=== PATIENT | female | born 1970 | race Caucasian/White ===

== ENCOUNTER 2018-01-17 05:37 | Day surgery (SDC) | payer OTHER, SELFPAY ==
[2017-12-28 08:08] VITALS: BMI 25.9
[2018-01-12 18:00] LABS: Hematocrit 39.9 % (37-47); Hemoglobin 13.2 g/dl (12.0-15.0); Mean Corp Hgb Conc 33.1 g/gl (32-36); Mean Corpuscular Hgb 29.2 pg (27.0-32.0); Mean Corpuscular Volume 88.3 fL (81-99); Mean Platelet Vol. 9.5 fl (6.2-12.0); Platelet Count 260 K/mm3 (150-450); RBC Distribution Width CV 12.5 % (11.6-14.6); RBC Distribution Width SD 40.3 fl (35.1-43.9); Red Blood Count 4.52 M/mm3 (4.2-5.4); White Blood Count 6.3 K/mm3 (4.4-11.0)
[2018-01-12 18:01] LABS: Scan Indicated on CBC? Y/N NO
[2018-01-12 18:32] LABS: Creatinine, Serum 0.71 mg/dL (0.55-1.02); EST Glomerular Filtration Rate 93 mL/min (>60); Est Glom Filt Rate - Afr Amer 112 mL/min (>60); Thyroid Stim Hormone (TSH) 0.02 uIU/mL (0.358-3.74)
[2018-01-12 18:39] LABS: Partial Thromboplast Time 29.9 Seconds (24.1-36.2)
[2018-01-12 20:48] LABS: Prothrombin Time (Protime)PT. 12.8 SECONDS (11.7-14.9)
[2018-01-13 10:47] LABS: Free T3 3.7 pg/mL (2.18-3.98); T4 Free Direct 1.48 ng/dL (0.76-1.46)
--- NOTE | 2018-01-16 20:14 | HP.PCM_ITS ---
History and Physical Date of Admission: 01/17/18 Surgical History and Physical Jie Marques, a 47 year old female 0 0 0 0 0, presents for RAVH/BS on January 17, 2018 at 10:00. -- Uterine Fibroids -- Extremely heavy menses She has known fibroids. UTERUS: 11.2 x 10.4 x 8.6 cm and is completely filled with fibroids. UTERUS: 4.2 x 4.1 x 2.9 cm. There is a 9.3 x 7.3 x 11 cm pedunculated, fundal fibroid. There is a large amount of blood flow where the fibroid connects to the uterus. Pelvic pressure and fullness, heavy menses which began several years ago. It occurs all the time. It is located in the pelvic area. Severity is severe; It is aggravated by pressure and discomfort worse with menses that are heavy. Associated signs and symptoms are pain with IC. Additional comments are: pelvic u/s showed 14cm bulbus uterus with multiple uterine fibroids present; nulliparous. MEDICATIONS HISTORY: Current medications prescribed by our practice are: 1. Lupron Depot 3.75 mg intramuscular syringe kit, 1 injection q month Patient is also takin. levothyroxine 137 mcg tablet, daily 2. Multi For Her 18 mg iron-600 mcg capsule, daily 3. Os-Constantin 500 + D 500mg (1,250mg) -600 unit tablet, daily 4. vitamin E (dl, acetate) 200 unit capsule, daily ALLERGIES: Penicillin, Rash, Penicillins, Rash, Soap, Rash and itching Infections - Chicken pox and yeast inf Illnesses - hypothyroidism,Heart murmur Accidents - no injuries of consequence Hospitalizations - see surgery Review of Systems: GENERAL - Denies fever, or chills SKIN - Denies skin changes EYES - Denies visual changes EARS - Denies difficulty hearing NOSE - Denies nasal congestion or bleeding MOUTH - Denies sore throat or difficulty swallowing NECK - Denies pain or swelling RESPIRATORY - Denies shortness of breath or wheezing CARDIOVASCULAR - Denies palpitations or chest pain GASTROINTESTINAL - Denies nausea, vomiting, diarrhea, constipation GENITOURINARY - Denies dysuria, frequency of urination, incontinence of urine MUSCULOSKELETAL - Denies joint or muscle pain NEUROLOGICAL - Denies localized numbness or weakness PSYCHIATRIC - Denies depression or anxiety ENDOCRINE - Denies heat or cold intolerance, weight loss or gain HEMATO-IMMUNOLOGIC - Denies excesive bleeding with cuts SOCIAL HISTORY: Alcohol Use - RARELY Smoking - denies smoking Diet - balanced Diet Lifestyle - moderate stress lifestyle and Exercise - very active Seat Belt Use - always Employer - [employer] 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 Mother: liver disease. Paternal Grandfather: DM II. Maternal Aunt: DM II. MENSTRUAL HISTORY: LMP Known?- DefiniteAmount/Duration - 4 days, Regularity - Regular, Frequency - monthly days, LMP - 09/27/17, Age Onset Menarche - 12 PAST PREGNANCIES: Total Pregnancies - 0; Full Term Pregnancies - 0; Premature - 0; Abortions, Induced - 0; Abortions, Spontaneous - 0; Ectopics - 0; Multiple Births - 0; Living Children - 0 SURGICAL HISTORY: 1. 1994 left knee arthroscopy ; - 2. 1998 left knee ACL reconstruction ; - 3. 02/15/2004 Back surgery ; - L4,L5 and S1 4. 04/08/2004 Spinal fluid leak-repair from the first surgery ; - 5. 2007 Arthroscopic Left Knee, July ; Dr. Pillai - 6. -2007 Arthroscopic Rt. Knee ; Dr. Pillai - PHYSICAL EXAM BP- 156/70 Sitting, Right arm, regular cuff Weight- 172.00528 lbs Height- 68.75 inch BMI:25.64 CONSTITUTIONAL - NAD, well nourished, and well developed HEENT - normocephalic, atraumatic, sclerae anicteric NECK - no nuchal rigidity NEUROLOGICAL - Cranial nerves II-XII grossly intact PSYCHIATRIC - A and O to time, place, person, mood and affect PAP SMEAR - deferred External Genitial Vagina - non-tender without lesions Urethra/Urethral Meatus - non-tender Bladder - non-tender Vagina - no palpable lesions Cervix - without cervical motion tenderness and has normal size and features without evident lesions Uterus - R side no mass palpable. L side more fixed. 2-3 cm L lower uterine segment / cervical fibroid lateral to cervix. Uterus overall 10-11 cm. more mobile than prior exam. Adnexa - clear without massess or tenderness Rectal - deferred ASSESSMENT/PLAN: 1. Dyspareunia, Leiomyoma Of Uterus, Unspecified and Pelvic and perineal pain S/P 3 mo DepoLupron. Planning RAVH bilateral salpingectomy; Uterus small and multiple fibroids noted. Cervical and lower uterine segment fibroid approx 2-3 cm palpable at L side. R side mobile. Pedunculated fibroid at fundus 9 cm. Advised of anticipated preop, operative and postop recovery with activity restrictions. Aware of potential need for HERRERA, bilateral salpingectomy if unable to complete robotically.
[2018-01-17] VITALS (12 sets, daily range): BP systolic 84–120; BP diastolic 44–68; PULSE 46–99; RESP 14–16; TEMP 36.2–37.7; O2SAT 96–100; BMI 25.9
[2018-01-17 06:06] LABS: Internal QC Validated? YES +Cl - CLEAR BKGD; Pregnancy, Urine Negative Negative
--- NOTE | 2018-01-17 07:30 | HYST_PTH ---
PATIENT: CHAVEZ ADAMS LOC: [facility] [place] U#:[id number] AGE/SX: 47/F ROOM: RE01/17/[address]: Dr. Moi Fisher MD : [id number] BED: DIS: 01/18/2018 SPEC #: [id number] RECD: 01/17/18 11:43 STATUS: RAO FRANSISCA #: [id number] RICK: 01/17/18 07:[address]: Moi Fisher DEPT: SURGICAL PATHOLOGY RECD BY: Aba Hernandez ENTERED: 01/17/18 12:56 SP TYPE: HYSTERECT OTHR DR: Dr. Lala Johnson MD Tissues: Uterus, NOS Procedures: Surgery Specimen Level V HEADER OPERATION: ERAS-lap robotic hysterectomy, salpingectomy PRE-OP DIAGNOSIS: Uterine fibroids TISSUE SUBMITTED: Uterus, bilateral tubes and uterine fibroids MICROSCOPIC DIAGNOSIS Uterus, hysterectomy: Cervix - mild chronic inflammation. Endometrium - mildly disordered proliferative endometrium. Myometrium - leiomyomas. Right and left fallopian tubes - no pathologic change. AM:ralph 01/18/18 COMMENT The majority of the fragments of the leiomyomas are free in the specimen container. MICROSCOPIC DESCRIPTION Slides are reviewed. GROSS DESCRIPTION Received in fixative is one container labeled with the patient's name and designated uterus. The specimen consists of a uterus with attached cervix and right and left fallopian tubes. The uterus with cervix measures 7 x 4.5 x 3 cm and weighs 35 gm. The ectocervix is unremarkable. The cervical os is round in contour. The endocervical canal measures 2.5 cm in length and is grossly unremarkable. The triangular endometrial cavity measures 2 x 1.5 cm. The reddish-juarez, velvety, glistening endometrium measures up to 0.1 cm in thickness. The myometrium is 1 cm in average thickness and contains a smooth, glistening rubbery nodule measuring 1 cm in greatest dimension and consistent with leiomyoma. The right and left fallopian tubes are similar in appearance averaging 7 cm in length and 0.5 cm in average diameter. No adhesions are seen. Present free in the container are multiple irregular and rubbery fragments of morcellated nodules ranging in size from 0.5 cm to 9.5 cm and in aggregate measuring 15 x 14 x 5 cm. Serial sections of these rubbery fragments reveal juarez-white cut surfaces without areas of cyst formation or necrosis. Metal Mine Inspector sections are submitted in 12 cassettes as follows: 1 - anterior cervix, 2 - posterior cervix, 3 & 4 - anterior uterine wall, 5 & 6 - posterior uterine wall with intramyometrial nodule, 7 - right fallopian tube, 8 - left fallopian tube, 9-12 - claims representative sections of rubbery fragments free in container. / AM:ralph 01/17/18 TC:1 CPT: 01041
[2018-01-17] MEDS: Ropivacaine 0.5% 30 ML Vial (07:50)
--- NOTE | 2018-01-17 10:46 | OP.PCM_ITS ---
Report of Operation Date of Procedure: 01/17/18 Pre-Operative Diagnosis: Menorrhagia and Large Symptomatic Uterine Fibroids Post-Operative Diagnosis: Menorrhagia and Large Symptomatic Uterine Fibroids Surgery/Procedure Performed:: Robotic assisted vaginal hysterectomy and bilateral salpingectomy Description of Surgical Findings:: 6-7 cm size uterus with normal-appearing fallopian tubes and ovaries. Approximately a 10 cm multiloculated pedunculated fundal fibroid. Adhesions of fibroid to rectosigmoid and sidewalls. customer resource specialist: Emmanuel Davenport Type of Anesthesia:: General Anesthesiologist: Noni Christensen Specimen's removed: Bilateral fallopian tubes and uterus with large uterine fibroids. Drains: Leavitt to straight drain Estimated Blood Loss (mL): 200 cc Fluids Replaced: Crystalloid Description of Procedure: Surgeon: Moi Fisher MD, FACOG Indication: This is a 47 year old patient G0 who has been having problems with large symptomatic uterine fibroids and menorrhagia. Lupron was used to decrease the size of the fibroid. Conservative measures have otherwise not been helpful. The patient has been counseled regarding the risks, benefits and alternatives of this procedure including the possibility of bleeding, infection, and injury to surrounding structures such as bowel bladder and all questions were answered. She understands that if BSO is needed that she will need to be on HRT for an indefinite period of time. Procedure: Pt taken to the operating room where after induction of general anesthesia the patient was prepped and draped in the usual sterile fashion and placed on a non-slip Huggy-u-vac device. Trendendelenburg test was satisfactory. Bladder was drained of urine with a Leavitt catheter which was left in place. Anterior cervix grasped and cervix was dilated to about 3-4 mm. Uterus sounded to 6 cms. 0-Vicryl suture was placed at the 3:00 and 9:00 position of the cervix. A small V-care device was then placed in the uterus to allow uterine manipulation and attention was turned to the laparoscopic portion of the procedure. Ropivocaine 0.5% was injected approximately 2-3 cm superior to the umbilicus and an 8 mm robotic camera port was introduced directly with intraperitoneal placement confirmed with insufflation. A 5 mm blade less trocar was also introduced suprapubically under direct visualization. After manipulation of the uterus and fibroids it was decided to proceed with the robotic surgery. 8 mm robotic side ports were introduced under direct visualization approximately 11 cm lateral and 2 cm inferior to the umbilical port. A 5 mm left upper quadrant port was introduced and airseal insufflation with CO2 was started. The above findings were noted. Robot was docked without difficulty and attention turned to the robotic portion of the procedure. Approximately 20 cc of Ropivicaine was used. Filmy adhesions were cleared with bipolar cautery and monopolar scissors. The stalk connecting the uterus to the fibroid was divided with bipolar cautery and attention was turned toward the hysterectomy portion procedure. Bilateral mesosalpinx were ligated with 45 mcnally bipolar coagulation to the level of the round ligament. The posterior aspect of the cervix was identified and then opened for about 1 cm using 25 watt monopolar cautery identifying the V-care device which had been placed vaginally. Bladder flap was opened and divided to the level of the round ligaments using monopolar cautery. Progressive bites were then ligated on each side of the cervix with 35 mcnally bipolar cautery to the uterine arteries. The anterior vaginal mucosa was then entered and cervix circumscribed with monopolar cautery. Uterus and attached ovaries and tubes were then removed through the vagina. The remaining uterine fibroid was grasped with Lobo and standard tenaculums and brought to the vaginal opening. It was necessary to morcellate these multiple uterine fibroids to bring them through the vagina. The fibroids had been removed from the vagina, vaginal cuff was closed first with 0-Vicryl Shiva stitches placed at each angle followed by 3 [id number] sutures across the vaginal cuff using 0 Vicryl suture. 0 Vicryl suture was then used in running fashion to oversew the vaginal cuff. Pelvis was copiously irrigated with saline and the right and left ureters polk noted to peristalse. FloSeal was placed across some areas where adhesions had been attached and good hemostasis was noted. Robot was undocked and trocars were removed with as much gas as possible. Incisions were closed with 4-0 Monocryl subcuticular sutures and incisions covered with steri-strips and opsite dressing. The patient tolerated the procedure well and was taken to the recovery room in satisfactory condition. Sponge, instruments and needle counts were all correct. There were no apparent complications of the surgery. Cefotan 2 gms IV was given prior to the procedure. Specimen to pathology: Bilateral fallopian tubes and uterus along with large fibroid. Grafts/Implants Used: None - Complications None - Admit VTE Documentation VTE Present on Admission: Yes VTE Mechan Device Prophylaxis: SCD's VTE Pharm Prophylaxis ordered?: Yes
--- NOTE | 2018-01-17 10:50 | DCINST_ITS ---
Discharge Diet: No Restrictions Discharge Activity: Return to Normal Activity, May not drive while taking narcotic pain medications., May Shower May resume sexual activity in: 6-8 weeks Call your doctor if your incision/area has: Continuous Slow Oozing, Sudden Increased Bleeding, Increased Pain/ Swelling, Increased Redness, Foul Smelling Discharge Call your doctor if you observe: Fever of 101 or Higher, Inability to urinate, Inability to have a bowel movement, Using more than one pad per hour Allergies/Adverse Reactions: Allergies penicillin G Allergy (Severe, Verified 01/10/18 08:04) rash Medications to take at Discharge calcium carbonat and lactate 200 mg calcium-vitamin D3 250 unit tablet 2 tab PO QAM 09/07/17 levothyroxine 137 mcg tablet 137 mcg PO QDAY 09/07/17 multivitamin capsule 1 cap PO QAM 09/07/17 vitamin D 1.25mcg PO 09/07/17 vitamin E (dl, acetate) 200 unit capsule 200 unit PO QDAY 09/07/17 biotin 1 mg capsule 1 mg PO DAILY 12/28/17 leuprolide 3.75 mg intramuscular syringe kit 3.75 mg IM QMONTH 12/28/17 Docusate Sodium [Colace] 100 mg PO BID PRN PRN #60 cap 01/17/18 Oxycodone [Oxyir] 5 mg PO Q6H PRN PRN 7 Days #20 tab 01/17/18 The following prescriptions were given: Oxycodone [Oxyir] 5 mg PO Q6H PRN PRN 7 Days #20 tab PRN Reason: Severe Pain (-11/17) Docusate Sodium [Colace] 100 mg PO BID PRN PRN #60 cap PRN Reason: Constipation Primary Care Physician: Lala Johnson MD [Primary Care Provider] - Test Results: Test results from this visit will be discussed in further detail at your follow- up appointment, if applicable. Please Follow Up With: Moi Fisher MD When: 2-3 weeks
--- NOTE | 2018-01-17 11:56 | SUR.PHASEI ---
IN PACU: DR ROMMEL LEE NOTIFIED OF BRADYCARDIA IN 40-50'S WITH FREQUENT PAC, SOME PVC. ASYMPTOMATIC. SBP 80'S, WAS LOW 90'S IN O.R. INSTRUCTED TO CONTINUE TO MONITOR, CALL ANESTHESIA IF BP DROPS LOWER.
[2018-01-17] MEDS: Dextrose 5%-Lactated Ringers 1,000 ML 125 ML IV ×2 (12:03→19:36)
[2018-01-17] MEDS: Ketorolac 30 MG/ML Syringe IV ×2 (17:04→21:28)
[2018-01-17] MEDS: Enoxaparin 30 MG/0.3 ML Syringe SC (17:58)
[2018-01-18 02:48] VITALS: BP 96/55; PULSE 82; RESP 16; TEMP 37; O2SAT 100
[2018-01-18] MEDS: Ketorolac 30 MG/ML Syringe IV (05:16)
[2018-01-18] MEDS: Levothyroxine 137 MCG Tablet PO (05:33)
[2018-01-18 05:47] LABS: Hematocrit 34.9 % (37-47); Hemoglobin 11.5 g/dl (12.0-15.0); Mean Corpuscular Hgb 29.8 pg (27.0-32.0); Mean Corpuscular Volume 90.4 fL (81-99); Platelet Count 242 K/mm3 (150-450); RBC Distribution Width CV 12.4 % (11.6-14.6); RBC Distribution Width SD 40.4 fl (35.1-43.9); Red Blood Count 3.86 M/mm3 (4.2-5.4); White Blood Count 10.1 K/mm3 (4.4-11.0)
[2018-01-18 06:01] LABS: Scan Indicated on CBC? Y/N NO
[2018-01-18 06:08] LABS: Creatinine, Serum 0.76 mg/dL (0.55-1.02); EST Glomerular Filtration Rate 86 mL/min (>60); Est Glom Filt Rate - Afr Amer 104 mL/min (>60); Estimated Creatinine Clearance 91.32 ml/min
[2018-01-18 06:50] VITALS: O2SAT 99
[2018-01-18 08:15] VITALS: BP 115/63; PULSE 71; RESP 16; TEMP 36.9; O2SAT 99
--- NOTE | 2018-01-18 09:04 | PN.OBGYN_ITS ---
Subjective: Patient without complaints. Tolerating diet well. Positive flatus. Some vaginal bleeding yesterday but this has subsided markedly. Pain well con trolled. Ready to go home. - Physical Exam Vital Signs Temp Pulse Resp BP Pulse Ox 98.5 F 71 16 115/63 99 01/18/18 08:15 01/18/18 08:15 01/18/18 08:15 01/18/18 08:15 01/18/18 08:15 Oxygen Flow Rate (L/min) 1 Oxygen Delivery Method Room Air Weight: 170 lb 13.732 oz Body Mass Index (BMI) 25.9 Intake and Output for Last 24 Hours 01/16/18 01/17/18 01/18/18 23:59 23:59 23:59 Intake Total 5701 / 5701 825 / 825 Output Total 1625 / 1625 1000 / 1000 Balance 4076 / 4076 -175 / -175 Laboratory Tests Past 24 Hrs 01/18/18 01/18/18 05:35 05:35 WBC 10.1 RBC 3.86 L Hgb 11.5 L Hct 34.9 L MCV 90.4 MCH 29.8 MCHC 33.0 RDW 12.4 RDW Differential 40.4 Plt Count 242 MPV 10.0 Creatinine 0.76 Estim Creat Clear Calc 91.32 Est GFR (MDRD) Af Amer 104 Est GFR (MDRD) Non-Af 86 Wounds are clean, dry, intact. Good urine output. Hemoglobin and creatinine okay. Some bruising around airseal port but appears stable. Medical Necessity - Tobacco Use Smoking Status: Never smoker Assessment/Plan All Active Problems (Last Reviewed 09/10/17 @ 09:40 by Hailey Montoya) Joint pain (Acute) Doing well postoperative day #1 status post robotic assisted vaginal hysterectomy and bilateral salpingectomy. Will release to home with routine instructions. Vaginal pack out with minimal vaginal bleeding noted.
[2018-01-18] MEDS: Ketorolac 10 MG Tablet PO (10:33)
[2018-01-18 13:40] VITALS: BP 116/63; PULSE 81; RESP 16; TEMP 37.1; O2SAT 99
== END 2018-01-18 14:25 | disposition home or self-care (01) ==
LOC: SDC 05:38 → AC 05:38 → MS2 10:10
PROVIDERS: Anesthesiology; Family Provider Internal Medicine; PCP Internal Medicine; Referring Provider Obstetrics & Gynecology; Visit Provider Obstetrics & Gynecology
PROC: 0UT94ZZ Resection of Uterus, Percutaneous Endoscopic Approach (ICD-10-PCS; CPT 58552; principal; 2018-01-17 07:10)
DX: D25.9 Leiomyoma of uterus, unspecified (principal); N72 Inflammatory disease of cervix uteri; N92.0 Excessive and frequent menstruation with regular cycle; E03.9 Hypothyroidism, unspecified; Z79.899 Other long term (current) drug therapy; Z88.0 Allergy status to penicillin; Z87.442 Personal history of urinary calculi
CPT/HCPCS: 00840; 58552; S2900; 36415; 81025; 82565; 84439; 84443; 84481; 85027; 85610; 85730; 86850; 86900; 88307; 97802; J7120; J2405

== ENCOUNTER → 2018-03-14 07:45 | Outpatient (CLI) | payer OTHER, SELFPAY ==
[2018-01-24 09:49] VITALS: BMI 25.9
--- NOTE | 2018-03-14 07:49 | BI_ITS ---
MAMMOGRAPHY - BILATERAL SCREENING REASON FOR EXAM: Female, 47 years old. Routine annual screening examination. PERTINENT HISTORY: Aunt with breast cancer. TECHNIQUE: Digital bilateral breast delfino (3D mammographic acquisition) in the CC and MLO projections. 2-D mediolateral oblique (MLO) and craniocaudad (CC) views of both breasts were obtained. CAD: Full Field Digital Mammography with Computer Added Detection was performed. COMPARISON: Comparison is made with prior study dated October 13, 2016 and October 01, 2015. FINDINGS: Breast Composition: The breasts are heterogeneously dense, which may obscure small masses. There are no dominant masses or suspicious calcifications. No other significant abnormalities are identified. There has been no significant change since the prior study. BI/SCREENING MAMM (CAD), BILAT IMPRESSION: Stable bilateral screening mammogram. Yearly follow-up mammogram recommended. (A) ASSESSMENT CATEGORY: BIRADS Category 1: Negative. A letter regarding these results will be sent to the patient by the facility within 30 days. Approximately 10% of breast cancers are not detected by mammography. A normal mammogram should not delay biopsy of a clinically suspicious abnormality. [id number] Electronically Signed: Bertin Rai MD at 9:06 EST , Service support ,
== END ==
PROVIDERS: Family Provider Internal Medicine; PCP Internal Medicine; Referring Provider Obstetrics & Gynecology; Visit Provider Obstetrics & Gynecology
DX: Z12.31 Encounter for screening mammogram for malignant neoplasm of breast (principal)
CPT/HCPCS: 77063; 77067

== ENCOUNTER → 2018-11-09 08:00 | Outpatient (CLI) | payer OTHER, SELFPAY ==
[2018-10-24 08:13] VITALS: BMI 25.9
--- NOTE | 2018-11-09 08:02 | EKG12_ITS ---
Test Reason : FLUTTERING Blood Pressure : / mmHG Vent. Rate : 047 BPM Atrial Rate : 047 BPM P-R Int : 142 ms QRS Dur : 072 ms QT Int : 444 ms P-R-T Axes : 066 055 046 degrees QTc Int : 392 ms Marked sinus bradycardia Abnormal ECG Confirmed by RYDER MORRISON ([id number]), society editor SUSANNE RAM ([id number]) on 11/14/2018 12:10:42 PM Referred By: Lala Johnson Confirmed By:RYDER MORRISON
--- NOTE | 2018-11-09 08:02 | ECHOD_ITS ---
Reason For Study: Arrhythmia Procedure This was a 2D Doppler, Color Flow transthoracic echocardiogram. Contrast injection was performed. Exam performed in department. Left Ventricle Normal size and thickness. The estimated ejection fraction is 65 %. Normal diastology for age. No regional wall motion abnormalities noted. Right Ventricle Mildly dilated right ventricle. Normal systolic function. Atria Normal left atrium. Normal right atrium. Aneurysmal atrial septum. Bubble contrast study negative for right to left interatrial shunt. Mitral Valve The mitral valve is structurally normal. No prolapse or stenosis seen. Tricuspid Valve Normal tricuspid valve. Trivial tricuspid valve insufficiency. Right ventricular systolic pressure estimated to be 22 mmHg. Aortic Valve Normal aortic valve. Trisinus/trileaflet aortic valve. Pulmonic Valve Normal pulmonic valve. Trivial pulmonic valve insufficiency. Great Vessels Normal aortic root. Normal arch. Normal inferior vena cava. Inferior vena cava collapse with sniff. Pericardium/Pleural No pericardial effusion. Medication 22 gauge I.V. with prn adaptor inserted into right arm. Performed a rapid injection of agitated mix of 9 cc saline and 1cc air to assess for atrial septal defect. MMode/2D Measurements & Calculations LVIDd: 5.2 cm IVSd: 0.90 cm LA dimension: 3.7 cm LVIDs: 3.3 cm LVPWd: 1.0 cm RVDd: 3.6 cm FS: 36.1 % LAV(MOD-bp): 46.0 ml LA A4 area: 17.0 cm2 RA A4 area: 14.2 cm2 LAV(MOD-bp) Indexed: 23.8 ml/m2 LAV(MOD-sp2): 44.4 ml LAV(MOD-sp4): 41.0 ml Time Measurements MV dec time: 0.25 sec Doppler Measurements & Calculations MV E max armin: 70.3 cm/sec Lat Peak E' Armin: 8.3 cm/sec Med Peak E' Armin: 6.3 cm/sec MV A max armin: 62.6 cm/sec E/E' lat: 8.5 E/E' med: 11.1 MV E/A: 1.1 MV V2 max: 79.9 cm/sec MV P1/2t max armin: 79.9 cm/sec Ao V2 max: 104.9 cm/sec MV max P.6 mmHg MV P1/2t: 92.6 msec Ao max P.4 mmHg MV V2 mean: 49.7 cm/sec MV dec slope: 252.7 cm/sec2 Ao V2 mean: 70.1 cm/sec MV mean P.1 mmHg Ao mean P.2 mmHg MV V2 VTI: 25.7 cm MVA(P1/2t): 2.4 cm2 Ao V2 VTI: 23.4 cm LV V1 max: 82.0 cm/sec PA V2 max: 86.7 cm/sec TR max armin: 205.6 cm/sec LV V1 max P.7 mmHg TR max P.9 mmHg LV V1 mean P.4 mmHg LV V1 mean: 55.3 cm/sec LV V1 VTI: 19.2 cm Interpretation Summary The estimated ejection fraction is 65 %. Normal diastology for age. Mildly dilated right ventricle. Bubble contrast study negative for right to left interatrial shunt. Trivial tricuspid valve insufficiency. Right ventricular systolic pressure estimated to be 22 mmHg. There is no comparison study available. Ordering Physician: Lala Johnson Referring Physician: Lala Johnson Performed By: Luís Reddy RCS
== END ==
PROVIDERS: Family Provider Internal Medicine; PCP Internal Medicine; Referring Provider Internal Medicine; Visit Provider Internal Medicine
DX: I05.9 Rheumatic mitral valve disease, unspecified (principal); I49.9 Cardiac arrhythmia, unspecified
CPT/HCPCS: 93005; 93306; A4216

== ENCOUNTER 2018-11-21 20:39 | Emergency (ER) | payer OTHER, SELFPAY ==
[2018-10-24 08:13] VITALS: BMI 25.9
[2018-11-21 20:40] VITALS: BP 128/77; PULSE 68; RESP 16; TEMP 37; O2SAT 97; BMI 26.6
--- NOTE | 2018-11-21 21:54 | RAD_ITS ---
STUDY: X-RAY - NASAL BONES REASON FOR EXAM: Female, 48 years old. Tripped and hit door earlier. TECHNIQUE: 3 view(s) of the nasal bones. COMPARISON: None. FINDINGS: Normal nasal bones. Normal anterior nasal spine. There is no demonstrated soft tissue swelling. The remaining visualized osseous structures are normal. Normal visualized paranasal sinuses. RAD/Nasal Bones min 3 Views IMPRESSION: Normal x-ray examination of the nasal bones. Electronically Signed: Cassidy Meadows MD at 22:43 EDT Tel , Service support ,
--- NOTE | 2018-11-21 21:55 | ED.VIS.GEN ---
History of Present Illness Chief Complaint: Laceration Detail of Chief Complaint: Facial laceration Informant: Patient Onset: Today Current Severity: Mild Maximum Severity: Mild Narrative: Patient was walking at a local store trying to balance her bags and grab her keys. She lost her balance and fell forward into the door. She has a laceration just inferior to the right nares. It is not extend across the vermilion border. Teeth are stable. She did have a bloody nose at the time of the incident and she has early bruising noted over the nasal bridge. She has no vision change. Past Medical History - Allergies and Home Meds Allergies/Adverse Reactions: Allergies penicillin G Allergy (Severe, Verified 11/21/18 20:42) rash Penicillins Allergy (Unknown, Verified 11/21/18 20:42) rash Primary Care Physician: Lala Johnson MD [Primary Care Provider] - Prior records reviewed: Yes Past Medical History: - - Reviewed Lives: Spouse/ Significant Other Smoking Status: Never smoker Review of Systems General: Denies: Chills, Fever Eyes: Denies: Visual changes - bilaterally ENT: Reports: - - Nasal pain. Denies: Bilateral ear pain Cardiovascular: Denies: Chest pain Respiratory: Denies: Dyspnea, Cough Gastrointestinal: Denies: Abdominal pain, Nausea, Vomiting, Diarrhea Musculoskeletal: Denies: Extremity Pain Skin: Reports: Wounds Neurological: Reports: Headache Physical Exam Vital Signs/Narrative: Vital Signs Temp Pulse Resp BP Pulse Ox 11/21/18 20:40 98.6 F 68 16 128/77 H 97 Inital Vital Signs reviewed: Yes General: Well nourished, Well developed Head: Normocephalic ENT: Moist mucous membranes, - - Dried blood noted bilateral nares. No septal hematoma. 1 Center meter laceration extending vertically from the right nare. It does not extend across the vermilion border. Cardiovascular: Regular rate, Regular rhythm Respiratory: No distress, CTA bilaterally Abdomen: Soft, Nontender Back: Nontender Extremities: Nontender Skin: - - Laceration as above Neurological: Alert, Oriented x3 Psychological: Normal affect Diagnostic/Tx/Re-eval Impressions Nasal Bones X-Ray 11/21/18 21:54 IMPRESSION: Normal x-ray examination of the nasal bones. Electronically Signed: Cassidy Meadows MD at 22:43 EDT Tel , Service support , 11/21/18 21:54 Nasal Bones min 3 Views [RAD] Stat - Medical Decision Making Test results discussed with patient and sister at bedside. Initially plans to suture the laceration. They are very reluctant to have sutures as they want to minimize the scar as much as possible. They are interested in seeing either dermatology or plastic surgery tomorrow to have this repaired by them. I advised her that I can give her numbers but I could not guarantee that she would be seen. After discussing all of her options she chose to have the wound Dermabond repair at this time. Wound was cleansed. I held the laceration in place while nursing staff applied Dermabond across the wound. It was drying at this time. Patient was given wound care instructions. ED Disposition - Plan for ED Patient: Disposition: Home or Assisted Living Diagnosis: Facial laceration, Nasal contusion Instructions: LACERATION, Face (Skin Glue), Nasal Contusion Referrals: Lala Johnson MD [Primary Care Provider] - Kevan Elizondo MD [STAFF PHYSICIAN] - Talita Howard [NON-STAFF] - Rc Mclean MD [STAFF PHYSICIAN] -
[2018-11-21] MEDS: Diphth,Pertuss(Acell),Tet Vac 0.5 ML Vial IM (22:06)
[2018-11-21 23:31] VITALS: RESP 16
== END 2018-11-21 23:31 | disposition home or self-care (01) ==
PROVIDERS: Emergency Provider Emergency Medicine; Family Provider Internal Medicine; PCP Internal Medicine
DX: S01.81XA Laceration without foreign body of other part of head, initial encounter (principal); S00.33XA Contusion of nose, initial encounter; W01.10XA Fall on same level from slipping, tripping and stumbling with subsequent striking against unspecified object, initial encounter; Y93.01 Activity, walking, marching and hiking; Y92.512 Supermarket, store or market as the place of occurrence of the external cause; Y99.9 Unspecified external cause status; Z23 Encounter for immunization; Z79.899 Other long term (current) drug therapy; Z88.0 Allergy status to penicillin
CPT/HCPCS: 12011; 70160; 90471; 90715; 99282

== ENCOUNTER → 2019-04-07 06:59 | Outpatient (CLI) | payer OTHER, SELFPAY ==
[2018-12-13 14:35] VITALS: BMI 27.5
--- NOTE | 2019-04-07 07:02 | BI_ITS ---
MAMMOGRAPHY - BILATERAL SCREENING REASON FOR EXAM: Female, 48 years old. Routine annual screening examination. PERTINENT HISTORY: Paternal aunt had breast cancer TECHNIQUE: Digital bilateral breast jose (3D mammographic acquisition) in the CC and MLO projections. 2-D mediolateral oblique (MLO) and craniocaudad (CC) views of both breasts were obtained. CAD: Full Field Digital Mammography with Computer Added Detection was performed. COMPARISON: Previous mammogram obtained on 03/14/2018 FINDINGS: Breast Composition: Dense internal breast structure is seen There are no dominant masses or suspicious calcifications. No other significant abnormalities are identified. BI/SCREEN MAMM (CAD) W/JOSE BILAT IMPRESSION: Stable bilateral screening mammogram. Yearly follow-up mammogram recommended. (A) ASSESSMENT CATEGORY: BIRADS Category 1: Negative. A letter regarding these results will be sent to the patient by the facility within 30 days. Approximately 10% of breast cancers are not detected by mammography. A normal mammogram should not delay biopsy of a clinically suspicious abnormality. [id number] Electronically Signed: Moi María Elena, at 9:38 EST Tel , Service support ,
== END ==
PROVIDERS: PCP Internal Medicine; Referring Provider Obstetrics & Gynecology; Visit Provider Obstetrics & Gynecology
DX: Z12.31 Encounter for screening mammogram for malignant neoplasm of breast (principal)
CPT/HCPCS: 77063; 77067

== ENCOUNTER → 2020-01-03 | Outpatient (CLI) | payer OTHER, SELFPAY ==
[2019-12-22 08:12] VITALS: BMI 27.6
== END | disposition home or self-care (01) ==
LOC: LABSPEC 10:40
PROVIDERS: PCP Internal Medicine; Referring Provider Physician Assistant; Visit Provider Physician Assistant
DX: Z20.828 Contact with and (suspected) exposure to other viral communicable diseases (principal)
CPT/HCPCS: 87635; U0003

== ENCOUNTER 2020-01-29 08:08 | Day surgery (SDC) | payer OTHER, SELFPAY ==
[2019-12-22 08:12] VITALS: BMI 27.6
[2020-01-29 08:42] VITALS: BP 118/69; PULSE 65; RESP 14; TEMP 36.3; O2SAT 100; BMI 25.1
[2020-01-29] MEDS: Lactated Ringers 1,000 ML 100 ML IV (08:59)
--- NOTE | 2020-01-29 09:05 | HP.PCM_ITS ---
History of Present Illness Date of Admission: 01/29/20 The patient is a 49 year old F who presents for screening colonoscopy. Past Medical/Surgical History - Planned Operation Planned Operative Procedure/s: COLONOSCOPY Date of Operative Procedure: 01/29/20 Permit Signed: Yes S.O.S: No Is This Patient Having a Total Joint: No - Previous Hospitalizations/Surgeries HX Hospitalizations: No HX of Surgeries: 3 KNEE ON L. 1 KNEE ON R. 2 BACK SURGERIES. VAGINAL HYSTERECTOMY 2018 Any Problems With Anesthesia: No You/Your Family Experience Fever (Hyperthermia) With Anes: No Cholinesterase deficiency: No - Cardiovascular Hx Chest Pain within Last 2 months: No Hx of Irregular Heartbeat and/or Afib: No - PT OF DR. GRAZYNA CHAPA 12/13/2018 Hx Heart Attack: No Hx Congestive Heart Failure: No Hx Rheumatic Fever: No Hx Hypertension: No Hx Internal Defibrillator: No Hx Pacemaker: No Hx Cardiac Catheterization: No Hx Cardiac Surgery/Stents/Etc.: No Hx Stress Test: Yes - 2008 DOESN'T REMEBER WHERE, ECHO 11/09/2018 HX Edema: No Hx Pain in Legs when Walking/Leg Cramps: Yes - Respiratory Chronic Cough: No HX of Shortness of Breath: No Hoarseness: No Hx Chronic Obstructive Pulmonary Disease (COPD): No Hx Asthma: No Hx Emphysema: No Hx Sleep Apnea: No Hx Oxygen Use at Home: No Hx Respiratory Tract Infection/Cold (presently): No Do You Snore Loudly (louder than talking or can be heard): No Do You Often Feel Tired/ Fatigued/ Sleepy Dring Daytime?: No Has Anyone Observed You Stop Breathing During Sleep?: No Result (for STOP score): Negative Hx Smoking: No Smoking Status: Never smoker - Gastrointestinal Hx Gastroesophageal Reflux: No Hx Gastrointestinal Disorders: No Hx Gastrointestinal Bleed: No Hx Ulcer: No Hx Hiatal Hernia: No Difficulty Chewing/Swallowing: No Recent Onset of Swallowing Problems: No Special diet followed at home: No Hx Unplanned Weight Loss of 20#: No HX Unplanned Weight Gain of 20#: No - Neurological Hx Seizures: No HX Syncope/Blackout Spells/Unconsciousness: No Hx CVA/Stroke: No Hx Transient Ischemic Attacks (TIA): No Hx Multiple Sclerosis: No Hx Parkinson's Disease: No Hx Head/Neck Injury: No Hx Headaches: Yes - OCCAS MIGRAINES Hx Back Injury/Pain: Yes - 2 BACK SURGERIES Recent Onset of Speech Difficulty: No Restless Legs: No Does patient have nerve stimulator: No - Blood Disorder Hx Leukemia: No Bleeding Tendencies: No Hx Deep Vein Thrombosis: No Hx High Cholesterol: No Blood Transmitted Disease: No Hx Hepatitis: No Hx Cirrhosis: No Hx Anemia: No Hx Blood Disorders: No - Reproduction : No Is Patient Lactating: No Hx Hysterectomy: Yes Hx Tubal Ligation: No Are You Post Menopause: Yes - Genitourinary Hx Renal Disease: No - KIDNEY STONE Hx Dialysis: No - Musculoskeletal Hx Arthritis: Yes Hx Rheumatoid Arthritis: No Hx Gout: No Recent Onset of an Orthopedic Problem: No - Endocrine Hx Diabetes: No Thyroid Disease: Yes - HYPO Hx Steroid Therapy: No - Psycho/Social Hx Substance Use: No Hx Alcohol Use: No Hx Anxiety: No Hx Depression: No Mental Illness: No Hx Dementia: No - Miscellaneous Hx Cancer: No Recent Exposure to Contagious Disease: No Active MRSA: No Hx of C-Diff: No Any Loose Teeth: No Allergies penicillin G Allergy (Severe, Verified 01/29/20 08:41) rash Penicillins Allergy (Unknown, Verified 01/29/20 08:41) rash latex Adverse Reaction (Intermediate, Verified 01/29/20 08:41) Itching - Discharge Is Pt Admitted From a [facility], or a Nursing Home: No Who Could Help: After D/C, Where Do you Plan to Go: Return Home - Physical Exam Vitals/I&O's: Vital Signs Temp Pulse Resp BP Pulse Ox 97.3 F L 65 14 118/69 100 01/29/20 08:42 01/29/20 08:42 01/29/20 08:42 01/29/20 08:42 01/29/20 08:42 Oxygen Delivery Method Room Air Weight: 170 lb 6.677 oz Body Mass Index (BMI) 25.1 General: Alert, Oriented x3 Cardiovascular: Regular rate, Regular Rhythm, No murmurs Abdomen: Bowel Sounds Present, Soft, Non Tender, Non-Distended Microbiology Past 72 Hours 01/26/20 14:20 Interface Orders SARS-CoV-2 Antigen (Rapid) - Final Current Medications Lactated Ringer's () 1,000 mls @ 100 mls/hr IV .Q10H JESUS Last Admin: 01/29/20 08:59 Dose: 100 mls/hr Documented by: Assessment/Plan All Active Problems (Last Reviewed 01/03/20 @ 07:00 by Linda Barclay) Uterine leiomyoma (Resolved) Assessment: Screening colonoscopy Plan: Colonoscopy Surgery Risks - Colonoscopy Risks Include but are not Limited To: Risks include but are not limited to: Bleeding, perforation requiring further surgery, inability to complete colonoscopy requiring barium enema.
--- NOTE | 2020-01-29 09:34 | OP.CCLET_ITS ---
01/29/2020 Lala Johnson MD [address] [place] [address] [place] [address] Re : Colonoscopy procedure for Jie Marques Dear Dr. Johnson This procedure was performed on Wednesday, January 29, 2020. My impressions and recommendations are as follows: Impressions : - Non-bleeding internal hemorrhoids. - The examination was otherwise normal. - No specimens collected. Recommendations : - Discharge patient to home. - Resume previous diet. - Continue present medications. - Repeat colonoscopy in 10 years for screening purposes. - Return to primary care physician at appointment to be scheduled. My findings are described in the full procedure note, which is enclosed. If I can be of further assistance, please feel free to contact me at Doctor phone number(s): , Fax: [phone], Work: . Sincerely, MD Dada Dawson MD 01/29/2020 9:33:59 AM This report has been signed electronically.
--- NOTE | 2020-01-29 09:34 | OP.COLON_ITS ---
Patient Name: Jie Marques Procedure Date: 01/29/2020 9:10 AM Date of : 1970 Age: 49 Procedure: Colonoscopy Indications: Screening for colorectal malignant neoplasm Providers: Dada Benz MD Referring MD: Lala Johnson MD Medicines: See the Anesthesia note for documentation of the administered medications Patient Profile: This is a 49 year old female. Refer to note in patient chart for documentation of history and physical. Last Colonoscopy: none. The patient's first colonoscopy is today. Complications: No immediate complications. Procedure: Pre-Anesthesia Assessment: - Prior to the procedure, a History and Physical was performed, and patient medications and allergies were reviewed. The patient's tolerance of previous anesthesia was also reviewed. The risks and benefits of the procedure and the sedation options and risks were discussed with the patient. All questions were answered, and informed consent was obtained. Prior Anticoagulants: The patient has taken no previous anticoagulant or antiplatelet agents. ASA Grade Assessment: II - A patient with mild systemic disease. After reviewing the risks and benefits, the patient was deemed in satisfactory condition to undergo the procedure. After I obtained informed consent, the scope was passed under direct vision. Throughout the procedure, the patient's blood pressure, pulse, and oxygen saturations were monitored continuously. The colonoscope was introduced through the anus and advanced to the cecum, identified by appendiceal orifice and ileocecal valve. The colonoscopy was performed without difficulty. The patient tolerated the procedure well. The quality of the bowel preparation was good. Scope In: 9:19:24 AM Scope Withdrawal Time 0 hours 6 minutes 35 seconds Scope Out: 9:31:03 AM Total Procedure Duration Time 0 hours 11 minutes 39 seconds Findings: Non-bleeding internal hemorrhoids were found during retroflexion. The hemorrhoids were mild and small. The exam was otherwise without abnormality. Impression: - Non-bleeding internal hemorrhoids. - The examination was otherwise normal. - No specimens collected. Recommendation: - Discharge patient to home. - Resume previous diet. - Continue present medications. - Repeat colonoscopy in 10 years for screening purposes. - Return to primary care physician at appointment to be scheduled. Procedure Code(s): --- Professional --- 26400, Colonoscopy, flexible; diagnostic, including collection of specimen(s) by brushing or washing, when performed (separate procedure) Diagnosis Code(s): --- Professional --- Z12.11, Encounter for screening for malignant neoplasm of colon K64.8, Other hemorrhoids CPT copyright 2017 [employer] [place] [employer]. All rights reserved. The codes documented in this report are preliminary and upon coder operator review may be revised to meet current compliance requirements. MD Dada Dawson MD 01/29/2020 9:33:59 AM This report has been signed electronically. Number of Addenda: 0 Note Initiated On: 01/29/2020 9:10 AM
[2020-01-29 09:35] VITALS: BP 118/69; BP 91/58; PULSE 68; RESP 16; TEMP 36.3; O2SAT 100
[2020-01-29 09:40] VITALS: BP 101/60; BP 118/69; PULSE 63; RESP 16; O2SAT 100
[2020-01-29 09:45] VITALS: BP 118/69; BP 99/55; PULSE 53; RESP 18; O2SAT 100
[2020-01-29 09:54] VITALS: BP 106/62; BP 118/69; PULSE 58; RESP 16; TEMP 37.3; O2SAT 100
[2020-01-29 10:35] VITALS: BP 118/69
== END 2020-01-29 10:35 | disposition home or self-care (01) ==
LOC: EN 08:09 → AC 08:09
PROVIDERS: PCP Internal Medicine; Referring Provider Internal Medicine; Visit Provider Surgery
PROC: 0DJD8ZZ Inspection of Lower Intestinal Tract, Via Natural or Artificial Opening Endoscopic (ICD-10-PCS; CPT 45378; principal; 2020-01-29 09:10)
DX: Z12.11 Encounter for screening for malignant neoplasm of colon (principal); K64.8 Other hemorrhoids; Z20.828 Contact with and (suspected) exposure to other viral communicable diseases; E03.9 Hypothyroidism, unspecified; M19.90 Unspecified osteoarthritis, unspecified site; Z78.0 Asymptomatic menopausal state; Z79.82 Long term (current) use of aspirin; Z79.899 Other long term (current) drug therapy
CPT/HCPCS: 45378; 87426; C9803; J7120; J2405

== ENCOUNTER → 2020-04-16 07:23 | Outpatient (CLI) | payer OTHER, SELFPAY ==
--- NOTE | 2020-04-16 07:26 | BI_ITS ---
MAMMOGRAPHY - BILATERAL SCREENING REASON FOR EXAM: Female, 49 years old. Routine annual screening examination. PERTINENT HISTORY: Aunt with breast cancer. TECHNIQUE: Digital bilateral breast jose (3D mammographic acquisition) in the CC and MLO projections. 2-D mediolateral oblique (MLO) and craniocaudad (CC) views of both breasts were obtained. CAD: Full Field Digital Mammography with Computer Added Detection was performed. COMPARISON: Comparison is made with prior study dated 04/07/2019 and 03/14/2018. FINDINGS: Breast Composition: The breasts are heterogeneously dense, which may obscure small masses. There are no dominant masses or suspicious calcifications. No other significant abnormalities are identified. There has been no significant change since the prior study. BI/SCRN MAMM (CAD)W/JOSE BILAT IMPRESSION: Stable bilateral screening mammogram. Yearly follow-up mammogram recommended. (A) ASSESSMENT CATEGORY: BIRADS Category 1: Negative. A letter regarding these results will be sent to the patient by the facility within 30 days. Approximately 10% of breast cancers are not detected by mammography. A normal mammogram should not delay biopsy of a clinically suspicious abnormality. [id number] Electronically Signed: Bertin Rai MD at 8:57 EDT , Service support ,
== END ==
PROVIDERS: PCP Internal Medicine; Referring Provider Obstetrics & Gynecology; Visit Provider Obstetrics & Gynecology
DX: Z12.31 Encounter for screening mammogram for malignant neoplasm of breast (principal)
CPT/HCPCS: 77063; 77067

== ENCOUNTER → 2020-10-30 | Outpatient (CLI) | payer OTHER, SELFPAY ==
[2020-10-31 08:41] LABS: Bacteria 0 SEEN /hpf (None Seen); Mucous, Urine 0 SEEN /hpf (<or=2+); Red Blood Cells-Urine 0 SEEN /hpf (0-5); White Blood Cells 0 SEEN /hpf (0-5)
[2020-10-31 12:27] LABS: Color, Urine Yellow (Yellow); Glucose, Dipstick Normal (Normal); Ketone-Dipstick Negative (Negative); Leukocyte Esterase-Dipstick Negative /ul (Negative); Nitrite-Dipstick Negative (Negative); Occult Blood-Urine Negative /ul (Negative); Protein-Dipstick Negative (Negative); Urine Bilirubin Dipstick Negative (Negative); Urine Clarity Clear (Clear); Urine Urobilinogen Normal (Normal)
[2020-10-31 12:48] LABS: Squamous Epithelial Cells - UA 0-5 SEEN /hpf (5-10)
== END | disposition home or self-care (01) ==
LOC: LABSPEC 10:06
PROVIDERS: Nurse Practitioner Family; PCP Internal Medicine; Referring Provider Physician Assistant Surgical; Visit Provider Physician Assistant Surgical
DX: R10.9 Unspecified abdominal pain (principal); R23.2 Flushing
CPT/HCPCS: 81001; 87086; 87088; 87635; U0005; U0003

== ENCOUNTER → 2020-11-25 | Outpatient (CLI) | payer OTHER, SELFPAY | END | disposition home or self-care (01) | LOC: LABSPEC 14:27 | PROVIDERS: PCP Internal Medicine; Referring Provider Physician Assistant Surgical; Visit Provider Physician Assistant Surgical | DX: U07.1 COVID-19 (principal) | CPT/HCPCS: 87635; U0005; U0003 ==

== ENCOUNTER 2021-03-28 10:47 | Outpatient (CLI) | payer OTHER, SELFPAY ==
--- NOTE | 2021-03-28 10:48 | RAD_ITS ---
EXAM: XR CERVICAL SPINE, 4 OR 5 VIEWS CLINICAL INDICATION: neck pain TECHNIQUE: Frontal, lateral and oblique views of the cervical spine. This report was created using [employer] report generation technology. COMPARISON: None. FINDINGS: VERTEBRAE: C4-5 and C5-6: There is endplate spondylosis of the vertebral body. Loss of intervertebral disc height. Neural foraminal narrowing. Preservation of the normal cervical lordosis. No significant facet arthropathy. DISC SPACES: See above. SOFT TISSUES: Unremarkable. No prevertebral soft tissue widening. LUNG APICES: Clear. RAD/Cerv Spine 4 or 5 Views IMPRESSION: C4-5 and C5-6: There is endplate spondylosis of the vertebral body. Loss of intervertebral disc height. Neural foraminal narrowing. Electronically Signed: Black Garcias MD at 19:20 EST Reading Location ID and State: [facility] / [place] , Service support ,
--- NOTE | 2021-03-28 10:48 | RAD_ITS ---
STUDY: X-RAY - THORACIC SPINE REASON FOR EXAM: Female, 50 years old. Back pain TECHNIQUE: 4 view(s) of the thoracic spine were obtained. Only 2 views are available for review. COMPARISON: None. FINDINGS: Normal kyphosis of the thoracic spine. There is no substantial scoliosis. There is multilevel endplate spondylosis of the thoracic vertebrae. There is multilevel disc space narrowing of the thoracic spine. The soft tissue structures are unremarkable. RAD/Thoracic Spine Min 4 Views IMPRESSION: There are degenerative changes as noted above. Electronically Signed: Black Garcias MD at 17:25 EST ,
== END 2021-03-28 23:59 | disposition home or self-care (01) ==
LOC: MTRAD 10:48
PROVIDERS: PCP Internal Medicine; Visit Provider Nurse Practitioner Family
DX: M54.2 Cervicalgia (principal); M54.6 Pain in thoracic spine
CPT/HCPCS: 72050; 72074

== ENCOUNTER 2021-04-24 07:00 | Outpatient (CLI) | payer OTHER, SELFPAY ==
--- NOTE | 2021-04-24 07:02 | BI_ITS ---
MAMMOGRAPHY - BILATERAL SCREENING 3-D TOMOSYNTHESIS REASON FOR EXAM: Female, 50 years old. SCREENING PERTINENT HISTORY: No significant family history. TECHNIQUE: 2-D mammograms and 3-D Tomosynthesis of the breast (s) were performed. CAD was performed. COMPARISON: 04/16/2020 FINDINGS: The breast composition is heterogeneously dense that can obscure small breast masses. Scattered benign calcifications are seen. No dense spiculated masses or suspicious microcalcifications are identified. No architectural distortion is identified. There is no skin thickening or retraction. There has been no significant change since the prior study. BI/SCRN MAMM (CAD)W/JOSE BILAT IMPRESSION: No mammographic signs of malignancy. Routine yearly mammograms recommended. ASSESSMENT CATEGORY: BIRADS Category 1: Negative. A letter regarding these results will be sent to the patient by the facility within 30 days. FOLLOW UP RECOMMENDATION: Yearly follow up mammogram recommended. (A) Approximately 10% of breast cancers are not detected by mammography. A normal mammogram should not delay biopsy of a clinically suspicious abnormality. Electronically Signed: Aba Meehan MD at 8:52 EDT ,
== END 2021-04-24 23:59 | disposition home or self-care (01) ==
LOC: OPBI 07:00
PROVIDERS: PCP Internal Medicine; Visit Provider Obstetrics & Gynecology
DX: Z12.31 Encounter for screening mammogram for malignant neoplasm of breast (principal)
CPT/HCPCS: 77063; 77067

== ENCOUNTER 2021-04-25 07:00 | Outpatient (RCR) | payer OTHER, SELFPAY ==
--- NOTE | 2021-03-31 07:50 | HP.PTEVAL_ITS ---
Patient's Visit Information CHAVEZ ADAMS is a 50 year old F referred to Physical Therapy by ANA Jacobo with a diagnosis of cervicalgia. Date of Evaluation: 03/31/21 Physical Therapist: Chauncey Pritchard DPT, OCS, CSCS - Visit Plan Frequency: 2-3x /Week Duration: 2-4 Weeks Plan: 2-3x/week for 2-4 weeks for ... 1. yanelis ext bias ROM exercises and lower cervical mobs as needed. 2. STM to L UT, TENS with MH if needed for pain. 3. cervical and postural strength to HEP - Subjective 01/07 had dental work done and been sleeping with head propped since then and now has bulging disc in neck and muscle ache. Got muscle relaxer Wednesday which has helped a little bit. Pain is across L shoulder and down arm to finger tingling, that was a week ago. Grabbing things with L arm feels different and heavy. Most pain is scapular L and into shoulder. Worse riding in car. 2 weeks ago it was 9/10 and keeping her up. Now she can sleep but wakes up uncomfortable. Not allowed to lift due to implants right now. She is right handed. Can lift L arm but it hurts. Works sitting and standing at work but fidgets at work. 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 Not missing work. Activities are normal but cannot lift or bend over due to tooth. Never had neck pain prior. - Pain L shoulder pain Pain Intensity (Out of 10): 0 Pain Intensity Range: 1, 9 - Objective Walks and trasnfers normal and I. 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 tricep weak L 4- vs 4 others. No sensation deficits in UE. reflexes 2/3 bi and tri B. cervical aROM 70 ext and 75 B rotation and full flexion, all pinch L scapula. UE AROM WFL and without deficits. Tender L UT moderately compared to R. + c/s compression l rotation and ext. repeated motion: protrusion B during and NE after. repeated retraction W during , NE pain . repeated ext x 12 pinches during L scapula and increases ROM and L tricep strength. moves pinch centrally. - Balance/Special Test Scores Oswestry Neck Score: 19 - Goals Goal 1:: Full cervical AROM without pain Goal Time Frame: 2-4 Weeks Goal 2:: No tricep weakness or UE symptoms for one week. Goal Time Frame: 2-4 Weeks Goal 3:: Pt feel 90% back to normal with no more than 1/10 pain in scap Goal Time Frame: 2-4 Weeks Goal 4:: oswestry neck 5 or less. Goal Time Frame: 2-4 Weeks - Rehabilitation Potential Physical Therapy Diagnosis: neck pain with radicular arm symptoms effecting sleep and function Rehabilitation Potential: Fair - Anticipated Interventions Patient/Client Instruction: Educate patient on: Condition, Plan of Care For the Purpose of:: To decrease pain, To increase ROM, To increase oxygenation perfusion, To improve ability of physical actions for home/community/work/leisure Therapeutic Exercise to Include: Strength training, Postural training, Flexibilty training, Passive ROM, Active ROM, Yanelis Exercises For the Purpose of:: To decrease pain, To increase ROM, To improve muscle performance and motor function, To improve ability of physical actions for home/community/work/leisure Manual Therapy Techniques to Include: Mobilization, Soft tissue mobilization For the Purpose of:: To decrease pain, To increase ROM TENS: Yes Thermo therapy (hot pack): Yes For the Purpose of:: To decrease pain Thank you for the opportunity to evaluate your patient. For Medicare and Medicare HMO plans, please review the plan of care and approve it. It will need to be FAXED BACK to us at [phone] for Medicare purposes. For Medicare only, by signing this I certify the plan of care. Please let me know if there are questions or concerns regarding this plan of care. Physician Signature: Date:
--- NOTE | 2021-06-13 08:37 | HP.PT.NRP ---
CHAVEZ ADAMS was seen in my office for initial evaluation on 03/31/21. The following Plan of Care was established for this patient: Initial Frequency: 2-3x /Week Initial Duration: 2-4 Weeks Patient/Client Instruction: Educate patient on: Condition, Plan of Care For the Purpose of:: To decrease pain, To increase ROM, To increase oxygenation perfusion, To improve ability of physical actions for home/community/work/leisure Therapeutic Exercise to Include: Strength training, Postural training, Flexibilty training, Passive ROM, Active ROM, Demetri Exercises For the Purpose of:: To decrease pain, To increase ROM, To improve muscle performance and motor function, To improve ability of physical actions for home/community/work/leisure Manual Therapy Techniques to Include: Mobilization, Soft tissue mobilization For the Purpose of:: To decrease pain, To increase ROM TENS: Yes Thermo therapy (hot pack): Yes For the Purpose of:: To decrease pain This patient was last seen in our office 04/25/21. Pertinent comments regarding their Physical therapy will appear below: Pt seen for 8 visits of POC and was feeling so much better She cancelled her recheck stating she would reschedule but did not. I have seen her working out in the gym numerous times and she says she is doing well. I will discontinue at this time. At this point I will be discontinuing this patient from physical therapy. I would be happy to see this patient again in the future if found appropriate by the physician. Thank you! Chauncey Pritchard, DPT, OCS, CSCS Balance/Gait/Functional tests - Balance/Special Test Scores Oswestry Neck Score: 19
== END 2021-04-25 19:00 | disposition home or self-care (01) ==
LOC: PT 07:00
PROVIDERS: PCP Internal Medicine; Referring Provider Nurse Practitioner Family; Visit Provider Nurse Practitioner Family
DX: M54.2 Cervicalgia (principal)
CPT/HCPCS: 97110; 97140; 97161; 97530

== ENCOUNTER → 2021-08-29 | Outpatient (CLI) | payer OTHER, SELFPAY | END | disposition home or self-care (01) | LOC: LABSPEC 09:13 | PROVIDERS: PCP Internal Medicine; Referring Provider Physician Assistant; Visit Provider Physician Assistant | DX: R19.7 Diarrhea, unspecified (principal); Z20.822 Contact with and (suspected) exposure to COVID-19 | CPT/HCPCS: 87635; U0003; U0005 ==

== ENCOUNTER → 2021-09-03 | Outpatient (CLI) | payer OTHER, SELFPAY ==
[2021-09-05 10:27] LABS: H. PYLORI STOOL AG Negative (Negative)
== END | disposition home or self-care (01) ==
LOC: LABSPEC 08:14
PROVIDERS: PCP Internal Medicine; Referring Provider Physician Assistant; Visit Provider Physician Assistant
DX: R19.7 Diarrhea, unspecified (principal)
CPT/HCPCS: 82274; 83630; 87493; 87506

== ENCOUNTER → 2021-10-31 | Outpatient (CLI) | payer OTHER, SELFPAY ==
--- NOTE | 2021-10-31 16:33 | RAD_ITS ---
EXAM: XR <TEMPLATE> CLINICAL INDICATION: limb length difference lower extremity TECHNIQUE: X-ray bone length studies scanograms. This report was created using [employer] report generation technology. COMPARISON: None. FINDINGS: Length of the right lower extremity is 3.5 cm longer than the left lower extremity. Most of the limb length discrepancy related to narrowing of the left knee joint as well as slight decrease in the length of the left tibia. RAD/Bone Length IMPRESSION: As above. Electronically Signed: Bernardo Lopez MD at 10:00 EDT ,
== END | disposition home or self-care (01) ==
LOC: MTRAD 16:31
PROVIDERS: PCP Internal Medicine; Referring Provider Podiatrist; Visit Provider Podiatrist
DX: M21.762 Unequal limb length (acquired), left tibia (principal)
CPT/HCPCS: 77073

== ENCOUNTER → 2022-05-05 | Outpatient (CLI) | payer OTHER, SELFPAY ==
--- NOTE | 2022-05-05 07:04 | BI_ITS ---
MAMMOGRAPHY - BILATERAL SCREENING REASON FOR EXAM: Female, 51 years old. Routine annual screening examination. PERTINENT HISTORY: Aunt with breast cancer. TECHNIQUE: Digital bilateral breast jose (3D mammographic acquisition) in the CC and MLO projections. 2-D mediolateral oblique (MLO) and craniocaudad (CC) views of both breasts were obtained. CAD: Full Field Digital Mammography with Computer Added Detection was performed. COMPARISON: Comparison is made with prior study dated April 24, 2021 and April 16, 2020. FINDINGS: Breast Composition: The breasts are heterogeneously dense, which may obscure small masses. There are no dominant masses or suspicious calcifications. No other significant abnormalities are identified. There has been no significant change since the prior study. BI/SCRN MAMM (CAD)W/JOSE BILAT IMPRESSION: Stable bilateral screening mammogram. Yearly follow-up mammogram recommended. (A) ASSESSMENT CATEGORY: BIRADS Category 1: Negative. A letter regarding these results will be sent to the patient by the facility within 30 days. Approximately 10% of breast cancers are not detected by mammography. A normal mammogram should not delay biopsy of a clinically suspicious abnormality. [id number] Electronically Signed: Bertin Rai MD at 9:02 EDT ,
== END | disposition home or self-care (01) ==
LOC: OPBI 06:58
PROVIDERS: PCP Internal Medicine; Referring Provider Obstetrics & Gynecology; Visit Provider Obstetrics & Gynecology
DX: Z12.31 Encounter for screening mammogram for malignant neoplasm of breast (principal)
CPT/HCPCS: 77063; 77067

== ENCOUNTER → 2022-05-19 | Outpatient (CLI) | payer OTHER, SELFPAY | END | disposition home or self-care (01) | LOC: LAB 06:01 | PROVIDERS: PCP Internal Medicine | DX: M17.12 Unilateral primary osteoarthritis, left knee (principal); Z91.09 Other allergy status, other than to drugs and biological substances | CPT/HCPCS: 36415 ==

== ENCOUNTER → 2022-09-16 | Outpatient (CLI) | payer OTHER, SELFPAY ==
--- NOTE | 2022-09-16 16:40 | RAD_ITS ---
INDICATION: LIMB LENGTH STUDY EXAMINATION/TECHNIQUE: X-RAY - XR Bone Length Studies Scanograms 3 image AP lower leg composite image COMPARISON: None. FINDINGS: SOFT TISSUES:No focal soft tissue edema. No subcutaneous emphysema. Bilateral lower leg peripheral venous distention. No radiopaque foreign body. BONES/JOINTS: No acute fracture.. Normal osseous alignment. Prior left knee arthroplasty. Superior mid femoral head to tibial plafond measures 96.4 cm on the right and 96.3 cm on the left. Superior mid femoral to femoral trochlear notch measures 52.9 cm on the right and 53.1 cm on the left(to prosthesis) Right knee 5 degrees genu valgus. Left knee 3 degrees genu valgus. No measurable pelvic tilt. Normal femoral neck angulation. RAD/Bone Length IMPRESSION: Symmetric leg length as above. Prior left knee arthroplasty. Lower leg varicose veins Electronically Signed: John Madrigal MD at 1:42 EDT ,
== END | disposition home or self-care (01) ==
PROVIDERS: PCP Internal Medicine; Referring Provider Podiatrist; Visit Provider Podiatrist
DX: I83.90 Asymptomatic varicose veins of unspecified lower extremity (principal); Z96.652 Presence of left artificial knee joint
CPT/HCPCS: 77073

== ENCOUNTER → 2022-12-23 | Outpatient (CLI) | payer OTHER, SELFPAY ==
[2022-12-23 12:37] LABS: Absolute Lymphocyte Count 1.25 X10^3/uL (0.83-4.51); Basophil# 0.06 X10^3/uL; Eosinophil# 0.11 X10^3/uL; Eosinophils% 1.9 % (0-5); Hematocrit 40.3 % (37-47); Hemoglobin 12.7 g/dL (12.0-15.0); Lymphocyte # 1.25 X10^3/ul (0.83-4.51); Lymphocyte % 21.5 % (19-41); Mean Corp Hgb Conc 31.5 g/dL (32-36); Mean Corpuscular Hgb 28.9 pg (27.0-32.0); Mean Corpuscular Volume 91.8 fL (81-99); Mean Platelet Vol. 10.3 fl (6.2-12.0); Monocyte# 0.41 X10^3/uL; NRBC Flagged by Analyzer 0 % (0-5); Neutrophil # 3.97 X10^3/uL (2.7-7.7); Neutrophil % 68.3 % (47-70); Platelet Count 278 K/mm3 (150-450); RBC Distribution Width CV 13.5 % (11.6-14.6); RBC Distribution Width SD 45.9 fl (35.1-43.9); Red Blood Count 4.39 M/mm3 (4.2-5.4); White Blood Count 5.8 K/mm3 (4.4-11.0)
[2022-12-23 12:56] LABS: ALB/GLOB Ratio 1.3 RATIO (0.9-2.4); AST(SGOT) 23 U/L (15-37); Alanine Aminotransfer ALT/SGPT 35 U/L (13-56); Albumin, Serum 4.4 g/dL (3.2-5.0); Alkaline Phosphatase 70 U/L (45-117); Anion Gap 7 (5-15); BUN 14 mg/dL (7-18); BUN/Creat Ratio 16.9 RATIO (10-20); Calcium,Total 9.5 mg/dL (8.5-10.1); Chloride 104 mmol/L (98-107); Cholesterol 225 mg/dL (200); Creatinine, Serum 0.83 mg/dL (0.55-1.02); EST Glomerular Filtration Rate 77 mL/min (>60); Est Glom Filt Rate - Afr Amer 93 mL/min (>60); Globulin 3.3 g/dL (2.2-4.2); Glucose 80 mg/dL (74-106); High Density Lipoprotein 77 mg/dL; Potassium 4.2 mmol/L (3.5-5.1); Protein, Total 7.7 g/dL (6.4-8.2); Sodium Level 140 mmol/L (136-145); Triglycerides 74 mg/dL; Very Low Density Lipoprotein 15 mg/dL (5-40)
[2022-12-24 11:08] LABS: ANTINUCLEAR ANTIBODIES DIRECT Negative (Negative)
== END | disposition home or self-care (01) ==
LOC: BIMLAB 08:33
PROVIDERS: PCP Internal Medicine; Referring Provider Internal Medicine; Visit Provider Internal Medicine
DX: E03.9 Hypothyroidism, unspecified (principal); R68.2 Dry mouth, unspecified; F41.9 Anxiety disorder, unspecified; F32.A Depression, unspecified
CPT/HCPCS: 36415; 80053; 80061; 84443; 85025; 86038; 86225; 86235

== ENCOUNTER → 2023-01-13 | Outpatient (CLI) | payer OTHER, SELFPAY ==
[2023-01-13 13:10] LABS: ALB/GLOB Ratio 1.2 RATIO (0.9-2.4); AST(SGOT) 23 U/L (15-37); Alanine Aminotransfer ALT/SGPT 33 U/L (13-56); Albumin, Serum 4.2 g/dL (3.2-5.0); Alkaline Phosphatase 65 U/L (45-117); Anion Gap 6 (5-15); BUN 13 mg/dL (7-18); BUN/Creat Ratio 15.8 RATIO (10-20); Chloride 104 mmol/L (98-107); Cholesterol 194 mg/dL (200); Creatinine, Serum 0.82 mg/dL (0.55-1.02); EST Glomerular Filtration Rate 77 mL/min (>60); Est Glom Filt Rate - Afr Amer 94 mL/min (>60); Globulin 3.5 g/dL (2.2-4.2); Glucose 91 mg/dL (74-106); High Density Lipoprotein 67 mg/dL; Potassium 4.1 mmol/L (3.5-5.1); Protein, Total 7.7 g/dL (6.4-8.2); Sodium Level 138 mmol/L (136-145); Thyroid Stim Hormone (TSH) 6.48 uIU/mL (0.358-3.74); Triglycerides 60 mg/dL; Very Low Density Lipoprotein 12 mg/dL (5-40)
== END | disposition home or self-care (01) ==
LOC: BIMLAB 08:05
PROVIDERS: PCP Internal Medicine; Referring Provider Internal Medicine Endocrinology, Diabetes & Metabolism; Visit Provider Internal Medicine Endocrinology, Diabetes & Metabolism
DX: E03.8 Other specified hypothyroidism (principal); E78.00 Pure hypercholesterolemia, unspecified
CPT/HCPCS: 36415; 80053; 80061; 84443

== ENCOUNTER 2023-01-26 07:00 | Outpatient (RCR) | payer OTHER, SELFPAY ==
--- NOTE | 2022-08-14 08:42 | HP.PTEVAL ---
Patient's Visit Information Visit Information Visit Information: CHAVEZ ADAMS is a 51 year old F referred to Physical Therapy by Dr. Robb Burns MD with a diagnosis of S/P TOTAL KNEE ARTHROPLASTY ,LEFT. Date of Evaluation: 08/14/22 Physical Therapist: Rc Baeza PT, Cert MDT, OCS Visit Plan Frequency: 2x /Week Duration: 6 Weeks Plan: PT INTERVETIONS ROM/FLEXABLITY KNEE ,STRENGTHENING QUADS/HAMS/HIP ,GAIT TRAINING ,BIKE /NUSTEP FOR ROM AND FUNCTIONAL STRENGTHENING Subjective Subjective: This 51 y/o female presents to physical with left TKA on July 23 at [facility] by [place] . Patient was d/c July 24 with FWW. Then started [facility] PT ~ 2 //2 weeks . Patient has had knee pain many years and progressively DJD due to surgery ACL ,arthroscopy and feel off bike. 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 Patient is min . Oxycodone is as needed. Patient seen DR August 07 x-rays looked good. Patient progressed to cane. Patient sleeping well. Patient lives in 1 story home with 4steps and basement with handrails. Patient has tub/shower with set. Patient will start driving 4 weeks . Patient has [employer] car at home. Patient goals to return to work and walk normal. Patient condition affects QOL and function. SOCIAL: VOCATION: Mariela Pain Left Knee: Pain Intensity (Out of 10): 3 Pain Intensity Range: 10 Objective Objective: POSTURE: mild forward posture GAIT: reciprocal pattern 2 point gait with decrease swing heel strike toe off NEURO: c/o paresthesia/tingling lateral leg ,light touch INSCISON : well approximate scabby GIRTH PATELLA: 41.3 cm GIRTH 6 SUPRAPATELLAR: 49.cm AAROM: 0-100 degrees supine knee flexion MMT: ( peak force) quadriceps 21.1 , hamstrings 11.2 STAIRS: one step at time with rails Balance/Special Test Scores Lower Extremity Functional Score: 24 TUG Test Time Seconds: 17.3 WOMAC Total Score: 42 WOMAC Percentatge: 56.2500 Goals Goal 1:: Patient to be I with HEP for TKA Goal Time Frame: 4-6 Weeks Goal 2:: Patient to normalize gait pattern Goal Time Frame: 4-6 Weeks Goal 3:: Patient to increase peak force quads/hams by 10-15 # strength to improve function Goal 4:: Patient to increase AROM supine knee flexion 0-120 degrees to alternating with stairs Goal Time Frame: 4-6 Weeks Goal 5:: Patient to improve WOMAC by 10 point to improve QOL Goal Time Frame: 4-6 Weeks Goal 6:: Patient to improve LFES score by 10 points to improve and function Goal Time Frame: 4-6 Weeks Rehabilitation Potential Physical Therapy Diagnosis: This patient underwent s/p TKA with decrease ROM ,pain mild effusion ,decrease gait ,stairs thus benefit from skilled PT Rehabilitation Potential: Good Anticipated Interventions Patient/Client Instruction: Educate patient on: Condition and Plan of Care For the Purpose of:: To decrease pain, To increase ROM, To improve muscle performance and motor function, To increase tolerance to activity/condition/position, To improve ability of physical actions for home/community/work/leisure, To improve gait and locomotor functions, To increase flexibility/ROM, To improve endurance and To improve balance Therapeutic Exercise to Include: Strength training, Endurance training, Balance training, Flexibilty training, Gait and locomotor training, Passive ROM and Active ROM Comment: QUADS/HAMS /HIP For the Purpose of:: To decrease pain, To increase ROM, To improve muscle performance and motor function, To increase tolerance to activity/condition/position, To improve ability of physical actions for home/community/work/leisure, To improve gait and locomotor functions, To improve health of tissue, To decrease soft tissue restriction and To increase flexibility/ROM Text: Thank you for the opportunity to evaluate your patient. For Medicare and Medicare HMO plans, please review the plan of care and approve it. It will need to be FAXED BACK to us at [phone] for Medicare purposes. For Medicare only, by signing this I certify the plan of care. Please let me know if there are questions or concerns regarding this plan of care. Physician Signature: Date:
--- NOTE | 2023-01-26 07:44 | HP.PTEVAL ---
Patient's Visit Information Visit Information Visit Information: CHAVEZ ADAMS is a 52 year old F referred to Physical Therapy by Dr. Robb Burns MD with a diagnosis of S/P TOTAL KNEE ARTHROPLASTY, LEFT 07/23. Date of Evaluation: 08/14/22 Physical Therapist: Rc Baeza PT, Cert MDT, OCS Visit Plan Frequency: 2x /Week Duration: 6 Weeks Plan: d/c Subjective Subjective: This 51 y/o female presents to physical with left TKA on July 23 at [facility] by [place] . Patient was d/c July 24 with FWW. Then started [facility] PT ~ 2 //2 weeks . Patient has had knee pain many years and progressively DJD due to surgery ACL ,arthroscopy and feel off bike. 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 Patient is min . Oxycodone is as needed. Patient seen DR August 07 x-rays looked good. Patient progressed to cane. Patient sleeping well. Patient lives in 1 story home with 4steps and basement with handrails. Patient has tub/shower with set. Patient will start driving 4 weeks . Patient has [employer] car at home. Patient goals to return to work and walk normal. Patient condition affects QOL and function. SOCIAL: VOCATION: Mariela Pain Left Knee: Pain Intensity (Out of 10): 0 Pain Intensity Range: 10 Comment: stiff discomfort - proximal tibia Objective Objective: POSTURE: mild forward posture GAIT: reciprocal pattern 2 point gait with decrease swing heel strike toe off NEURO: c/o paresthesia/tingling lateral leg ,light touch INSCISON : well approximate scabby GIRTH PATELLA: 41.3 cm GIRTH 6 SUPRAPATELLAR: 49.cm AAROM: 0-100 degrees supine knee flexion MMT: ( peak force) quadriceps 21.1 , hamstrings 11.2 STAIRS: one step at time with rails Balance/Special Test Scores Lower Extremity Functional Score: 80 TUG Test Time Seconds: 17.3 WOMAC Total Score: 3 WOMAC Percentatge: 96.8800 Goals Goal 1:: Patient to be I with HEP for TKA Goal Time Frame: 4-6 Weeks Goal 2:: Patient to normalize gait pattern Goal Time Frame: 4-6 Weeks Goal 3:: Patient to increase peak force quads/hams by 10-15 # strength to improve function Goal 4:: Patient to increase AROM supine knee flexion 0-120 degrees to alternating with stairs Goal Time Frame: 4-6 Weeks Goal 5:: Patient to improve WOMAC by 10 point to improve QOL Goal Time Frame: 4-6 Weeks Goal 6:: Patient to improve LFES score by 10 points to improve and function Goal Time Frame: 4-6 Weeks Rehabilitation Potential Physical Therapy Diagnosis: This patient underwent s/p TKA with decrease ROM ,pain mild effusion ,decrease gait ,stairs thus benefit from skilled PT Rehabilitation Potential: Good Anticipated Interventions Patient/Client Instruction: Educate patient on: Condition and Plan of Care For the Purpose of:: To decrease pain, To increase ROM, To improve muscle performance and motor function, To increase tolerance to activity/condition/position, To improve ability of physical actions for home/community/work/leisure, To improve gait and locomotor functions, To increase flexibility/ROM, To improve endurance and To improve balance Therapeutic Exercise to Include: Strength training, Endurance training, Balance training, Flexibilty training, Gait and locomotor training, Passive ROM and Active ROM Comment: QUADS/HAMS /HIP For the Purpose of:: To decrease pain, To increase ROM, To improve muscle performance and motor function, To increase tolerance to activity/condition/position, To improve ability of physical actions for home/community/work/leisure, To improve gait and locomotor functions, To improve health of tissue, To decrease soft tissue restriction and To increase flexibility/ROM Text: Thank you for the opportunity to evaluate your patient. For Medicare and Medicare HMO plans, please review the plan of care and approve it. It will need to be FAXED BACK to us at [phone] for Medicare purposes. For Medicare only, by signing this I certify the plan of care. Please let me know if there are questions or concerns regarding this plan of care. Physician Signature: Date:
--- NOTE | 2023-02-04 12:22 | HP.PTDCSUM ---
Discharge Summary D/C summary: It has been my pleasure to treat CHAVEZ ADAMS referred by Dr. Robb Burns MD, with the diagnosis of S/P TOTAL KNEE ARTHROPLASTY, LEFT 07/23 for a total of 20 visit(s). Discharge Date: 01/26/23 Please see the following information for a summary of their discharge status. Subjective Subjective: Doing well Pain Left Knee: Pain Intensity (Out of 10): 0 Overall Improvement % Improvement: 95 Objective Objective/Function: POSTURE: WFL GAIT: reciprocal pattern NEURO: denies paresthesia/tingling GIRTH PATELLA: 40.1 cm GIRTH 6 SUPRAPATELLAR: 45.cm AAROM: 0-130 degrees supine knee flexion MMT: ( peak force) quadriceps 57.2 , hamstrings 47.6 STAIRS: alternating Goals Goal 1:: Patient to be I with HEP for TKA Goal Progress: Goal Met Goal 2:: Patient to normalize gait pattern Goal Progress: Goal Met Goal 3:: Patient to increase peak force quads/hams by 10-15 # strength to improve function Goal Progress: Goal Met Goal 4:: Patient to increase AROM supine knee flexion 0-120 degrees to alternating with stairs Goal 5:: Patient to improve WOMAC by 10 point to improve QOL Goal Progress: Goal Met Goal 6:: Patient to improve LFES score by 10 points to improve and function Goal Progress: Goal Met Plan Plan: d/c D/C Information Discharge Comments: HEP d/c sentence: If there are questions or concerns regarding this patient's physical therapy, please feel free to call me at [phone]. Thank you for the referral of this patient. Sincerely, Rc Baeza, PT, Cert MDT, OCS Balance/Gait/Functional tests Balance/Special Test Scores Lower Extremity Functional Score: 80 TUG Test Time Seconds: 17.3 Tug Test: <20 sec.=mostly independent WOMAC Total Score: 3 WOMAC Percentage: 96.8800 Improvement % Improvement: 95
== END 2023-01-26 19:00 | disposition home or self-care (01) ==
LOC: PT 07:00
PROVIDERS: PCP Internal Medicine; Referring Provider Orthopaedic Surgery; Visit Provider Orthopaedic Surgery
DX: Z96.652 Presence of left artificial knee joint (principal)
CPT/HCPCS: 97016; 97110; 97162; 97530

== ENCOUNTER → 2023-02-05 | Outpatient (CLI) | payer OTHER, SELFPAY ==
--- NOTE | 2023-02-05 08:14 | ECHOD_ITS ---
Reason For Study: [place] Procedure This was a 2D Doppler, Color Flow transthoracic echocardiogram. Exam performed in department. Left Ventricle Normal size and thickness. The left ventricular ejection fraction is 60 %. Normal diastology for age. Right Ventricle Normal right ventricle. Atria The left and right atria are normal. Aneurysmal atrial septum. Mitral Valve Trivial mitral valve insufficiency. Tricuspid Valve Trivial tricuspid valve insufficiency. Right ventricular systolic pressure estimated to be 40 mmHg. Aortic Valve Trisinus/trileaflet aortic valve. Pulmonic Valve The pulmonic valve is not well visualized. Great Vessels Normal sized aortic root. Pericardium/Pleural No pericardial effusion. MMode/2D Measurements & Calculations LVIDd: 5.5 cm IVSd: 0.97 cm Ao root diam: 3.0 cm LVIDs: 3.5 cm LVPWd: 0.97 cm RVDd: 2.9 cm FS: 36.4 % LAV(MOD-bp): 76.1 ml LVAd ap4: 34.5 cm2 LVAd ap2: 31.4 cm2 LAV(MOD-bp) Indexed: 41.4 ml/m2 LVLd ap4: 7.8 cm LVLd ap2: 8.0 cm LAV(MOD-sp2): 69.0 ml EDV(MOD-sp4): 125.5 ml EDV(MOD-sp2): 106.3 ml LAV(MOD-sp4): 69.0 ml EDV(sp4-el): 129.2 ml EDV(sp2-el): 105.4 ml LVAs ap4: 19.7 cm2 LVAs ap2: 18.0 cm2 LVLs ap4: 6.2 cm LVLs ap2: 6.5 cm ESV(MOD-sp4): 51.7 ml ESV(MOD-sp2): 43.8 ml ESV(sp4-el): 53.2 ml ESV(sp2-el): 42.6 ml EF(MOD-sp4): 58.8 % EF(MOD-sp2): 58.8 % EF(sp4-el): 58.8 % SV(MOD-sp4): 73.8 ml SV(MOD-sp2): 62.6 ml SV(sp4-el): 76.0 ml LA dimension(2D): 3.6 cm LA A4 area: 20.3 cm2 RA A4 area: 14.9 cm2 TAPSE: 2.0 cm Time Measurements MV dec time: 0.19 sec Doppler Measurements & Calculations MV E max armin: 66.1 cm/sec Lat Peak E' Armin: 10.1 cm/sec Med Peak E' Armin: 8.5 cm/sec MV A max armin: 59.0 cm/sec E/E' lat: 6.6 E/E' med: 7.7 MV E/A: 1.1 MV dec slope: 359.0 cm/sec2 Ao V2 max: 111.6 cm/sec LV V1 max: 75.7 cm/sec Ao max P.0 mmHg LV V1 max P.3 mmHg Ao V2 mean: 80.3 cm/sec LV V1 mean P.3 mmHg Ao mean P.9 mmHg LV V1 mean: 55.7 cm/sec Ao V2 VTI: 28.6 cm LV V1 VTI: 18.0 cm AV (velocity ratio): 0.63 PA V2 max: 63.3 cm/sec TR max armin: 272.6 cm/sec PA V2 mean: 45.1 cm/sec TR max P.7 mmHg ECHO/Echo Complete Interpretation Summary The left ventricular ejection fraction is 60 %. Aneurysmal atrial septum. Previous bubble contrast study negative for PFO/ASD Right ventricular systolic pressure estimated to be 40 mmHg. Ordering Physician: Raeann Silver Referring Physician: Lala Johnson Performed By: Qian Mullen, LAYTONCS, RVT
--- OUTSIDE RECORDS SUMMARY | 2023-02-05 08:51 | XMS RPT_ITS | CCD ---
Author Name Unknown Address [address] [place] [address] Organization [facility] Care Team Providers Care [facility] Facilities Manager Name Role Phone LALA JOHNSON MD Primary Care Physician [phone] Lala Johnson MD Primary Care Provider [phone] Stevenson Rivas Unavailable Unavailable HOLLY DORADO DO Attending Unavailable LALA JOHNSON MD Primary Care Unavailab HOLLY Rivero DO Attending Unavailable LALA JOHNSON MD Primary Care Unavailab DAVIDA Johnson Attending Unavailable LALA JOHNSON MD Primary Care Unavailab Robb Dick MD Unavailable [phone] Robb Burns MD Unavailable [phone] Tammy Humphrey PT Unavailable [phone] ROBB BURNS Referring Unavailable OLEGHE, EFEWONGBE B Primary Care Unavailable CROW PEREZ Referring Unavailable OLEGHE, EFEWONGBE B Primary Care Unavailable PROVIDER, UNKNOWN Referring Unavailable OLEGHE, EFEWONGBE B Primary Care Unavailable RBOB BURNS Attending Unavailable ROBB BURNS Admitting Unavailable OLEGHE, EFEWONGBE B Primary Care Unavailable Tammy Humphrey PT Unavailable [phone] JANICE MARKHAM Referring Unavailable OLEGHE, EFEWONGBE B Primary Care Unavailable ROBB BURNS Referring Unavailable OLEGHE, EFEWONGBE B Primary Care Unavailable ROBB BURNS Attending Unavailable OLEGHE, EFEWONGBE B Primary Care Unavailable ROBB BURNS Attending Unavailable LALA JOHNSON Primary Care Unavailable ROBB BURNS Attending Unavailable LALA JOHNSON Primary Care Unavailable DADA SOLIS Attending Unavailable LALA JOHNSON Primary Care Unavailable JANICE MARKHAM Referring Unavailable LALA JOHNSON Primary Care Unavailable Allergies Allergy Classification Reported Allergen(s) Allergy Type Date of Onset Reaction(s) Facility (20 sources) bismuth subsalicylate; Translations: [BISMUTH SUBSALICYLATE] Drug Allergy 2 Diarrhea [facility] (20 sources) Latex; Translations: [LATEX, NATURAL RUBBER] Drug Allergy 2 Itching [facility] (20 sources) nickel; Translations: [NICKEL] Drug Allergy 3 Other: See Comments [facility] (20 sources) Penicillins; Translations: [PENICILLINS] Propensity to adverse reactions 3 [facility] (6 sources) Adhesive agent; Translations: [ADHESIVE] Drug Intolerance 3 Rash [facility] Work Phone: Medications Current Medications Medication Drug Class(es) Dates Sig (Normalized) Sig (Original) docusate sodium 100 mg oral capsule (7 sources) Start: 07-24-2022 End: 08-26-2022 take 1 capsule by mouth every twelve hours as needed docusate sodium (COLACE) 100 mg capsule Take 1 capsule by mouth twice daily as needed for constipation. 60 capsule 0 07/24/2022 08/26/2022 Active Completed/Discontinued Medications Medication Drug Class(es) Dates Sig (Normalized) Sig (Original) acetaminophen 500 mg oral tablet (9 sources) Start: 08-12-2022 take 2 tablets by mouth every eight hours as needed acetaminophen (TYLENOL) 500 mg tablet Take 2 tablets by mouth every 8 hours as needed for pain. 90 tablet 0 08/12/2022 Active Problems Active Problems Problem Classification Problem Date Documented Date Episodic/Chronic Headache; including migraine (11 sources) Migraine; Translations: [Migraine, unspecified, not intractable, without status migrainosus] Onset: 07-16-2022 07-16-2022 Chronic Osteoarthritis (6 sources) Osteoarthritis of left knee joint; Translations: [Unilateral primary osteoarthritis, left knee] Onset: 06-20-2022 Chronic Other connective tissue disease (13 sources) History of total knee arthroplasty; Translations: [Presence of left artificial knee joint] Onset: 07-24-2022 07-24-2022 Chronic Other connective tissue disease (1 source) Presence of left artificial knee joint; Translations: [S/P total knee arthroplasty, left] Onset: 07-24-2022 Chronic Other non-traumatic joint disorders (1 source) Pain in left knee; Translations: [Left knee pain, unspecified chronicity] Onset: 08-07-2022 Episodic Thyroid disorders (11 sources) Hypothyroidism; Translations: [Hypothyroidism, unspecified] Onset: 07-16-2022 07-16-2022 Chronic Past or Other Problems Problem Classification Problem Date Documented Da te Episodic/Chronic Cardiac dysrhythmias (11 sources) Bradycardia; Translations: [Bradycardia, unspecified] Onset: 07-16-2022 07-16-2022 Episodic Residual codes; unclassified (1 source) Pain, unspecified; Translations: [Pain] Onset: 03-18-2022 Episodic Results Test Name Value Interpretation Reference Range Facil ity Vital Signs Date Time Vital Sign Value Performing Clinician Jessica caldwell 08-12-2022 11:00-0400 Body temperature 98.4 [degF] Tammy Humphrey PT Work Phone: [facility] 08-12-2022 11:00-0400 Diastolic blood pressure 64 mm[Hg] Tammy Humphrey PT Work Phone: [facility] 08-12-2022 11:00-0400 Heart rate 80 /min Tammy Humphrey PT Work Phone: [facility] 08-12-2022 11:00-0400 Respiratory rate 18 /min Tammy Humphrey PT Work Phone: [facility] 08-12-2022 11:00-0400 SaO2% (BldA) [Mass fraction] 99 % Tammy Humphrey PT Work Phone: [facility] 08-12-2022 11:00-0400 Systolic blood pressure 120 mm[Hg] Tammy Halderman-Huang PT Work Phone: [facility] 08-06-2022 09:49-0400 Body temperature 98.2 [degF] Tammy Halderman-Huang PT Work Phone: [facility] 08-06-2022 09:49-0400 Diastolic blood pressure 74 mm[Hg] Tammy Halderman-Huang PT Work Phone: [facility] 08-06-2022 09:49-0400 Heart rate 86 /min Tammy Halderman-Huang PT Work Phone: [facility] 08-06-2022 09:49-0400 Respiratory rate 18 /min Tammy Halderman-Huang PT Work Phone: [facility] 08-06-2022 09:49-0400 SaO2% (BldA) [Mass fraction] 97 % Tammy Halderman-Huang PT Work Phone: [facility] 08-06-2022 09:49-0400 Systolic blood pressure 118 mm[Hg] Tammy Halderman-Huang PT Work Phone: [facility] 07-31-2022 09:39-0400 Diastolic blood pressure 74 mm[Hg] Tammy Halderman-Huang PT Work Phone: [facility] 07-31-2022 09:39-0400 Respiratory rate 18 /min Tammy Halderman-Huang PT Work Phone: [facility] 07-31-2022 09:39-0400 SaO2% (BldA) [Mass fraction] 99 % Tammy Halderman-Huang PT Work Phone: [facility] 07-31-2022 09:39-0400 Systolic blood pressure 130 mm[Hg] Tammy Halderman-Huang PT Work Phone: [facility] 07-29-2022 09:43-0400 Body temperature 98.49 [degF] Tammy Halderman-Huang PT Work Phone: [facility] 07-29-2022 09:43-0400 Diastolic blood pressure 74 mm[Hg] Tammy Kam PT Work Phone: [facility] 07-29-2022 09:43-0400 Heart rate 85 /min Tammy DubosejesusgoirgioHuang PT Work Phone: [facility] 07-29-2022 09:43-0400 Respiratory rate 18 /min Tammy MaiabernardinoCandido PT Work Phone: [facility] 07-29-2022 09:43-0400 SaO2% (BldA) [Mass fraction] 96 % Tammy DuboseStephanie PT Work Phone: [facility] 07-29-2022 09:43-0400 Systolic blood pressure 132 mm[Hg] Tammy MaiabernardinoCandido PT Work Phone: [facility] 03-18-2022 08:16-0500 Body height 175.3 cm Robb Burns MD Work Phone: [facility] 03-18-2022 08:16-0500 Body weight 74.39 kg Robb Burns MD Work Phone: [facility] Encounters Encounter Date Encounter Type Care Provider Facility Start: 10-19-2022 End: 10-19-2022 ambulatory ROBB BURNS Facility:[facility] Start: 10-19-2022 End: 10-19-2022 Patient encounter procedure Robb Burns MD Work Phone: Orthopaedics Procedures Date Procedure Procedure Detail Performing Clinician Start: 07-10-2022 Antibody screen JANICE MARKHAM Plan of Treatment Date Care Activity Detail Author Start: 07-24-2025 DIABETES SCREEN DIABETES SCREEN [facility] Start: 07-24-2025 Diabetes Screening Diabetes Screening [facility] Start: 07-10-2025 DIABETES SCREEN DIABETES SCREEN [facility] Start: 10-09-2022 Influenza vaccination [facility] Start: 04-24-2022 Mammography [facility] Start: 02-08-2022 DEPRESSION ASSESSMENT DEPRESSION ASSESSMENT [facility] Start: 11-09-2019 SHINGRIX VACCINE (1 of 2) SHINGRIX VACCINE (1 of 2) [facility] Start: 11-22-2018 Urine microalbumin profile [facility] Start: 2014 COLOGUARD (FIT-DNA) COLOGUARD (FIT-DNA) [facility] Start: 2014 Colonoscopy COLONOSCOPY [facility] Start: 2014 COLORECTAL CANCER SCREENING COLORECTAL CANCER SCREENING [facility] Start: [address] COLONOGRAPHY [facility] Start: 2014 DIABETES SCREEN DIABETES SCREEN [facility] Start: 2014 FECAL OCCULT BLOOD FECAL OCCULT BLOOD [facility] Start: 2014 Lipid 1996 panel - Serum or Plasma Lipid Screening [facility] Start: 2014 LIPID SCREEN LIPID SCREEN [facility] Start: 2014 SIGMOIDOSCOPY SIGMOIDOSCOPY [facility] Start: 2009 Mammography MAMMOGRAM [facility] Start: 11-09-1999 HPV TESTING HPV TESTING [facility] Start: 1990 PAP TESTING PAP TESTING [facility] Start: 11-09-1987 ANNUAL PCP TEAM CHRONIC DISEASE VISIT ANNUAL PCP TEAM CHRONIC DISEASE VISIT [facility] Start: 11-09-1987 HEPATITIS C SCREENING HEPATITIS C SCREENING [facility] Start: 11-09-1987 HIV SCREENING HIV SCREENING [facility] Start: 1969 HEPATITIS B (1 of 3 - 3-dose series) HEPATITIS B (1 of 3 - 3-dose series) [facility] Start: 1969 Hepatitis B Vaccine (1 of 3 - 3-dose series) Hepatitis B Vaccine (1 of 3 - 3-dose series) [facility] End: 06-20-2022 CT KNEE WO IVCON LEFT [facility] Work Phone: Immunizations Immunization Date Immunization Notes Care Provider Fa sarahty 12-22-2021 influenza virus vacc ine, unspecified formulation Robb Burns MD Work Phone: [facility] 11-21-2018 tetanus and diphther ia toxoids, not adsorbed, for adult use Robb Burns MD Work Phone: [facility] Payers Date Payer Category Payer Self-pay 2019 Unknown [id number] 2018 Unknown [id number] 2018 Unknown [id number] 1970 Unknown [id number] Unknown [id number] Unknown [id number] Social History Date Type Detail Facility Tobacco smoking status [facility] Sex Assigned At Female [facility] Start: 09-16-2021 Tobacco smoking stat [facility] Never smoked tobacco [facility] Start: 09-16-2021 Tobacco use and exposure Smokeless tobacco non-user [facility] Start: 03-18-2022 End: 10-09-2022 Alcohol intake Current drinker of alcohol (finding) [facility] Start: 1970 Sex Assigned At Not on file [facility] Start: 07-10-2022 End: 10-09-2022 History of Social function [facility] Start: 07-10-2022 End: 10-09-2022 Tobacco use panel [facility] National Score (1-100), lower number is lower risk 58 [facility] Medical Equipment Procedure Code Equipment Code Equipment Origin al Text Equipment Identifier Dates Cement Simplex Gentamicin Bone High Viscosity 20ml Sterile 40gm - [id number] Start: 07-23-2022 Insert Triathlon 2 11mm Tibial Bearing Posterior Stabilize Sterile Knee [id number] Start: 07-23-2022 Stem Triathlon 1 2mm Cocr 50mm Femoral Cemented Total Stabilized Knee - [id number] Start: 07-23-2022 Component Triath libby 32mm 10mm Patellar Asymmetric Knee - [id number] Start: 07-23-2022 Component Triath libby 3 Femoral Cemented Posterior Stabilize Knee Left - [id number] Start: 07-23-2022 Goals Date Patient Goal Desired Activity /State Clinical Notes 03-18-2022 to 11-12-2022 Robb Burns MD - 11/12/2022 3:05 PM Betty Fabian RN - 10/09/2022 2:46 PM [facility] PT DISCHARGE - Tammy JimenesCandido, PT - 08/12/2022 10:16 AM EDT Note Date & Type Note Facility 11-12-2022 Note HNO ID: [id number] Author: Robb Burns MD Service: ? Author Type: Physician Type: Progress Notes Filed: 11/12/2022 3:09 PM Note Text: DR. BURNS- POST-OP KNEE Post-Op F/U Office Visit Jie Marques presents today for a routine 3rd post-op visit @ 12 weeks status post Left TKA. Post-operative recovery was uneventful. Patient's rating of condition: improving Comments: none Does the Pt. still experience pain? PAIN EVALUATION 10/18/2022 0804 Pain Level: 2 Pain Location: Knee-Left Description: Stiffness Frequency: Intermittent Intervention/Comfort measure: Cold Functional difficulties: Stair climbing Physical Therapy: Completed course of therapy Pain Medication: None Ambulating without assistance. Medications and Allergies reviewed and verified. EXAM: GEN: AANDO x3, NAD SKIN:Appropriate postop appearance Incision intact Incision well healed LeftKnee: ROM: Flexion/Extension:0 degrees to 105 degrees Pain with ROM:No Mal-alignment: No Effusion: None Tender to palpation of the medial joint line(s). Stability:Anterior/Posterior- Yes, stable and Varus/Valgus- Yes, stable Quad strength: normal HIP: range of motion no loss ROM NV: intact and Alison's negative IMAGING: Xrays: No x-rays today IMPRESSION/PLAN: 52 year old female s/p Left TKA At normal post-operative stage of recovery. Plan: 1. Continue independent range of motion/strengthening exercises 2. We discussed total knee precautions including antibiotic prophylactic protocols 3. Follow-up for repeat clinical evaluation Robb Burns MD [facility] 11-12-2022 History of Presen t illness Narrative Images from the original note were not included. DR. BURNS- POST-OP KNEE Post-Op F/U Office Visit Jie Marques presents today for a routine 3rd post-op visit @ 12 weeks status post Left TKA. Post-operative recovery was uneventful. Patient's rating of condition: improving Comments: none Does the Pt. still experience pain? PAIN EVALUATION 10/18/2022 0804 Pain Level: 2 Pain Location: Knee-Left Description: Stiffness Frequency: Intermittent Intervention/Comfort measure: Cold Functional difficulties: Stair climbing Physical Therapy: Completed course of therapy Pain Medication: None Ambulating without assistance. Medications and Allergies reviewed and verified. EXAM: GEN: A&O x3, NAD SKIN:Appropriate postop appearance Incision intact Incision well healed LeftKnee: ROM: Flexion/Extension:0 degrees to 105 degrees Pain with ROM:No Mal-alignment: No Effusion: None Tender to palpation of the medial joint line(s). Stability:Anterior/Posterior- Yes, stable and Varus/Valgus- Yes, stable Quad strength: normal HIP: range of motion no loss ROM NV: intact and Alison's negative IMAGING: Xrays: No x-rays today IMPRESSION/PLAN: 52 year old female s/p Left TKA At normal post-operative stage of recovery. Plan: 1. Continue independent range of motion/strengthening exercises 2. We discussed total knee precautions including antibiotic prophylactic protocols 3. Follow-up for repeat clinical evaluation Robb Burns MD [facility] documented in this encounter [facility] 10-09-2022 Note HNO ID: [id number] Author: Betty Mike RN Service: ? Author Type: ? Type: Progress Notes Filed: 10/09/2022 2:47 PM Note Text: Received outside medical records from [facility]. Sent for scanning. Betty Mike RN [facility] 10-09-2022 History of Presen t illness Narrative Received outside medical records from [facility]. Sent for scanning. Betty Mike RN documented in this encounter [facility] 10-03-2022 Note HNO ID: [id number] Author: Robb Burns MD Service: ? Author Type: Physician Type: Progress Notes Filed: 10/03/2022 3:01 PM Note Text: DR. BURNS- POST-OP KNEE Post-Op F/U Office Visit Jie Marques presents today for a 7 weeks status post Left TKA. Post-operative recovery was uneventful. Patient's rating of condition: improving Comments: None Does the Pt. still experience pain? PAIN EVALUATION 09/07/2022 0901 Pain Level: 3 Pain Location: Knee-Left Description: Stiffness Duration Amount of Time: 1 Duration Units: Hours Frequency: Intermittent Intervention/Comfort measure: Cold Comments: Mostly in outer side and below knee cap Functional difficulties: Stair climbing Physical Therapy: Yes Pain Medication: Non-narcotic Ambulating with assistance. Medications and Allergies reviewed and verified. EXAM: GEN: AANDO x3, NAD SKIN:Appropriate postop appearance Incision intact Incision well healed LeftKnee: ROM: Flexion/Extension:0 degrees to 100 degrees Pain with ROM:No Mal-alignment: No Effusion: None Tender to palpation of the medial joint line(s). Stability:Anterior/Posterior- Yes, stable and Varus/Valgus- Yes, stable Quad strength: normal HIP: range of motion no loss ROM NV: intact and Alison's negative IMAGING: Xrays: No x-rays today IMPRESSION/PLAN: 51 year old female s/p Left TKA At normal post-operative stage of recovery. Plan: Continue PT with emphasis on ROM Continue total knee precautions F/u for repeat clinical evaluation Robb Burns MD [facility] 08-12-2022 Miscellaneous Notes SITUATION: spouse present during today's visit. patient reports the following since the last homecare visit: medications/allergies--no changes, no fall. patient reports that she ihad a very good appt. at the ortho . She is to start OP PT 08/14. BACKGROUND: Diagnoses (reason for Home Care): from 07/23/22 to 07/24/2022 for Primary osteoarthritis left knee S/P ROBOTIC ASSISTED TOTAL KNEE ARTHROPLASTY (Left) 07/23/22 Past Medical History: Migraine Headache Hypothyroidism Bradycardia Weight Bearing or Surgical Precautions: L TKA, WBAT ASSESSMENT: Focus of visit review of HEP , gait, balance , ROM P- 100 . Edema is greatly decreased Plan of care, goals, and visit frequency reviewed and agreed upon with patient and/or caregiver. Current Discharge Plan: outpatient rehab Anticipate discharge by 08/15/22 RECOMMENDATION: d/c from home care See intervention summary for intervention/education details. documented in this encounter [facility] 08-07-2022 Note HNO ID: [id number] Author: Dada Solis PA-C Service: ? Author Type: Physician Resident Inspector Type: Progress Notes Filed: 08/07/2022 12:26 PM Note Text: Post-op Office Visit Jie Marques 51 year old August 07, 2022 11:12 AM Surgery Date: 07/23/2022 History: Jie Marques is now 2 weeks out from robotic assisted left TKA. Post-operative course has been without complication. No readmissions. Subjective: Patient reports 6/10 pain. Overall is doing well. Using walker ambulatory aid. Taking minimal opioid pain medication. Patients rates her condition as improving. Reports compliance with DVT ppx. Participating in home PT. She developed a pruritic rash from the silverlon dressing which is slowly improving. Objective: Left knee Ambulates with walker Incision well-approximated, no drainage, well-healing. Karen-incisional contact dermatitis without signs of infection. Suture tails trimmed today. Knee ROM 0 - 90 degrees Distally DP/PT palpable Distally SILT S/S/SP/DP/T intact at baseline Distally DF/EHL/PF motor intact at baseline Negative alison/calf tenderness Xrays: Well-positioned total knee replacement in appropriate alignment with no evidence of loosening Assessment and Plan: Jie Marques is here for a first post-op appointment status post robotic assisted left total knee arthroplasty, overall doing well - continue ice, rest, and use of non-narcotic analgesia as needed - reviewed antibiotic prophylactic protocols - discussed home exercises and therapy - continue ASA DVT prophylaxis for 4 weeks total - WBAT on operative extremity - discussed driving requirement: 4 weeks post-op, off narcotic pain medication, adequate brake time - follow up in 4 weeks for repeat clinical evaluation with Dr. Burns Normal post-operative course discussed with patient. Patient reassured and supported. All questions answered. Dada Solis PA-C [facility] 08-07-2022 Note HNO ID: [id number] Author: Aneudy Jorge Service: Radiology Author Type: World Designer Type: Progress Notes Filed: 08/07/2022 11:03 AM Note Text: Radiology Service Progress Note PATIENT NAME: Jie Marques DATE OF SERVICE: August 07, 2022 TIME: 11:02 AM PATIENT IDENTITY VERIFICATION COMPLETED USING TWO (2) IDENTIFIERS: Name and Date of confirmed by patient verbally. FALL SCREENING: Has the patient had 2 falls in the last year or 1 fall with injury or currently using an Ambulatory Assistive Device (Walker, Cane, Wheelchair, Crutches, etc.)? No PATIENT GENDER DATA: Female. status: : No status: NO. PATIENT RELEVANT IMPLANT DATA REVIEWED: Not Applicable RADIOLOGY DEPARTMENT: General X-ray: Exam(s) Completed: Lower Extremity X-Ray(s): Knee, AP / Lat / Merchant Left and Wt. Bearing PERIPHERAL IV DATA: Not applicable SIGNED BY: Aneudy Jorge August 07, 2022 11:02 AM [facility] 08-07-2022 History of Presen t illness Narrative Post-op Office Visit Jie Marques 51 year old August 07, 2022 11:12 AM Surgery Date: 07/23/2022 History: Jie Marques is now 2 weeks out from robotic assisted left TKA. Post-operative course has been without complication. No readmissions. Subjective: Patient reports 6/10 pain. Overall is doing well. Using walker ambulatory aid. Taking minimal opioid pain medication. Patients rates her condition as improving. Reports compliance with DVT ppx. Participating in home PT. She developed a pruritic rash from the silverlon dressing which is slowly improving. Objective: Left knee Ambulates with walker Incision well-approximated, no drainage, well-healing. Karen-incisional contact dermatitis without signs of infection. Suture tails trimmed today. Knee ROM 0 - 90 degrees Distally DP/PT palpable Distally SILT S/S/SP/DP/T intact at baseline Distally DF/EHL/PF motor intact at baseline Negative alison/calf tenderness Xrays: Well-positioned total knee replacement in appropriate alignment with no evidence of loosening Assessment and Plan: Jie Marques is here for a first post-op appointment status post robotic assisted left total knee arthroplasty, overall doing well - continue ice, rest, and use of non-narcotic analgesia as needed - reviewed antibiotic prophylactic protocols - discussed home exercises and therapy - continue ASA DVT prophylaxis for 4 weeks total - WBAT on operative extremity - discussed driving requirement: 4 weeks post-op, off narcotic pain medication, adequate brake time - follow up in 4 weeks for repeat clinical evaluation with Dr. Burns Normal post-operative course discussed with patient. Patient reassured and supported. All questions answered. Dada Solis PA-C documented in this encounter [facility] 08-06-2022 Miscellaneous Notes SITUATION: spouse present during today's visit. patient reports the following since the last homecare visit: medications/allergies--no changes, no fall. patient reports that she is eager to see the ortho tomorrow. She did get her OP PT scheduled for 08/14 BACKGROUND: Diagnoses (reason for Home Care): ADAM from 07/23/22 to 07/24/2022 for Primary osteoarthritis left knee S/P ROBOTIC ASSISTED TOTAL KNEE ARTHROPLASTY (Left) 07/23/22 Past Medical History: Migraine Headache Hypothyroidism Bradycardia Weight Bearing or Surgical Precautions: L TKA, WBAT ASSESSMENT: Focus of visit review of HEP , gait, balance , ROM A- 88 P -93 * Redness has almost completely subsided around the incision Plan of care, goals, and visit frequency reviewed and agreed upon with patient and/or caregiver. Current Discharge Plan: outpatient rehab Anticipate discharge by 08/15/22 RECOMMENDATION: d/c from home care See intervention summary for intervention/education details. documented in this encounter [facility] 08-03-2022 Miscellaneous Notes PDMP website reviewed and validated. Patient has been compliant and taking medication appropriately without evidence of suspicious activity. Will refill rx. Dada Solis PA-C August 03, 2022 12:36 PM Jie calling for refill of oxycodone. Will run out late today. Please call to [facility]. Thanks. documented in this encounter [facility] 07-31-2022 Miscellaneous Notes SITUATION: spouse present during today's visit. patient reports the following since the last homecare visit: medications/allergies--no changes, no fall. patient reports that she is gettign up a lot at night , either uncomfortable or having to go to the bathroom. She reports that she does not feel confident enough to try a shower yet BACKGROUND: Diagnoses (reason for Home Care): ADAM from 07/23/22 to 07/24/2022 for Primary osteoarthritis left knee S/P ROBOTIC ASSISTED TOTAL KNEE ARTHROPLASTY (Left) 07/23/22 Past Medical History: Migraine Headache Hypothyroidism Bradycardia Weight Bearing or Surgical Precautions: L TKA, WBAT ASSESSMENT: Focus of visit review of HEP , gait, balance , ROM ROM - 4- 85* Dressing removed . Incision healing well. With pts permission a photo was uploaded to [employer] for md to review . Unfortunately there was poor connectively and the photo would not upload to the chart Plan of care, goals, and visit frequency reviewed and agreed upon with patient and/or caregiver. Current Discharge Plan: outpatient rehab Anticipate discharge by 08/15/22 RECOMMENDATION: Next visit to focus on ther ex, gait, balance See intervention summary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 Alcohol use: Yes Comment: VERY RARELY Drug use: Never ALLERGIES: Latex, Natural Rubber; Nickel; Penicillins; and Pepto-Bismol [Bismuth Subsalicylate] MEDICATIONS: multivitamin with minerals (HAIR,SKIN AND NAILS ORAL) Take by mouth. ZINC ORAL Take by mouth once daily. ascorbic acid (VITAMIN C ORAL) Take by mouth once daily. levothyroxine (SYNTHROID) 112 mcg tablet once daily. multivitamin tablet Take 1 tablet by mouth once daily. Vitamin E, dl, acetate, (VITAMIN E) 200 unit capsule Take 200 Units by mouth once daily. calcium carbonate-vitamin D3 (OSCAL+D) 500 mg(1,250mg) -400 unit chewable tablet Take 1 tablet by mouth twice daily. cholecalciferol, vitamin D3, (VITAMIN D3 ORAL) Take by mouth. meloxicam (MOBIC) 7.5 mg tablet Take 1 tablet by mouth once daily. BIOTIN ORAL Take by mouth. COMPOUNDED PRESCRIPTION BCP daily (Patient not taking: Reported on 03/18/2022) LEVOXYL 150MCG TABLET Take one(1) tablet daily. PHYSICAL EXAM: Ht 175.3 cm (5' 9 ) Wt 74.4 kg (164 lb) BMI 24.22 kg/m All other systems deferred. GENERAL: Appears healthy, well-nourished, no deformities. HABITUS: Normal GAIT: Normal, the patient did not have trouble getting onto the exam table. KNEE EXAM: Left: Alignment: Valgus deformity, Correctable Range of motion is 0 degrees in extension and 120 degrees of flexion. Extension La degrees Pain with ROM: Yes Effusion: Slight Tender to the palpation of Medial femoral condyle and Lateral femoral condyle Pain with patellar compression: No Stability: Anterior/Posterior stable and Varus/Valgus stable Hip Exam: flexion to 100+ degrees, full extension, internal/external rotation adequate and no pain with log roll Neurovascular Status: Sensation Intact, Moves foot and ankle up & down and 2+ dorsalis pedis Focused examination of Left knee, patient has mild laxity and slight joint space opening MEDIAL with valgus stress. DATA: Diagnostic tests reviewed for today's visit: X-ray of the left knee today showed severe tricompartmental osteoarthritis where he is [id number] in both the medial and the lateral compartments. The tibia is subluxed laterally and anteriorly on the lateral view consistent with a global instability Robb Burns MD 03/18/2022 PATIENT NAME: Jie Marques documented in this encounter [facility] 03-23-2022 Miscellaneous Notes Questions were addressed in another my chart encounter. Crow Perez PA-C Patient will be having a lt tka danial. She is asking: How long will she be out of work? 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 How long will she need to stop driving? She prefers her answers by email. Mychart is acceptable also. Electronically signed by Sonia Carrizales [facility] at 03/23/2022 9:07 AM EST documented in this encounter [facility] 03-18-2022 Note HNO ID: [id number] Author: AMMON Bowen Service: Radiology Author Type: Technologist Type: Progress Notes Filed: 03/18/2022 8:05 AM Note Text: Radiology Service Progress Note PATIENT NAME: Jie Marques DATE OF SERVICE: March 18, 2022 TIME: 8:05 AM PATIENT IDENTITY VERIFICATION COMPLETED USING TWO (2) IDENTIFIERS: Name and Date of confirmed by patient verbally. FALL SCREENING: Has the patient had 2 falls in the last year or 1 fall with injury or currently using an Ambulatory Assistive Device (Walker, Cane, Wheelchair, Crutches, etc.)? No PATIENT GENDER DATA: Female. status: : No status: NO. PATIENT RELEVANT IMPLANT DATA REVIEWED: Not Applicable RADIOLOGY DEPARTMENT: General X-ray: Exam(s) Completed: Lower Extremity X-Ray(s): Knee, AP / Lat / Tunne / Merchant Bilateral and Wt. Bearing PERIPHERAL IV DATA: Not applicable SIGNED BY: AMMON Bowen March 18, 2022 8:05 AM [facility] Evaluation + Plan note No data available for this section [facility] Primary osteoarthritis of left knee- Primary Primary localized osteoarthrosis, lower leg [facility] Diagnosis Primary osteoarthritis of left knee- Primary Primary localized osteoarthrosis, lower leg Primary osteoarthritis of left knee Primary localized osteoarthrosis, lower leg [facility] Diagnosis Preoperative testing Preoperative examination, unspecified Primary osteoarthritis of left knee Primary localized osteoarthrosis, lower leg Primary osteoarthritis of left knee Primary localized osteoarthrosis, lower leg [facility] S/P total knee arthroplasty, left [facility] Diagnosis S/P total knee arthroplasty, left- Primary [facility] Diagnosis Preoperative testing- Primary Preoperative examination, unspecified Primary osteoarthritis of left knee Primary localized osteoarthrosis, lower leg [facility] Diagnosis S/P total knee arthroplasty, left- Primary documented in this encounter [facility] Discharge instructions No data available for this section [facility] Patient's home Plan of care note* Visit Details Visit Type -PT ROUTINE Discipline -Physical Therapy Problems Problem Description Start Date Status Goals Interve ntions Sepsis Disciplines: Skilled Services 07/25/2022 Active 1 goal linked to scheduled/document ed intervention 1 goal intervention scheduled/documen evgeny in this visit Physician Specific Parameters Disciplines: Skilled Services 07/25/2022 Active 1 goal linked to scheduled/document ed intervention 1 goal intervention scheduled/documen evgeny in this visit Risk for Falls Disciplines: Skilled Services 07/25/2022 Active 1 goal linked to scheduled/document ed intervention 1 goal intervention scheduled/documen evgeny in this visit Pain Disciplines: Skilled Services 07/25/2022 Active 1 goal linked to scheduled/document ed intervention 1 goal intervention scheduled/documen evgeny in this visit PT Impaired muscle performance and/or ROM Disciplines: PT 07/25/2022 Active 1 goal linked to scheduled/document ed intervention 1 goal intervention scheduled/documen evgeny in this visit PT Impaired mobility Disciplines: PT 07/25/2022 Active 2 goals linked to scheduled/document ed interventions 2 goal interventions scheduled/documen evgeny in this visit PT Orthopedic Condition Disciplines: PT 07/25/2022 Active 1 goal linked to scheduled/document ed intervention 3 goal interventions scheduled/documen evgeny in this visit PT Learning Assessment Disciplines: PT 07/25/2022 Active 1 goal linked to scheduled/document ed intervention 1 goal intervention scheduled/documen evgeny in this visit PT Cardiovascular Disease Disciplines: PT 07/25/2022 Active 1 goal linked to scheduled/document ed intervention 1 goal intervention scheduled/documen evgeny in this visit PT Impaired gait Disciplines: PT 07/25/2022 Active 1 goal linked to scheduled/document ed intervention 1 goal intervention scheduled/documen evgeny in this visit Goals Goal Associated Problem Outcome Goal Met? Visit Notes Patient/caregiver will be able to identify and report symptoms of sepsis Description: Patient/caregiver will be able to identify signs/symptoms of sepsis infection and will verbalize actions to take if suspected by 09/22/22. Sepsis No Patient to maintain parameters within physician-specified ranges throughout certification period Physician Specific Parameters No Manage Risk for falls Description: Patient/caregiver will verbalize knowledge of individualized fall prevention strategies by 09/22/22. Risk for Falls No Manage Pain Description: Patient/caregiver will verbalize knowledge and understanding of appropriate techniques to control pain, including pain management and non-pharmacological techniques. Patient will verbalize or demonstrate an acceptable level of pain as evidenced by a pain score of 2/10 or better with walking and improvement in ability to perform activities of daily living to be achieved by 09/22/22. Pain No Improved Muscle Performance and/or ROM Description: buttermaker continuous churn goal 1: Patient will demonstrate improved strength to meet functional goals as evidenced by improve standing tolerance to 8-10 min to improve ADL/IADL's, to be achieved by 08/15/22. buttermaker continuous churn goal 2: Patient will demonstrate improved surgical knee range of motion to meet functional goals as evidenced by 0-5-95* or better, to be achieved by 08/15/22. LTG 3: Patient and/or caregiver will verbalize/demonstrate independence with home exercise program, to improve functional mobility, to be achieved by 08/15/22. PT Impaired muscle performance and/or ROM No Improved Transfers Description: Transfer training and instruction to patient and/or caregiver on safe transfers to and from bed, chair, toilet, couch, shower/tub and car, including mod indep all modes by 08/15/22. PT Impaired mobility No Improved Bed Mobility Description: STG: Patient will demonstrate improved bed mobility, ability to position self and supine <> sit independently to be achieved by 08/01/22. PT Impaired mobility No Manage Orthopedic Condition Description: Improve patient and/or caregiver understanding of post surgical and/or non-surgical orthopedic intervention management as evidenced by patient and/or caregiver able to verbalize, demonstrate, and teach back instruction, to be achieved by 09/22/22. PT Orthopedic Condition No Demonstrate understanding of education Description: Patient and/or caregiver will understand educational instruction to be achieved by 09/22/22. PT Learning Assessment No Manage Secondary Cardiovascular disease Description: Improve patient and/or caregiver understanding of secondary cardiovascular disease management as evidenced by patient and/or caregiver able to verbalize, demonstrate, and teach back instruction, to be achieved by 09/22/22. PT Cardiovascular Disease No Improved Gait Description: STG: Patient will demonstrate improved gait ability as evidenced by ambulation 100 feet with front wheeled walker with supervision, in order to amb within home, to be achieved by 08/01/22. LTG: Patient will demonstrate improved gait ability as evidenced by ambulation 200+ feet with independently with least restrictive AD, to return to safe household and community ambulation, in order to improve function, to be achieved by 08/15/22. PT Impaired gait No Interventions Intervention Associated Problem/Goal Status Variance Visit Notes Risk of Sepsis Description: Patient is at risk for sepsis. Monitor closely for s/s of sepsis. Problem:Sepsis Goal:Patient/caregive r will be able to identify and report symptoms of sepsis Completed SPO2 Description: Notify Dr. Burns if pulse ox is <92% at rest. Problem:Physician Specific Parameters Goal:Patient to maintain parameters within physician-specified ranges throughout certification period Completed Instruct on individual fall risk factors and strategies to prevent falls and injuries caused by falls. Problem:Risk for Falls Goal:Manage Risk for falls Completed PT: Patient instructed on Eliminating Environmental Hazards: Keep pathways clear, Keep pets out of pathways, Remove unsafe rugs and Move furniture from pathways Managing Impaired Functional Mobility: Use assistive device(s): front wheeled walker Managing Pain Instruct on pain and instruct on strategies to control pain Problem:Pain Goal:Manage Pain Completed patient instructed on techniques to control pain including Pharmacological measures and Non-Pharmacological measures; rest, positioning/elevation and use of thermal modalities, apply ice to affected area . Physical Therapy Therapeutic Exercises Problem:PT Impaired muscle performance and/or ROM Goal:Improved Muscle Performance and/or ROM Completed patient instructed on strengthening and range of motion exercises including Supine : GS,QS,HS, HIPADD, HIP BD, HEEL SLIDES, SAQ, X 10 supine passive knee ext x 5 min seated knee flexion to 81* with verbal cues for technqieu . patient instructed to perform home exercise program twice a day which included hourly ambulation Physical Therapy Transfer Training Problem:PT Impaired mobility Goal:Improved Transfers Completed Transfer training and instruction to patient on safe transfers to and from bed and chair with supervision and verbal cues for using cane to lift the leg. Physical Therapy Bed Mobility Training Problem:PT Impaired mobility Goal:Improved Bed Mobility Completed Bed mobility training and instruction to patient, including repositioning self with stand by assist and verbal cues for using cane to lift leg . Instruct on orthopedic precautions and weight bearing restrictions Description: Orthopedic precautions including left total knee: no knee flexed over pillow at rest, no kneeling, no squatting and no twisting. Weight bearing restrictions include: WBAT of involved extremity. Problem:PT Orthopedic Condition Goal:Manage Orthopedic Condition Completed patient instructed on orthopedic precautions. Instruct on management of edema Problem:PT Orthopedic Condition Goal:Manage Orthopedic Condition Completed Instruct patient on management of edema including elevation of LLE above the level of the heart and ice. Instruct on self-management of post surgical and/or non-surgical orthopedic intervention Problem:PT Orthopedic Condition Goal:Manage Orthopedic Condition Completed patient instructed on managagement of orthopedic condition, eating foods with high protein, signs and symptoms of infection, signs and symptoms of DVT/PE, follow provider guidance for showering and instructed on when to call provider. Instruct and educate on knowledge deficits Problem:PT Learning Assessment Goal:Demonstrate understanding of education Completed patient verbalize and/or demonstrate understanding of physical therapy education including orthopedic condition management, surgical precautions, pain management, fall prevention strategies, home safety, functional activity and home exercise program. Education methods include: verbal cues. Further education required to improve knowledge and compliance with orthopedic condition management, surgical precautions, fall prevention strategies, home safety, functional activity and home exercise program. Instruct on signs, symptoms, and management of secondary cardiovascular disease Problem:PT Cardiovascular Disease Goal:Manage Secondary Cardiovascular disease Completed Instructed patient on instructed on when to call provider. Physical Therapy Gait Training Problem:PT Impaired gait Goal:Improved Gait Completed Gait training and instruction to patient on safe ambulation with front wheeled walker for 20' x 6 feet with stand by assist, with verbal and written cues for corrections of gait deviations including development of heel toe recip pattern [facility] Visit Details Visit Type -PT ROUTINE Discipline -Physical Therapy Problems Problem Description Start Date Status Goals Interve ntions Medication Education Disciplines: Skilled Services 07/25/2022 Active 1 goal linked to scheduled/document ed intervention 1 goal intervention scheduled/documen evgeny in this visit Sepsis Disciplines: Skilled Services 07/25/2022 Active 1 goal linked to scheduled/document ed intervention 1 goal intervention scheduled/documen evgeny in this visit Physician Specific Parameters Disciplines: Skilled Services 07/25/2022 Active 1 goal linked to scheduled/document ed intervention 1 goal intervention scheduled/documen evgeny in this visit Risk for Falls Disciplines: Skilled Services 07/25/2022 Active 1 goal linked to scheduled/document ed intervention 1 goal intervention scheduled/documen evgeny in this visit Pain Disciplines: Skilled Services 07/25/2022 Active 1 goal linked to scheduled/document ed intervention 1 goal intervention scheduled/documen evgeny in this visit Discharge Disciplines: Skilled Services 07/25/2022 Active 1 goal linked to scheduled/document ed intervention 1 goal intervention scheduled/documen evgeny in this visit PT Impaired muscle performance and/or ROM Disciplines: PT 07/25/2022 Active 1 goal linked to scheduled/document ed intervention 1 goal intervention scheduled/documen evgeny in this visit PT Impaired mobility Disciplines: PT 07/25/2022 Active 2 goals linked to scheduled/document ed interventions 2 goal interventions scheduled/documen evgeny in this visit PT Orthopedic Condition Disciplines: PT 07/25/2022 Active 1 goal linked to scheduled/document ed intervention 4 goal interventions scheduled/documen evgeny in this visit PT Learning Assessment Disciplines: PT 07/25/2022 Active 1 goal linked to scheduled/document ed intervention 1 goal intervention scheduled/documen evgeny in this visit PT Cardiovascular Disease Disciplines: PT 07/25/2022 Active 1 goal linked to scheduled/document ed intervention 1 goal intervention scheduled/documen evgeny in this visit PT Impaired gait Disciplines: PT 07/25/2022 Active 2 goals linked to scheduled/document ed interventions 2 goal interventions scheduled/documen evgeny in this visit Goals Goal Associated Problem Outcome Goal Met? Visit Notes Patient/caregiver will demonstrate ability to obtain, store, identify and administer ordered medications, keep accurate medication list in home, and adhere to medication schedule Description: Patient/caregiver will demonstrate ability to obtain, store, identify and administer ordered medications, keep accurate medication list in home, and adhere to medication schedule by 09/22/22. Medication Education No Patient/caregiver will be able to identify and report symptoms of sepsis Description: Patient/caregiver will be able to identify signs/symptoms of sepsis infection and will verbalize actions to take if suspected by 09/22/22. Sepsis No Patient to maintain parameters within physician-specified ranges throughout certification period Physician Specific Parameters No Manage Risk for falls Description: Patient/caregiver will verbalize knowledge of individualized fall prevention strategies by 09/22/22. Risk for Falls No Manage Pain Description: Patient/caregiver will verbalize knowledge and understanding of appropriate techniques to control pain, including pain management and non-pharmacological techniques. Patient will verbalize or demonstrate an acceptable level of pain as evidenced by a pain score of 2/10 or better with walking and improvement in ability to perform activities of daily living to be achieved by 09/22/22. Pain No Manage discharge planning Description: Patient/caregiver will verbalize understanding of ongoing discharge plan provided related to disease management, arrangements for outpatient and/or community services, obtaining medications, supplies, and DME, as needed throughout certification period. Discharge No Improved Muscle Performance and/or ROM Description: buttermaker continuous churn goal 1: Patient will demonstrate improved strength to meet functional goals as evidenced by improve standing tolerance to 8-10 min to improve ADL/IADL's, to be achieved by 08/15/22. buttermaker continuous churn goal 2: Patient will demonstrate improved surgical knee range of motion to meet functional goals as evidenced by 0-5-95* or better, to be achieved by 08/15/22. LTG 3: Patient and/or caregiver will verbalize/demonstrate independence with home exercise program, to improve functional mobility, to be achieved by 08/15/22. PT Impaired muscle performance and/or ROM No Improved Transfers Description: Transfer training and instruction to patient and/or caregiver on safe transfers to and from bed, chair, toilet, couch, shower/tub and car, including mod indep all modes by 08/15/22. PT Impaired mobility No Improved Bed Mobility Description: STG: Patient will demonstrate improved bed mobility, ability to position self and supine <> sit independently to be achieved by 08/01/22. PT Impaired mobility No Manage Orthopedic Condition Description: Improve patient and/or caregiver understanding of post surgical and/or non-surgical orthopedic intervention management as evidenced by patient and/or caregiver able to verbalize, demonstrate, and teach back instruction, to be achieved by 09/22/22. PT Orthopedic Condition No Demonstrate understanding of education Description: Patient and/or caregiver will understand educational instruction to be achieved by 09/22/22. PT Learning Assessment No Manage Secondary Cardiovascular disease Description: Improve patient and/or caregiver understanding of secondary cardiovascular disease management as evidenced by patient and/or caregiver able to verbalize, demonstrate, and teach back instruction, to be achieved by 09/22/22. PT Cardiovascular Disease No Improved Stair Climbing Description: STG:: Patient will demonstrate improved stair negotiation as evidenced by ascend/descend 4 staggered exit steps with railing and with least AD with supervision, to be achieved by 08/01/22. LTG: Patient will demonstrate improved stair negotiation as evidenced by ascend/descend 1 flight to basement and exit steps with railing and with least AD independently, to safely access all areas of the home and exit home, to be achieved by 08/15/22. PT Impaired gait No Improved Gait Description: STG: Patient will demonstrate improved gait ability as evidenced by ambulation 100 feet with front wheeled walker with supervision, in order to amb within home, to be achieved by 08/01/22. LTG: Patient will demonstrate improved gait ability as evidenced by ambulation 200+ feet with independently with least restrictive AD, to return to safe household and community ambulation, in order to improve function, to be achieved by 08/15/22. PT Impaired gait No Interventions Intervention Associated Problem/Goal Status Variance Visit Notes Medication Education Description: Evaluate/instruct patient/caregiver on obtaining, storing, identifying and administering ordered medications as well as keeping accurate medication list in the home and adhereing to medication schedule Problem:Medication Education Goal:Patient/caregive r will demonstrate ability to obtain, store, identify and administer ordered medications, keep accurate medication list in home, and adhere to medication schedule Completed Patient instructed on importance of keeping accurate medication list in home and adhering to medication schedule. Risk of Sepsis Description: Patient is at risk for sepsis. Monitor closely for s/s of sepsis. Problem:Sepsis Goal:Patient/caregive r will be able to identify and report symptoms of sepsis Completed SPO2 Description: Notify Dr. Burns if pulse ox is <92% at rest. Problem:Physician Specific Parameters Goal:Patient to maintain parameters within physician-specified ranges throughout certification period Completed Instruct on individual fall risk factors and strategies to prevent falls and injuries caused by falls. Problem:Risk for Falls Goal:Manage Risk for falls Completed PT: Patient instructed on Eliminating Environmental Hazards: Keep pathways clear, Keep pets out of pathways, Remove unsafe rugs and Move furniture from pathways Managing Impaired Functional Mobility: Use assistive device(s): front wheeled walker Managing Pain Instruct on pain and instruct on strategies to control pain Problem:Pain Goal:Manage Pain Completed patient instructed on techniques to control pain including Pharmacological measures and Non-Pharmacological measures; rest, positioning/elevation and use of thermal modalities, apply ice to affected . Instruct on ongoing discharge plan Problem:Discharge Goal:Manage discharge planning Completed Ongoing Discharge plan: Discharge plan discussed with patient including frequency and duration for home PT and plan for transition to: outpatient therapy. Physical Therapy Therapeutic Exercises Problem:PT Impaired muscle performance and/or ROM Goal:Improved Muscle Performance and/or ROM Completed patient instructed on strengthening and range of motion exercises including Supine : GS,QS,HS, HIPADD, HIP BD, HEEL SLIDES, SAQ, X 10 standing - heel raises, toe raises, knee flexion , marching LLE only x 10 supine passive knee ext x 5 min seated knee flexion to 85* with verbal cues for technqieu . patient instructed to perform home exercise program twice a day which included hourly ambulation Physical Therapy Transfer Training Problem:PT Impaired mobility Goal:Improved Transfers Completed Transfer training and instruction to patient on safe transfers to and from bed, chair and toilet with supervision and verbal cues for technique . Physical Therapy Bed Mobility Training Problem:PT Impaired mobility Goal:Improved Bed Mobility Completed BARBI - bed mobikity using cane to move LLE occasionally Instruct on orthopedic precautions and weight bearing restrictions Description: Orthopedic precautions including left total knee: no knee flexed over pillow at rest, no kneeling, no squatting and no twisting. Weight bearing restrictions include: WBAT of involved extremity. Problem:PT Orthopedic Condition Goal:Manage Orthopedic Condition Completed patient instructed on orthopedic precautions. Instruct on management of edema Problem:PT Orthopedic Condition Goal:Manage Orthopedic Condition Completed Instruct patient on management of edema including elevation of LLE above the level of the heart and ice. Physical therapy to perform surgical incision/wound management Description: Removal of post-op dressing on POD 7-10 (07/30-08/02/22). If no drainage is present, leave open to air; if drainage is present, cover with clean dressing and contact provider and PT case liner. Problem:PT Orthopedic Condition Goal:Manage Orthopedic Condition Completed Intervention completed this date. Instruct on self-management of post surgical and/or non-surgical orthopedic intervention Problem:PT Orthopedic Condition Goal:Manage Orthopedic Condition Completed patient instructed on managagement of orthopedic condition, eating foods with high protein, signs and symptoms of infection, signs and symptoms of DVT/PE and follow provider guidance for showering . Instruct and educate on knowledge deficits Problem:PT Learning Assessment Goal:Demonstrate understanding of education Completed patient verbalize and/or demonstrate understanding of physical therapy education including orthopedic condition management, surgical precautions and pain management. Education methods include: verbal cues. Further education required to improve knowledge and compliance with functional activity and home exercise program. Instruct on signs, symptoms, and management of secondary cardiovascular disease Problem:PT Cardiovascular Disease Goal:Manage Secondary Cardiovascular disease Completed Instructed patient on energy conservation and exercise and activity guidelines. Physical Therapy Stair Training Problem:PT Impaired gait Goal:Improved Stair Climbing Completed Stair training and instruction to patient on safe stair climbing, ascend/descend 12 steps, with railing and with cane with stand by assist and verbal and visual cues for technique / sequencing . Physical Therapy Gait Training Problem:PT Impaired gait Goal:Improved Gait Completed Gait training and instruction to patient on safe ambulation with front wheeled walker for 20' x 6 feet with stand by assist, with verbal and written cues for corrections of gait deviations including development of heel toe recip pattern [facility] Visit Details Visit Type -PT ROUTINE Discipline -Physical Therapy Problems Problem Description Start Date Status Goals Interve ntions Sepsis Disciplines: Skilled Services 07/25/2022 Active 1 goal linked to scheduled/document ed intervention 1 goal intervention scheduled/document ed in this visit Physician Specific Parameters Disciplines: Skilled Services 07/25/2022 Active 1 goal linked to scheduled/document ed intervention 1 goal intervention scheduled/document ed in this visit Risk for Falls Disciplines: Skilled Services 07/25/2022 Active 1 goal linked to scheduled/document ed intervention 1 goal intervention scheduled/document ed in this visit Pain Disciplines: Skilled Services 07/25/2022 Active 1 goal linked to scheduled/document ed intervention 1 goal intervention scheduled/document ed in this visit Discharge Disciplines: Skilled Services 07/25/2022 Active 1 goal linked to scheduled/document ed intervention 1 goal intervention scheduled/document ed in this visit PT Impaired muscle performance and/or ROM Disciplines: PT 07/25/2022 Active 1 goal linked to scheduled/document ed intervention 1 goal intervention scheduled/document ed in this visit PT Impaired mobility Disciplines: PT 07/25/2022 Active 1 goal linked to scheduled/document ed intervention 1 goal intervention scheduled/document ed in this visit PT Orthopedic Condition Disciplines: PT 07/25/2022 Active 1 goal linked to scheduled/document ed intervention 3 goal interventions scheduled/document ed in this visit PT Learning Assessment Disciplines: PT 07/25/2022 Active 1 goal linked to scheduled/document ed intervention 1 goal intervention scheduled/document ed in this visit PT Impaired gait Disciplines: PT 07/25/2022 Active 1 goal linked to scheduled/document ed intervention 1 goal intervention scheduled/document ed in this visit Goals Goal Associated Problem Outcome Goal Met? Visit Notes Patient/caregiver will be able to identify and report symptoms of sepsis Description: Patient/caregiver will be able to identify signs/symptoms of sepsis infection and will verbalize actions to take if suspected by 09/22/22. Sepsis No Patient to maintain parameters within physician-specified ranges throughout certification period Physician Specific Parameters No Manage Risk for falls Description: Patient/caregiver will verbalize knowledge of individualized fall prevention strategies by 09/22/22. Risk for Falls No Manage Pain Description: Patient/caregiver will verbalize knowledge and understanding of appropriate techniques to control pain, including pain management and non-pharmacological techniques. Patient will verbalize or demonstrate an acceptable level of pain as evidenced by a pain score of 2/10 or better with walking and improvement in ability to perform activities of daily living to be achieved by 09/22/22. Pain No Manage discharge planning Description: Patient/caregiver will verbalize understanding of ongoing discharge plan provided related to disease management, arrangements for outpatient and/or community services, obtaining medications, supplies, and DME, as needed throughout certification period. Discharge No Improved Muscle Performance and/or ROM Description: [facility]iary goal 1: Patient will demonstrate improved strength to meet functional goals as evidenced by improve standing tolerance to 8-10 min to improve ADL/IADL's, to be achieved by 08/15/22. buttermaker continuous churn goal 2: Patient will demonstrate improved surgical knee range of motion to meet functional goals as evidenced by 0-5-95* or better, to be achieved by 08/15/22. LTG 3: Patient and/or caregiver will verbalize/demonstrate independence with home exercise program, to improve functional mobility, to be achieved by 08/15/22. PT Impaired muscle performance and/or ROM No Improved Bed Mobility Description: STG: Patient will demonstrate improved bed mobility, ability to position self and supine <> sit independently to be achieved by 08/01/22. PT Impaired mobility No Manage Orthopedic Condition Description: Improve patient and/or caregiver understanding of post surgical and/or non-surgical orthopedic intervention management as evidenced by patient and/or caregiver able to verbalize, demonstrate, and teach back instruction, to be achieved by 09/22/22. PT Orthopedic Condition No Demonstrate understanding of education Description: Patient and/or caregiver will understand educational instruction to be achieved by 09/22/22. PT Learning Assessment No Improved Gait Description: STG: Patient will demonstrate improved gait ability as evidenced by ambulation 100 feet with front wheeled walker with supervision, in order to amb within home, to be achieved by 08/01/22. LTG: Patient will demonstrate improved gait ability as evidenced by ambulation 200+ feet with independently with least restrictive AD, to return to safe household and community ambulation, in order to improve function, to be achieved by 08/15/22. PT Impaired gait No Interventions Intervention Associated Problem/Goal Status Variance Visit Notes Risk of Sepsis Description: Patient is at risk for sepsis. Monitor closely for s/s of sepsis. Problem:Sepsis Goal:Patient/caregive r will be able to identify and report symptoms of sepsis Completed SPO2 Description: Notify Dr. Burns if pulse ox is <92% at rest. Problem:Physician Specific Parameters Goal:Patient to maintain parameters within physician-specified ranges throughout certification period Completed Instruct on individual fall risk factors and strategies to prevent falls and injuries caused by falls. Problem:Risk for Falls Goal:Manage Risk for falls Completed PT: Patient instructed on Eliminating Environmental Hazards: Keep pathways clear, Keep pets out of pathways, Remove unsafe rugs and Move furniture from pathways Managing Impaired Functional Mobility: Use assistive device(s): front wheeled walker Managing Pain Instruct on pain and instruct on strategies to control pain Problem:Pain Goal:Manage Pain Completed patient instructed on techniques to control pain including Pharmacological measures and Non-Pharmacological measures; rest, positioning/elevation and use of thermal modalities, apply ice to affected area . Instruct on ongoing discharge plan Problem:Discharge Goal:Manage discharge planning Completed Ongoing Discharge plan: Discharge plan discussed with patient including frequency and duration for home PT and plan for transition to: outpatient therapy. Physical Therapy Therapeutic Exercises Problem:PT Impaired muscle performance and/or ROM Goal:Improved Muscle Performance and/or ROM Completed patient instructed on strengthening and range of motion exercises including Supine : GS,QS,HS, HIPADD, HIP BD, HEEL SLIDES, SAQ, X 10 standing - heel raises, toe raises, knee flexion , marching, hip abd LLE only x 10 supine passive knee ext x 5 min seated knee flexion to A88 P93* with verbal cues for technqieu . patient instructed to perform home exercise program twice a day which included hourly ambulation Physical Therapy Bed Mobility Training Problem:PT Impaired mobility Goal:Improved Bed Mobility Completed Bed mobility training and instruction to patient, including supine<>sit and repositioning self with supervision and verbal cues for technique . Instruct on orthopedic precautions and weight bearing restrictions Description: Orthopedic precautions including left total knee: no knee flexed over pillow at rest, no kneeling, no squatting and no twisting. Weight bearing restrictions include: WBAT of involved extremity. Problem:PT Orthopedic Condition Goal:Manage Orthopedic Condition Completed patient instructed on orthopedic precautions. Instruct on management of edema Problem:PT Orthopedic Condition Goal:Manage Orthopedic Condition Completed Instruct patient on management of edema including elevation of LLE above the level of the heart and ice. Instruct on self-management of post surgical and/or non-surgical orthopedic intervention Problem:PT Orthopedic Condition Goal:Manage Orthopedic Condition Completed patient instructed on managagement of orthopedic condition, eating foods with high protein, signs and symptoms of infection, signs and symptoms of DVT/PE, follow provider guidance for showering and instructed on when to call provider. Instruct and educate on knowledge deficits Problem:PT Learning Assessment Goal:Demonstrate understanding of education Completed patient verbalize and/or demonstrate understanding of physical therapy education including orthopedic condition management, surgical precautions, fall prevention strategies, home safety, functional activity and home exercise program. Education methods include: verbal cues. Further education required to improve knowledge and compliance with fall prevention strategies, home safety, functional activity and home exercise program. Physical Therapy Gait Training Problem:PT Impaired gait Goal:Improved Gait Completed Gait training and instruction to patient on safe ambulation with single point cane for 40' x 4 feet with stand by assist, with verbal and visual cues for corrections of gait deviations including technique/sequencing / pacing/stride length . [facility] Visit Details Visit Type -PT AGENCY [facility] Discipline -Physical Therapy Problems Problem Description Start Date Status Goals Interve ntions Medication Education Disciplines: Skilled Services 07/25/2022 Resolved on 08/12/2022 1 goal linked to scheduled/documen evgeny intervention Sepsis Disciplines: Skilled Services 07/25/2022 Resolved on 08/12/2022 1 goal linked to scheduled/documen evgeny intervention 1 goal intervention scheduled/documen evgeny in this visit Risk for skin breakdown Disciplines: Skilled Services 07/25/2022 Resolved on 08/12/2022 1 goal linked to scheduled/documen evgeny intervention Physician Specific Parameters Disciplines: Skilled Services 07/25/2022 Resolved on 08/12/2022 1 goal linked to scheduled/documen evgeny intervention 1 goal intervention scheduled/documen evgeny in this visit Risk for Falls Disciplines: Skilled Services 07/25/2022 Resolved on 08/12/2022 1 goal linked to scheduled/documen evgeny intervention 1 goal intervention scheduled/documen evgeny in this visit Pain Disciplines: Skilled Services 07/25/2022 Resolved on 08/12/2022 1 goal linked to scheduled/documen evgeny intervention 1 goal intervention scheduled/documen evgeny in this visit High Risk Medications Disciplines: Skilled Services 07/25/2022 Resolved on 08/12/2022 1 goal linked to scheduled/documen evgeny intervention Discharge Disciplines: Skilled Services 07/25/2022 Resolved on 08/12/2022 1 goal linked to scheduled/documen evgeny intervention 1 goal intervention scheduled/documen evgeny in this visit PT Impaired muscle performance and/or ROM Disciplines: PT 07/25/2022 Resolved on 08/12/2022 1 goal linked to scheduled/documen evgeny intervention 1 goal intervention scheduled/documen evgeny in this visit PT Impaired mobility Disciplines: PT 07/25/2022 Resolved on 08/12/2022 2 goals linked to scheduled/documen evgeny interventions 2 goal interventions scheduled/documen evgeny in this visit PT Impaired balance Disciplines: PT 07/25/2022 Resolved on 08/12/2022 1 goal linked to scheduled/documen evgeny intervention 1 goal intervention scheduled/documen evgeny in this visit PT Orthopedic Condition Disciplines: PT 07/25/2022 Resolved on 08/12/2022 1 goal linked to scheduled/documen evgeny intervention 3 goal interventions scheduled/documen evgeny in this visit PT Learning Assessment Disciplines: PT 07/25/2022 Resolved on 08/12/2022 1 goal linked to scheduled/documen evgeny intervention 1 goal intervention scheduled/documen evgeny in this visit PT Cardiovascular Disease Disciplines: PT 07/25/2022 Resolved on 08/12/2022 1 goal linked to scheduled/documen evgeny intervention 1 goal intervention scheduled/documen evgeny in this visit PT Impaired gait Disciplines: PT 07/25/2022 Resolved on 08/12/2022 2 goals linked to scheduled/documen evgeny interventions 2 goal interventions scheduled/documen evgeny in this visit Goals Goal Associated Problem Outcome Goal Met? Visit Notes Patient/caregiver will demonstrate ability to obtain, store, identify and administer ordered medications, keep accurate medication list in home, and adhere to medication schedule Description: Patient/caregiver will demonstrate ability to obtain, store, identify and administer ordered medications, keep accurate medication list in home, and adhere to medication schedule by 09/22/22. Medication Education Completed Yes Patient/caregiver will be able to identify and report symptoms of sepsis Description: Patient/caregiver will be able to identify signs/symptoms of sepsis infection and will verbalize actions to take if suspected by 09/22/22. Sepsis Completed Yes Manage risk for skin breakdown Description: Patient/caregiver will verbalize and demonstrate understanding of the risks and measures to be taken to monitor and prevent skin breakdown by 09/22/22. Risk for skin breakdown Completed Yes Patient to maintain parameters within physician-specified ranges throughout certification period Physician Specific Parameters Completed Yes Manage Risk for falls Description: Patient/caregiver will verbalize knowledge of individualized fall prevention strategies by 09/22/22. Risk for Falls Completed Yes Manage Pain Description: Patient/caregiver will verbalize knowledge and understanding of appropriate techniques to control pain, including pain management and non-pharmacological techniques. Patient will verbalize or demonstrate an acceptable level of pain as evidenced by a pain score of 2/10 or better with walking and improvement in ability to perform activities of daily living to be achieved by 09/22/22. Pain Completed Yes Patient/caregiver will teach back high risk medication side effect and precaution education High Risk Medications Completed Yes Manage discharge planning Description: Patient/caregiver will verbalize understanding of ongoing discharge plan provided related to disease management, arrangements for outpatient and/or community services, obtaining medications, supplies, and DME, as needed throughout certification period. Discharge Completed Yes Improved Muscle Performance and/or ROM Description: penitentiary goal 1: Patient will demonstrate improved strength to meet functional goals as evidenced by improve standing tolerance to 8-10 min to improve ADL/IADL's, to be achieved by 08/15/22. penitentiary goal 2: Patient will demonstrate improved surgical knee range of motion to meet functional goals as evidenced by 0-5-95* or better, to be achieved by 08/15/22. LTG 3: Patient and/or caregiver will verbalize/demonstrate independence with home exercise program, to improve functional mobility, to be achieved by 08/15/22. PT Impaired muscle performance and/or ROM Completed Yes Improved Transfers Description: Transfer training and instruction to patient and/or caregiver on safe transfers to and from bed, chair, toilet, couch, shower/tub and car, including mod indep all modes by 08/15/22. PT Impaired mobility Completed Yes Improved Bed Mobility Description: STG: Patient will demonstrate improved bed mobility, ability to position self and supine <> sit independently to be achieved by 08/01/22. PT Impaired mobility Completed Yes Improved Balance Description: penitentiary goal: Patient will demonstrate improved functional ability as evidenced by a TUG score of </=45 sec with LRAD to demo decreased fall risk, to be achieved by 08/15/22. PT Impaired balance Completed Yes Manage Orthopedic Condition Description: Improve patient and/or caregiver understanding of post surgical and/or non-surgical orthopedic intervention management as evidenced by patient and/or caregiver able to verbalize, demonstrate, and teach back instruction, to be achieved by 09/22/22. PT Orthopedic Condition Completed Yes Demonstrate understanding of education Description: Patient and/or caregiver will understand educational instruction to be achieved by 09/22/22. PT Learning Assessment Completed Yes Manage Secondary Cardiovascular disease Description: Improve patient and/or caregiver understanding of secondary cardiovascular disease management as evidenced by patient and/or caregiver able to verbalize, demonstrate, and teach back instruction, to be achieved by 09/22/22. PT Cardiovascular Disease Completed Yes Improved Stair Climbing Description: STG:: Patient will demonstrate improved stair negotiation as evidenced by ascend/descend 4 staggered exit steps with railing and with least AD with supervision, to be achieved by 08/01/22. LTG: Patient will demonstrate improved stair negotiation as evidenced by ascend/descend 1 flight to basement and exit steps with railing and with least AD independently, to safely access all areas of the home and exit home, to be achieved by 08/15/22. PT Impaired gait Completed Yes Improved Gait Description: STG: Patient will demonstrate improved gait ability as evidenced by ambulation 100 feet with front wheeled walker with supervision, in order to amb within home, to be achieved by 08/01/22. LTG: Patient will demonstrate improved gait ability as evidenced by ambulation 200+ feet with independently with least restrictive AD, to return to safe household and community ambulation, in order to improve function, to be achieved by 08/15/22. PT Impaired gait Completed Yes Interventions Intervention Associated Problem/Goal Status Variance Visit Notes Risk of Sepsis Description: Patient is at risk for sepsis. Monitor closely for s/s of sepsis. Problem:Sepsis Goal:Patient/caregive r will be able to identify and report symptoms of sepsis Completed SPO2 Description: Notify Dr. Burns if pulse ox is <92% at rest. Problem:Physician Specific Parameters Goal:Patient to maintain parameters within physician-specified ranges throughout certification period Completed Instruct on individual fall risk factors and strategies to prevent falls and injuries caused by falls. Problem:Risk for Falls Goal:Manage Risk for falls Completed PT: Patient instructed on Eliminating Environmental Hazards: Keep pathways clear, Keep pets out of pathways, Remove unsafe rugs and Move furniture from pathways Managing Impaired Functional Mobility: Use assistive device(s): single point cane Managing Pain Instruct on pain and instruct on strategies to control pain Problem:Pain Goal:Manage Pain Completed patient instructed on techniques to control pain including Pharmacological measures and Non-Pharmacological measures; rest, positioning/elevation and use of thermal modalities, apply ice to affected area . Instruct on final discharge plan and deliver discharge instructions Problem:Discharge Goal:Manage discharge planning Completed Delivered Discharge plan: Discharge plan discussed with patient for plan for transition to: outpatient therapy Physical Therapy Therapeutic Exercises Problem:PT Impaired muscle performance and/or ROM Goal:Improved Muscle Performance and/or ROM Completed patient instructed on strengthening and range of motion exercises including Supine : GS,QS,HS, HIPADD, HIP BD, HEEL SLIDES, SAQ, X 10 standing - heel raises, toe raises, knee flexion , marching, hip abd LLE only x 10 supine passive knee ext x 5 min seated knee flexion to P100* with verbal cues for technqieu . patient instructed to perform home exercise program twice a day which included hourly ambulation Physical Therapy Transfer Training Problem:PT Impaired mobility Goal:Improved Transfers Completed BARBI transfers with safe /proper technique Physical Therapy Bed Mobility Training Problem:PT Impaired mobility Goal:Improved Bed Mobility Completed BARBI bed mobility Physical Therapy Balance Training Problem:PT Impaired balance Goal:Improved Balance Completed pt demonstrates improced dynamic stadning balacne as evidenced by a tug of 18 Instruct on orthopedic precautions and weight bearing restrictions Description: Orthopedic precautions including left total knee: no knee flexed over pillow at rest, no kneeling, no squatting and no twisting. Weight bearing restrictions include: WBAT of involved extremity. Problem:PT Orthopedic Condition Goal:Manage Orthopedic Condition Completed patient instructed on orthopedic precautions. Instruct on management of edema Problem:PT Orthopedic Condition Goal:Manage Orthopedic Condition Completed Instruct patient on management of edema including elevation of LLE above the level of the heart and ice. Instruct on self-management of post surgical and/or non-surgical orthopedic intervention Problem:PT Orthopedic Condition Goal:Manage Orthopedic Condition Completed patient instructed on managagement of orthopedic condition, eating foods with high protein, signs and symptoms of infection, signs and symptoms of DVT/PE, follow provider guidance for showering . Instruct and educate on knowledge deficits Problem:PT Learning Assessment Goal:Demonstrate understanding of education Completed patient verbalize and/or demonstrate understanding of physical therapy education including weight bearing precautions, surgical precautions, pain management, fall prevention strategies, home safety, functional activity and home exercise program. Education methods include: verbal cues. Further education required to improve knowledge and compliance with fall prevention strategies, home safety, functional activity and home exercise program. Instruct on signs, symptoms, and management of secondary cardiovascular disease Problem:PT Cardiovascular Disease Goal:Manage Secondary Cardiovascular disease Completed Instructed patient on use of zone sheet and use of RPE. Physical Therapy Stair Training Problem:PT Impaired gait Goal:Improved Stair Climbing Completed up and down 1 flight with rail + cane Physical Therapy Gait Training Problem:PT Impaired gait Goal:Improved Gait Completed Pt amb with WW or cane with steady recip pattern x 150 documented in this encounter [facility] No data available for this section [facility] Summary Purpose Family History No Family History Records FoundNo Family History Records FoundNo Family History Records Found Advance Directives No Advanced Directives Records FoundDocuments on File Type Date Recorded 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 Directive(s) 07/23/2022 10:19 AM Latest Code Status on File Code Status Date Activated Date Inactivated Comments Full Code 07/25/2022 6:13 PM Documents on File Type Date Recorded 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(s) 07/23/2022 10:19 AM Latest Code Status on File Code Status Date Activated Date Inactivated Comments Full Code 07/25/2022 6:13 PM Latest Code Status on File Code Status Date Activated Date Inactivated Comments Full Code 07/25/2022 6:13 PM Reason for Referral Specialty Diagnoses / Procedures Referred By Dave hinkle Referred To Contact Physical Therapy Diagnoses S/P total knee arthroplasty, left Procedures CONSULT TO PHYSICAL THERAPY Dada Solis PA-C [address] [place] [id number] Referral ID Status Reason Start Date Expiration Date Visits Requested Visits Authorized [id number] Ref Not Required PCP Requested Referral 08/07/2022 08/07/2023 1 1 Specialty Diagnoses / Procedures Referred By Dave hinkle Referred To Contact CT IMAGING Diagnoses Preoperative testing Primary osteoarthritis of left knee Procedures CT KNEE WO IVCON LEFT CT LOWER EXTREMITY W/O CONTRAST MATERIAL Crow Perez PA-C [address] [place] [address] Imaging Referral ID Status Reason Start Date Expiration Date V isits Requested Visits Authorized [id number] Closed Auto-Generate d Referral 06/09/2022 07/24/2022 1 1 Health Concerns Problem Noted Date Total Knee Replacement Director Of Critical Care Problem Noted Date Total Knee Replacement Director Of Critical Care Problem Noted Date Total Knee Replacement Director Of Critical Care Problem Noted Date Total Knee Replacement Director Of Critical Care Problem Noted Date Total Knee Replacement Director Of Critical Care Problem Noted Date Total Knee Replacement Director Of Critical Care Additional Source Comments Care Team (unrecognized sect ion and content) Care Team Personnel Name: LALA JOHNSON MD Member Role: Primary Care Physician Address: Address: [address] [place] [phone]- [place] Care Team Related Persons Name: REMI MARQUES Address: Home [address] [place] [id number] Source Comments (unrecognize d section and content) In the event this informatio n is protected by the Federal Confidentiality of Alcohol and Drug Abuse Patient Records regulations: The Federal rules restrict any use of the information to criminally investigate or prosecute any alcohol or drug abuse patient.[facility] the event this information is protected by the Federal Confidentiality of Alcohol and Drug Abuse Patient Records regulations: The Federal rules restrict any use of the information to criminally investigate or prosecute any alcohol or drug abuse patient.[facility] the event this information is protected by the Federal Confidentiality of Alcohol and Drug Abuse Patient Records regulations: The Federal rules restrict any use of the information to criminally investigate or prosecute any alcohol or drug abuse patient.[facility] the event this information is protected by the Federal Confidentiality of Alcohol and Drug Abuse Patient Records regulations: The Federal rules restrict any use of the information to criminally investigate or prosecute any alcohol or drug abuse patient.[facility] the event this information is protected by the Federal Confidentiality of Alcohol and Drug Abuse Patient Records regulations: The Federal rules restrict any use of the information to criminally investigate or prosecute any alcohol or drug abuse patient.[facility] the event this information is protected by the Federal Confidentiality of Alcohol and Drug Abuse Patient Records regulations: The Federal rules restrict any use of the information to criminally investigate or prosecute any alcohol or drug abuse patient.[facility] the event this information is protected by the Federal Confidentiality of Alcohol and Drug Abuse Patient Records regulations: The Federal rules restrict any use of the information to criminally investigate or prosecute any alcohol or drug abuse patient.[facility] the event this information is protected by the Federal Confidentiality of Alcohol and Drug Abuse Patient Records regulations: The Federal rules restrict any use of the information to criminally investigate or prosecute any alcohol or drug abuse patient.[facility] Center[facility] the event this information is protected by the Federal Confidentiality of Alcohol and Drug Abuse Patient Records regulations: The Federal rules restrict any use of the information to criminally investigate or prosecute any alcohol or drug abuse patient.[facility] Center[facility] the event this information is protected by the Federal Confidentiality of Alcohol and Drug Abuse Patient Records regulations: The Federal rules restrict any use of the information to criminally investigate or prosecute any alcohol or drug abuse patient.[facility] Center[facility] the event this information is protected by the Federal Confidentiality of Alcohol and Drug Abuse Patient Records regulations: The Federal rules restrict any use of the information to criminally investigate or prosecute any alcohol or drug abuse patient.[facility] Center[facility] the event this information is protected by the Federal Confidentiality of Alcohol and Drug Abuse Patient Records regulations: The Federal rules restrict any use of the information to criminally investigate or prosecute any alcohol or drug abuse patient.[facility] Center[facility] the event this information is protected by the Federal Confidentiality of Alcohol and Drug Abuse Patient Records regulations: The Federal rules restrict any use of the information to criminally investigate or prosecute any alcohol or drug abuse patient.[facility] Center[facility] the event this information is protected by the Federal Confidentiality of Alcohol and Drug Abuse Patient Records regulations: The Federal rules restrict any use of the information to criminally investigate or prosecute any alcohol or drug abuse patient.[facility] Center[facility] the event this information is protected by the Federal Confidentiality of Alcohol and Drug Abuse Patient Records regulations: The Federal rules restrict any use of the information to criminally investigate or prosecute any alcohol or drug abuse patient.[facility] Center[facility] the event this information is protected by the Federal Confidentiality of Alcohol and Drug Abuse Patient Records regulations: The Federal rules restrict any use of the information to criminally investigate or prosecute any alcohol or drug abuse patient.[facility] Center[facility] the event this information is protected by the Federal Confidentiality of Alcohol and Drug Abuse Patient Records regulations: The Federal rules restrict any use of the information to criminally investigate or prosecute any alcohol or drug abuse patient.[facility] Center[facility] the event this information is protected by the Federal Confidentiality of Alcohol and Drug Abuse Patient Records regulations: The Federal rules restrict any use of the information to criminally investigate or prosecute any alcohol or drug abuse patient.[facility] Reason for Visit (unrecogniz ed section and content) Reason Comments New Pain Reason Comments Pre-Op Teaching Reason Comments Orders Specialty Diagnoses / Procedures Referred By Contac t Referred To Contact CT IMAGING Diagnoses Preoperative testing Primary osteoarthritis of left knee Procedures CT KNEE WO IVCON LEFT CT LOWER EXTREMITY W/O CONTRAST MATERIAL Crow Perez PA-C [address] [place] [address] Ct Imaging Referral ID Status Reason Start Date Expiration Date V isits Requested Visits Authorized [id number] Closed Auto-Generate d Referral 06/09/2022 07/24/2022 1 1 Reason Comments Home Care Confirmation call Reason Onset Date Comments Refill Request 08/03/2022 Reason Comments Post Op Knee Pain Reason Comments Appointment Reason Comments Received Outside Medical Records Reason Comments Post Op Knee Replacement Care Teams (unrecognized sec tion and content) Regional Facilities Manager Relationship Specialty Start Date End Date Lala Johnson MD [address] [place] [address] PCP - General Internal Medicine 09/16/21 Regional Facilities Manager Relationship Specialty Start Date End Date Lala Johnson MD [address] [place] [address] PCP - General Internal Medicine 09/16/21 Stevenson [facility], [facility] [address] [place] [address] Specialty Senior Embedded Software Engineer Orthopedics 04/08/22 07/18/22 Regional Facilities Manager Relationship Specialty Start Date End Date Lala Johnson MD [address] [place] [address] PCP - General Internal Medicine 09/16/21 Stevenson [place], [facility] [address] [place] [address] Specialty Senior Embedded Software Engineer Orthopedics 04/08/22 07/18/22 Regional Facilities Manager Relationship Specialty Start Date End Date Lala Johnson MD [address] [place] [address] PCP - General Internal Medicine 09/16/21 SisStevenson gonzalez, [facility] [address] [place] [address] Specialty Senior Embedded Software Engineer Orthopedics 04/08/22 07/18/22 Regional Facilities Manager Relationship Specialty Start Date End Date Lala Johnson MD [address] [place] [address] PCP - General Internal Medicine 09/16/21 Stevenson [place], [facility] [address] [place] [address] Specialty Senior Embedded Software Engineer Orthopedics 04/08/22 07/18/22 Regional Facilities Manager Relationship Specialty Start Date End Date Lala Johnson MD [address] [place] [address] PCP - General Internal Medicine 09/16/21 Stevenson [place], [facility] [address] [place] [address] Specialty Senior Embedded Software Engineer Orthopedics 04/08/22 07/18/22 Regional Facilities Manager Relationship Specialty Start Date End Date Lala Johnson MD [address] [place] [address] PCP - General Internal Medicine 09/16/21 Regional Facilities Manager Relationship Specialty Start Date End Date Lala Johnson MD [address] [place] [address] PCP - General Internal Medicine 09/16/21 Robb Burns MD [address] [place] [address] Home Care Provider Orthopedics 07/24/22 Robb Burns MD [address] [place] [address] Referring Orthopedics 07/24/22 Tammy Humphrey, PT [address] [facility] [place] [address] Assembler Molded Frames Post Acute Care 07/24/22 Regional Facilities Manager Relationship Specialty Start Date End Date Lala Johnson MD [address] [place] [address] PCP - General Internal Medicine 09/16/21 Robb uBrns MD [address] [address] Home Care Provider Orthopedics 07/24/22 Robb Burns MD [address] [address] Referring Orthopedics 07/24/22 Tammy Humphrey, PT [address] [facility] [place] [address] Assembler Molded Frames Post Acute Care 07/24/22 Regional Facilities Manager Relationship Specialty Start Date End Date aLla Johnson MD [address] [address] PCP - General Internal Medicine 09/16/21 Robb Burns MD [address] [address] Home Care Provider Orthopedics 07/24/22 Robb Burns MD [address] [address] Referring Orthopedics 07/24/22 Tammy Humphrey, PT [address] [facility] [place] [address] Assembler Molded Frames Post Acute Care 07/24/22 Regional Facilities Manager Relationship Specialty Start Date End Date Lala Johnson MD [address] [place] [address] PCP - General Internal Medicine 09/16/21 Robb Burns MD [address] [address] Home Care Provider Orthopedics 07/24/22 Robb Burns MD [facility] [address] [address] Referring Orthopedics 07/24/22 Tammy Humphrey, PT [address] [place] [address] Assembler Molded Frames Post Acute Care 07/24/22 Regional Facilities Manager Relationship Specialty Start Date End Date Lala Johnson MD [address] [facility] [place] [address] PCP - General Internal Medicine 09/16/21 Robb Burns MD [facility] [address] [address] Home Care Provider Orthopedics 07/24/22 Robb Burns MD [facility] [address] [address] Referring Orthopedics 07/24/22 Tammy Humphrey, PT [address] [place] [address] Assembler Molded Frames Post Acute Care 07/24/22 Regional Facilities Manager Relationship Specialty Start Date End Date Lala Johnson MD [address] [place] [address] PCP - General Internal Medicine 09/16/21 Robb Burns MD [facility] [address] [address] Home Care Provider Orthopedics 07/24/22 Robb Burns MD [address] [address] Referring Orthopedics 07/24/22 Tammy Humphrey, PT [address] [place] [address] Assembler Molded Frames Post Acute Care 07/24/22 Regional Facilities Manager Relationship Specialty Start Date End Date Lala Johnson MD [address] [place] [address] PCP - General Internal Medicine 09/16/[address] [facility] [address] [place] [address] Specialty Senior Embedded Software Engineer Orthopedics 04/08/22 07/18/22 Robb Burns MD [address] [address] Home Care Provider Orthopedics 07/24/22 Robb Burns MD [address] [address] Referring Orthopedics 07/24/22 Tammy Humphrey, PT [address] [place] [address] Assembler Molded Frames Post Acute Care 07/24/22 Regional Facilities Manager Relationship Specialty Start Date End Date Lala Johnson MD [address] [place] [address] PCP - General Internal Medicine 09/16/21 Robb Burns MD [address] [place] [address] Home Care Provider Orthopedics 07/24/22 Robb Burns MD [address] [place] [id number] Referring Orthopedics 07/24/22 Tammy Humphrey, PT [address] [place] [address] Assembler Molded Frames Post Acute Care 07/24/22 Regional Facilities Manager Relationship Specialty Start Date End Date Lala Johnson MD [address] [place], [place] [address] PCP - General Internal Medicine 09/16/21 Robb Burns MD [address] [address] Home Care Provider Orthopedics 07/24/22 Robb Burns MD [address] [id number] Referring Orthopedics 07/24/22 Tammy Humphrey, PT [address] [place] [address] Assembler Molded Frames Post Acute Care 07/24/22 INFORMATION SOURCE (unrecogn ized section and content) DATE CREATED AUTHOR AUTHOR'S ORGANIZ ATION 09/07/2022 [facility] DATE CREATED AUTHOR AUTHOR'S ORGANIZ ATION 11/16/2022 [facility] FOR RECORDS PERTAINING TO PATIENTS WHO ARE OR HAVE BEEN ENROLLED IN A CHEMICAL DEPENDENCY/SUBSTANCEABUSE PROGRAM, SOME INFORMATION MAY BE OMITTED. This clinical summary was aggregated from multiple sources. Caution should be exercised in using it in the provision of clinical care. This summary normalizes information from multiple sources, and as a consequence, information in this document may materially change the coding, format and clinical context of patient data. In addition, data may be omitted in some cases. CLINICAL DECISIONS SHOULD BE BASED ON THE PRIMARY CLINICAL RECORDS. [employer] [facility]. provides no warranty or guarantee of the accuracy or completeness of information in this document.
== END | disposition home or self-care (01) ==
LOC: CVS 08:14
PROVIDERS: PCP Internal Medicine; Referring Provider Nurse Practitioner Gerontology; Visit Provider Nurse Practitioner Gerontology
DX: R01.1 Cardiac murmur, unspecified (principal)
CPT/HCPCS: 93306

== ENCOUNTER → 2023-03-19 | Outpatient (CLI) | payer OTHER, SELFPAY ==
--- OUTSIDE RECORDS SUMMARY | 2023-03-19 10:24 | XMS RPT_ITS | CCD ---
Author Name Unknown Address [address] [place] [address] Organization [facility] Care Team Providers Care [employer] Attendance Secretary Name Role Phone LALA JOHNSON MD Primary Care Physician [phone] Lala Johnson MD Primary Care Provider [phone] Stevenson Rivas Unavailable Unavailable HOLLY DORADO DO Attending Unavailable LALA JOHNSON MD Primary Care Unavailab HOLLY Rivero DO Attending Unavailable LALA JOHNSON MD Primary Care Unavailab DAVIDA Johnson Attending Unavailable LALA JOHNSON MD Primary Care Unavailab Robb Dick MD Unavailable [phone] Robb Burns MD Unavailable [phone] Tammy Humphrey PT Unavailable [phone] ROBB BURNS Referring Unavailable OLEGHE, EFEWONGBE B Primary Care Unavailable CROW PEREZ Referring Unavailable OLEGHE, EFEWONGBE B Primary Care Unavailable PROVIDER, UNKNOWN Referring Unavailable OLEGHE, EFEWONGBE B Primary Care Unavailable ROBB BURNS Attending Unavailable ROBB BURNS Admitting Unavailable OLEGHE, EFEWONGBE B Primary Care Unavailable Tammy Humphrey PT Unavailable [phone] OLEGHE, EFEWONGBE B Primary Care Unavailable JANICE MARKHAM Referring Unavailable OLEGHE, EFEWONGBE B Primary Care Unavailable JANICE MARKHAM Referring Unavailable OLEGHE, EFEWONGBE B Primary Care Unavailable ROBB BURNS Referring Unavailable OLEGHE, EFEWONGBE B Primary Care Unavailable ROBB BURNS Attending Unavailable LAZARO EFEWONGBE B Primary Care Unavailable ROBB BURNS Attending Unavailable LAZARO, EFEWONGBE B Primary Care Unavailable ROBB BURNS Attending Unavailable OLEJAMELRoberto, EFEWONGBE B Primary Care Unavailable ROBB BURNS Attending Unavailable LAZARO EFEWONGBE B Primary Care Unavailable DADA SOLIS Attending Unavailable Allergies Allergy Classification Reported Allergen(s) Allergy Type Date of Onset Reaction(s) Facility (20 sources) bismuth subsalicylate; Translations: [BISMUTH SUBSALICYLATE] Drug Allergy 2 Diarrhea [facility] (20 sources) Latex; Translations: [LATEX, NATURAL RUBBER] Drug Allergy 2 Itching [facility] (20 sources) nickel; Translations: [NICKEL] Drug Allergy 3 Other: See Comments [facility] (20 sources) Penicillins; Translations: [PENICILLINS] Propensity to adverse reactions 3 [facility] (6 sources) Adhesive agent; Translations: [ADHESIVE] Drug Intolerance 3 Rash [facility] Work Phone: Medications Current Medications Medication Drug [...] 98.4 [degF] Tammy Humphrey PT Work Phone: [facility] 08-12-2022 11:00-0400 Diastolic blood pressure 64 mm[Hg] Tammy Humphrey PT Work Phone: [facility] 08-12-2022 11:00-0400 Heart rate 80 /min Tammy Humphrey PT Work Phone: [facility] 08-12-2022 11:00-0400 Respiratory rate 18 /min Tammy Humphrey PT Work Phone: [facility] 08-12-2022 11:00-0400 SaO2% (BldA) [Mass fraction] 99 % Tammy Humphrey PT Work Phone: [facility] 08-12-2022 11:00-0400 Systolic blood pressure 120 mm[Hg] Tammy Halderman-Huang PT Work Phone: [facility] 08-06-2022 09:49-0400 Body temperature 98.2 [degF] Tammy Halderman-Huang PT Work Phone: [facility] 08-06-2022 09:49-0400 Diastolic blood pressure 74 mm[Hg] Tammy Halderman-Huang PT Work Phone: [facility] 08-06-2022 09:49-0400 Heart rate 86 /min Tammy Halderman-Huang PT Work Phone: [facility] 08-06-2022 09:49-0400 Respiratory rate 18 /min Tammy Halderman-Huang PT Work Phone: [facility] 08-06-2022 09:49-0400 SaO2% (BldA) [Mass fraction] 97 % Tammy Halderman-Huang PT Work Phone: [facility] 08-06-2022 09:49-0400 Systolic blood pressure 118 mm[Hg] Tammy Halderman-Huang PT Work Phone: [facility] 07-31-2022 09:39-0400 Diastolic blood pressure 74 mm[Hg] Tammy Halderman-Huang PT Work Phone: [facility] 07-31-2022 09:39-0400 Respiratory rate 18 /min Tammy Halderman-Huang PT Work Phone: [facility] 07-31-2022 09:39-0400 SaO2% (BldA) [Mass fraction] 99 % Tammy Halderman-Huang PT Work Phone: [facility] 07-31-2022 09:39-0400 Systolic blood pressure 130 mm[Hg] Tammy Halderman-Uhang PT Work Phone: [facility] 07-29-2022 09:43-0400 Body temperature 98.49 [degF] Tammy Halderman-Huang PT Work Phone: [facility] 07-29-2022 09:43-0400 Diastolic blood pressure 74 mm[Hg] Tammy DubosejesusbernardinoCandido PT Work Phone: [facility] 07-29-2022 09:43-0400 Heart rate 85 /min Tammy StevensHuang PT Work Phone: [facility] 07-29-2022 09:43-0400 Respiratory rate 18 /min Tammy Humphrey PT Work Phone: [facility] 07-29-2022 09:43-0400 SaO2% (BldA) [Mass fraction] 96 % Tammy DubosejesusbernardinoCandido PT Work Phone: [facility] 07-29-2022 09:43-0400 Systolic blood pressure 132 mm[Hg] Tammy DubosejesusbernardinoCandido PT Work Phone: [facility] 03-18-2022 08:16-0500 Body height 175.3 cm Robb Burns MD Work Phone: [facility] 03-18-2022 08:16-0500 Body weight 74.39 kg Robb Burns MD Work Phone: [facility] Encounters Encounter Date Encounter Type Care Provider Facility Start: 02-10-2023 End: 02-10-2023 ambulatory LALA B VANNESSAE Facility:[facility] Start: 10-19-2022 End: 10-19-2022 ambulatory EFEWONGBE B OLEGHE Facility:[facility] Start: 10-19-2022 End: 10-19-2022 Patient encounter procedure Robb Burns MD Work Phone: Orthopaedics Procedures Date Procedure Procedure Detail Performing Clinician Start: 07-10-2022 Antibody screen BETSYONG JOCELYN JOHNSON Plan of Treatment Date Care Activity Detail Author Start: 07-24-2025 DIABETES SCREEN DIABETES SCREEN [facility] Start: 07-24-2025 Diabetes Screening Diabetes Screening [facility] Start: 07-10-2025 DIABETES SCREEN DIABETES SCREEN [facility] Start: 10-09-2022 Influenza vaccination [facility] Start: 04-24-2022 Mammography [facility] Start: 02-08-2022 DEPRESSION ASSESSMENT DEPRESSION ASSESSMENT [facility] Start: 11-09-2019 SHINGRIX VACCINE (1 of 2) SHINGRIX VACCINE (1 of 2) [facility] Start: 11-22-2018 Urine microalbumin profile [facility] Start: 2014 COLOGUARD (FIT-DNA) COLOGUARD (FIT-DNA) [facility] Start: 2014 Colonoscopy COLONOSCOPY [facility] Start: 2014 COLORECTAL CANCER SCREENING COLORECTAL CANCER SCREENING [facility] Start: [address] COLONOGRAPHY [facility] Start: 2014 DIABETES SCREEN DIABETES SCREEN [facility] Start: 2014 FECAL OCCULT BLOOD FECAL OCCULT BLOOD [facility] Start: 2014 Lipid 1996 panel - Serum or Plasma Lipid Screening [facility] Start: 2014 LIPID SCREEN LIPID SCREEN [facility] Start: 2014 SIGMOIDOSCOPY SIGMOIDOSCOPY [facility] Start: 2009 Mammography MAMMOGRAM [facility] Start: 11-09-1999 HPV TESTING HPV TESTING [facility] Start: 1990 PAP TESTING PAP TESTING [facility] Start: 11-09-1987 ANNUAL PCP TEAM CHRONIC DISEASE VISIT ANNUAL PCP TEAM CHRONIC DISEASE VISIT [facility] Start: 11-09-1987 HEPATITIS C SCREENING HEPATITIS C SCREENING [facility] Start: 11-09-1987 HIV SCREENING HIV SCREENING [facility] Start: 1970 HEPATITIS B (1 of 3 - 3-dose series) HEPATITIS B (1 of 3 - 3-dose series) [facility] Start: 1970 Hepatitis B Vaccine (1 of 3 - 3-dose series) Hepatitis B Vaccine (1 of 3 - 3-dose series) [facility] End: 06-20-2022 CT KNEE WO IVCON LEFT [facility] Work Phone: Immunizations Immunization Date Immunization Notes Care Provider Mirna marquez 12-22-2021 influenza virus vacc ine, unspecified formulation Robb Burns MD Work Phone: [facility] 11-21-2018 tetanus and diphther ia toxoids, not adsorbed, for adult use Robb Burns MD Work Phone: [facility] Payers Date Payer Category Payer Self-pay 2019 Unknown [id number] 2018 Unknown [id number] 2018 Unknown [id number] 1970 Unknown [id number] Unknown [id number] Unknown [id number] Social History Date Type Detail Facility Tobacco smoking status [facility] Sex Assigned At Female [facility] Start: 09-16-2021 [facility] Start: 09-16-2021 Tobacco use and exposure Smokeless tobacco non-user [facility] Start: 03-18-2022 End: 10-09-2022 Alcohol intake Current drinker of alcohol (finding) [facility] Start: 1970 Sex Assigned At Not on file [facility] Start: 07-10-2022 End: 10-09-2022 History of Social function [facility] Start: 07-10-2022 End: 10-09-2022 Tobacco use panel [facility] National Score (1-100), lower number is lower risk 58 [facility] Medical Equipment Procedure Code Equipment Code Equipment Origin al Text Equipment Identifier Dates Cement Simplex Gentamicin Bone High Viscosity 20ml Sterile 40gm - [id number] Start: 07-23-2022 Insert Triathlon 2 11mm Tibial Bearing Posterior Stabilize Sterile Knee [id number] Start: 07-23-2022 Stem Triathlon 1 2mm Cocr 50mm Femoral Cemented Total Stabilized Knee - [id number] Start: 07-23-2022 Component Triath libby 32mm 10mm Patellar Asymmetric Knee - [id number] Start: 07-23-2022 Component Triath libby 3 Femoral Cemented Posterior Stabilize Knee Left - [id number] Start: 07-23-2022 Goals Date Patient Goal Desired Activity /State Clinical Notes 03-18-2022 to 03-08-2023 Robb Burns MD - 11/12/2022 3:05 PM Betty Fabian RN - 10/09/2022 2:46 PM EDTH PT DISCHARGE - Tammy Humphrey PT - 08/12/2022 10:16 AM EDT Note Date & Type Note Facility 03-08-2023 Note HNO ID: [id number] Author: ROBB BURNS MD Service: ? Author Type: Physician Type: Progress Notes Filed: 03/08/2023 09:45 Note Text: DR. BURNS- POST-OP KNEE Post-Op F/U Office Visit Jie aMrques presents today for a 6-month status post Left TKA. Post-operative recovery was uneventful. Patient's rating of condition: improving Comments: None Does the Pt. still experience pain? PAIN EVALUATION 02/10/2023 1603 Pain Level: 1 Pain Location: Knee-Right left knee-stiffness Description: Sore Duration Amount of Time: 2 Duration Units: Months Frequency: Intermittent Intervention/Comfort measure: Relaxation Functional difficulties: None Physical Therapy: Completed course of therapy Pain Medication: Non-narcotic Ambulating without assistance. Medications and Allergies reviewed and verified. EXAM: GEN: AANDO x3, NAD SKIN:Appropriate postop appearance No evidence of erythema, warmth, discharge or drainage Incision intact Incision well healed LeftKnee: ROM: Flexion/Extension:0 degrees to 115 degrees Pain with ROM:No Mal-alignment: No Effusion: None Non Tender to palpation of the medial , lateral , and patellofemoral joint line(s). Stability:Anterior/Posterior- Yes, stable and Varus/Valgus- Yes, stable Quad strength: normal HIP: range of motion no loss ROM NV: intact and Alison's negative IMAGING: Xrays: No x-rays today IMPRESSION/PLAN: 52 year old female s/p Left TKA No complaints or limitations. At normal post-operative stage of recovery. Plan: 1. Continue independent range of motion/strengthening exercises 2. Continue total knee precautions including antibiotic prophylactic protocols 3. Follow-up 6 months for repeat clinical/radiographic evaluation Robb Burns MD Electronic Signature [facility] 11-12-2022 Note HNO ID: [id number] Author: Robb Burns MD Service: ? Author [...] clinical evaluation Robb Burns MD Electronic Signature [facility] 11-12-2022 History of Presen t illness [...] MD Electronic Signature documented in this encounter [facility] 10-09-2022 Note HNO ID: [id number] Author: Betty Mike RN Service: ? Author Type: ? Type: Progress Notes Filed: 10/09/2022 2:47 PM Note Text: Received outside medical records from [employer]. Sent for scanning. Betty Mike RN [facility] 10-09-2022 History of Presen t illness Narrative Received outside medical records from [employer]. Sent for scanning. Betty Mike RN documented in this encounter [facility] 10-03-2022 Note HNO ID: [id number] Author: Robb Burns MD Service: ? Author [...] clinical evaluation Robb Burns MD Electronic Signature [facility] 08-12-2022 Miscellaneous Notes SITUATION: spouse present [...] for intervention/education details. documented in this encounter [facility] 08-07-2022 Note HNO ID: [id number] Author: Dada Solis PA-C Service: ? Author Type: Physician Medication Manager Type: Progress Notes Filed: 08/07/2022 12:26 PM [...] supported. All questions answered. Dada Solis PA-C [facility] 08-07-2022 Note HNO ID: [id number] Author: Aneudy Jorge Service: Radiology Author Type: Medical Assisting Instructor Type: Progress Notes Filed: 08/07/2022 11:03 AM [...] Aneudy Jorge August 07, 2022 11:02 AM [facility] 08-07-2022 History of Presen t illness [...] Dada Solis PA-C documented in this encounter [facility] 08-06-2022 Miscellaneous Notes SITUATION: spouse present during [...] for intervention/education details. documented in this encounter [facility] 08-03-2022 Miscellaneous Notes PDMP website reviewed and validated. Patient has been compliant and taking medication appropriately without evidence of suspicious activity. Will refill rx. Dada Solis PA-C August 03, 2022 12:36 PM Jie calling for refill of oxycodone. Will run out late today. Please call to [facility] [place] Ronald. Thanks. documented in this encounter [facility] 07-31-2022 Miscellaneous Notes SITUATION: spouse present during [...] pts permission a photo was uploaded to [employer] for md to review . Unfortunately there was poor connectively and the photo would not upload to the chart Plan of care, goals, and visit frequency reviewed and agreed upon with patient and/or caregiver. Current Discharge Plan: outpatient rehab Anticipate discharge by 08/15/22 RECOMMENDATION: Next visit to focus on ther ex, gait, balance See intervention summary for intervention/education details. documented in this encounter [facility] 07-29-2022 Miscellaneous Notes SITUATION: spouse present during [...] for intervention/education details. documented in this encounter [facility] 07-24-2022 Note HNO ID: [id number] Author: Stacia Busch ([employer] Service: Pharmacy Author Type: ? Type: Plan of Care Filed: 07/24/2022 4:11 PM Note Text: PHARMACY BEDSIDE DELIVERY SERVICE Patient Name: Jie Marques The marked outpatient medications were Filled at: [place] and delivered to the patient's bedside to [...] ointment Commonly known as: BACTROBAN Stacia Busch ([employer]) PAGER: [phone] July 24, 2022 4:10 PM [facility] 07-24-2022 Miscellaneous Notes Welcome Home Call: a. Date and Time: 12:52 PM 07/24/2022 b. Contact name/relationship: Patient, Jie trevizo. Have you been active with any Home Care company in the last 60 days(such as help with bathing, filling medications, checking your blood pressure) ? No. d. [facility] will be providing your care, [...] maintain a safe environment for our caregivers, [facility] requires any animals or weapons present in the home be located in a secured location. Our clinicians will call you the night before or the morning of the appointment. Their # may come up restricted but they'll leave a VM for you. In case you have any questions or concerns in the meantime, our # is [phone], option 5 Thank you for your time and have a great day. AMILCAR Wallace documented in this encounter [facility] 07-24-2022 Note HNO ID: [id number] Author: Dada Solis PA-C Service: Orthopaedic Surgery Author Type: Physician Medication Manager Type: Progress Notes Filed: 07/24/2022 8:45 AM [...] 1600 VTE RISK CATEGORY: SURGICAL HIGH RISK ([place]) Active VTE Medication Orders: Anticoagulant AND Antiplatelet Medications (From admission, onward) Start Dose Route Frequency Last Action Ordered Stop 07/24/22 0900 aspirin, enteric coated 81 mg tab(s) (Surgical Risk Categories) 81 mg ORAL 2 TIMES DAILY Given, 07/24 0813 07/23/22 1554 -- Active VTE Prophylaxis Orders: 07/23/22 1600 PNEUMATIC COMPRESSION STOCKINGS ([place]) PHYSICAL EXAMINATION: Left Lower Extremity: Dorsalis pedis [...] Patient demonstrated understanding of risks versus benefits. [facility] 07-23-2022 Note HNO ID: [id number] Author: ESSIE Gonzalez Service: Nursing Author Type: Student Type: Anesthesia Procedure Notes Filed: 07/23/2022 12:35 PM Note Text: ANESTHESIOLOGY PROCEDURE NOTE Airway General Information Procedure Start Time/Medication Administration: 07/23/2022 12:06 PM Patient location during procedure: OR Timeout Performed Pre-procedure: timeout performed Consent Obtained: Yes Patient identity confirmed: arm band, care steam room attendant and patient Staffing QUALITY ENGINEERING MANAGER: Yolanda Ro APRN.QUALITY ENGINEERING MANAGER Performed by: QUALITY ENGINEERING MANAGER Indications and Patient Condition Indications for airway [...] July 23, 2022 TIME: 12:21 PM CSN: [id number] [facility] 07-23-2022 Note HNO ID: [id number] Author: SESIE Gonzalez Service: Nursing Author Type: Student Type: Anesthesia Procedure Notes Filed: 07/23/2022 11:28 AM Note Text: ANESTHESIOLOGY PROCEDURE NOTE Peripheral Nerve Block General Information Procedure Start Time/Medication Administration: 07/23/2022 11:17 AM Procedure End time: 07/23/2022 11:23 AM Patient location during procedure: pre-op Timeout Performed Pre-procedure: timeout performed Consent Obtained: Yes Patient identity confirmed: arm band, care steam room attendant and patient Reason for block: post-op pain [...] July 23, 2022 TIME: 11:27 AM CSN: [id number] [facility] 07-22-2022 Miscellaneous Notes Faxed this date. Jethro is requesting her PAT and EKG to be faxed to her PCP Dr Johnson at [phone] documented in this encounter [facility] 07-13-2022 Miscellaneous Notes Walker Rx faxed to [facility] as requested. Parvez Solis PA-C Fax number is [phone] I called the number provided as requested but there was no answer. Her medical equipment orders were faxed to [facility]. I'm not sure why [facility] is calling but am happy to fax a script to them if they provide us with a fax number. Parvez Solis PA-C Joanne from [facility] calling., Parvez sent a prescription to [facility] for a wheeled walker. Script needs to be sent to the [facility] in [place] for insurance verification. Ph. [phone] extension 3 documented in this encounter [facility] 06-20-2022 Note HNO ID: [id number] Author: AMMON Worley Service: Radiology Author Type: Technologist Type: Progress [...] AMMON Worley June 20, 2022 8:47 AM [facility] 06-20-2022 History of Presen t illness [...] 2022 8:47 AM documented in this encounter [facility] 06-08-2022 Miscellaneous Notes Left VM and sent CT order is in epic. Crow Perez PA-C Please place order for CT scan 07/23/22 Lt tka danial. Please contact for scheduling. documented in this encounter [facility] 06-03-2022 Miscellaneous Notes Orders entered, signed, and faxed as requested. Parvez Solis PA-C Patient requesting scripts for: raised toilet seat with arms Walker with wheels Cane Shower chair Grab bars for shower. Would like faxed along with Demographics to [employer]. She also is having a tooth removed 06/12/22 and wanted us to be aware. Surgery scheduled 07/23/22. documented in this encounter [facility] 05-13-2022 Miscellaneous Notes TOTAL JOINT COMPLETE CARE PROGRAM PRE-OPERATIVE TEACHING Service Date: 05/13/2022 Service Time: 9:40 AM Date of : 1970 Gender: female Date of Surgery: July 23, 2022 Procedure: Left Total Knee Replacement Complete Care Program was discussed with the patient: Industrial Chemist Identification: Patient identified a daycare worker to help when discharged to home: for [...] Binder: Yes Patient plans discharge home with [facility]. SIGNATURE: AMILCAR Triana PATIENT NAME: Jie Marques DATE: May 13, 2022 TIME: 10:51 AM documented in this encounter [facility] 03-28-2022 Note HNO ID: [id number] Author: Robb Burns MD Service: ? Author Type: Physician Type: Progress Notes Filed: 03/28/2022 5:44 PM Note Text: braceCONSULT ORTHOPAEDIC: KNEE PRIMARY CARE PHYSICIAN: Lilly Pompa MD REFERRING PROVIDER: Lilly Pompa MD [id number] [address] ASSESSMENT AND PLAN Impression: Left Traumatic Arthritis [...] Appears healthy, well-nourished, (more content not included)... [facility] 03-28-2022 History of Presen t illness Narrative braceCONSULT ORTHOPAEDIC: KNEE PRIMARY CARE PHYSICIAN: Lilly Pompa MD REFERRING PROVIDER: Lilly Pompa MD [address] [place] [id number] ASSESSMENT & PLAN Impression: Left Traumatic Arthritis [...] showed severe tricompartmental osteoarthritis where he is [id number] in both the medial and the lateral compartments. The tibia is subluxed laterally and anteriorly on the lateral view consistent with a global instability Robb Burns MD 03/18/2022 PATIENT NAME: Jie Marques documented in this encounter [facility] 03-23-2022 Miscellaneous Notes Questions were addressed in another my chart encounter. Crow Perez PA-C Patient will be having a lt tka danial. She is asking: How long will she be out of work? 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 How long will she need to stop driving? She prefers her answers by email. [employer] is acceptable also. documented in this encounter [facility] 03-18-2022 Note HNO ID: [id number] Author: AMMON Bowen Service: Radiology Author Type: [...] AMMON Bowen March 18, 2022 8:05 AM [facility] Evaluation + Plan note No data available for this section [facility] this [facility] Diagnosis Primary osteoarthritis of left knee- Primary Primary localized osteoarthrosis, lower leg [facility] Diagnosis Primary osteoarthritis of left knee- Primary Primary localized osteoarthrosis, lower leg Primary osteoarthritis of left knee Primary localized osteoarthrosis, lower leg [facility] Diagnosis Preoperative testing Preoperative examination, unspecified Primary osteoarthritis of left knee Primary localized osteoarthrosis, lower leg Primary osteoarthritis of left knee Primary localized osteoarthrosis, lower leg documented in this [facility] Diagnosis S/P total knee arthroplasty, left [facility] S/P total knee arthroplasty, left- Primary documented in this [facility] Diagnosis Preoperative testing- Primary Preoperative examination, unspecified Primary osteoarthritis of left knee Primary localized osteoarthrosis, lower leg documented in this [facility] Diagnosis S/P total knee arthroplasty, left- Primary [facility] No data available for this section [facility] Patient's home Plan of care note* Visit [...] No Improved Muscle Performance and/or ROM Description: skilled nursing goal 1: Patient will demonstrate improved strength to meet functional goals as evidenced by improve standing tolerance to 8-10 min to improve ADL/IADL's, to be achieved by 08/15/22. skilled nursing goal 2: Patient will demonstrate improved surgical [...] toe recip pattern [facility] Visit Details [...] No Improved Muscle Performance and/or ROM Description: skilled nursing goal 1: Patient will demonstrate improved strength to meet functional goals as evidenced by improve standing tolerance to 8-10 min to improve ADL/IADL's, to be achieved by 08/15/22. skilled nursing goal 2: Patient will demonstrate improved surgical [...] clean dressing and contact provider and PT briefcase sewer. Problem:PT Orthopedic Condition Goal:Manage Orthopedic Condition Completed [...] toe recip pattern documented in this encounter [facility]'s home Plan of care note* Visit Details [...] No Improved Muscle Performance and/or ROM Description: long term acute care registered nurse goal 1: Patient will demonstrate improved strength to meet functional goals as evidenced by improve standing tolerance to 8-10 min to improve ADL/IADL's, to be achieved by 08/15/22. skilled nursing goal 2: Patient will demonstrate improved surgical [...] pacing/stride length . [facility] Visit Details Visit Type -PT AGENCY [facility] Discipline -Physical Therapy Problems [...] Yes Improved Muscle Performance and/or ROM Description: skilled nursing goal 1: Patient will demonstrate improved strength to meet functional goals as evidenced by improve standing tolerance to 8-10 min to improve ADL/IADL's, to be achieved by 08/15/22. skilled nursing goal 2: Patient will demonstrate improved surgical [...] Impaired mobility Completed Yes Improved Balance Description: long term acute care registered nurse goal: Patient will demonstrate improved functional ability [...] pattern x 150 documented [facility] this encounter [facility] No data available for this section [facility] Summary Purpose Family History No Family History Records FoundNo Family History Records FoundNo Family History Records Found Advance Directives No Advanced Directives Records FoundDocuments on File Type Date Recorded 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 Advance Directive(s) 07/23/2022 10:19 AM Latest Code Status on File Code Status Date Activated Date Inactivated Comments Full Code 07/25/2022 6:13 PM Documents on File Type Date Recorded 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 Advance Directive(s) 07/23/2022 10:19 AM Latest Code Status on File Code Status Date Activated Date Inactivated Comments Full Code 07/25/2022 6:13 PM Latest Code Status on File Code Status Date Activated Date Inactivated Comments Full Code 07/25/2022 6:13 PM Reason for Referral Specialty Diagnoses / Procedures Referred By Contac t Referred To Contact Physical Therapy Diagnoses S/P total knee arthroplasty, left Procedures CONSULT TO PHYSICAL THERAPY Dada Solis PA-C [address] [place] [address] Referral ID Status Reason Start Date Expiration Date Visits Requested Visits Authorized [id number] Ref Not Required PCP Requested Referral 08/07/2022 08/07/2023 1 1 Specialty Diagnoses / Procedures Referred By Contac t Referred To Contact CT IMAGING Diagnoses Preoperative testing Primary osteoarthritis of left knee Procedures CT KNEE WO IVCON LEFT CT LOWER EXTREMITY W/O CONTRAST MATERIAL Crow Perez PA-C [address] [place] [address] Ct Imaging Referral ID Status Reason Start Date Expiration Date V isits Requested Visits Authorized [id number] Closed Auto-Generate d Referral 06/09/2022 07/24/2022 1 1 Health Concerns Problem Noted Date 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 Problem Noted Date 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 Problem Noted Date 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 Problem Noted Date 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 Problem Noted Date 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 Problem Noted Date 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 Additional Source Comments Care Team (unrecognized sect ion and content) Care Team Personnel Name: LALA JOHNSON MD Member Role: Primary Care Physician Address: Address: [address] [place] [phone]- Care Team Related Persons Name: REMI MARQUES Address: Home [address] Source Comments (unrecognize d section and content) In the event this informatio n is protected by the Federal Confidentiality of Alcohol and Drug Abuse Patient Records regulations: The Federal rules restrict any use of the information to criminally investigate or prosecute any alcohol or drug abuse patient.[facility] the event this information is protected by the Federal Confidentiality of Alcohol and Drug Abuse Patient Records regulations: The Federal rules restrict any use of the information to criminally investigate or prosecute any alcohol or drug abuse patient.[facility] the event this information is protected by the Federal Confidentiality of Alcohol and Drug Abuse Patient Records regulations: The Federal rules restrict any use of the information to criminally investigate or prosecute any alcohol or drug abuse patient.[facility] the event this information is protected by the Federal Confidentiality of Alcohol and Drug Abuse Patient Records regulations: The Federal rules restrict any use of the information to criminally investigate or prosecute any alcohol or drug abuse patient.[facility] the event this information is protected by the Federal Confidentiality of Alcohol and Drug Abuse Patient Records regulations: The Federal rules restrict any use of the information to criminally investigate or prosecute any alcohol or drug abuse patient.[facility] the event this information is protected by the Federal Confidentiality of Alcohol and Drug Abuse Patient Records regulations: The Federal rules restrict any use of the information to criminally investigate or prosecute any alcohol or drug abuse patient.[facility] the event this information is protected by the Federal Confidentiality of Alcohol and Drug Abuse Patient Records regulations: The Federal rules restrict any use of the information to criminally investigate or prosecute any alcohol or drug abuse patient.[facility] the event this information is protected by the Federal Confidentiality of Alcohol and Drug Abuse Patient Records regulations: The Federal rules restrict any use of the information to criminally investigate or prosecute any alcohol or drug abuse patient.[facility] the event this information is protected by the Federal Confidentiality of Alcohol and Drug Abuse Patient Records regulations: The Federal rules restrict any use of the information to criminally investigate or prosecute any alcohol or drug abuse patient.[facility] the event this information is protected by the Federal Confidentiality of Alcohol and Drug Abuse Patient Records regulations: The Federal rules restrict any use of the information to criminally investigate or prosecute any alcohol or drug abuse patient.[facility] the event this information is protected by the Federal Confidentiality of Alcohol and Drug Abuse Patient Records regulations: The Federal rules restrict any use of the information to criminally investigate or prosecute any alcohol or drug abuse patient.[facility] the event this information is protected by the Federal Confidentiality of Alcohol and Drug Abuse Patient Records regulations: The Federal rules restrict any use of the information to criminally investigate or prosecute any alcohol or drug abuse patient.[facility] the event this information is protected by the Federal Confidentiality of Alcohol and Drug Abuse Patient Records regulations: The Federal rules restrict any use of the information to criminally investigate or prosecute any alcohol or drug abuse patient.[facility] the event this information is protected by the Federal Confidentiality of Alcohol and Drug Abuse Patient Records regulations: The Federal rules restrict any use of the information to criminally investigate or prosecute any alcohol or drug abuse patient.[facility] the event this information is protected by the Federal Confidentiality of Alcohol and Drug Abuse Patient Records regulations: The Federal rules restrict any use of the information to criminally investigate or prosecute any alcohol or drug abuse patient.[facility] the event this information is protected by the Federal Confidentiality of Alcohol and Drug Abuse Patient Records regulations: The Federal rules restrict any use of the information to criminally investigate or prosecute any alcohol or drug abuse patient.[facility] the event this information is protected by the Federal Confidentiality of Alcohol and Drug Abuse Patient Records regulations: The Federal rules restrict any use of the information to criminally investigate or prosecute any alcohol or drug abuse patient.[facility] the event this information is protected by the Federal Confidentiality of Alcohol and Drug Abuse Patient Records regulations: The Federal rules restrict any use of the information to criminally investigate or prosecute any alcohol or drug abuse patient.[facility] Reason for Visit (unrecogniz ed section and content) Reason Comments New Pain Reason Comments Pre-Op Teaching Reason Comments Orders Specialty Diagnoses / Procedures Referred By Dave hinkle Referred To Contact CT IMAGING Diagnoses Preoperative testing Primary osteoarthritis of left knee Procedures CT KNEE WO IVCON LEFT CT LOWER EXTREMITY W/O CONTRAST MATERIAL Crow Perez PA-C [address] [place] [address] Ct Imaging Referral ID Status Reason Start Date Expiration Date V isits Requested Visits Authorized [id number] Closed Auto-Generate d Referral 06/09/2022 07/24/2022 1 1 Reason Comments Home Care Confirmation call Reason Onset Date Comments Refill Request 08/03/2022 Reason Comments Post Op Knee Pain Reason Comments Appointment Reason Comments Received Outside Medical Records Reason Comments Post Op Knee Replacement Care Teams (unrecognized sec tion and content) School Attendance Secretary Relationship Specialty Start Date End Date Lala Johnson MD [address] [place], [place] [id number] PCP - General Internal Medicine 09/16/21 School Attendance Secretary Relationship Specialty Start Date End Date Lala Johnson MD [address] [place] [address] PCP - General Internal Medicine 09/16/21 SisIsrrael gonzalezin, [facility] [address] [place] [address] Specialty Steam Table Worker Orthopedics 04/08/22 07/18/22 School Attendance Secretary Relationship Specialty Start Date End Date Lala Johnson MD [address] [place] [address] PCP - General Internal Medicine 09/16/21 SisIsrrael gonzalezin, [facility] [address] [place] [address] Specialty Steam Table Worker Orthopedics 04/08/22 07/18/22 School Attendance Secretary Relationship Specialty Start Date End Date Lala Johnson MD [address] [place] [address] PCP - General Internal Medicine 09/16/21 SisIsrrael gonzalezin, [facility] [address] [place] [address] Specialty Steam Table Worker Orthopedics 04/08/22 07/18/22 School Attendance Secretary Relationship Specialty Start Date End Date Lala Johnson MD [address] [place] [address] PCP - General Internal Medicine 09/16/21 SisIsrrael gonzalezin, [facility] [address] [place] [address] Specialty Steam Table Worker Orthopedics 04/08/22 07/18/22 School Attendance Secretary Relationship Specialty Start Date End Date Lala Johnson MD [address] [place] [address] PCP - General Internal Medicine 09/16/21 SissenIsrraelin, [facility] [address] [place] [address] Specialty Steam Table Worker Orthopedics 04/08/22 07/18/22 School Attendance Secretary Relationship Specialty Start Date End Date Oleghe, Efewongbe B, MD [address] [place] [address] PCP - General Internal Medicine 09/16/21 School Attendance Secretary Relationship Specialty Start Date End Date Lala Johnson MD [address] [place] [address] PCP - General Internal Medicine 09/16/21 Robb Burns MD [address] [address] Home Care Provider Orthopedics 07/24/22 Robb Burns MD [address] [address] Referring Orthopedics 07/24/22 Tammy Humphrey, PT [address] [place] [address] Central Office Equipment Installer Post Acute Care 07/24/22 School Attendance Secretary Relationship Specialty Start Date End Date Lala Johnson MD [address] [place] [address] PCP - General Internal Medicine 09/16/21 Robb Burns MD [address] [address] Home Care Provider Orthopedics 07/24/22 Robb Burns MD [address] [place] [address] Referring Orthopedics 07/24/22 Tammy Humphrey, PT [address] [place] [address] Central Office Equipment Installer Post Acute Care 07/24/22 School Attendance Secretary Relationship Specialty Start Date End Date Lala Johnson MD [address] [place] [address] PCP - General Internal Medicine 09/16/21 Robb Burns MD [address] [address] Home Care Provider Orthopedics 07/24/22 Robb Burns MD [address] [address] Referring Orthopedics 07/24/22 Tammy Humphrey, PT [address] [place] [address] Central Office Equipment Installer Post Acute Care 07/24/22 School Attendance Secretary Relationship Specialty Start Date End Date Lala Johnson MD [address] [place] [address] PCP - General Internal Medicine 09/16/21 Robb Burns MD [address] [address] Home Care Provider Orthopedics 07/24/22 Robb Burns MD [address] [address] Referring Orthopedics 07/24/22 Tammy Humphrey, PT [address] [place] [address] Central Office Equipment Installer Post Acute Care 07/24/22 School Attendance Secretary Relationship Specialty Start Date End Date Lala Johnson MD [address] [place] [address] PCP - General Internal Medicine 09/16/21 Robb Burns MD [address] [address] Home Care Provider Orthopedics 07/24/22 Robb Burns MD [address] [address] Referring Orthopedics 07/24/22 Tammy Humphrey, PT [address] [place] [address] Central Office Equipment Installer Post Acute Care 07/24/22 School Attendance Secretary Relationship Specialty Start Date End Date Lala Johnson MD [address] [place] [address] PCP - General Internal Medicine 09/16/21 Robb Burns MD [address] [address] Home Care Provider Orthopedics 07/24/22 Robb Burns MD [address] [address] Referring Orthopedics 07/24/22 Tammy Humphrey, PT [address] [place] [address] Central Office Equipment Installer Post Acute Care 07/24/22 School Attendance Secretary Relationship Specialty Start Date End Date Lala Johnson MD [address] [place] [address] PCP - General Internal Medicine 09/16/21 [facility] [place] [address] [place] [address] Specialty Steam Table Worker Orthopedics 04/08/22 07/18/22 Robb Burns MD [address] [address] Home Care Provider Orthopedics 07/24/22 Robb Burns MD [address] [address] Referring Orthopedics 07/24/22 Tammy Humphrey, PT [address] [place] [address] Central Office Equipment Installer Post Acute Care 07/24/22 School Attendance Secretary Relationship Specialty Start Date End Date Lala Johnson MD [address] [facility] [place] [address] PCP - General Internal Medicine 09/16/21 Robb Burns MD [address] [address] Home Care Provider Orthopedics 07/24/22 Robb Burns MD [address] [address] Referring Orthopedics 07/24/22 Tammy Humphrey, PT [address] [place] [address] Central Office Equipment Installer Post Acute Care 07/24/22 School Attendance Secretary Relationship Specialty Start Date End Date Lala Johnson MD [address] [facility] [place] [address] PCP - General Internal Medicine 09/16/21 Robb Burns MD [address] [address] Home Care Provider Orthopedics 07/24/22 Robb Burns MD [address] [address] Referring Orthopedics 07/24/22 Tammy Humphrey, PT [address] [place] [address] Central Office Equipment Installer Post Acute Care 07/24/22 INFORMATION SOURCE (unrecogn ized section and content) DATE CREATED AUTHOR AUTHOR'S ORGANIZ ATION 09/07/2022 [facility] DATE CREATED AUTHOR AUTHOR'S ORGANIZ ATION 03/08/2023 [facility] FOR RECORDS PERTAINING TO PATIENTS WHO [...] BE BASED ON THE PRIMARY CLINICAL RECORDS. [facility] [employer] [facility]. provides no warranty or guarantee of the accuracy or completeness of information in this document.
[2023-03-19 12:45] LABS: Thyroid Stim Hormone (TSH) 2.55 uIU/mL (0.358-3.74)
== END | disposition home or self-care (01) ==
LOC: BIMLAB 09:34
PROVIDERS: PCP Internal Medicine; Referring Provider Internal Medicine Endocrinology, Diabetes & Metabolism; Visit Provider Internal Medicine Endocrinology, Diabetes & Metabolism
DX: E03.8 Other specified hypothyroidism (principal)
CPT/HCPCS: 36415; 84443

== ENCOUNTER → 2023-05-10 | Outpatient (CLI) | payer OTHER, SELFPAY ==
--- NOTE | 2023-05-10 07:12 | BI_ITS ---
MAMMOGRAPHY - BILATERAL SCREENING REASON FOR EXAM: Female, 52 years old. Routine annual screening examination. PERTINENT HISTORY: Aunts with breast cancer. TECHNIQUE: Digital bilateral breast jose (3D mammographic acquisition) in the CC and MLO projections. 2-D mediolateral oblique (MLO) and craniocaudad (CC) views of both breasts were obtained. CAD: Full Field Digital Mammography with Computer Added Detection was performed. COMPARISON: Comparison is made with prior study May 05, 2022 and April 24, 2021. FINDINGS: Breast Composition: The breasts are heterogeneously dense, which may obscure small masses. There are no dominant masses or suspicious calcifications. No other significant abnormalities are identified. There has been no significant change since the prior study. BI/SCRN MAMM (CAD)W/JOSE BILAT IMPRESSION: Stable bilateral screening mammogram. Yearly follow-up mammogram recommended. (A) ASSESSMENT CATEGORY: BIRADS Category 1: Negative. A letter regarding these results will be sent to the patient by the facility within 30 days. Approximately 10% of breast cancers are not detected by mammography. A normal mammogram should not delay biopsy of a clinically suspicious abnormality. [id number] Electronically Signed: Bertin Rai MD at 8:57 EDT ,
[2023-05-10 08:18] LABS: ALB/GLOB Ratio 1.5 RATIO (0.9-2.4); AST(SGOT) 30 U/L (15-37); Alanine Aminotransfer ALT/SGPT 50 U/L (13-56); Albumin, Serum 4.3 g/dL (3.2-5.0); Alkaline Phosphatase 65 U/L (45-117); Anion Gap 4 (5-15); BUN 21 mg/dL (7-18); BUN/Creat Ratio 23.3 RATIO (10-20); Calcium,Total 9.3 mg/dL (8.5-10.1); Chloride 109 mmol/L (98-107); EST Glomerular Filtration Rate 69 mL/min (>60); Est Glom Filt Rate - Afr Amer 84 mL/min (>60); Globulin 2.9 g/dL (2.2-4.2); Glucose 91 mg/dL (74-106); Potassium 4.3 mmol/L (3.5-5.1); Protein, Total 7.2 g/dL (6.4-8.2); Sodium Level 140 mmol/L (136-145); Thyroid Stim Hormone (TSH) 0.84 uIU/mL (0.358-3.74)
== END | disposition home or self-care (01) ==
PROVIDERS: PCP Internal Medicine; Referring Provider Obstetrics & Gynecology; Visit Provider Internal Medicine
DX: Z12.31 Encounter for screening mammogram for malignant neoplasm of breast (principal); E03.8 Other specified hypothyroidism
CPT/HCPCS: 36415; 77063; 77067; 80053; 84443

== ENCOUNTER → 2023-08-13 | Outpatient (CLI) | payer OTHER, SELFPAY ==
--- NOTE | 2023-08-13 07:55 | RAD_ITS ---
STUDY: X-RAY - LUMBAR SPINE REASON FOR EXAM: Female, 52 years old. Back Pain TECHNIQUE: 5 view(s) of the lumbar spine were obtained. COMPARISON: April 15, 2016 FINDINGS: Normal lumbar lordosis. There is no substantial scoliosis. There is a normal alignment of the vertebrae. Postop change status post left laminectomy at L4-5 and L5-S1 No acute fracture or subluxation. No lytic or sclerotic bony lesions.. Mild narrowing of L4-5 and L5-S1. There is apparent narrowing of the spinal canal at L4-5 and more severe at L5-S1 exaggerated by facet hypertrophy. The soft tissue structures are unremarkable. There is slightly increasing narrowing of the L4-5 disc space since prior exam. RAD/L/S Spine Min 4 Views IMPRESSION: Mild spondylosis and probable spinal stenosis L4-5 and L5-S1. MRI would be helpful for more definitive evaluation Electronically Signed: Manuel Mcnally MD at 16:39 EDT ,
== END | disposition home or self-care (01) ==
LOC: RAD 07:42
PROVIDERS: PCP Internal Medicine; Referring Provider Internal Medicine; Visit Provider Internal Medicine
DX: M54.9 Dorsalgia, unspecified (principal); G89.29 Other chronic pain
CPT/HCPCS: 72110

== ENCOUNTER → 2023-08-27 | Outpatient (CLI) | payer OTHER, SELFPAY ==
[2023-08-27 12:28] LABS: Vitamin D,25 Hydroxy 48.5 ng/mL
[2023-08-27 12:44] LABS: ALB/GLOB Ratio 1.2 RATIO (0.9-2.4); AST(SGOT) 22 U/L (15-37); Alanine Aminotransfer ALT/SGPT 36 U/L (13-56); Alkaline Phosphatase 69 U/L (45-117); Anion Gap 7 (5-15); BUN 20 mg/dL (7-18); BUN/Creat Ratio 24.8 RATIO (10-20); Calcium,Total 9.3 mg/dL (8.5-10.1); Chloride 105 mmol/L (98-107); Cholesterol 176 mg/dL (200); Creatinine, Serum 0.81 mg/dL (0.55-1.02); EST Glomerular Filtration Rate 79 mL/min (>60); Est Glom Filt Rate - Afr Amer 95 mL/min (>60); Globulin 3.3 g/dL (2.2-4.2); Glucose 95 mg/dL (74-106); High Density Lipoprotein 69 mg/dL; Potassium 4.1 mmol/L (3.5-5.1); Protein, Total 7.3 g/dL (6.4-8.2); Sodium Level 140 mmol/L (136-145); Thyroid Stim Hormone (TSH) 0.11 uIU/mL (0.358-3.74); Triglycerides 47 mg/dL; Very Low Density Lipoprotein 9 mg/dL (5-40)
== END | disposition home or self-care (01) ==
LOC: BIMLAB 08:03
PROVIDERS: PCP Internal Medicine; Referring Provider Internal Medicine Endocrinology, Diabetes & Metabolism; Visit Provider Internal Medicine Endocrinology, Diabetes & Metabolism
DX: E03.8 Other specified hypothyroidism (principal); E55.9 Vitamin D deficiency, unspecified; E78.00 Pure hypercholesterolemia, unspecified
CPT/HCPCS: 36415; 80053; 80061; 82306; 84443

== ENCOUNTER → 2023-12-03 | Outpatient (CLI) | payer OTHER, SELFPAY ==
--- OUTSIDE RECORDS SUMMARY | 2023-12-03 07:21 | XMS RPT_ITS | CCD ---
Author Organization [facility] Inform ion Partnership [facility] Care Team Providers Care Fisher Seal Name Role Phone ARELY JOHNSON MD Primary Care Physician [phone] Arely Johnson MD Primary Care Provider [phone] Stevenson Rivas Unavailable Unavailable HOLLY DORADO DO Attending Unavailable ARELY JOHNSON MD Primary Care UnavailHOLLY Sanchez DO Attending Unavailable ARELY JOHNSON MD Primary Care Unavailab DAVIDA Johnson Attending Unavailable ARELY JOHNSON MD Primary Care UnavailKristina Turner MD Unavailable [phone] Kristina Burns MD Unavailable [phone] Tammy Humphrey PT Unavailable [phone] Tammy Humphrey PT Unavailable [phone] Arely Johnson MD Primary Care Provider [phone] BETSY JOHNSONONGBE B Primary Care Unavailable DADA SOLIS Referring Unavailable ESTHERGHE, EFEWONGBE B Primary Care Unavailable Arely Johnson MD Primary Care Provider [phone] Tammy Humphrey PT Unavailable [phone] KRISTINA BURNS Attending Unavailable LAZARO, EFEWONGBE B Primary Care Unavailable KRISTINA BURNS Attending Unavailable LAZARO, EFEWONGBE B Primary Care Unavailable JAKE ARSHAD Attending Unavailable LAZARO, EFEWONGBE B Primary Care Unavailable KRISTINA BURNS Attending Unavailable ARELY JOHNSON Primary Care Unavailable KRISTINA BURNS Attending Unavailable ARELY JOHNSON Primary Care Unavailable Allergies Allergy Classification Reported Allergen(s) Allergy Type Date of Onset Reaction(s) Facility (20 sources) bismuth subsalicylate; Translations: [BISMUTH SUBSALICYLATE] Drug Allergy 2 Diarrhea [facility] (20 sources) Latex; Translations: [LATEX, NATURAL RUBBER] Drug Allergy 2 Itching [facility] (20 sources) nickel; Translations: [NICKEL] Drug Allergy 3 Other: See Comments [facility] (20 sources) Penicillins; Translations: [PENICILLINS] Propensity to adverse reactions 3 [facility] (12 sources) Adhesive agent; Translations: [ADHESIVE] Drug Intolerance 3 Rash [facility] Work Phone: Medications Current Medications Medication Drug Class(es) Dates Sig (Normalized) Sig (Original) acetaminophen 500 mg oral tablet (14 sources) Start: 07-24-2022 End: 08-12-2022 take 2 tablets by mouth every eight hours as needed acetaminophen (TYLENOL) 500 mg tablet Take 2 tablets by mouth every 8 hours as needed for pain. 90 tablet 08/12/2022 Active Comment on above: Take 2 tablets by mo [facility] every 8 hours as needed for pain. ascorbic acid 500 mg oral tablet (20 sources) Vitamin C Start: 07-24-2022 End: 08-10-2022 take 1 tablet by mouth twice daily at mealtime ascorbic acid, vitamin C, (VITAMIN C) 500 mg tablet Take 1 tablet by mouth twice daily with meals for 27 doses. 27 tablet 07/24/2022 Active End: 07-10-2022 ascorbic acid (VITAMIN C ORA L) Take by mouth once daily. 07/10/2022 Discontinued ascorbic acid (V ITAMIN C ORAL) Take by mouth once daily. 0 Active Comment on above: Take by mouth once d aily. Take 1 tablet by oli th twice daily with meals for 27 doses. aspirin 81 mg delayed release oral tablet (14 sources) Platelet Aggregation Inhibitor, Nonsteroidal Anti-inflammatory Drug Start: 3 End: 3 take 1 tablet by mouth twice daily aspirin, enteric coated (ASPIRIN, ENTERIC COATED) 81 mg EC tablet Take 1 tablet by mouth twice daily for 28 days. 56 tablet 07/24/2022 Active Comment on above: Take [address] [facility] twice daily for 28 days. calcium carbonate 1250 mg / cholecalciferol 0.01 mg chewable tablet (20 sources) Vitamin D take 1 tablet by mouth twice daily calcium carbonate-vitami n D3 (OSCAL+D) 500 mg(1,250mg) -400 unit chewable tablet Take 1 tablet by mouth twice daily. Active Comment on above: Take [address] [facility] twice daily. cholecalciferol, vitamin D3, (VITAMIN D3 ORAL) (20 sources) Start: take 5000 [IU] by mouth once daily cholecalciferol, vitamin D3, (VITAMIN D3 ORAL) Take 5,000 Units by mouth once daily. 07/25/2022 Active Start: 07-25-2022 take 5000 [IU] by mo [facility] once daily cholecalciferol, vitamin D3, (VITAMIN D3 ORAL) Take 5,000 Units by mouth once daily. 0 07/25/2022 Active Start: 07-25-2022 cholecalcifero l, vitamin D3, (VITAMIN D3 ORAL) [The details of the medication are not available because there are pending changes by a home health clinician.] 0 07/25/2022 Active cholecalciferol, vitamin D3, (VITAMIN D3 ORAL) Take by mouth. 0 Active Comment on above: Take by mouth. [The details of the medication are not available because there are pending changes by a home health clinician.] Take 5,000 Units by mouth once daily. clindamycin 300 mg oral capsule (4 sources) Lincosamide Antibacterial Start: 11-03-19 take 2 capsules by mouth every hour clindamycin (CLEOCIN) 300 mg capsule Take 2 capsules by mouth one hour prior to dental cleaning/procedure 2 capsule 3 11/02/2022 Active Comment on above: Take 2 capsules by m out one hour prior to dental cleaning/procedure FOLDING WALKER WITH 5 WHEELS (19 sources) Start: 06-04-19 FOLDING WALKER WITH 5 WHEELS Indications: Primary osteoarthritis of left knee One wheeled walker 1 Each 06/03/2022 Active Start: 06-03-2022 FOLDING WALKER WITH 5 WHEELS Indications: Primary osteoarthritis of left knee One wheeled walker 1 Each 0 06/03/2022 Active Comment on above: One wheeled walker levothyroxine sodium 0.125 mg oral tablet (20 sources) l-Thyroxine Start: 3 take 1 tablet by mouth once daily in the morning levothyroxine (SYNTHROID) 125 mcg tablet Take 125 mcg by mouth every morning. 01/18/2023 Active Start: 03-30-2019 take 1 tablet by oli th once daily levothyroxine (SYNTHROID) 112 mcg tablet Take 1 tablet by mouth once daily. 03/30/2019 Active Start: 07-21-2002 End: 07-10-2022 LEVOXYL 150MCG TABLET Take o ne(1) tablet daily. 0 07/21/2002 07/10/2022 Discontinued Comment on above: Take one(1) tablet d aily. once daily. [The details of the medication are not available because there are pending changes by a home health clinician.] Take 1 tablet by oli th once daily. Take 125 mcg by mout h every morning. multivitamin tablet (20 sources) take 1 tablet by mouth once daily multivitamin tablet Take 1 tablet by mouth once daily. Active take 1 tablet by mouth once earl y multivitamin tablet Take 1 tablet by mouth once daily. 0 Active Comment on above: Take 1 tablet by oli th once daily. multivitamin with minerals (HAIR,SKIN AND NAILS ORAL) (20 sources) Start: 07-25-2022 take 1 tablet by mouth once daily multivitamin with minerals (HAIR,SKIN AND NAILS ORAL) Take 1 tablet by mouth once daily. 07/25/2022 Active Start: 07-25-2022 take 1 tablet by oli th once daily multivitamin with minerals (HAIR,SKIN AND NAILS ORAL) Take 1 tablet by mouth once daily. 0 07/25/2022 Active Start: 07-25-2022 multivitamin w ith minerals (HAIR,SKIN AND NAILS ORAL) [The details of the medication are not available because there are pending changes by a home health clinician.] 0 07/25/2022 Active multivitamin wit h minerals (HAIR,SKIN AND NAILS ORAL) Take by mouth. 0 Active Comment on above: Take by mouth. [The details of the medication are not available because there are pending changes by a home health clinician.] [facility] mupirocin 0.02 mg/mg topical ointment (2 sources) RNA Synthetase Inhibitor Antibacterial Start: 07-11-19 End: 07-24-19 mupirocin (BACTROBAN) 2 % ointment Indications: Pre-operative examination Apply 0.5 inch with cotton swab (Q-tip) to each nostril in the morning and evening for 5 days prior to and including day of surgery. 22 g 0 07/10/2022 07/23/2022 Active Comment on above: Apply 0.5 inch with cotton swab (Q-tip) to each nostril in the morning and evening for 5 days prior to and including day of surgery. oxyCODONE hydrochloride 5 mg oral tablet (15 sources) Opioid Agonist Start: 07-25-19 End: 08-04-19 take 1 tablet by mouth every six hours as needed oxyCODONE IR (ROXICODONE) 5 mg immediate release tablet Indications: S/P total knee arthroplasty, left Take 1-2 tablets by mouth every 6 hours as needed for pain. 50 tablet 08/03/2022 Active Comment on above: Take 1-2 tablets by mouth every 6 hours as needed for pain. sertraline 50 mg oral tablet (6 sources) Serotonin Reuptake Inhibitor Start: 09-05-19 sertraline (ZOLOFT) 50 mg tablet START WITH 0.5 TABLET FOR 2 WEEKS THEN INCREASE TO TAKE 1 TABLET BY MOUTH EVERY DAY 09/04/2022 Active Comment on above: START WITH 0.5 TABLE T FOR 2 WEEKS THEN INCREASE TO TAKE 1 TABLET BY MOUTH EVERY DAY vitamin e 180 mg oral capsule (20 sources) Start: 07-26-19 take 1 capsule by mouth once daily vitamin E, dl,tocopheryl acet, (VITAMIN E, DL, ACETATE,) 180 mg (400 unit) capsule Take 180 mg by mouth once daily. 07/25/2022 Active take 1 capsule by mouth once jaycob ly Vitamin E, dl, acetate, (VITAMIN E) 200 unit capsule Take 200 Units by mouth once daily. Active Comment on above: Take 200 Units by mo [facility] once daily. Take 180 mg by mouth once daily. Zinc (20 sources) Start: 07-25-2022 take 50 mg by mouth once daily ZINC ORAL Take 50 mg by mouth once daily. 07/25/2022 Active Start: 07-25-2022 take 50 mg by mouth once daily ZINC ORAL Take 50 mg by mouth once daily. 0 07/25/2022 Active Start: 07-25-2022 ZINC ORAL [The details of the medication are not available because there are pending changes by a home health clinician.] 0 07/25/2022 Active ZINC ORAL Take b y mouth once daily. 0 Active Comment on above: Take by mouth once d aily. [The details of the medication are not available because there are pending changes by a home health clinician.] Take 50 mg by mouth once daily. Completed/Discontinued Medications Medication Drug Class(es) Dates Sig (Normalized) Sig (Original) Biotin (7 sources) End: 07-10-2022 BIOTIN ORAL Take by mouth. 07/10/2022 Discontinued BIOTIN ORAL Take by mouth. 0 Active Comment on above: Take by mouth. COMPOUNDED PRESCRIPTION (7 sources) Start: 07-21-2002 End: 07-10-2022 COMPOUNDED PRESCRIPTION BCP daily 0 07/21/2002 07/10/2022 Discontinued Start: 07-21-2002 COMPOUNDED PRE SCRIPTION BCP daily 0 07/21/2002 Active Comment on above: BCP daily docusate sodium 100 mg oral capsule (8 sources) Start: 07-25-19 End: 08-27-19 take 1 capsule by mouth every twelve hours as needed docusate sodium (COLACE) 100 mg capsule Take 1 capsule by mouth twice daily as needed for constipation. 60 capsule 07/24/2022 08/26/2022 Comment on above: Take 1 capsule by mo [facility] twice daily as needed for constipation. ibuprofen 200 mg oral tablet (2 sources) Nonsteroidal Anti-inflammatory Drug End: 03-18-19 take 4 tablets by mouth once daily at bedtime ibuprofen (MOTRIN) 200 mg tablet Take 800 mg by mouth daily at bedtime. 03/18/2022 Discontinued (Other) Comment on above: Take 800 mg by mouth daily at bedtime. meloxicam 7.5 mg oral tablet (6 sources) Nonsteroidal Anti-inflammatory Drug Start: 03-18-19 take 1 tablet by mouth once daily meloxicam (MOBIC) 7.5 mg tablet Take 1 tablet by mouth once daily. 30 tablet 2 03/18/2022 Active Comment on above: [facility]. polyethylene glycol 3350 43454 mg powder for oral solution (7 sources) Osmotic Laxative Start: 07-25-19 End: 08-11-19 polyethylene glycol 3350 (MIRALAX) 17 gram/dose powder Take 17 g by mouth once daily as needed for constipation for up to 10 days. Dissolve dose in 4 - 8 ounces of liquid and take as directed. 238 g 07/24/2022 08/10/2022 Comment on above: Take 17 g by mouth o nce daily as needed for constipation for up to 10 days. Dissolve dose in 4 - 8 ounces of liquid and take as directed. Problems Active Problems Problem Classification Problem Date Documented Date Episodic/Chronic Headache; including migraine (16 sources) Migraine; Translations: [Migraine, unspecified, not intractable, without status migrainosus] Onset: 07-16-2022 07-16-2022 Chronic Osteoarthritis (5 sources) Osteoarthritis of left knee joint; Translations: [Unilateral primary osteoarthritis, left knee] Chronic Other aftercare (1 source) Patient encounter status; Translations: [Aftercare following joint replacement surgery] 08-27-2023 Chronic Other connective tissue disease (18 sources) History of total knee arthroplasty; Translations: [Presence of left artificial knee joint] Onset: 07-24-2022 07-24-2022 Chronic Other non-traumatic joint disorders (3 sources) Pain in left knee; Translations: [Pain in joint, lower leg] Onset: 07-30-2023 07-30-2023 Episodic Residual codes; unclassified (1 source) Pain; Translations: [Pain, unspecified] 03-18-2022 Episodic Thyroid disorders (16 sources) Hypothyroidism; Translations: [Hypothyroidism, unspecified] Onset: 07-16-2022 07-16-2022 Chronic Past or Other Problems Problem Classification Problem Date Documented Da te Episodic/Chronic Cardiac dysrhythmias (16 sources) Bradycardia; Translations: [Bradycardia, unspecified] Onset: 07-16-2022 07-16-2022 Episodic Results Test Name Value Interpretation Reference Range Facility XR Knee AP and Lateral and M erchantson 07-31-2023 IMPRESSION: Stable TKA Grain Spouter: LUDIVINA Transcribe Date/Time: Jul 31 2023 8:05A Dictated by : DO DAVEY MD This examination was interpreted and the report reviewed and electronically signed by: DO DAVEY MD on Jul 31 2023 8:06AM EST [facility] * * *Final Report* * * DATE OF EXAM: Jul 30 2023 3:04PM MARIANO 5208 - XR KNEE 3V AP/LAT/MERCHANT LT / PROCEDURE REASON: M25.562-Left knee pain, unspecified chronicity * * * * Physician Interpretation * * * * PROCEDURE: Left knee INDICATION: Left knee pain, unspecified chronicity .1 year follow-up for left knee replacement TECHNIQUE: XR KNEE 3V AP/LAT/MERCHANT LT COMPARISON: 08/07/2022 FINDINGS: Stable total knee arthroplasty without evidence for loosening. No periprosthetic fracture. Small joint effusion. Mild right knee osteoarthrosis. [facility] Provider, [facility] [place] - 07/31/2023 * * *Final Report* * * DATE OF EXAM: Jul 30 2023 3:04PM MARIANO 5208 - XR KNEE 3V AP/LAT/MERCHANT LT / PROCEDURE REASON: M25.562-Left knee pain, unspecified chronicity * * * * Physician Interpretation * * * * PROCEDURE: Left knee INDICATION: Left knee pain, unspecified chronicity .1 year follow-up for left knee replacement TECHNIQUE: XR KNEE 3V AP/LAT/MERCHANT LT COMPARISON: 08/07/2022 FINDINGS: Stable total knee arthroplasty without evidence for loosening. No periprosthetic fracture. Small joint effusion. Mild right knee osteoarthrosis. IMPRESSION IMPRESSION: Stable TKA Grain Spouter: LUDIVINA Transcribe Date/Time: Jul 31 2023 8:05A Dictated by : DO DAVEY MD This examination was interpreted and the report reviewed and electronically signed by: DO DAVEY MD on Jul 31 2023 8:06AM EST [facility] XR Knee AP and Lateral and M erchantsOrdered By: [facility] Provider on 07-31-2023 [facility] CNOVon 07-30-2023 CNOV Office Visit (ORMDNA) ---- CHAVEZ MARQUES ([id number]) 1970 F Date Time Provider Department 07/30/23 3:30 PM KRISTINA BURNS During your visit today, we recorded the following information about you: Kristina Burns MD 08/27/2023 11:[address] BURNS- POST-OP KNEE Post-Op F/U Office Visit Chavez Marques presents today for a 1 year status post Left TKA. Post-operative recovery was uneventful. Patient's rating of condition: improving Comments: Patient reports that her preoperative pain has improved Does the Pt. still experience pain? PAIN EVALUATION 07/30/2023 1536 Pain Level: 0 Pain Location: Knee-Left Functional difficulties: None Physical Therapy: Completed course of therapy Pain Medication: None Ambulating without assistance. Medications and Allergies reviewed and verified. EXAM: GEN: AANDO x3, NAD SKIN:Appropriate postop appearance Incision clean/dry/intact Incision well healed LeftKnee: ROM: Flexion/Extension:0 degrees to 120 degrees Pain with ROM:No Mal-alignment: No Effusion: None Non Tender to palpation of the medial , lateral , and patellofemoral joint line(s). Stability:Anterior/ Posterior- Yes, stable and Varus/Valgus- Yes, stable Quad strength: normal HIP: range of motion no loss ROM NV: intact and Julissa's negative IMAGING: Xrays: Implants are well aligned. Implants are well fixed. There is no evidence of loosening. There is evidence of osteo-integration. There is no evidence of osteolysis. Patella is well positioned. ========= IMPRESSION/PLAN: ========= 52 year old female s/p Left TKA No complaints or limitations. At normal post-operative stage of recovery. Plan: 1. Continue independent range of motion/strengthenin g exercises 2. We reviewed total knee precautions including antibiotic prophylactic protocols for dental procedures 3. Follow-up 5 years for repeat clinical/radiograph ic evaluation or sooner should she develop any new orthopedic problems Kristina Burns MD Electronic Signature Referring Provider: SELF [200] Allergies As of Date: 07/30/2023 Noted Allergy Reaction ADHESIVE 08/07/2022 2 - Rash LATEX, NATURAL RUBBER 09/16/2021 9 - Itching NICKEL 03/18/2022 14 - Other: See Comments Comments: Tarnishes PENICILLINS 07/21/2002 PEPTO-BISMOL (BISMUTH SUBSALICYLA* 022 6 - Diarrhea Date Reviewed: 07/30/2023 Reviewed by: Claudette Loza OCCA - Fully Assessed Reason for Visit: Follow Up [171] Knee Replacement [363] Primary Visit Diagnosis:Aftercare following left knee joint replacement surgery [Z47.1, Z96.652] Prescriptions as of 08/27/2023 - levothyroxine (SYNTHROID) 125 mcg tablet Take 125 mcg by mouth every morning. - clindamycin (CLEOCIN) 300 mg capsule Take 2 capsules by mouth one hour prior to dental cleaning/procedure - sertraline (ZOLOFT) 50 mg tablet START WITH 0.5 TABLET FOR 2 WEEKS THEN INCREASE TO TAKE 1 TABLET BY MOUTH EVERY DAY - acetaminophen (TYLENOL) 500 mg tablet Take 2 tablets by mouth every 8 hours as needed for pain. - oxyCODONE IR (ROXICODONE) 5 mg immediate release tablet Take 1-2 tablets by mouth every 6 hours as needed for pain. - vitamin E, dl,tocopheryl acet, (VITAMIN E, DL, ACETATE,) 180 mg (400 unit) capsule Take 180 mg by mouth once daily. - aspirin, enteric coated (ASPIRIN, ENTERIC COATED) 81 mg EC tablet Take 1 tablet by mouth twice daily for 28 days. - ascorbic acid, vitamin C, (VITAMIN C) 500 mg tablet Take 1 tablet by mouth twice daily with meals for 27 doses. - FOLDING WALKER WITH 5 WHEELS One wheeled walker - multivitamin with minerals (HAIR,SKIN AND NAILS ORAL) Take 1 tablet by mouth once daily. - ZINC ORAL Take 50 mg by mouth once daily. - levothyroxine (SYNTHROID) 112 mcg tablet Take 1 tablet by mouth once daily. - multivitamin tablet Take 1 tablet by mouth once daily. - Vitamin E, dl, acetate, (VITAMIN E) 200 unit capsule Take 200 Units by mouth once daily. - calcium carbonate-vitamin D3 (OSCAL+D) 500 mg(1,250mg) -400 unit chewable tablet Take 1 tablet by mouth twice daily. - cholecalciferol, vitamin D3, (VITAMIN D3 ORAL) Take 5,000 Units by mouth once daily. Problem List As Of Date 07/30/2023 Noted Resolved Migraine headache [G43.909] 07/16/2022 Hypothyroidism [E03.9] 07/16/2022 Bradycardia [R00.1] 07/16/2022 S/P total knee arthroplasty, left [Z96.652] 07/24/2022 Disposition: Return in about 5 years (around 07/29/2028). Follow-up and Disposition History for Encounter Date Provider Department Center 07/30/2023 [id number] BURNS [facility] (more content not included)... Normal [facility] XR KNEE 3V AP/LAT/MERCHANT L Ton 07-30-2023 XR KNEE 3V AP/LAT/MERCHANT LT * * *Final Report* * * DATE OF EXAM: Jul 30 2023 3:04PM MARIANO 5208 - XR KNEE 3V AP/LAT/MERCHANT LT / PROCEDURE REASON: M25.562-Left knee pain, unspecified chronicity * * * * Physician Interpretation * * * * PROCEDURE: Left knee INDICATION: Left knee pain, unspecified chronicity .1 year follow-up for left knee replacement TECHNIQUE: XR KNEE 3V AP/LAT/MERCHANT LT COMPARISON: 08/07/2022 FINDINGS: Stable total knee arthroplasty without evidence for loosening. No periprosthetic fracture. Small joint effusion. Mild right knee osteoarthrosis. IMPRESSION: Stable TKA Grain Spouter: LUDIVINA Transcribe Date/Time: Jul 31 2023 8:05A Dictated by : DO DAVEY MD This examination was interpreted and the report reviewed and electronically signed by: DO DAVEY MD on Jul 31 2023 8:06AM EST [id number] [id number] [facility] XR Knee AP and Lateral and M latisha 07-30-2023 Radiology Study observation (narrative) [facility] CNOVon 05-12-2023 CNOV Office Visit (OBGYWM) ---- CHAVEZ ([id number]) 1970 F Date Time Provider Department 05/12/23 2:40 PM JAKE ARSHAD OBGYWM During your visit today, we recorded the following information about you: Blood pressure Weight Height 108/62 73.9 kg 1.753 m Jake Arshad MD 05/12/2023 3:21 PM Signed Chavez is a 52 year old who presents for an annual gynecologic exam without complaints. Postmenopausal: hysterectomy HRT use: No. Last Pap: normal HPV: negative History of abnormal pap: No Last mammogram: 2023 normal History of abnormal mammogram: No Sexually active: No OB History T0 L0 SAB0 IAB0 Ectopic0 Multiple0 Live Births0 Head Cook History LMP: Hysterectomy Age at Menarche: Age at First : Age at Menopause: Head Cook History Comments: Sexual Activity: Yes; Male; hysterectomy Contraception: Surgical PAST MEDICAL HISTORY Diagnosis Date Hypothyroidism Irregular [...] SURGICAL HISTORY OF 2005 lumbar laminectomy x2 TOTAL KNEE REPLACEMENT Left 07/23/2022 VAGINAL HYSTERECTOMY 2018 FAMILY HISTORY Problem Relation Age of Onset Colon Polyps Mother other (squamous cell) Mother Skin Cancer Mother Primary Biliary Cirrhosis Mother Auto-Immune Disorder Mother other (VARICES) Mother other (cardiac issues) Father other (trigeminal neuralgia) Father Prostate Cancer Father other (bladder cancer) Father other (bone cancer) Father other (congestive heart) Maternal Grandmother other (oral cancer) Maternal Aunt other (sinus cancer) Maternal Aunt Breast Cancer Paternal Aunt Breast Cancer Paternal Aunt SOCIAL HISTORY Social History Tobacco Use Smoking status: Never Smokeless tobacco: Never Vaping Use Vaping Use: Never used Substance Use Topics Alcohol use: Yes Comment: VERY RARELY Drug use: Never REVIEW OF SYSTEMS Abdomen: No abdominal pain, nausea, vomiting, diarrhea, or constipation. No bloating, early satiety, indigestion, or increased flatulence. Bladder: No dysuria, gross hematuria, urinary frequency, urinary urgency, or incontinence Breast: No breast lumps, nipple d/c, overlying skin changes, redness or skin retraction Allergies and current medication updated:Yes TEACHING PHYSICIAN NOTE OF PERSONAL INVOLVEMENT IN CARE: I have personally seen and examined the patient and performed the medical decision-making components. I have reviewed the medical student documentation and verified the findings in the note as written. Any additions or changes are noted in bold/italics. Signature: Jake Arshad Date: 05/12/2023 Time: 3:13 PM EXAM: BP 108/62 Ht 5' 9 (1.75m) Wt 163 lb (73.9kg) BMI 24.06 kg/(m2). GENERAL: pleasant, female in no apparent distress HEENT: Normocephalic, atraumatic, mucus membranes moist, and no lesions NECK: Supple, full range of motion, no adenopathy, and thyroid normal DERMATOLOGY: Normal, without lesions, non-icteric, and non-hirsute BREAST: soft, non-tender, symmetric, no dominant mass, normal nipple-areolar complex, no lymphadenopathy, and no nipple discharge CHEST: Normal inspiratory effort ABDOMEN: soft, non-tender, and no masses PELVIC: external genitalia normal, normal Bartholin's glands, urethra, [place]'s glands, no vulvar lesions, good vaginal support, physiologic discharge present, normal appearing perineal body and perianal region, cervix surgically absent BIMANUAL: no adnexal masses, non-tender, and uterus surgically absent RECTOVAGINAL: deferred. NEURO: alert and oriented x3,exam grossly non-focal EXTREMITIES: normal ASSESSMENT/PLAN: 1) Health maintenance: Pap/HPV screening no longer needed Mammogram ordered Colon cancer screening: up to date with screening 2) Follow up one year or sooner as needed Jake Arshad MD Allergies As of Date: 05/12/2023 Noted Allergy Reaction ADHESIVE 08/07/2022 2 - Rash LATEX, NATURAL RUBBER 09/16/2021 9 - Itching NICKEL 03/18/2022 14 - Other: See Comments Comments: Tarnishes PENICILLINS 07/21/2002 PEPTO-BISMOL (BISMUTH SUBSALICYLA* 022 6 - Diarrhea Date Reviewed: 05/12/2023 Reviewed by: Jake Arshad MD - Fully Assessed Reason for Visit: Yearly Exam [187] Primary Visit Diagnosis:Encounter for gynecological examination (general) (routine) without abnormal findings [Z01.419] P (more content not included)... Normal [facility] CNOVon 02-10-2023 CNOV Office Visit (ORMDNA) ---- CHAVEZ MARQUES ([id number]) 1970 F Date Time Provider Department 02/10/23 4:00 PM KRISTINA BURNS During your visit today, we recorded the following information about you: Kristina Burns MD 03/08/2023 9:[address] BURNS- POST-OP KNEE Post-Op F/U Office Visit Chavez Marques presents today for a 6-month status post Left TKA. Post-operative recovery was uneventful. Patient's rating of condition: improving Comments: None Does the Pt. still experience pain? PAIN EVALUATION 02/10/2023 1603 Pain Level: 1 Pain Location: Knee-Right left knee-stiffness Description: Sore Duration Amount of Time: 2 Duration Units: Months Frequency: Intermittent Intervention/Comfor t measure: Relaxation Functional difficulties: None Physical Therapy: [...] , lateral , and patellofemoral joint line(s). Stability:Anterior/ Posterior- Yes, stable and Varus/Valgus- Yes, stable Quad strength: normal HIP: range of motion no loss ROM NV: intact and Julissa's negative IMAGING: Xrays: No x-rays today ========= IMPRESSION/PLAN: ========= 52 year old female s/p Left TKA No complaints or limitations. At normal post-operative stage of recovery. Plan: 1. Continue independent range of motion/strengthenin g exercises 2. Continue total knee precautions including antibiotic prophylactic protocols 3. Follow-up 6 months for repeat clinical/radiograph ic evaluation Kristina Burns MD Electronic Signature Referring Provider: SELF [200] Allergies As of Date: 02/10/2023 Noted Allergy Reaction ADHESIVE 08/07/2022 2 - Rash LATEX, NATURAL RUBBER 09/16/2021 9 - Itching NICKEL 03/18/2022 14 - Other: See Comments Comments: Tarnishes PENICILLINS 07/21/2002 PEPTO-BISMOL (BISMUTH SUBSALICYLA* 022 6 - Diarrhea Date Reviewed: 02/10/2023 Reviewed by: Claudette Loza - Fully Assessed Reason for Visit: Follow Up [171] Knee Replacement [363] Pain [78] Primary Visit Diagnosis:S/P total knee arthroplasty, left [Z96.652] Prescriptions as of 03/08/2023 - levothyroxine (SYNTHROID) 125 mcg tablet Take 125 mcg by mouth every morning. - clindamycin (CLEOCIN) 300 mg capsule Take 2 capsules by mouth one hour prior to dental cleaning/procedure - sertraline (ZOLOFT) 50 mg tablet START WITH 0.5 TABLET FOR 2 WEEKS THEN INCREASE TO TAKE 1 TABLET BY MOUTH EVERY DAY - acetaminophen (TYLENOL) 500 mg tablet Take 2 tablets by mouth every 8 hours as needed for pain. - oxyCODONE IR (ROXICODONE) 5 mg immediate release tablet Take 1-2 tablets by mouth every 6 hours as needed for pain. - vitamin E, dl,tocopheryl acet, (VITAMIN E, DL, ACETATE,) 180 mg (400 unit) capsule Take 180 mg by mouth once daily. - aspirin, enteric coated (ASPIRIN, ENTERIC COATED) 81 mg EC tablet Take 1 tablet by mouth twice daily for 28 days. - ascorbic acid, vitamin C, (VITAMIN C) 500 mg tablet Take 1 tablet by mouth twice daily with meals for 27 doses. - FOLDING WALKER WITH 5 WHEELS One wheeled walker - multivitamin with minerals (HAIR,SKIN AND NAILS ORAL) Take 1 tablet by mouth once daily. - ZINC ORAL Take 50 mg by mouth once daily. - levothyroxine (SYNTHROID) 112 mcg tablet Take 1 tablet by mouth once daily. - multivitamin tablet Take 1 tablet by mouth once daily. - Vitamin E, dl, acetate, (VITAMIN E) 200 unit capsule Take 200 Units by mouth once daily. - calcium carbonate-vitamin D3 (OSCAL+D) 500 mg(1,250mg) -400 unit chewable tablet Take 1 tablet by mouth twice daily. - cholecalciferol, vitamin D3, (VITAMIN D3 ORAL) Take 5,000 Units by mouth once daily. Problem List As Of Date 02/10/2023 Noted Resolved Migraine headache [G43.909] 07/16/2022 Hypothyroidism [E03.9] 07/16/2022 Bradycardia [R00.1] 07/16/2022 S/P total knee arthroplasty, left [Z96.652] 07/24/2022 Disposition: Return in about 6 months (around 08/11/2023). Follow-up and Disposition History for Encounter Date Provider Department Center 02/10/2023 [id number] BURNS [facility] Encounter Status:Closed by KRISTINA BURNS on 03/08/23 [facility] CNOVon 10-19-2022 CNOV Office Visit (SUSHILA) ---- CHAVEZ MARQUES ([id number]) 1970 F Date Time Provider Department 10/19/22 4:00 PM KRISTINA BURNS During your visit today, we recorded the following information about you: Kristina Burns MD 11/12/2022 3:[address] BURNS- POST-OP KNEE Post-Op F/U Office Visit Chavez Marques presents today for a routine 3rd post-op visit @ 12 weeks status post Left TKA. Post-operative recovery was uneventful. Patient's rating of condition: improving Comments: none Does the Pt. still experience pain? PAIN EVALUATION 10/18/2022 0804 Pain Level: 2 Pain Location: Knee-Left Description: Stiffness Frequency: Intermittent Intervention/Comfor t measure: Cold Functional difficulties: Stair climbing Physical Therapy: Completed course of therapy Pain Medication: None Ambulating without assistance. Medications and Allergies reviewed and verified. EXAM: GEN: AANDO x3, NAD SKIN:Appropriate postop appearance Incision intact Incision well healed LeftKnee: ROM: Flexion/Extension:0 degrees to 105 degrees Pain with ROM:No Mal-alignment: No Effusion: None Tender to palpation of the medial joint line(s). Stability:Anterior/ Posterior- Yes, stable and Varus/Valgus- Yes, stable Quad strength: normal HIP: range of motion no loss ROM NV: intact and Julissa's negative IMAGING: Xrays: No x-rays today ========= IMPRESSION/PLAN: ========= 52 year old female s/p Left TKA At normal post-operative stage of recovery. Plan: 1. Continue independent range of motion/strengthenin g exercises 2. We discussed total knee precautions including antibiotic prophylactic protocols 3. Follow-up for repeat clinical evaluation Kristina Burns MD Electronic Signature Referring Provider: SELF [200] Allergies As of Date: 10/19/2022 Noted Allergy Reaction ADHESIVE 08/07/2022 2 - Rash LATEX, NATURAL RUBBER 09/16/2021 9 - Itching NICKEL 03/18/2022 14 - Other: See Comments Comments: Tarnishes PENICILLINS 07/21/2002 PEPTO-BISMOL (BISMUTH SUBSALICYLA* 022 6 - Diarrhea Date Reviewed: 10/19/2022 Reviewed by: Claudette Loza - Fully Assessed Reason for Visit: Post Op [174] Knee Replacement [363] Primary Visit Diagnosis:S/P total knee arthroplasty, left [Z96.652] Prescriptions as of 11/12/2022 - clindamycin (CLEOCIN) 300 mg capsule Take 2 capsules by mouth one hour prior to dental cleaning/procedure - sertraline (ZOLOFT) 50 mg tablet START WITH 0.5 TABLET FOR 2 WEEKS THEN INCREASE TO TAKE 1 TABLET BY MOUTH EVERY DAY - acetaminophen (TYLENOL) 500 mg tablet Take 2 tablets by mouth every 8 hours as needed for pain. - oxyCODONE IR (ROXICODONE) 5 mg immediate release tablet Take 1-2 tablets by mouth every 6 hours as needed for pain. - vitamin E, dl,tocopheryl acet, (VITAMIN E, DL, ACETATE,) 180 mg (400 unit) capsule Take 180 mg by mouth once daily. - aspirin, enteric coated (ASPIRIN, ENTERIC COATED) 81 mg EC tablet Take 1 tablet by mouth twice daily for 28 days. - ascorbic acid, vitamin C, (VITAMIN C) 500 mg tablet Take 1 tablet by mouth twice daily with meals for 27 doses. - FOLDING WALKER WITH 5 WHEELS One wheeled walker - multivitamin with minerals (HAIR,SKIN AND NAILS ORAL) Take 1 tablet by mouth once daily. - ZINC ORAL Take 50 mg by mouth once daily. - levothyroxine (SYNTHROID) 112 mcg tablet Take 1 tablet by mouth once daily. - multivitamin tablet Take 1 tablet by mouth once daily. - Vitamin E, dl, acetate, (VITAMIN E) 200 unit capsule Take 200 Units by mouth once daily. - calcium carbonate-vitamin D3 (OSCAL+D) 500 mg(1,250mg) -400 unit chewable tablet Take 1 tablet by mouth twice daily. - cholecalciferol, vitamin D3, (VITAMIN D3 ORAL) Take 5,000 Units by mouth once daily. Problem List As Of Date 10/19/2022 Noted Resolved Migraine headache [G43.909] 07/16/2022 Hypothyroidism [E03.9] 07/16/2022 Bradycardia [R00.1] 07/16/2022 S/P total knee arthroplasty, left [Z96.652] 07/24/2022 Encounter Status:Closed by KRISTINA BURNS on 11/12/22 [facility] CNOVon 09-09-2022 CNOV Office Visit (ORMDNA) ---- CHAVEZ MARQUES ([id number]) 1970 F Date Time Provider Department 09/09/22 1:30 PM KRISTINA BURNS ORKEL During your visit today, we recorded the following information about you: Kristina Burns MD 10/03/2022 3:[address] BURNS- POST-OP KNEE Post-Op F/U Office Visit Chavez Marques presents today for a 7 weeks status post Left TKA. Post-operative recovery was uneventful. Patient's rating of condition: improving Comments: None Does the Pt. still experience pain? PAIN EVALUATION 09/07/2022 0901 Pain Level: 3 Pain Location: Knee-Left Description: Stiffness Duration Amount of Time: 1 Duration Units: Hours Frequency: Intermittent Intervention/Comfor t measure: Cold Comments: Mostly in outer side [...] to palpation of the medial joint line(s). Stability:Anterior/ Posterior- Yes, stable and Varus/Valgus- Yes, stable Quad strength: normal HIP: range of motion no loss ROM NV: intact and Julissa's negative IMAGING: Xrays: No x-rays today ========= IMPRESSION/PLAN: ========= 51 year old female s/p Left TKA At normal post-operative stage of recovery. Plan: Continue PT with emphasis on ROM Continue total knee precautions F/u for repeat clinical evaluation Kristina Burns MD Electronic Signature Allergies As of Date: 09/09/2022 Noted Allergy Reaction ADHESIVE 08/07/2022 2 - Rash LATEX, NATURAL RUBBER 09/16/2021 9 - Itching NICKEL 03/18/2022 14 - Other: See Comments Comments: Tarnishes PENICILLINS 07/21/2002 PEPTO-BISMOL (BISMUTH SUBSALICYLA* 022 6 - Diarrhea Date Reviewed: 09/09/2022 Reviewed by: Claudette Loza - Fully Assessed Reason for Visit: Post Op [174] Knee Replacement [363] Primary Visit Diagnosis:S/P total knee arthroplasty, left [Z96.652] Prescriptions as of 10/03/2022 - sertraline (ZOLOFT) 50 mg tablet START WITH 0.5 TABLET FOR 2 WEEKS THEN INCREASE TO TAKE 1 TABLET BY MOUTH EVERY DAY - acetaminophen (TYLENOL) 500 mg tablet Take 2 tablets by mouth every 8 hours as needed for pain. - oxyCODONE IR (ROXICODONE) 5 mg immediate release tablet Take 1-2 tablets by mouth every 6 hours as needed for pain. - vitamin E, dl,tocopheryl acet, (VITAMIN E, DL, ACETATE,) 180 mg (400 unit) capsule Take 180 mg by mouth once daily. - aspirin, enteric coated (ASPIRIN, ENTERIC COATED) 81 mg EC tablet Take 1 tablet by mouth twice daily for 28 days. - ascorbic acid, vitamin C, (VITAMIN C) 500 mg tablet Take 1 tablet by mouth twice daily with meals for 27 doses. - FOLDING WALKER WITH 5 WHEELS One wheeled walker - multivitamin with minerals (HAIR,SKIN AND NAILS ORAL) Take 1 tablet by mouth once daily. - ZINC ORAL Take 50 mg by mouth once daily. - levothyroxine (SYNTHROID) 112 mcg tablet Take 1 tablet by mouth once daily. - multivitamin tablet Take 1 tablet by mouth once daily. - Vitamin E, dl, acetate, (VITAMIN E) 200 unit capsule Take 200 Units by mouth once daily. - calcium carbonate-vitamin D3 (OSCAL+D) 500 mg(1,250mg) -400 unit chewable tablet Take 1 tablet by mouth twice daily. - cholecalciferol, vitamin D3, (VITAMIN D3 ORAL) Take 5,000 Units by mouth once daily. Problem List As Of Date 09/09/2022 Noted Resolved Migraine headache [G43.909] 07/16/2022 Hypothyroidism [E03.9] 07/16/2022 Bradycardia [R00.1] 07/16/2022 S/P total knee arthroplasty, left [Z96.652] 07/24/2022 Disposition: Return in about 1 month (around 10/10/2022). Follow-up and Disposition History for Encounter Date Provider Department Center 09/09/2022 [id number] BURNS [facility] C Letter Text Encounter Status:Closed by KRISTINA BURNS on 10/03/[address] [facility] and Lateral and M latisha 08-08-2022 IMPRESSION: Intact left knee arthroplasty. Grain Spouter: LUDIVINA Transcribe Date/Time: Aug 08 2022 11:02A Dictated by : LORY MCNEIL MD This examination was interpreted and the report reviewed and electronically signed by: LORY MCNEIL MD on Aug 08 2022 11:02AM EST [facility] * * *Final Report* * * DATE OF EXAM: Aug 07 2022 10:52AM MDO 5208 - XR KNEE 3V AP/LAT/MERCHANT LT / PROCEDURE REASON: M25.562-Left knee pain, unspecified chronicity * * * * Physician Interpretation * * * * EXAMINATION: XR KNEE 3V AP/LAT/MERCHANT LT HISTORY: FOLLOW-UP FOR LEFT KNEE; SURGERY 6/ Left knee pain, unspecified chronicity . TECHNIQUE: XR KNEE 3V AP/LAT/MERCHANT LT Laterality: LEFT Number of different views (projections): 3 M: XB_1 COMPARISON: 07/23/2022 RESULT: Left total knee arthroplasty in place appears intact and without loosening. Mild right knee degenerative change. No acute fracture or dislocation. There are no bony erosions. [facility] Provider, [facility] [place] - 08/08/2022 * * *Final Report* * * DATE OF EXAM: Aug 07 2022 10:52AM MARIANO 5208 - XR KNEE 3V AP/LAT/MERCHANT LT / PROCEDURE REASON: M25.562-Left knee pain, unspecified chronicity * * * * Physician Interpretation * * * * EXAMINATION: XR KNEE 3V AP/LAT/MERCHANT LT HISTORY: FOLLOW-UP FOR LEFT KNEE; SURGERY 615 Left knee pain, unspecified chronicity . TECHNIQUE: XR KNEE 3V AP/LAT/MERCHANT LT Laterality: LEFT Number of different views (projections): 3 M: XB_1 COMPARISON: 07/23/2022 RESULT: Left total knee arthroplasty in place appears intact and without loosening. Mild right knee degenerative change. No acute fracture or dislocation. There are no bony erosions. IMPRESSION IMPRESSION: Intact left knee arthroplasty. Grain Spouter: LUDIVINA Transcribe Date/Time: Aug 08 2022 11:02A Dictated by : LORY MCNEIL MD This examination was interpreted and the report reviewed and electronically signed by: LORY MCNEIL MD on Aug 08 2022 11:02AM EST [facility] XR Knee AP and Lateral and M erchantsOrdered By: [facility] Provider on 08-08-2022 [facility] XR KNEE 3V AP/LAT/MERCHANT L Ton 08-07-2022 XR KNEE 3V AP/LAT/MERCHANT LT * * *Final Report* * * DATE OF EXAM: Aug 07 2022 10:52AM MARIANO 5208 - XR KNEE 3V AP/LAT/MERCHANT LT / PROCEDURE REASON: M25.562-Left knee pain, unspecified chronicity * * * * Physician Interpretation * * * * EXAMINATION: XR KNEE 3V AP/LAT/MERCHANT LT HISTORY: FOLLOW-UP FOR LEFT KNEE; SURGERY 07/23 Left knee pain, unspecified chronicity . TECHNIQUE: XR KNEE 3V AP/LAT/MERCHANT LT Laterality: LEFT Number of different views (projections): 3 M: XB_1 COMPARISON: 07/23/2022 RESULT: Left total knee arthroplasty in place appears intact and without loosening. Mild right knee degenerative change. No acute fracture or dislocation. There are no bony erosions. IMPRESSION: Intact left knee arthroplasty. Grain Spouter: LUDIVINA Transcribe Date/Time: Aug 08 2022 11:02A Dictated by : LORY MCNEIL MD This examination was interpreted and the report reviewed and electronically signed by: LORY MCNEIL MD on Aug 08 2022 11:02AM EST [id number] [id number] [facility] XR Knee AP and Lateral and M erchantson 08-07-2022 Radiology Study observation (narrative) [facility] CT KNEE WO IVCON LEFTon 05- [facility] XR Knee - bilateral 4 Viewso n 03-19-2022 IMPRESSION: Bilateral osteoarthrosis, left more advanced than right. Small right joint effusion Grain Spouter: LUDIVINA Transcribe Date/Time: Mar 19 2022 1:38P Dictated by : DO DAVEY MD This examination was interpreted and the report reviewed and electronically signed by: DO DAVEY MD on Mar 19 2022 1:40PM EST [facility] * * *Final Report* * * DATE OF EXAM: Mar 18 2022 8:04AM MDO 5618 - XR KNEE 4V AP/PA/LAT/MERCH ARMANDO / PROCEDURE REASON: [id number] * * * * Physician Interpretation * * * * PROCEDURE: Bilateral knees INDICATION: Pain .BILATERAL KNEE PAIN TECHNIQUE: XR KNEE 4V AP/PA/LAT/MERCH ARMANDO COMPARISON: None FINDINGS: Right knee: Moderate lateral patellofemoral and lateral joint compartment narrowing with minimal tricompartment spur formation. No fracture. Small joint effusion. Left knee: Advanced narrowing of the medial and lateral joint compartments with tricompartment spur formation. Lateral tibial translation. No acute fracture or joint effusion. Tibial tunnel is noted, likely due to prior ACL reconstruction. [facility] Provider, [facility] [place] - 03/19/2022 * * *Final Report* * * DATE OF EXAM: Mar 18 2022 8:04AM MDO 5618 - XR KNEE 4V AP/PA/LAT/MERCH ARMANDO / PROCEDURE REASON: [id number] * * * * Physician Interpretation * * * * PROCEDURE: Bilateral knees INDICATION: Pain .BILATERAL KNEE PAIN TECHNIQUE: XR KNEE 4V AP/PA/LAT/MERCH ARMANDO COMPARISON: None FINDINGS: Right knee: Moderate lateral patellofemoral and lateral joint compartment narrowing with minimal tricompartment spur formation. No fracture. Small joint effusion. Left knee: Advanced narrowing of the medial and lateral joint compartments with tricompartment spur formation. Lateral tibial translation. No acute fracture or joint effusion. Tibial tunnel is noted, likely due to prior ACL reconstruction. IMPRESSION IMPRESSION: Bilateral osteoarthrosis, left more advanced than right. Small right joint effusion [facility] Transcribe Date/Time: Mar 19 2022 1:38P Dictated by : DO DAVEY MD This examination was interpreted and the report reviewed and electronically signed by: DO DAVEY MD on Mar 19 2022 1:40PM EST [facility] XR Knee - bilateral 4 ViewsO rdered By: [facility] Provider on 03-19-2022 [facility] XR Knee - bilateral 4 Viewso n 03-18-2022 Radiology Study observation (narrative) [facility] FT4on 09-08-2021 Free T4 [Mass/Vol] 1.18 ng/dL Normal 0.76-1.46 [facility] ([place]) Comment on above: Performed By: #### F T4 #### [address] [address] .Auto Diffon 09-05-2021 Basophil, Absolute 0.0 10 3/mcL Normal 0.0-0.2 [facility] ([place]) Comment on above: Performed By: #### T SH, CMP, GFR #### [address] [address] #### T4 #### [address] [address] Basophils/100 WBC (Bld) 0.4 % Normal 0.0-2.5 [facility] ([place]) Comment on above: Performed By: #### T SH, CMP, GFR #### [place] [address] #### T4 #### [address] [address] Eosinophil, Absolute 0.1 10 3/mcL Normal 0.0-0.4 [facility] ([place]) Comment on above: Performed By: #### T SH, CMP, GFR #### [place] [id number] #### T4 #### [address] [address] Eosinophils/100 WBC (Bld) 1.7 % Normal 0.0-7.0 [facility] ([place]) Comment on above: Performed By: #### T SH, CMP, GFR #### [address] [address] #### T4 #### [address] [address] Lymphocyte, Absolute 0.9 10 3/mcL Normal 0.8-3.9 [facility] ([place]) Comment on above: Performed By: #### T SH, CMP, GFR #### [place] [address] #### T4 #### [address] [address] Lymphocytes/100 WBC (Bld) 12.9 % Normal 10.0-50.0 [facility] ([place]) Comment on above: Performed By: #### T SH, CMP, GFR #### [address] [address] #### T4 #### [address] [address] Monocyte, Absolute 0.6 10 3/mcL Normal 0.2-1.0 [facility] ([place]) Comment on above: Performed By: #### T SH, CMP, GFR #### [address] [address] #### T4 #### [address] [address] Monocytes/100 WBC (Bld) 8.3 % Normal 1.7-13.0 [facility] ([place]) Comment on above: Performed By: #### T SH, CMP, GFR #### [address] [address] #### T4 #### [address] [address] Neutrophils/100 WBC (Bld) 76.7 % Normal 37.0-80.0 [facility] ([place]) Comment on above: Performed By: #### T SH, CMP, GFR #### [address] [address] #### T4 #### [address] [address] .GFRon 09-05-2021 GFR 96 ml/min/1.73sqm Normal [facility] ([place]) Comment on above: Result Comment: GFR Population mean for , Non- Americans Ages 20-29 = 116 mL/min/1.73 sq.m. Ages 30-39 = 107 mL/min/1.73 sq.m. Ages 40-49 = 99 mL/min/1.73 sq.m. Ages 50-59 = 93 mL/min/1.73 sq.m. Ages 60-69 = 85 mL/min/1.73 sq.m. Ages 70+ = 75 mL/min/1.73 sq.m. Chronic Kidney Disease: Less than 60 mL/min/1.73 square meters End Stage Renal Disease: Less than 15 mL/min/1.73 square meters Performed By: #### T SH, CMP, GFR #### [address] [address] #### T4 #### [address] [address] GFR Non- 79 ml/min/1.73sqm Normal [facility] ([place]) Comment on above: Result Comment: GFR Population mean for , Non- Americans Ages 20-29 = 116 mL/min/1.73 sq.m. Ages 30-39 = 107 mL/min/1.73 sq.m. Ages 40-49 = 99 mL/min/1.73 sq.m. Ages 50-59 = 93 mL/min/1.73 sq.m. Ages 60-69 = 85 mL/min/1.73 sq.m. Ages 70+ = 75 mL/min/1.73 sq.m. Chronic Kidney Disease: Less than 60 mL/min/1.73 square meters End Stage Renal Disease: Less than 15 mL/min/1.73 square meters Performed By: #### T SH, CMP, GFR #### [address] [address] #### T4 #### [address] [address] .MDWon 09-05-2021 Monocyte Distribution Width Not performed Normal 0.00-20.00 [facility] ([place]) Comment on above: Result Comment: MDW testing performed only on adult ER patients between the ages of 18-89 years. Performed By: #### T SH, CMP, GFR #### [address] [address] #### T4 #### [address] [address] .NEUABSon 09-05-2021 Neutrophil, Absolute 5.2 10 3/mcL Normal 2.9-6.2 [facility] ([place]) Comment on above: Performed By: #### T SH, CMP, GFR #### [place] [address] #### T4 #### [place] [address] CBCon 09-05-2021 Erythrocyte distribution width (RBC) [Ratio] 12.9 % Normal 11.5-14.5 [facility] ([place]) Comment on above: Performed By: #### T SH, CMP, GFR #### [place] [address] #### T4 #### [place] [address] Hematocrit (Bld) [Volume fraction] 42.2 % Normal 37.0-47.0 [facility] ([place]) Comment on above: Performed By: #### T SH, CMP, GFR #### [place] [address] #### T4 #### [place] [address] Hgb 14.5 G/dL Normal 12.0-16.0 [facility] ([place]) Comment on above: Performed By: #### T SH, CMP, GFR #### [place] [address] #### T4 #### [place] [address] MCH (RBC) [Entitic mass] 30.1 pg Normal 27.0-31.2 [facility] ([place]) Comment on above: Performed By: #### T SH, CMP, GFR #### [place] [address] #### T4 #### [place] [address] MCHC 34.5 G/dL Normal 33.0-37.0 [facility] ([place]) Comment on above: Performed By: #### T SH, CMP, GFR #### [place] [address] #### T4 #### [address] [address] MCV (RBC) [Entitic vol] 87.5 fL Normal 80.0-94.0 [facility] ([place]) Comment on above: Performed By: #### T SH, CMP, GFR #### [address] [address] #### T4 #### [address] [address] Platelet 266 10 3/mcL Normal 130-400 [facility] ([place]) Comment on above: Performed By: #### T SH, CMP, GFR #### [place] [address] #### T4 #### [address] [address] Platelet mean volume (Bld) [Entitic vol] 8.2 fL Normal 7.4-10.4 [facility] ([place]) Comment on above: Performed By: #### T SH, CMP, GFR #### [place] [address] #### T4 #### [place] [address] RBC 4.83 10 6/mcL Normal 4.20-5.40 [facility] ([place]) Comment on above: Performed By: #### T SH, CMP, GFR #### [place] [address] #### T4 #### [place] [address] WBC 6.8 10 3/mcL Normal 4.6-10.8 [facility] ([place]) Comment on above: Performed By: #### T SH, CMP, GFR #### [place] [address] #### T4 #### [address] [address] CMPon 09-05-2021 Albumin Level 4.8 G/dL Normal 3.5-5.0 [facility] ([place]) Comment on above: Performed By: #### T SH, CMP, GFR #### [address] [address] #### T4 #### [address] [address] Albumin/Globulin [Mass ratio] 1.5 {ratio} Normal 1.1-2.5 [facility] ([place]) Comment on above: Performed By: #### T SH, CMP, GFR #### [place] [address] #### T4 #### [address] [address] ALP [Catalytic activity/Vol] 66 U/L Normal 40-135 [facility] ([place]) Comment on above: Performed By: #### T SH, CMP, GFR #### [place] [address] #### T4 #### [address] [address] ALT [Catalytic activity/Vol] 19 U/L Normal 14-59 [facility] ([place]) Comment on above: Performed By: #### T SH, CMP, GFR #### [place] [address] #### T4 #### [address] [address] AST [Catalytic activity/Vol] 12 U/L Normal 10-40 [facility] ([place] Comment on above: Performed By: #### T SH, CMP, GFR #### [address] [address] #### T4 #### [address] [address] Bili Total 0.5 mg/dL Normal 0.2-1.0 [facility] ([place]) Comment on above: Result Comment: Use of this assay is not recommended for patients undergoing treatment with eltrombopag due to the potential for falsely elevated results. Performed By: #### T SH, CMP, GFR #### [place] [id number] #### T4 #### [address] [address] BUN/Creatinine Ratio 17 ratio Normal 7-27 [facility] ([place]) Comment on above: Performed By: #### T SH, CMP, GFR #### [address] [address] #### T4 #### [address] [address] Calcium [Mass/Vol] 9.8 mg/dL Normal 8.4-10.2 [facility] ([place]) Comment on above: Performed By: #### T SH, CMP, GFR #### [place] [address] #### T4 #### [address] [address] Chloride [Moles/Vol] 102 mmol/L Normal 98-107 [facility] ([place]) Comment on above: Performed By: #### T SH, CMP, GFR #### [place] [address] #### T4 #### [address] [address] CO2 [Moles/Vol] 26 mmol/L Normal 22-29 [facility] ([place]) Comment on above: Performed By: #### T SH, CMP, GFR #### [place] [address] #### T4 #### [address] [address] Creatinine [Mass/Vol] 0.77 mg/dL Normal 0.55-1.02 [facility] ([place]) Comment on above: Performed By: #### T SH, CMP, GFR #### [place] [address] #### T4 #### [address] [address] Electrolyte Balance 11.0 mEq/L Normal 4.0-15.0 [facility] ([place]) Comment on above: Performed By: #### T SH, CMP, GFR #### [address] [address] #### T4 #### [address] [address] Globulin 3.2 G/dL Normal [facility] ([place]) Comment on above: Performed By: #### T SH, CMP, GFR #### [place] [id number] #### T4 #### [address] [address] Glucose [Mass/Vol] 102 mg/dL Normal 70-105 [facility] ([place] Comment on above: Performed By: #### T SH, CMP, GFR #### [address] [address] #### T4 #### [address] [address] Potassium [Moles/Vol] 4.4 mmol/L Normal 3.5-5.1 [facility] ([place]) Comment on above: Performed By: #### T SH, CMP, GFR #### [address] [address] #### T4 #### [address] [address] Sodium [Moles/Vol] 139 mmol/L Normal 136-145 [facility] ([place] Comment on above: Performed By: #### T SH, CMP, GFR #### [place] [id number] #### T4 #### [address] [address] Total Protein 8.0 G/dL Normal 6.4-8.2 [facility] ([place]) Comment on above: Performed By: #### T SH, CMP, GFR #### [address] [address] #### T4 #### [address] [address] Urea nitrogen [Mass/Vol] 13 mg/dL Normal 7-18 [facility] ([place]) Comment on above: Performed By: #### T SH, CMP, GFR #### [address] [address] #### T4 #### [address] [address] T4on 09-05-2021 T4 [Mass/Vol] 9.2 ug/dL Normal 4.5-10.9 [facility] ([place] Comment on above: Result Comment: No te - New Reference Range in effect 19 Performed By: #### T SH, CMP, GFR #### [address] [address] #### T4 #### [address] [address] TSHon 09-05-2021 TSH Qn 0.42 m[IU]/L Normal 0.36-3.74 [facility] ([place]) Comment on above: Performed By: #### T SH, CMP, GFR #### [address] [address] #### T4 #### [address] [address] Vital Signs Date Time Vital Sign Value Performing Clinician Jessica caldwell 05-12-2023 14:48-0400 Body height 175.3 cm Jake Arshad MD Work Phone: [facility] 05-12-2023 14:48-0400 Body weight 73.94 kg Jake Arshad MD Work Phone: [facility] 05-12-2023 14:48-0400 Diastolic blood pressure 62 mm[Hg] Jake Arshad MD Work Phone: [facility] 05-12-2023 14:48-0400 Systolic blood pressure 108 mm[Hg] Jake Arshad MD Work Phone: [facility] 08-12-2022 11:00-0400 Body temperature 98.4 [degF] Tammy Humphrey PT Work Phone: [facility] 08-12-2022 11:00-0400 Diastolic blood pressure 64 mm[Hg] Tammy Halderman-Huang PT Work Phone: [facility] 08-12-2022 11:00-0400 Heart rate 80 /min Tammy Halderman-Huang PT Work Phone: [facility] 08-12-2022 11:00-0400 Respiratory rate 18 /min Tammy Halderman-Huang PT Work Phone: [facility] 08-12-2022 11:00-0400 SaO2% (BldA) [Mass fraction] 99 % Tammy Halderman-Huang PT Work Phone: [facility] 08-12-2022 11:00-0400 Systolic blood pressure 120 mm[Hg] Tammy Halderman-Huang PT Work Phone: [facility] 08-06-2022 09:49-0400 Body temperature 98.2 [degF] Tammy Halderman-Huang PT Work Phone: [facility] 08-06-2022 09:49-0400 Diastolic blood pressure 74 mm[Hg] Tammy Halderman-Huang PT Work Phone: [facility] 08-06-2022 09:49-0400 Heart rate 86 /min Tammy Halderman-Huang PT Work Phone: [facility] 08-06-2022 09:49-0400 Respiratory rate 18 /min Tammy Halderman-Huang PT Work Phone: [facility] 08-06-2022 09:49-0400 SaO2% (BldA) [Mass fraction] 97 % Tammy Halderman-Huang PT Work Phone: [facility] 08-06-2022 09:49-0400 Systolic blood pressure 118 mm[Hg] Tammy Halderman-Huang PT Work Phone: [facility] 07-31-2022 09:39-0400 Diastolic blood pressure 74 mm[Hg] Tammy Halderman-Huang PT Work Phone: [facility] 07-31-2022 09:39-0400 Respiratory rate 18 /min Tammy HaljesusbernardinoCandido PT Work Phone: [facility] 07-31-2022 09:39-0400 SaO2% (BldA) [Mass fraction] 99 % Tammy HaljesusbernardinoCandido PT Work Phone: [facility] 07-31-2022 09:39-0400 Systolic blood pressure 130 mm[Hg] Tammy Jimenes-Huang PT Work Phone: [facility] 07-29-2022 09:43-0400 Body temperature 98.49 [degF] Tammy Humphrey PT Work Phone: [facility] 07-29-2022 09:43-0400 Diastolic blood pressure 74 mm[Hg] Tammy Jimenes-Reina PT Work Phone: [facility] 07-29-2022 09:43-0400 Heart rate 85 /min Tammy SedrickStephanie PT Work Phone: [facility] 07-29-2022 09:43-0400 Respiratory rate 18 /min Tammy HaljesusbernardinoCandido PT Work Phone: [facility] 07-29-2022 09:43-0400 SaO2% (BldA) [Mass fraction] 96 % Tammy SedrickStephanie PT Work Phone: [facility] 07-29-2022 09:43-0400 Systolic blood pressure 132 mm[Hg] Tammy Jimenes-Huang PT Work Phone: [facility] 03-18-2022 08:16-0500 Body height 175.3 cm Kristina Burns MD Work Phone: [facility] 03-18-2022 08:16-0500 Body weight 74.39 kg Kristina Burns MD Work Phone: [facility] Encounters Encounter Date Encounter Type Care Provider Facility Start: 07-30-2023 End: 07-30-2023 Patient encounter procedure Kristina Burns MD Work Phone: Orthopaedics Comment on above: Aftercare following left knee joint replacement surgery (Primary Dx) Start: 07-30-2023 End: 07-30-2023 ambulatory BETSYCLOVER JOHNSON Facility:[facility] Start: 07-30-2023 End: 07-30-2023 Subsequent hospital visit by physician Radio [facility] Work Phone: Radiology Comment on above: Left knee pain, unsp ecified chronicity [M25.562] Start: 07-02-2023 ambulatory Kristina bone MD Work Phone: Orthopaedics Comment on above: Left surgical knee r eplacement Start: 05-12-2023 End: 05-12-2023 ambulatory JAKE ARSHAD Facility:[facility] Start: 05-12-2023 End: 05-12-2023 Patient encounter procedure Jake Arshad MD Work Phone: OB/Gynecology Comment on above: Encounter for gyneco logical examination (general) (routine) without abnormal findings (Primary Dx) Start: 05-12-2023 End: 05-12-2023 Patient encounter status Jake Arshad MD Work Phone: [facility] Start: 02-10-2023 End: 02-10-2023 ambulatory KRISTINA BURNS Facility:[facility] Start: 10-19-2022 End: 10-19-2022 ambulatory KRISTINA BURNS Facility:[facility] Start: 10-19-2022 End: 10-19-2022 Patient encounter procedure Kristina Burns MD Work Phone: Orthopaedics Comment on above: S/P total knee arthr oplasty, left (Primary Dx) Start: 10-09-2022 ambulatory Jake joshi MD Work Phone: OB/Gynecology Comment on above: Received Outside Med [facility] Records Start: 09-09-2022 End: 09-09-2022 ambulatory KRISTINA BURNS Facility:[facility] Start: 08-12-2022 End: 08-12-2022 Home visit Tammy Humphrey PT Work Phone: [facility] Comment on above: PT AGENCY DC W VISIT Start: 08-07-2022 End: 08-07-2022 Patient encounter procedure Dada Solis PA-C Work Phone: Orthopaedics Comment on above: S/P total knee arthr oplasty, left (Primary Dx) Start: 08-07-2022 ambulatory DADA IRMA Facility:[facility] Start: 08-07-2022 End: 08-07-2022 Subsequent hospital visit by physician [facility] Work Phone: Radiology Comment on above: Left knee pain, unsp ecified chronicity [M25.562] Start: 08-06-2022 End: 08-06-2022 Home visit Tammy Humphrey PT Work Phone: [facility] Comment on above: PT ROUTINE Start: 08-03-2022 Refill Kristina bone MD Work Phone: [address] Comment on above: Refill Request Start: 07-31-2022 End: 07-31-2022 Home visit Tammy Humphrey PT Work Phone: [facility] Comment on above: PT ROUTINE Start: 07-29-2022 End: 07-29-2022 Home visit Tammy Humphrey PT Work Phone: [facility] Comment on above: PT ROUTINE Start: 07-24-2022 Telephone encounter Soo WRIGHT S [facility] Comment on above: Home Care (Confirmat ion call) Start: 07-20-2022 Telephone encounter Kristina Burns MD Work Phone: [address] Comment on above: Patient Question Start: 07-13-2022 Telephone encounter Kristina Burns MD Work Phone: Orthopaedics Comment on above: Orders Start: 06-20-2022 End: 06-20-[address] [facility] Start: 06-20-2022 End: 06-20-2022 Subsequent hospital visit by physician [facility] Comment on above: Preoperative testing [Z01.818] Start: 06-08-2022 Patient encounter status Pari Burns MD Work Phone: Orthopaedics Start: 06-08-2022 Telephone encounter Kristina Burns MD Work Phone: Orthopaedics Comment on above: Appointment Start: 06-03-2022 Telephone encounter Kristina Burns MD Work Phone: [address] Comment on above: Orders Start: 05-26-2022 End: 05-27-2022 ambulatory HOLLY DORADO DO Facility:B Start: 05-26-2022 End: 05-26-2022 Patient encounter procedure HOLLY DORADO DO [facility] Start: 05-13-2022 Telephone encounter Kristina Burns MD Work Phone: [address] Comment on above: Pre-Op Teaching Start: 04-18-2022 ambulatory Kristina bone MD Work Phone: Orthopaedics Comment on above: Allergy Testing Start: 03-23-2022 Telephone encounter Kristina Burns MD Work Phone: Orthopaedics Comment on above: Patient Question Start: 03-18-2022 End: 03-18-2022 Patient encounter procedure Kristina Burns MD Work Phone: Orthopaedics Comment on above: Primary osteoarthrit is of left knee (Primary Dx) Start: 03-18-2022 End: 03-18-2022 Subsequent hospital visit by physician [facility] Work Phone: Radiology Comment on above: Pain [R52] Start: 11-13-2021 End: 11-14-2021 ambulatory HOLLY DORADO DO Facility:B Start: 11-13-2021 End: 11-13-2021 Patient encounter procedure HOLLY DORADO DO [facility] Start: 09-05-2021 End: 09-06-2021 ambulatory DAVIDA SEO Facility:[facility] Procedures Date Procedure Procedure Detail Performing Clinician Start: 07-30-2023 Radiologic examinati on knee 3 views Kristian Burns MD Work Phone: Start: 08-07-2022 Radiologic examinati on knee 3 views Dada Solis PA-C Work Phone: Start: 03-18-2022 Radiologic exam knee complete 4/more views Dada Solis PA-C Work Phone: Start: 04-24-2021 Mammography Jake johnson MD Work Phone: Plan of Treatment Date Care Activity Detail Author Start: 07-24-2025 DIABETES SCREEN DIABETES SCREEN [facility] Start: 07-24-2025 Diabetes Screening Diabetes Screenin g [facility] Start: 07-10-2025 DIABETES SCREEN DIABETES SCREEN [facility] Start: 05-16-2024 End: 05-16-2024 Patient encounter procedure 05/16/2024 4:00 PM EDT Office Visit OB/Gynecology [address] [place] [address] Jake Arshad MD [address] [place], [place] [id number] annual exam OB/Gynecology Comment on above: annual exam Start: 10-10-2023 Covid-19 Vaccine ( season) Covid-19 Vaccine ( season) [facility] Start: 10-10-2023 Covid-19 Vaccine ( season) Covid-19 Vaccine ( season) [facility] Start: 10-10-2023 Influenza vaccination [facility] Start: 07-30-2023 End: 07-30-2023 Patient encounter procedure 07/30/2023 3:30 PM EDT Office Visit Orthopaedics [address] [phone] Kristina Burns MD [address] [address] 6 month follow up Orthopaedics Comment on above: 6 month follow up Start: 02-08-2023 Behavioral Health Screening Behavioral Health Screening [facility] Start: 10-09-2022 Covid-19 Vaccine ( season) Covid-19 Vaccine () [facility] Start: 10-09-2022 Influenza vaccination [facility] Start: 04-24-2022 Mammography [facility] Start: 04-24-2022 Screening for malign ant neoplasm of breast Mammogram Screening [facility] Start: 02-08-2022 DEPRESSION ASSESSMENT DEPRESSION ASS ESSMENT [facility] Start: 11-09-2019 SHINGRIX VACCINE (1 of 2) SHINGRIX VACCINE (1 of 2) [facility] Start: 11-22-2018 Urine microalbumin profile [facility] Start: 2014 COLOGUARD (FIT-DNA) COLOGUARD (FIT-D NA) [facility] Start: 2014 Colonoscopy COLONOSCOPY [facility] Start: 2014 COLORECTAL CANCER SCREENING COLORECTAL CANCER SCREENING [facility] Start: [address]HY [facility] Start: 2014 DIABETES SCREEN DIABETES SCREEN [facility] Start: 2014 FECAL OCCULT BLOOD FECAL OCCULT BLOO D [facility] Start: 2014 Lipid 1996 panel - Serum or Plasma Lipid Screening [facility] Start: 2014 Lipid panel Lipid Screening [facility] Start: 2014 LIPID SCREEN LIPID SCREEN [facility] Start: 2014 Screening for malign ant neoplasm of colon [facility] Start: 2014 SIGMOIDOSCOPY SIGMOIDOSCOPY [facility] Start: 2009 Mammography MAMMOGRAM [facility] Start: 11-09-1999 HPV TESTING HPV TESTING [facility] Start: 1990 PAP TESTING PAP TESTING [facility] Start: 1988 Hepatitis B Vaccine (1 of 3 - 19+ 3-dose series) Hepatitis B Vaccine (1 of 3 - 19+ 3-dose series) [facility] Start: 11-09-1987 ANNUAL PCP TEAM OTTER [employer]WL[employer] [place]Y DISEASE VISIT ANNUAL PCP TEAM CHRONIC DISEASE VISIT [facility] Start: 11-09-1987 Anxiety Screening Anxiety Screening [facility] Start: 11-09-1987 Depression Screening Depression Scre ening [facility] Start: 11-09-1987 HEPATITIS C SCREENING HEPATITIS C [facility] Start: 11-09-1987 Hepatitis C screening Hepatitis C [facility] Start: 11-09-1987 HIV SCREENING HIV SCREENING [facility] Start: 11-09-1987 HIV screening HIV Screening [facility] Start: 1969 HEPATITIS B (1 of 3 - 3-dose series) HEPATITIS B (1 of 3 - 3-dose series) [facility] Start: 1969 Hepatitis B Vaccine (1 of 3 - 3-dose series) Hepatitis B Vaccine (1 of 3 - 3-dose series) [facility] End: 06-20-2022 CT KNEE WO IVCON LEFT [facility] Work Phone: Comment on above: 1 Occurrences starti ng 06/20/2022 until 06/20/2022 [facility] Immunizations Immunization Date Immunization Notes Care Provider Mirna marquez 12-22-2021 influenza virus vacc ine, unspecified formulation Kristina Burns MD Work Phone: [facility] 11-21-2018 tetanus and diphther ia toxoids, not adsorbed, for adult use Kristina Burns MD Work Phone: [facility] Payers Date Payer Category Payer Self-pay 2019 Unknown [id number] 2018 Unknown [id number] 2018 Unknown [id number] 1969 Unknown [id number] Unknown [id number] Unknown [id number] Social History Date Type Detail Facility Tobacco smoking status [facility] Sex Assigned At Female [facility] Start: 09-16-2021 Tobacco smoking stat us [facility] Never smoked tobacco [facility] Start: 09-16-2021 Tobacco use and exposure Smokeless tobacco non-user [facility] Start: 03-18-2022 End: 08-07-2022 Alcohol intake Current drinker of alcohol (finding) [facility] Start: 1970 Sex Assigned At Not on file [facility] Start: 02-27-2022 End: 10-09-2022 History of Social function [facility] Start: 02-27-2022 End: 10-09-2022 Tobacco use panel [facility] National Score (1-100), lower number is lower risk 58 [facility] Medical Equipment Procedure Code Equipment Code Equipment Origin al Text Equipment Identifier Dates Cement Simplex Gentamicin Bone High Viscosity 20ml Sterile 40gm - [id number] Start: 07-23-2022 Insert Triathlon 2 11mm Tibial Bearing Posterior Stabilize Sterile Knee [id number] Start: 07-23-2022 Stem Triathlon 1 2mm Cocr 50mm Femoral Cemented Total Stabilized Knee - [id number] Start: 07-23-2022 Component Triath libby 32mm 10mm Patellar Asymmetric Knee - [id number] Start: 07-23-2022 Component Triath libby 3 Femoral Cemented Posterior Stabilize Knee Left - [id number] Start: 07-23-2022 Baseplate Triath libby 2 [place] Cocr Tibial Total Stabilize Cemented Knee - [id number] Start: 07-23-2022 Goals Date Patient Goal Desired Activity /State Clinical Notes 03-18-2022 to 08-27-2023 Kristina Burns MD - 08/27/2023 11:24 PM EDTKnightSallyAneudy - 07/30/2023 3:00 PM Jake Cheney MD - 05/12/2023 2:45 PM Kristina Butcher MD - 11/12/2022 3:05 PM EDT Note Date & Type Note Facility 08-27-2023 Note HNO ID: [id number] Author: KRISTINA BURNS MD Service: ? Author Type: Physician Type: Progress Notes Filed: 08/27/2023 23:28 Note Text: DR. BURNS- POST-OP KNEE Post-Op F/U Office Visit Chavez Marques presents today for a 1 year status post Left TKA. Post-operative recovery was uneventful. Patient's rating of condition: improving Comments: Patient reports that her preoperative pain has improved Does the Pt. still experience pain? PAIN EVALUATION 07/30/2023 1536 Pain Level: 0 Pain Location: Knee-Left Functional difficulties: None Physical Therapy: Completed course of therapy Pain Medication: None Ambulating without assistance. Medications and Allergies reviewed and verified. EXAM: GEN: AANDO x3, NAD SKIN:Appropriate postop appearance Incision clean/dry/intact Incision well healed LeftKnee: ROM: Flexion/Extension:0 degrees to 120 degrees Pain with ROM:No Mal-alignment: No Effusion: None Non Tender to palpation of the medial , lateral , and patellofemoral joint line(s). Stability:Anterior/Posterior- Yes, stable and Varus/Valgus- Yes, stable Quad strength: normal HIP: range of motion no loss ROM NV: intact and Julissa's negative IMAGING: Xrays: Implants are well aligned. Implants are well fixed. There is no evidence of loosening. There is evidence of osteo-integration. There is no evidence of osteolysis. Patella is well positioned. IMPRESSION/PLAN: 52 year old female s/p Left TKA No complaints or limitations. At normal post-operative stage of recovery. Plan: 1. Continue independent range of motion/strengthening exercises 2. We reviewed total knee precautions including antibiotic prophylactic protocols for dental procedures 3. Follow-up 5 years for repeat clinical/radiographic evaluation or sooner should she develop any new orthopedic problems Kristina Burns MD Electronic Signature [facility] 08-27-2023 History of Presen t illness Narrative DR. BURNS- POST-OP KNEE Post-Op F/U Office Visit Chavez Marques presents today for a 1 year status post Left TKA. Post-operative recovery was uneventful. Patient's rating of condition: improving Comments: Patient reports that her preoperative pain has improved Does the Pt. still experience pain? PAIN EVALUATION 07/30/2023 6136 Pain Level: 0 Pain Location: Knee-Left Functional difficulties: None Physical Therapy: Completed course of therapy Pain Medication: None Ambulating without assistance. Medications and Allergies reviewed and verified. EXAM: GEN: A&O x3, NAD SKIN:Appropriate postop appearance Incision clean/dry/intact Incision well healed LeftKnee: ROM: Flexion/Extension:0 degrees to 120 degrees Pain with ROM:No Mal-alignment: No Effusion: None Non Tender to palpation of the medial , lateral , and patellofemoral joint line(s). Stability:Anterior/Posterior- Yes, stable and Varus/Valgus- Yes, stable Quad strength: normal HIP: range of motion no loss ROM NV: intact and Julissa's negative IMAGING: Xrays: Implants are well aligned. Implants are well fixed. There is no evidence of loosening. There is evidence of osteo-integration. There is no evidence of osteolysis. Patella is well positioned. IMPRESSION/PLAN: 52 year old female s/p Left TKA No complaints or limitations. At normal post-operative stage of recovery. Plan: 1. Continue independent range of motion/strengthening exercises 2. We reviewed total knee precautions including antibiotic prophylactic protocols for dental procedures 3. Follow-up 5 years for repeat clinical/radiographic evaluation or sooner should she develop any new orthopedic problems Kristina Burns MD Electronic Signature documented in this encounter [facility] 07-30-2023 History of Presen t illness Narrative Radiology Service Progress Note PATIENT NAME: Chavez Marques DATE OF SERVICE: July 30, 2023 TIME: 3:04 PM PATIENT IDENTITY VERIFICATION COMPLETED USING TWO (2) IDENTIFIERS: Name and Date of confirmed by patient verbally. FALL SCREENING: Has the patient had 2 falls in the last year or 1 fall with injury or currently using an Ambulatory Assistive Device (Walker, Cane, Wheelchair, Crutches, etc.)? No PATIENT GENDER DATA: Female. status: : No status: NO. PATIENT RELEVANT IMPLANT DATA REVIEWED: Not Applicable PATIENT PRESENTS WITH AN IMPLANTABLE OR ATTACHED SOCIAL WORK CASE MANAGER: No RADIOLOGY DEPARTMENT: General X-ray: Exam(s) Completed: Lower Extremity X-Ray(s): Knee, AP / Lat / Merchant Left and Wt. Bearing PERIPHERAL IV DATA: Not applicable SIGNED BY: Aneudy Jorge July 30, 2023 3:04 PM documented in this encounter [facility] 07-30-2023 Note HNO ID: [id number] Author: SALLY DELATORRE Tech Service: Radiology Author Type: Sign Language Instructor Type: Progress Notes Filed: 07/30/2023 15:05 Note Text: Radiology Service Progress Note PATIENT NAME: Chavez Marques DATE OF SERVICE: July 30, 2023 TIME: 3:04 PM PATIENT IDENTITY VERIFICATION COMPLETED USING TWO (2) IDENTIFIERS: Name and Date of confirmed by patient verbally. FALL SCREENING: Has the patient had 2 falls in the last year or 1 fall with injury or currently using an Ambulatory Assistive Device (Walker, Cane, Wheelchair, Crutches, etc.)? No PATIENT GENDER DATA: Female. status: : No status: NO. PATIENT RELEVANT IMPLANT DATA REVIEWED: Not Applicable PATIENT PRESENTS WITH AN IMPLANTABLE OR ATTACHED SOCIAL WORK CASE MANAGER: No RADIOLOGY DEPARTMENT: General X-ray: Exam(s) Completed: Lower Extremity X-Ray(s): Knee, AP / Lat / Merchant Left and Wt. Bearing PERIPHERAL IV DATA: Not applicable SIGNED BY: Aneudy Jorge July 30, 2023 3:04 PM [facility] 05-12-2023 Note HNO ID: [id number] Author: JAKE ARSHAD MD Service: ? Author Type: Physician Type: Progress Notes Filed: 05/12/2023 15:21 Note Text: Chavez is a 52 year old who presents for an annual gynecologic exam without complaints. Postmenopausal: hysterectomy HRT use: No. Last Pap: normal HPV: negative History of abnormal pap: No Last mammogram: 2023 normal History of abnormal mammogram: No Sexually active: No OB History T0 L0 SAB0 IAB0 Ectopic0 Multiple0 Live Births0 Head Cook History LMP: Hysterectomy Age at Menarche: Age at First : Age at Menopause: Head Cook History Comments: Sexual Activity: Yes; Male; hysterectomy Contraception: Surgical PAST MEDICAL HISTORY Diagnosis Date Hypothyroidism Irregular [...] SURGICAL HISTORY OF 2005 lumbar laminectomy x2 TOTAL KNEE REPLACEMENT Left 07/23/2022 VAGINAL HYSTERECTOMY 2017 FAMILY HISTORY Problem Relation Age of Onset Colon Polyps Mother other (squamous cell) Mother Skin Cancer Mother Primary Biliary Cirrhosis Mother Auto-Immune Disorder Mother other (VARICES) Mother other (cardiac issues) Father other (trigeminal neuralgia) Father Prostate Cancer Father other (bladder cancer) Father other (bone cancer) Father other (congestive heart) Maternal Grandmother other (oral cancer) Maternal Aunt other (sinus cancer) Maternal Aunt Breast Cancer Paternal Aunt Breast Cancer Paternal Aunt SOCIAL HISTORY Social History Tobacco Use Smoking status: Never Smokeless tobacco: Never Vaping Use Vaping Use: Never used Substance Use Topics Alcohol use: Yes Comment: VERY RARELY Drug use: Never REVIEW OF SYSTEMS Abdomen: No abdominal pain, nausea, vomiting, diarrhea, or constipation. No bloating, early satiety, indigestion, or increased flatulence. Bladder: No dysuria, gross hematuria, urinary frequency, urinary urgency, or incontinence Breast: No breast lumps, nipple d/c, overlying skin changes, redness or skin retraction Allergies and current medication updated:Yes TEACHING PHYSICIAN NOTE OF PERSONAL INVOLVEMENT IN CARE: I have personally seen and examined the patient and performed the medical decision-making components. I have reviewed the medical student documentation and verified the findings in the note as written. Any additions or changes are noted in bold/italics. Signature: Jake Arshad Date: 05/12/2023 Time: 3:13 PM EXAM: BP 108/62 Ht 5' 9 (1.75m) Wt 163 lb (73.9kg) BMI 24.06 kg/(m2). GENERAL: pleasant, female in no apparent distress HEENT: Normocephalic, atraumatic, mucus membranes moist, and no lesions NECK: Supple, full range of motion, no adenopathy, and thyroid normal DERMATOLOGY: Normal, without lesions, non-icteric, and non-hirsute BREAST: soft, non-tender, symmetric, no dominant mass, normal nipple-areolar complex, no lymphadenopathy, and no nipple discharge CHEST: Normal inspiratory effort ABDOMEN: soft, non-tender, and no masses PELVIC: external genitalia normal, normal Bartholin's glands, urethra, [place]'s glands, no vulvar lesions, good vaginal support, physiologic discharge present, normal appearing perineal body and perianal region, cervix surgically absent BIMANUAL: no adnexal masses, non-tender, and uterus surgically absent RECTOVAGINAL: deferred. NEURO: alert and oriented x3,exam grossly non-focal EXTREMITIES: normal ASSESSMENT/PLAN: 1) Health maintenance: Pap/HPV screening no longer needed Mammogram ordered Colon cancer screening: up to date with screening 2) Follow up one year or sooner as needed Jake Arshad MD [facility] 05-12-2023 History of Presen t illness Narrative Chavez is a 52 year old who presents for an annual gynecologic exam without complaints. Postmenopausal: hysterectomy HRT use: No. Last Pap: normal HPV: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 [address] [place] [phone]- Care Team Related Persons Name: REMI MARQUES Address: [address] [place] [address] [place] Source Comments (unrecognize d section and content) In the event this informatio n is protected by the Federal Confidentiality of Alcohol and Drug Abuse Patient Records regulations: The Federal rules restrict any use of the information to criminally investigate or prosecute any alcohol or drug abuse patient.[facility] the event this information is protected by the Federal Confidentiality of Alcohol and Drug Abuse Patient Records regulations: The Federal rules restrict any use of the information to criminally investigate or prosecute any alcohol or drug abuse patient.[facility] Hospital[facility] the event this information is protected by the Federal Confidentiality of Alcohol and Drug Abuse Patient Records regulations: The Federal rules restrict any use of the information to criminally investigate or prosecute any alcohol or drug abuse patient.[facility] Hospital[facility] the event this information is protected by the Federal Confidentiality of Alcohol and Drug Abuse Patient Records regulations: The Federal rules restrict any use of the information to criminally investigate or prosecute any alcohol or drug abuse patient.[facility] HospitalIn the event this information is protected by the Federal Confidentiality of Alcohol and Drug Abuse Patient Records regulations: The Federal rules restrict any use of the information to criminally investigate or prosecute any alcohol or drug abuse patient.[facility] Hospital[facility] the event this information is protected by the Federal Confidentiality of Alcohol and Drug Abuse Patient Records regulations: The Federal rules restrict any use of the information to criminally investigate or prosecute any alcohol or drug abuse patient.[facility] Hospital[facility] the event this information is protected by the Federal Confidentiality of Alcohol and Drug Abuse Patient Records regulations: The Federal rules restrict any use of the information to criminally investigate or prosecute any alcohol or drug abuse patient.[facility] Hospital[facility] the event this information is protected by the Federal Confidentiality of Alcohol and Drug Abuse Patient Records regulations: The Federal rules restrict any use of the information to criminally investigate or prosecute any alcohol or drug abuse patient.[facility] HospitalIn the event this information is protected by the Federal Confidentiality of Alcohol and Drug Abuse Patient Records regulations: The Federal rules restrict any use of the information to criminally investigate or prosecute any alcohol or drug abuse patient.[facility] Hospital[facility] the event this information is protected by the Federal Confidentiality of Alcohol and Drug Abuse Patient Records regulations: The Federal rules restrict any use of the information to criminally investigate or prosecute any alcohol or drug abuse patient.[facility] Hospital[facility] the event this information is protected by the Federal Confidentiality of Alcohol and Drug Abuse Patient Records regulations: The Federal rules restrict any use of the information to criminally investigate or prosecute any alcohol or drug abuse patient.[facility] Hospital[facility] the event this information is protected by the Federal Confidentiality of Alcohol and Drug Abuse Patient Records regulations: The Federal rules restrict any use of the information to criminally investigate or prosecute any alcohol or drug abuse patient.[facility] HospitalIn the event this information is protected by the Federal Confidentiality of Alcohol and Drug Abuse Patient Records regulations: The Federal rules restrict any use of the information to criminally investigate or prosecute any alcohol or drug abuse patient.[facility] HospitalIn the event this information is protected by the Federal Confidentiality of Alcohol and Drug Abuse Patient Records regulations: The Federal rules restrict any use of the information to criminally investigate or prosecute any alcohol or drug abuse patient.[facility] HospitalIn the event this information is protected by the Federal Confidentiality of Alcohol and Drug Abuse Patient Records regulations: The Federal rules restrict any use of the information to criminally investigate or prosecute any alcohol or drug abuse patient.[facility] HospitalIn the event this information is protected by the Federal Confidentiality of Alcohol and Drug Abuse Patient Records regulations: The Federal rules restrict any use of the information to criminally investigate or prosecute any alcohol or drug abuse patient.[facility] HospitalIn the event this information is protected by the Federal Confidentiality of Alcohol and Drug Abuse Patient Records regulations: The Federal rules restrict any use of the information to criminally investigate or prosecute any alcohol or drug abuse patient.[facility] HospitalIn the event this information is protected by the Federal Confidentiality of Alcohol and Drug Abuse Patient Records regulations: The Federal rules restrict any use of the information to criminally investigate or prosecute any alcohol or drug abuse patient.[facility] HospitalIn the event this information is protected by the Federal Confidentiality of Alcohol and Drug Abuse Patient Records regulations: The Federal rules restrict any use of the information to criminally investigate or prosecute any alcohol or drug abuse patient.[facility] HospitalIn the event this information is protected by the Federal Confidentiality of Alcohol and Drug Abuse Patient Records regulations: The Federal rules restrict any use of the information to criminally investigate or prosecute any alcohol or drug abuse patient.[facility] HospitalIn the event this information is protected by the Federal Confidentiality of Alcohol and Drug Abuse Patient Records regulations: The Federal rules restrict any use of the information to criminally investigate or prosecute any alcohol or drug abuse patient.[facility] HospitalIn the event this information is protected by the Federal Confidentiality of Alcohol and Drug Abuse Patient Records regulations: The Federal rules restrict any use of the information to criminally investigate or prosecute any alcohol or drug abuse patient.[facility] HospitalIn the event this information is protected by the Federal Confidentiality of Alcohol and Drug Abuse Patient Records regulations: The Federal rules restrict any use of the information to criminally investigate or prosecute any alcohol or drug abuse patient.[facility] HospitalIn the event this information is protected by the Federal Confidentiality of Alcohol and Drug Abuse Patient Records regulations: The Federal rules restrict any use of the information to criminally investigate or prosecute any alcohol or drug abuse patient.[facility] Reason for Visit (unrecogniz ed section and content) Reason Comments Patient Question Reason Comments New Pain Reason Comments Pre-Op Teaching Reason Comments Orders Specialty Diagnoses / Procedures Referred By Contac t Referred To Contact CT IMAGING Diagnoses Preoperative testing Primary osteoarthritis of left knee Procedures CT KNEE WO IVCON LEFT CT LOWER EXTREMITY W/O CONTRAST MATERIAL Nick Perez PA-C [address] [place] [address] Ct Imaging Referral ID Status Reason Start Date Expiration Date V isits Requested Visits Authorized [id number] Closed Auto-Generate d Referral 06/09/2022 07/24/2022 1 1 Reason Comments Home Care Confirmation call Reason Onset Date Comments Refill Request 08/03/2022 Reason Comments Post Op Knee Pain Reason Comments Appointment Reason Comments Received Outside Medical Records Reason Comments Post Op Knee Replacement Reason Comments Yearly Exam Reason Comments Follow Up Knee Replacement Care Teams (unrecognized sec tion and content) Fisher Seal Relationship Specialty Start Date End Date Arely Johnson MD [address] [place] [address] PCP - General Internal Medicine 09/16/21 Fisher Seal Relationship Specialty Start Date End Date Arely Johnson MD [address] [place] [address] PCP - General Internal Medicine 09/16/21 Fisher Seal Relationship Specialty Start Date End Date Arely Johnson MD [address] [place] [place] [address] PCP - General Internal Medicine 09/16/21 [facility] [address] [place] [address] Specialty Hospice Manager Orthopedics 04/08/22 07/18/22 Fisher Seal Relationship Specialty Start Date End Date Arely Johnson MD [address] [place] [place] [address] PCP - General Internal Medicine 09/16/21 [facility] [address] [place] [address] Specialty Hospice Manager Orthopedics 04/08/22 07/18/22 Fisher Seal Relationship Specialty Start Date End Date Arely Johnson MD [address] [place] [place] [address] PCP - General Internal Medicine 09/16/21 Sissen, Stevenson[facility] [address] [place] [address] Specialty Hospice Manager Orthopedics 04/08/22 07/18/22 Fisher Seal Relationship Specialty Start Date End Date Arely Johnson MD [address] [place] [place] [address] PCP - General Internal Medicine 09/16/21 [facility] [address] [place] [address] Specialty Hospice Manager Orthopedics 04/08/22 07/18/22 Fisher Seal Relationship Specialty Start Date End Date Arely Johnson MD [address] [place] [address] PCP - General Internal Medicine 09/16/21 [facility] [address] [place] [address] Specialty Hospice Manager Orthopedics 04/08/22 07/18/22 Fisher Seal Relationship Specialty Start Date End Date Arely Johnson MD [address] [place] [address] PCP - General Internal Medicine 09/16/21 Fisher Seal Relationship Specialty Start Date End Date Arely Johnson MD [address] [place] [place] [address] PCP - General Internal Medicine 09/16/21 Kristina Burns MD [address] [address] Home Care Provider Orthopedics 07/24/22 Kristina Burns MD [address] [address] Referring Orthopedics 07/24/22 Tammy Humphrey, PT [address] [place] [address] Elastic Yarn Twister Post Acute Care 07/24/22 Fisher Seal Relationship Specialty Start Date End Date Arely Johnson MD [address] [place] [address] PCP - General Internal Medicine 09/16/21 Kristina Burns MD [address] [address] Home Care Provider Orthopedics 07/24/22 Kristina Burns MD [address] [address] Referring Orthopedics 07/24/22 Tammy Humphrey, PT [address] [place] [address] Elastic Yarn Twister Post Acute Care 07/24/22 Fisher Seal Relationship Specialty Start Date End Date Arely Johnson MD [address] [place] [address] PCP - General Internal Medicine 09/16/21 Kristina Burns MD [address] [address] Home Care Provider Orthopedics 07/24/22 Kristina Burns MD [address] [address] Referring Orthopedics 07/24/22 Tammy Humphrey, PT [address] [place] [address] Elastic Yarn Twister Post Acute Care 07/24/22 Fisher Seal Relationship Specialty Start Date End Date Arely Johnson MD [address] [place] [address] PCP - General Internal Medicine 09/16/21 Kristina Burns MD [address] [address] Home Care Provider Orthopedics 07/24/22 Kristina Burns MD [facility] [address] [address] Referring Orthopedics 07/24/22 Tammy Humphrey, PT [address] [place] [address] Elastic Yarn Twister Post Acute Care 07/24/22 Fisher Seal Relationship Specialty Start Date End Date Arely Johnson MD [address] [place] [address] PCP - General Internal Medicine 09/16/21 Kristina Burns MD [facility] [address] [address] Home Care Provider Orthopedics 07/24/22 Kristina Burns MD [facility] [address] [address] Referring Orthopedics 07/24/22 Tammy Humphrey, PT [address] [place] [address] Elastic Yarn Twister Post Acute Care 07/24/22 Fisher Seal Relationship Specialty Start Date End Date Arely Johnson MD [address] [place] [address] PCP - General Internal Medicine 09/16/21 Kristina Burns MD [address] [address] Home Care Provider Orthopedics 07/24/22 Kristina Burns MD [address] [address] Referring Orthopedics 07/24/22 Tammy Humphrey, PT [address] [place] [address] Elastic Yarn Twister Post Acute Care 07/24/22 Fisher Seal Relationship Specialty Start Date End Date Arely Johnson MD [address] [place] [place], [place] [address] PCP - General Internal Medicine 09/16/21 [place] [facility] [address] [place] [address] Specialty Hospice Manager Orthopedics 04/08/22 07/18/22 Kristina Burns MD [address] [address] Home Care Provider Orthopedics 07/24/22 Kristina Burns MD [address] [place] [address] Referring Orthopedics 07/24/22 Tammy Humphrey, PT [address] [place] [address] Elastic Yarn Twister Post Acute Care 07/24/22 Fisher Seal Relationship Specialty Start Date End Date Arely Johnson MD [address] [place] [address] PCP - General Internal Medicine 09/16/21 Kristina Burns MD [address] [address] Home Care Provider Orthopedics 07/24/22 Kristina Burns MD [address] [address] Referring Orthopedics 07/24/22 Tammy Humphrey, PT [address] [place] [address] Elastic Yarn Twister Post Acute Care 07/24/22 Fisher Seal Relationship Specialty Start Date End Date Arely Johnson MD [address] [place] [address] PCP - General Internal Medicine 09/16/21 Kristina Burns MD [address] [address] Home Care Provider Orthopedics 07/24/22 Kristina Burns MD [address] [address] Referring Orthopedics 07/24/22 Tammy Humphrey, PT [address] [place] [address] Elastic Yarn Twister Post Acute Care 07/24/22 Fisher Seal Relationship Specialty Start Date End Date Arely Johnson MD [address] [place] [address] PCP - General Internal Medicine 09/16/21 Kristina Burns MD [address] [address] Home Care Provider Orthopedics 07/24/22 Kristina Burns MD [address] [address] Referring Orthopedics 07/24/22 Tammy Humphrey, PT [address] [place] [address] Elastic Yarn Twister Post Acute Care 07/24/22 Fisher Seal Relationship Specialty Start Date End Date Arely Johnson MD [address] [facility] [place] [address] PCP - General Internal Medicine 09/16/21 Kristina Bruns MD [address] [address] Home Care Provider Orthopedics 07/24/22 Kristina Burns MD [address] [address] Referring Orthopedics 07/24/22 Tammy Humphrey, PT [address] [place] [address] Elastic Yarn Twister Post Acute Care 07/24/22 Fisher Seal Relationship Specialty Start Date End Date Arely Johnson MD [address] [facility] [place] [address] PCP - General Internal Medicine 09/16/21 Kristina Burns MD [address] [address] Home Care Provider Orthopedics 07/24/22 Kristina Burns MD [address] [address] Referring Orthopedics 07/24/22 Tammy Humphrey, PT [address] [place] [address] Elastic Yarn Twister Post Acute Care 07/24/22 07/30/23 Fisher Seal Relationship Specialty Start Date End Date Arely Johnson MD [address] [facility] [place] [address] PCP - General Internal Medicine 09/16/21 Kristina Burns MD [address] [address] Home Care Provider Orthopedics 07/24/22 Kristina Burns MD [address] [address] Referring Orthopedics 07/24/22 Tammy Humphrey, PT [address] [place] [address] Elastic Yarn Twister Post Acute Care 07/24/22 07/30/23 Fisher Seal Relationship Specialty Start Date End Date Arely Johnson MD [address] [place] [address] PCP - General Internal Medicine 09/16/21 Kristina Burns MD [address] [address] Home Care Provider Orthopedics 07/24/22 Kristina Burns MD [address] [address] Referring Orthopedics 07/24/22 Tammy Humphrey, PT [address] [place] [address] Elastic Yarn Twister Post Acute Care 07/24/22 07/30/23 Fisher Seal Relationship Specialty Start Date End Date Arely Johnson MD [address] [place] [address] PCP - General Internal Medicine 09/16/21 INFORMATION SOURCE (unrecogn ized section and content) DATE CREATED AUTHOR 05/27/2022 [facility] ([facility]) DATE CREATED AUTHOR AUTHOR'S ORGANIZ ATION 08/01/2023 [facility] DATE CREATED AUTHOR AUTHOR'S ORGANIZ ATION 08/31/2023 [facility] FOR RECORDS PERTAINING TO PATIENTS WHO ARE [...] BE BASED ON THE PRIMARY CLINICAL RECORDS. MD-IT [facility]. provides no warranty or guarantee of the accuracy or completeness of information in this document.
[2023-12-03 11:07] LABS: ALB/GLOB Ratio 1.3 RATIO (0.9-2.4); AST(SGOT) 20 U/L (15-37); Alanine Aminotransfer ALT/SGPT 28 U/L (13-56); Albumin, Serum 3.9 g/dL (3.2-5.0); Alkaline Phosphatase 76 U/L (45-117); Anion Gap 6 (5-15); BUN 20 mg/dL (7-18); BUN/Creat Ratio 25.2 RATIO (10-20); Calcium,Total 9.8 mg/dL (8.5-10.1); Chloride 106 mmol/L (98-107); Creatinine, Serum 0.79 mg/dL (0.55-1.02); EST Glomerular Filtration Rate 80 mL/min (>60); Est Glom Filt Rate - Afr Amer 97 mL/min (>60); Globulin 3.1 g/dL (2.2-4.2); Glucose 99 mg/dL (74-106); Potassium 4.2 mmol/L (3.5-5.1); Sodium Level 140 mmol/L (136-145); Thyroid Stim Hormone (TSH) 0.308 uIU/mL (0.358-3.740)
== END | disposition home or self-care (01) ==
LOC: MTLAB 07:19
PROVIDERS: PCP Internal Medicine; Referring Provider Internal Medicine Endocrinology, Diabetes & Metabolism; Visit Provider Internal Medicine Endocrinology, Diabetes & Metabolism
DX: E03.8 Other specified hypothyroidism (principal)
CPT/HCPCS: 36415; 80053; 84443

== ENCOUNTER 2023-12-27 07:00 | Outpatient (RCR) | payer OTHER, SELFPAY ==
--- NOTE | 2023-08-19 07:45 | HP.PTEVAL_ITS ---
Patient's Visit Information Visit Information Visit Information: CHAVEZ ADMAS is a 52 year old F referred to Physical Therapy by Dr. Lala Johnson MD with a diagnosis of Chronic Back Pain. Date of Evaluation: 08/19/23 Physical Therapist: Thu Sabillon DPT Visit Plan Frequency: 2x /Week Duration: 4 Weeks Plan: Pt to bring her current gym program and reviewing to make sure mechanics are correct and adding appropriate core exercises. Subjective Subjective: Patient reports that she cleared out her parents home and when she was doing that she pulled her back and was able to do her self help and it settled out and then 3 weeks ago she was cleaning out the cat box and it seized up- she then helped her . She did the normal Advil- she could do her normal routine but going to bed was the worst. She has L4-5-S1 ruptured discs and had a laminectomy in 2004 and she had x-rays in 2016 and one again on Wednesday. In 2004 it was left sided hip pain- this time it was right sided pain. She was having a hard time rolling over in bed- she was having issues in the mornings. MD gave her a steroid dose pack and a muscle relaxer and she still felt like she woke up broken and she has now been off a week and she now feels back to normal. She had a knee replacement and has been working on her knee and thinks maybe she is doing some exercises wrong. Exercises she is currently doing: Work: sitting, standing- bending/lifting floor samples up to #10 PMHx/Meds: see list in chart Objective Objective: Posture: fair throughout Gait: no deviation noted HR/TR: able without UE A SLS: 5 sec then LOB- moderately unstable ROM: WNL in all planes of the lumbar spine and LE Strength: Core: fair minus, Hip: Flexion: 4/5, Abd: 4+/5, Add: 4/5, IR/ER: 4/5, Extn: 4+/5, Knee: 4+/5, Ankle: 5/5 Flex: HS: moderate, Gastroc: moderate Palpation: not tender Balance/Special Test Scores Oswestry Low Back Score: 3 Goals Goal 1:: Patient will be I with HEP and progression Goal Time Frame: 6-8 Weeks Goal 2:: Patient will report no pain for 1 week Goal Time Frame: 6-8 Weeks Goal 3:: Patient will report 100% improvement Goal Time Frame: 6-8 Weeks Rehabilitation Potential Physical Therapy Diagnosis: Patient presents with hypomobility- she has decreased LE and core strength/stabilization, flex and muscular endurance leading to decreased ability to perform ADL's. Anticipated Interventions Patient/Client Instruction: Educate patient on: Benefits of Fitness Program For the Purpose of:: To improve muscle performance and motor function Therapeutic Exercise to Include: Strength training, Endurance training, Balance training, Agility training, Body mechanics, Postural training, Flexibilty training, Gait and locomotor training, Neuromotor development, Dynamic Lumbar Stabilization and Scapular Strength/Stabilization Text: Thank you for the opportunity to evaluate your patient. For Medicare and Medicare HMO plans, please review the plan of care and approve it. It will need to be FAXED BACK to us at [phone] for Medicare purposes. For Medicare only, by signing this I certify the plan of care. Please let me know if there are questions or concerns regarding this plan of care. Physician Signature: Date:___
--- NOTE | 2023-11-08 07:36 | HP.PTREVAL ---
Re-Evaluation Intro: Dr. Lala Johnson MD, It has been my pleasure to treat CHAVEZ ADAMS over the last 9 visits for Chronic Back Pain. Please see the progress note below for an update on the physical therapy plan of care! Subjective Subjective: Has a little in LB but just have to realize my back is quirky. [place] [employer] gardening on . Paid for it with / on wednesday. Sleeping OK. Just noticeable today. No f/u with [facility]. Advil 2x/week at [facility]. Will keep up with water ex 2-3x/week and fill in with knee stuff in gym. Not seen back ortho. Objective Objective/Function: Good LB AROM without pain today. Walking normally, bending without difficulty. Plan Plan Plan: Pt to do 3x/week pool and 3x/week stretching and activitiy modification with aggravating activities and f/u in 4 weeks for instruc tin mat based core exercises. Balance/Gait/Functional tests Balance/Special Test Scores Oswestry Low Back Score: 7 Goals Goals Goal 1:: Patient will be I with HEP and progression Goal Time Frame: 6-8 Weeks Goal Progress: Progressing Goal 2:: Patient will report no pain for 1 week Goal Time Frame: 6-8 Weeks Goal Progress: Progressing Goal 3:: Patient will report 100% improvement Goal Time Frame: 6-8 Weeks Goal Progress: Progressing Goal 4:: learn mat exercises to manage LB ex. Goal Time Frame: 2-4 Weeks Goal Progress: NEW goal Anticipated Interventions Anticipated Interventions Patient/Client Instruction: Educate patient on: Benefits of Fitness Program For the Purpose of:: To improve muscle performance and motor function Therapeutic Exercise to Include: Strength training, Endurance training, Balance training, Agility training, Body mechanics, Postural training, Flexibilty training, Gait and locomotor training, Neuromotor development, Dynamic Lumbar Stabilization and Scapular Strength/Stabilization Re-Evaluation Ending Re-evaluation ending: Please do not hesitate to contact me at [phone] by phone or if you have questions or concerns regarding this new plan of care! Sincerely, Chauncey Pritchard, DPT, OCS, CSCS
--- NOTE | 2023-12-27 07:25 | HP.PTDCSUM ---
Discharge Summary D/C summary: It has been my pleasure to treat CHAVEZ ADAMS referred by Dr. Lala Johnson MD, with the diagnosis of Chronic Back Pain for a total of 10 visit(s). Discharge Date: 12/27/23 Please see the following information for a summary of their discharge status. Subjective Subjective: I feel like I am doing pretty good. Water e3x really helps. Did some online exercises for hips and it is really helping. Has helped ankle pain and back pain. Not a whole lot of pain lately. Did a lot of leaves yesterday and 4 hours and no real pain. Activities at home are normal. Still careful with lifting heavy items from [id number]. Steps really going better. Is on week 5 of program Pain Back: Pain Intensity (Out of 10): 2 Left LE N/T: Pain Intensity (Out of 10): 3 Overall Improvement % Improvement: 85 Objective Objective/Function: ROM lumbar is full and painfree today. Walking symmetrically. Still weak and unstable on lunges but no pain . Pt is in a good place, happy and will continue exercises and online program. Goals Goal 1:: Patient will be I with HEP and progression Goal Progress: Goal Met Goal 2:: Patient will report no pain for 1 week Goal Progress: Progressing Goal 3:: Patient will report 100% improvement Goal Progress: 85% Goal 4:: learn mat exercises to manage LB ex. Goal Progress: Goal Met Plan Plan: d/c D/C Information d/c sentence: If there are questions or concerns regarding this patient's physical therapy, please feel free to call me at [phone]. Thank you for the referral of this patient. Sincerely, Chauncey Pritchard, DPT, OCS, CSCS Balance/Gait/Functional tests Balance/Special Test Scores Oswestry Low Back Score: 3 Improvement % Improvement: 85
== END 2023-12-27 19:00 | disposition home or self-care (01) ==
LOC: PT 07:00
PROVIDERS: PCP Internal Medicine; Referring Provider Internal Medicine; Visit Provider Internal Medicine
DX: M54.9 Dorsalgia, unspecified (principal); G89.29 Other chronic pain
CPT/HCPCS: 97110; 97113; 97162; 97530

== ENCOUNTER → 2024-02-08 | Outpatient (CLI) | payer OTHER, SELFPAY | END | disposition home or self-care (01) | LOC: MTLAB 07:24 | PROVIDERS: PCP Internal Medicine; Referring Provider Internal Medicine Endocrinology, Diabetes & Metabolism; Visit Provider Internal Medicine Endocrinology, Diabetes & Metabolism | DX: E03.8 Other specified hypothyroidism (principal) | CPT/HCPCS: 36415; 84443 ==

== ENCOUNTER → 2024-03-03 | Outpatient (CLI) | payer OTHER, SELFPAY | END | disposition home or self-care (01) | LOC: LABSPEC 10:20 | PROVIDERS: PCP Internal Medicine; Referring Provider Physician Assistant Surgical; Visit Provider Physician Assistant Surgical | DX: R30.0 Dysuria (principal) | CPT/HCPCS: 87086 ==

== ENCOUNTER → 2024-05-03 | Outpatient (CLI) | payer OTHER, SELFPAY ==
[2024-05-03 18:14] LABS: ALB/GLOB Ratio 1.6 RATIO (0.9-2.4); AST(SGOT) 21 U/L (<=31); Alanine Aminotransfer ALT/SGPT 19 U/L (<=34); Albumin, Serum 4.4 g/dL (3.5-5.0); Alkaline Phosphatase 67 U/L (35-104); Anion Gap 8 (5-15); BUN 22 mg/dL (4-19); BUN/Creat Ratio 34.9 RATIO (10-20); Calcium,Total 9.3 mg/dL (7.6-11.0); Carbon Dioxide 27.1 mmol/L (21.0-32.0); Chloride 106 mmol/L (98-108); Creatinine, Serum 0.62 mg/dL (0.70-1.20); EST Glomerular Filtration Rate 106 (>60); Globulin 2.7 g/dL (2.2-4.2); Glucose 81 mg/dL (70-99); Potassium 4.4 mmol/L (3.3-5.1); Protein, Total 7.1 g/dL (5.9-8.4); Sodium Level 141 mmol/L (133-145); Total Bilirubin 0.29 mg/dL (0.00-1.30); Vitamin D,25 Hydroxy 62.8 ng/mL (30-100)
== END | disposition home or self-care (01) ==
LOC: LAB 15:58
PROVIDERS: PCP Internal Medicine; Referring Provider Nurse Practitioner Adult Health; Visit Provider Nurse Practitioner Adult Health
DX: E03.8 Other specified hypothyroidism (principal); E55.9 Vitamin D deficiency, unspecified
CPT/HCPCS: 36415; 80053; 82306; 84443

== ENCOUNTER → 2024-05-11 | Outpatient (CLI) | payer OTHER, SELFPAY ==
--- NOTE | 2024-05-11 07:08 | BI_ITS ---
EXAM: SCRN MAMM (CAD)W/JOSE BILAT DATE: 05/11/2024 CLINICAL HISTORY: F, Age 53 y/o , SCREENING Aunt with breast cancer. BREAST CANCER RISK ASSESSMENT: Not assessed. TECHNIQUE: Bilateral screening digital breast tomosynthesis with 2D and 3D images. Computer aided detection. COMPARISON: Prior exam(s) dated May 10, 2023.. FINDINGS: TISSUE DENSITY: The breast tissue is heterogenously dense, which may obscure small masses. Bilateral Breast Mammographic Findings: No significant masses, calcifications or other abnormalities are identified. No suspicious masses, areas of developing architectural distortion, or suspicious calcifications. There has been no significant interval change. BI/SCRN MAMM (CAD)W/JOSE BILAT IMPRESSION: Right Breast: BIRADS 1 NEGATIVE. Left Breast: BIRADS 1 NEGATIVE. OVERALL FINAL ASSESSMENT: BIRADS 1 NEGATIVE RECOMMENDATION: Routine annual follow-up in 1 Year A letter with findings and recommendations will be mailed to the patient. Reading Location: [place] [id number]
== END | disposition home or self-care (01) ==
LOC: OPBI 07:06
PROVIDERS: PCP Internal Medicine; Referring Provider Nurse Practitioner Women's Health; Visit Provider Nurse Practitioner Women's Health
DX: Z12.31 Encounter for screening mammogram for malignant neoplasm of breast (principal); Z80.3 Family history of malignant neoplasm of breast
CPT/HCPCS: 77063; 77067

== ENCOUNTER → 2024-07-12 | Outpatient (CLI) | payer OTHER, SELFPAY ==
--- OUTSIDE RECORDS SUMMARY | 2024-07-12 07:21 | XMS RPT_ITS | CCD ---
Author Organization [facility] Care Team Providers Care Metal Extrusion Supervisor Name Role Phone Dr. Arely Johnson Primary Care Provider [phone] Dr. Arely Johnson Referring Provider [phone] GABBI Madera Attending Provider Jes SHOTWELD OPERATOR, SHOTWELD OPERATOR-C Joshua Attending Provider [phone] Dr. Arely Johnson Primary Care Provider [phone] Dr. Arely Johnson Referring Provider [phone] Dr. Arely Johnson Primary Care Provider [phone] Dr. Arely Johnson Referring Provider [phone] Dr. Paul Mcfarlane Attending Provider [phone] GABBI Fang Attending Provider UnavailANA Grubbs Attending Provider Unavail ARELY Mark MD Primary Care Physician ([phone]) Arely Johnson MD Primary Care Provider [phone] Stevenson Rivas Unavailable Unavailable Dr. Arely Johnson Primary Care Provider [phone] Dr. Arely Johnson Attending Provider [phone] Dr. Arely Johnson Referring Provider [phone] RANDALL DORADO DO Attending ARELY Vallejo MD Primary Care UnavailRANDALL Sanchez DO Attending ARELY Vallejo MD Primary Care Unavailab le MCGORON PA, DAVIDA Attending Unavailable ARELY JOHNSON MD Primary Care Unavailab yanet Burns MD, Kristina Mejia Unavailable Katy SALGADO, Kristina Mejia Unavailable Kam PT, Tammy Unavailable Elizabeth, Dr. Reeves Primary Care Provider [phone] Elizabeth, Dr. Reeves Attending Provider [phone] Olestephanie, Dr. Reeves Referring Provider [phone] Kam PT, Tammy Unavailable Elizabeth, Dr. Reeves Primary Care Provider [phone] Elizabeth, Dr. Reeves Attending Provider [phone] Elizabeth, Dr. Reeves Referring Provider [phone] Elizabeth, Dr. Reeves Primary Care Provider [phone] Elizabeth, Dr. Reeves Attending Provider [phone] Elizabeth, Dr. Reeves Referring Provider [phone] Nadeem SALTER, ANA Cary Attending Provider Dr. Donald Cast Attending Provider [phone] Dr. Arely Johnson Primary Care Provider [phone] Elizabeth, Dr. Reeves Attending Provider [phone] Elizabeth, Dr. Reeves Referring Provider [phone] Elizabeth, Dr. Reeves Primary Care Provider [phone] Dr. Donald Cast Attending Provider Nadeem SHOTWELD OPERATOR, ANA Cary Attending Provider Elizabeth, Dr. Reeves Attending Provider [phone] Elizabeth, Dr. Reeves Referring Provider [phone] Arely Johnson MD Primary Care Provider [phone] OLEGHE, EFEWONGBE B Primary Care Unavailable DADA SOLIS Referring Unavailable OLEGHE, EFEWONGBE B Primary Care Unavailable Arely Johnson MD Primary Care Provider [phone] Kam PT, Tammy Unavailable Elizabeth SALGADO, Dr. Reeves Primary Care Provider Dr. Randall Dorado DO Attending Provider Dr. Randall Dorado DO Referring Provider Elizabeth SALGADO, Dr. Reeves Referring Provider [phone] Victoriano Madera Attending Provider Victoriano Madera Referring Provider Elizabeth SALGADO, Dr. Reeves Attending Provider [phone] MARYLU SHOTWELD OPERATOR-C, CHARLIE Attending Provider MARYLU SHOTWELD OPERATOR-C, CHARLIE Referring Provider Satya SHOTWELD OPERATOR-CBuddy Attending Provider Satya SHOTWELD OPERATOR-C, Buddy Referring Provider Oleghe, Efewongbe Primary Care Unavailable Buddy Hernadez Referring Unavailable Buddy Hernadez Attending Unavailable Oleghe, Efewongbe Primary Care Unavailable Oleghe, Efewongbe Referring Unavailable Oleghe, Efewongbe Attending Unavailable Oleghe, Efewongbe Primary Care Unavailable Oleghe, Efewongbe Referring Unavailable Oleghe, Efewongbe Attending Unavailable Oleghe, Efewongbe Primary Care Unavailable Randall Dorado Attending Unavailable Randall Dorado Referring Unavailable Oleghe, Efewongbe Primary Care Unavailable Oleghe, Efewongbe Referring Unavailable Oleghe, Efewongbe Attending Unavailable Oleghe, Efewongbe Primary Care Unavailable Oleghe, Efewongbe Referring Unavailable Donald Cast Attending Unavailable Oleghe, Efewongbe Primary Care Unavailable Oleghe, Efewongbe Referring Unavailable Victoriano Deras Attending Unavailable Oleghe, Efewongbe Primary Care Unavailable Oleghe, Efewongbe Referring Unavailable Oleghe, Efewongbe Attending Unavailable Oleghe, Efewongbe Primary Care Unavailable Oleghe, Efewongbe Referring Unavailable Oleghe, Efewongbe Attending Unavailable Oleghe, Efewongbe Referring Unavailable Oleghe, Efewongbe Attending Unavailable Oleghe, Efewongbe Primary Care Unavailable Oleghe, Efewongbe Primary Care Unavailable Wietecha, Randall Referring Unavailable Wietecha, Randall Attending Unavailable Oleghe, Efewongbe Primary Care Unavailable Wietecha, Randall Referring Unavailable Wietecha, Randall Attending Unavailable Oleghe, Efewongbe Primary Care Unavailable Victoriano Deras Referring Unavailable Victoriano Deras Attending Unavailable Oleghe, Efewongbe Primary Care Unavailable CHARLIE VALERO Referring Unavailable CHARLIE VALERO Attending Unavailable BUDDY HERNADEZ Attending Unavailable OLEGHE, EFEWONGBE B Primary Care Unavailable KRISTINA BURNS Attending Unavailable OLEGHE, EFEWONGBE B Primary Care Unavailable Allergies Allergy Classification Reported Allergen(s) Allergy Type Date of Onset Reaction(s) Facility (14 sources) Latex Propensity to adverse reactions 03-28-19 Itching [facility] (14 sources) Penicillin G Drug Allergy 03-28-19 rash [facility] (20 sources) Penicillins; Translations: [PENICILLINS] Allergy to substance 07-22-19 03 rash [facility] (20 sources) bismuth subsalicylate; Translations: [BISMUTH SUBSALICYLATE] Drug Allergy 09-17-19 Diarrhea [facility] (20 sources) Latex; Translations: [LATEX, NATURAL RUBBER] Drug Allergy 09-17-19 Itching [facility] (20 sources) nickel; Translations: [NICKEL] Drug Allergy 03-18-19 23 Other: See Comments [facility] (20 sources) Adhesive agent; Translations: [ADHESIVE] Drug Intolerance 08-08-19 23 Rash [facility] Work Phone: (9 sources) Adhesive Tape; Translations: [adhesive tape] Allergy to substance 09-05-19 Rash, itching [facility] (1 source) Adhesive agent Drug allergy (disorder) 05-18-19 [facility] Repository (1 source) bismuth subsalicylate Drug Allergy 05-18-19 [facility] Repository (1 source) Latex Drug allergy (disorder) 05-18-19 [facility] Repository (1 source) Penicillin Drug Allergy 05-18-19 [facility] Repository Medications Current Medications Medication Drug Class(es) Dates Sig (Normalized) Sig (Original) acetaminophen 500 mg oral tablet (18 sources) Start: 07-24-2022 End: 08-12-2022 take 2 tablets by mouth every eight hours as needed acetaminophen (TYLENOL) 500 mg tablet Take 2 tablets by mouth every 8 hours as needed for pain. 90 tablet 08/12/2022 Active Comment on above: Take 2 tablets by mo [facility] every 8 hours as needed for pain. ascorbic acid 500 mg oral tablet (20 sources) Vitamin C Start: 07-24-2022 End: 05-24-2024 take 1 tablet by mouth twice daily at mealtime ascorbic acid, vitamin C, (VITAMIN C) 500 mg tablet Take 1 tablet by mouth twice daily with meals for 27 doses. 27 tablet 07/27/2022 12:56 PM EDT 07/24/2022 05/24/2024 Discontinued (Other) End: 07-10-2022 ascorbic acid (VITAMIN C ORA L) Take by mouth once daily. 07/10/2022 Discontinued ascorbic acid (V ITAMIN C ORAL) Take by mouth once daily. 0 Active Comment on above: Take by mouth once d aily. Take 1 tablet by oli twice daily with meals for 27 doses. aspirin 81 mg delayed release oral tablet (20 sources) Platelet Aggregation Inhibitor, Nonsteroidal Anti-inflammatory Drug Start: 07-24-2022 End: 05-24-2024 take 1 tablet by mouth twice daily aspirin, enteric coated (ASPIRIN, ENTERIC COATED) 81 mg EC tablet Take 1 tablet by mouth twice daily for 28 days. 56 tablet 07/27/2022 12:56 PM EDT 07/24/2022 05/24/2024 Discontinued (Other) Start: 01-25-2020 End: 08-28-2020 take 1 tablet by mouth once daily Aspirin 81 MG tablet Discontinued 81 mg PO DAILY@0800 January 25, 2020 1:00am August 28, 2020 2:59pm Comment on above: Take 1 tablet by oli th twice daily for 28 days. baclofen 10 mg oral tablet (4 sources) gamma-Aminobutyric Acid-ergic Agonist Start: 07-30-2023 baclofen 10 mg tablet 10 mg. 07/30/2023 Active 24 hr buPROPion hydrochloride 150 mg extended release oral tablet (2 sources) Aminoketone Start: 05-17-2024 buPROPion XL (WELLBUTRIN XL) 150 mg 24 hr tablet 05/17/2024 Active calcium carbonate 1250 mg / cholecalciferol 200 unt oral tablet (20 sources) Vitamin D Start: 12-13-2018 Calcium Carbonate-Vitamin D3 (Os-Constantin 500 + D3) 500 mg(1,250mg) -200 unit tablet Active 1 {tbl} PO DAILY December 13, 2018 1:00am take 1 tablet by mouth twice jaycob ly calcium carbonate-vitamin D3 (OSCAL+D) 500 mg(1,250mg) -400 unit chewable tablet Take 1 tablet by mouth twice daily. Active Comment on above: Take 1 tablet by oli twice daily. cholecalciferol 0.125 mg oral tablet (14 sources) Vitamin D Start: 03-28-19 take 1 tablet by mouth once daily Cholecalciferol (Vitamin D3) 125 mcg (5,000 unit) tablet Active 5000 U PO DAILY March 28, 2021 1:00am cholecalciferol, vitamin D3, (VITAMIN D3 ORAL) (20 sources) Start: 07-26-19 take 5000 [IU] by mouth once daily cholecalciferol, vitamin D3, (VITAMIN D3 ORAL) Take 5,000 Units by mouth once daily. 07/25/2022 Active Start: 07-25-2022 take 5000 [IU] by mo [facility] once daily cholecalciferol, vitamin D3, (VITAMIN D3 [...] once daily. clindamycin 300 mg oral capsule (8 sources) Lincosamide Antibacterial Start: 11-03-19 take 2 capsules by mouth every hour clindamycin (CLEOCIN) 300 mg capsule Take 2 capsules by mouth one hour prior to dental cleaning/procedure 2 capsule 3 11/02/2022 Active Comment on above: Take 2 capsules by m out one hour prior to dental cleaning/procedure Compress.Irwin Breaux nee,Reg,Lrg misc (2 sources) Start: 07-30-19 Compress.Marita Breaux e,Reg,Lrg misc Active 0 .MEDSUPPLY 2 July 30, 2023 12:00am wear daily for venous insufficiency 20-30 mmHg FOLDING WALKER WITH 5 WHEELS (20 sources) Start: 06-04-19 End: 05-25-19 FOLDING WALKER WITH 5 WHEELS Indications: Primary osteoarthritis of left knee One wheeled walker 1 Each 06/03/2022 05/24/2024 Discontinued (Other) Start: 06-03-2022 FOLDING WALKER WITH 5 WHEELS Indications: Primary osteoarthritis of left knee One wheeled walker 1 Each 06/03/2022 Active Start: 06-03-2022 FOLDING WALKER WITH 5 WHEELS Indications: Primary osteoarthritis of left knee One wheeled walker 1 Each 0 06/03/2022 Active Comment on above: One wheeled walker hydrocortisone 25 mg/ml topical cream (2 sources) Corticosteroid Start: 05-19-19 hydrocortisone 2.5 % cream 05/18/2024 Active levothyroxine sodium 0.112 mg oral tablet (20 sources) l-Thyroxine Start: 03-25-19 take 1.5 tablets by mouth once daily Levothyroxine Active 125 MCG PO DAILY March 25, 2023 7:15pm 1.5 tabs on sundays Start: 01-18-2023 take 1 tablet by oli th once daily in the morning levothyroxine (SYNTHROID) 125 mcg tablet Take 125 mcg by mouth every morning. 01/18/2023 Active Start: 12-22-2019 End: 12-23-2023 take 1.5 tablets by mouth once daily Levothyroxine 112 mcg tablet Discontinued 125 ug PO DAILY March 25, 2023 7:15pm December 23, 2023 3:56pm 1.5 tabs on sundays Start: 10-24-2018 End: 05-24-2024 take 1 tablet by mouth once daily Levothyroxine 112 mcg tablet Active 112 ug PO DAILY December 23, 2023 3:55pm Start: 09-07-2017 End: 10-24-2018 take 1 tablet by mouth once daily Levothyroxine 137 mcg tablet Discontinued 137 ug PO daily September 07, 2017 12:00am October 24, 2018 8:11am Start: 07-21-2002 End: 07-10-2022 LEVOXYL 150MCG TABLET Take o ne(1) tablet daily. 0 07/21/2002 07/10/2022 Discontinued Comment on above: Take one(1) tablet d aily. once daily. [The details of the medication are not available because there are pending changes by a home health clinician.] Take 1 tablet by oli th once daily. Take 125 mcg by mout h every morning. multivitamin capsule (12 sources) Start: 8 take 1 capsule by mouth once daily in the morning multivitamin capsule Active 1 CAP PO EVERY MORNING September 07, 2017 8:14am Start: 09-07-2017 take 1 capsule by mo uth once daily in the morning multivitamin capsule Active 1 CAP PO EVERY MORNING September 06, 2017 11:00pm Start: 09-07-2017 take 1 capsule by mo uth once daily in the morning multivitamin capsule Active 1 CAP PO EVERY MORNING September 07, 2017 12:00am Multivitamin capsule (2 sources) Start: 09-07-2017 Multivitamin c apsule Active 1 NMA PO EVERY MORNING September 07, 2017 12:00am multivitamin tablet (20 sources) take 1 tablet [...] health clinician.] Take 1 tablet by oli once daily. Multivitamin With Minerals (Hair,Skin And Nails) tablet (12 sources) Start: 08-20-2021 Multivitamin With Minerals (Hair,Skin And Nails) tablet Active 1 {tbl} PO DAILY August 20, 2021 12:00am Start: 08-20-2021 take 1 tablet by oli th once daily Multivitamin With Minerals (Hair,Skin And Nails) tablet Active 1 TABLET PO DAILY August 19, 2021 11:00pm Start: 08-20-2021 take 1 tablet by oli once daily Multivitamin With Minerals (Hair,Skin And Nails) tablet Active 1 TABLET PO DAILY August 20, 2021 12:00am mupirocin 0.02 mg/mg topical ointment (2 sources) RNA Synthetase Inhibitor Antibacterial Start: 07-10-2022 End: 07-23-2022 mupirocin (BACTROBAN) 2 % ointment Indications: Pre-operative [...] surgery. oxyCODONE hydrochloride 5 mg oral tablet (20 sources) Opioid Agonist Start: 07-24-2022 End: 05-24-2024 take 1 tablet by mouth every six hours as needed oxyCODONE IR (ROXICODONE) 5 mg immediate release tablet Indications: S/P total knee arthroplasty, left Take 1-2 tablets by mouth every 6 hours as needed for pain. 50 tablet 08/03/2022 05/24/2024 Discontinued (Other) Start: 01-17-2018 End: 01-24-2018 take 1 tablet by mouth every six hours as needed for pain Oxycodone 5 MG tablet Discontinued 5 mg PO EVERY 6 HOURS NEEDED as needed for Severe Pain () 20 January 17, 2018 1:00am January 23, 2018 1:00am January 24, 2018 1:10am Comment on above: Take 1-2 tablets by mouth every 6 hours as needed for pain. vitamin e 180 mg oral capsule (20 sources) Start: 07-25-2022 take 1 capsule by mouth once daily vitamin E, dl,tocopheryl acet, (VITAMIN E, DL, ACETATE,) 180 mg (400 unit) capsule Take 180 mg by mouth once daily. 07/25/2022 Active Start: 08-28-2020 Vitamin E (Dl, Acetate) 400 unit capsule Active 400 U PO DAILY August 28, 2020 12:00am Start: 08-28-2020 take 400 [IU] by oli once daily Vitamin E (Dl, Acetate) Active 400 UNIT PO DAILY August 28, 2020 12:00am Start: 09-07-2017 End: 08-25-2019 Vitamin E (Dl, Acetate) 200 unit capsule Discontinued 200 U PO daily September 07, 2017 12:00am August 25, 2019 1:17pm Start: 09-07-2017 End: 08-25-2019 take 200 [IU] by mouth once daily Vitamin E (Dl, Acetate) Discontinued 200 UNIT PO daily September 07, 2017 12:00am August 25, 2019 1:17pm Comment on above: Take 200 Units by mo [facility] once daily. Take 180 mg by mouth [...] a home health clinician.] 0 07/25/2022 Active Start: 12-20-2020 take 50 mg by mouth once daily Zinc Active 50 MG PO DAILY December 20, 2020 9:14am Start: 12-20-2020 take 1 tablet by oli th once daily Zinc 50 mg tablet Active 50 mg PO DAILY December 20, 2020 1:00am Start: 12-20-2020 take 50 mg by mouth once daily Zinc Active 50 MG PO DAILY December 20, 2020 12:00am Start: 12-20-2020 take 50 mg by mouth once daily Zinc Active 50 MG PO DAILY December 20, 2020 1:00am ZINC ORAL Take b y mouth once daily. 0 Active Comment on above: Take by mouth once d aily. [The details of the medication are not available because there are pending changes by a home health clinician.] Take 50 mg by mouth once daily. Completed/Discontinued Medications Medication Drug Class(es) Dates Sig (Normalized) Sig (Original) azithromycin 500 mg oral tablet (20 sources) Macrolide Antimicrobial Start: 09-05-2021 End: 09-08-2021 take 1 tablet by mouth once daily Azithromycin 500 mg tablet Discontinued 500 mg PO DAILY 3 3 September 05, 2021 12:00am September 07, 2021 12:00am September 08, 2021 12:03am Start: 11-23-2018 End: 12-01-2018 Azithromycin 250 mg tablet D iscontinued 250 mg PO daily November 23, 2018 12:00am December 01, 2018 4:17pm 2 tablets today, then 1 tablet daily on days 2 through 5 biotin 1 mg oral capsule (20 sources) Start: 12-28-2017 End: 08-20-2021 take 1 capsule by mouth once daily Biotin 1 mg capsule Discontinued 1 mg PO DAILY December 28, 2017 1:00am August 20, 2021 3:33pm End: 07-10-2022 BIOTIN ORAL Take by mouth. 0 07/10/2022 Discontinued BIOTIN ORAL Take by mouth. 0 Active Comment on above: Take by mouth. control pills (14 sources) Start: 09-07-2017 End: 12-28-2017 control pills Discontinued PO September 07, 2017 8:11am December 28, 2017 9:15am Start: 09-07-2017 End: 12-28-2017 control pills Disconti nued PO September 06, 2017 11:00pm December 28, 2017 8:15am Start: 09-07-2017 End: 12-28-2017 control pills Disconti nued PO September 07, 2017 12:00am December 28, 2017 9:15am calcium ascorbate 500 mg oral tablet (14 sources) Start: 12-20-2020 End: 03-25-2023 take 1 tablet by mouth once daily Ascorbate Calcium (Vitamin C) 500 mg tablet Discontinued 500 mg PO DAILY December 20, 2020 1:00am March 25, 2023 7:14pm Calcium Carb,Lactat-Vitamin D3 200 mg calcium -250 unit tablet (2 sources) Start: 09-07-2017 End: 12-13-2018 Calcium Carb,Lactat-Vitamin D3 200 mg calcium -250 unit tablet Discontinued 2 {tbl} PO EVERY MORNING September 07, 2017 12:00am December 13, 2018 3:41pm calcium carbonat and lactate 200 mg calcium-vitamin D3 250 unit tablet (12 sources) Start: 09-07-2017 End: 12-13-2018 take 2 tablets by mouth once daily in the morning calcium carbonat and lactate 200 mg calcium-vitamin D3 250 unit tablet Discontinued 2 TABLET PO EVERY MORNING September 07, 2017 8:13am December 13, 2018 3:41pm Start: 09-07-2017 End: 12-13-2018 take 2 tablets by mouth once daily in the morning calcium carbonat and lactate 200 mg calcium-vitamin D3 250 unit tablet Discontinued 2 TABLET PO EVERY MORNING September 06, 2017 11:00pm December 13, 2018 2:41pm Start: 09-07-2017 End: 12-13-2018 take 2 tablets by mouth once daily in the morning calcium carbonat and lactate 200 mg calcium-vitamin D3 250 unit tablet Discontinued 2 TABLET PO EVERY MORNING September 07, 2017 12:00am December 13, 2018 3:41pm COMPOUNDED PRESCRIPTION (7 sources) Start: 07-21-2002 End: 07-10-2022 COMPOUNDED PRESCRIPTION BCP daily 0 07/21/2002 07/10/2022 Discontinued Start: 07-21-2002 COMPOUNDED PRE SCRIPTION BCP daily 0 07/21/2002 Active Comment on above: BCP daily cyclobenzaprine hydrochloride 10 mg oral tablet (14 sources) Muscle Relaxant Start: 03-28-19 End: 08-21-19 take 5-10 mg by mouth three times daily as needed for muscle spasms Cyclobenzaprine 10 mg tablet Discontinued 5 - 10 mg PO THREE TIMES A DAY as needed for muscle spasm March 28, 2021 1:00am August 20, 2021 3:35pm docusate sodium 100 mg oral capsule (20 sources) Start: 07-25-19 End: 08-27-19 take 1 capsule by mouth every twelve hours as needed docusate sodium (COLACE) 100 mg capsule Take 1 capsule by mouth twice daily as needed for constipation. 60 capsule 07/24/2022 08/26/2022 Start: 01-17-2018 End: 10-24-2018 take 1 capsule by mouth twice daily as needed for constipation Docusate Sodium 100 MG capsule Discontinued 100 mg PO TWICE DAILY NEEDED as needed for Constipation 60 January 17, 2018 1:00am October 24, 2018 8:10am Comment on above: Take 1 capsule by [facility] twice daily as needed for constipation. Flucelvax Quad [id number] (flu vac qs (6 ms up) CD) 60 mcg (15 mcg x (2 sources) Star t: 12-09 End: 12-09 inject 15 ug by intramuscular injection once Flucelvax Quad (flu vac qs (6 ms up) CD) 60 mcg (15 mcg x Discontinued 60 MCG IM ONCE 0.5 December 20, 2020 9:06am December 20, 2020 9:45am ibuprofen 200 mg oral tablet (2 sources) Nonsteroidal Anti-inflammatory Drug End: 09-27 take 4 tablets by mouth once daily at bedtime ibuprofen (MOTRIN) 200 mg tablet Take 800 mg by mouth daily at bedtime. 03/18/2022 Discontinued (Other) Comment on above: Take 800 mg by mouth daily at bedtime. 1 ml leuprolide acetate 3.75 mg/ml prefilled syringe (14 sources) Gonadotropin Releasing Hormone Receptor Agonist Star t: 12-10 End: 10-09 inject 3.75 mg by intramuscular injection every month Leuprolide (Lupron Depot) 3.75 mg syringe kit Discontinued 3.75 mg IM EVERY MONTH December 28, 2017 1:00am October 24, 2018 8:11am meloxicam 7.5 mg oral tablet (6 sources) Nonsteroidal Anti-inflammatory Drug Star t: 09-27 take 1 tablet by mouth once daily meloxicam (MOBIC) 7.5 mg tablet Take 1 tablet by mouth once daily. 30 tablet 2 03/18/2022 Active Comment on above: Take 1 tablet by oli th once daily. methylPREDNISolone 4 mg oral tablet (2 sources) Corticosteroid Star t: 07-10 End: 09-09 take 1 tablet by mouth once Methylprednisolone (Medrol (Tam)) 4 mg tablets,dose pack Discontinued 0 PO per package directions July 30, 2023 12:00am October 06, 2023 6:02pm PO PER PKG DIR for 6 days nitrofurantoin, macrocrystals 25 mg / nitrofurantoin, monohydrate 75 mg oral capsule (4 sources) Nitrofuran Antibacterial Star t: 02-09 End: 02-10 take 1 capsule by mouth every twelve hours at mealtime Nitrofurantoin Monohyd/M-Cryst 100 mg capsule Discontinued 1 NMA PO Q12H 14 7 March 03, 2024 8:41am March 09, 2024 1:00am March 10, 2024 1:19am administer with a meal/food; swallow whole; do not open, crush, dissolve , or chew polyethylene glycol 3350 36024 mg powder for oral solution (7 sources) Osmotic Laxative Star t: 07-09 End: 04-27 polyethylene glycol 3350 (MIRALAX) 17 gram/dose powder [...] ounces of liquid and take as directed. sertraline 50 mg oral tablet (20 sources) Serotonin Reuptake Inhibitor Star t: 09-09 End: 08-27 take 1 tablet by mouth once daily Sertraline 50 mg tablet Discontinued 0 .ROUTE .COMPLEX 90 March 08, 2023 6:49pm November 15, 2023 1:01pm TAKE 1 TABLET BY MOUTH EVERY DAY Start: 09-04-2022 End: 09-28-2022 sertraline (ZOLOFT) 50 mg ta blet START WITH 0.5 TABLET FOR 2 WEEKS THEN INCREASE TO TAKE 1 TABLET BY MOUTH EVERY DAY 09/04/2022 Active Comment on above: START WITH 0.5 TABLE T FOR 2 WEEKS THEN INCREASE TO TAKE 1 TABLET BY MOUTH EVERY DAY vitamin D 1.25mcg (14 sources) Start: 09-07-2017 End: 08-25-2019 take 1.25 ug by mouth once vitamin D 1.25mcg Discontinued PO September 07, 2017 8:14am August 25, 2019 1:17pm Start: 09-07-2017 End: 08-25-2019 take 1.25 ug by mouth once vitamin D 1.25mcg Discontin ued PO September 06, 2017 11:00pm August 25, 2019 12:17pm Start: 09-07-2017 End: 08-25-2019 take 1.25 ug by mouth once vitamin D 1.25mcg Discontin ued PO September 07, 2017 12:00am August 25, 2019 1:17pm Problems Active Problems Problem Classification Problem Date Documented Da te Episodic/Chronic Abdominal pain (14 sources) Left flank pain; Translations: [Unspecified abdominal pain] 10-30-2020 Episodic Administrative/social admission (12 sources) Finding related to care and support circumstances and networks; Translations: [Dependent relative needing care at home] 05-21-2022 Episodic Anxiety disorders (20 sources) Mixed anxiety and depressive disorder; Translations: [Anxiety disorder, unspecified] 09-04-2022 Chronic Benign neoplasm of uterus (14 sources) Uterine leiomyoma; Translations: [Leiomyoma of uterus, unspecified] 12-01-2018 Episodic Cardiac and circulatory congenital anomalies (2 sources) Patent foramen ovale; Translations: [Patent foramen ovale with atrial septal aneurysm] 12-23-2023 Chronic Diseases of mouth; excluding dental (12 sources) Xerostomia; Translations: [Dry mouth, unspecified] 12-23-2022 Episodic Genitourinary symptoms and ill-defined conditions (16 sources) Dysuria; Translations: [Dysuria] Onset: 03-03-2024 10-30-2020 Episodic Headache; including migraine (20 sources) Migraine; Translations: [Migraine, unspecified, not intractable, without status migrainosus] Onset: 07-16-2022 01-17-2018 Chronic Heart valve disorders (17 sources) Heart murmur; Translations: [Cardiac murmur, unspecified] 01-17-2018 Episodic Immunizations and screening for infectious disease (14 sources) Contact with and (suspected) exposure to other viral communicable diseases; Translations: [Contact with or suspected exposure to other viral communicable disease] 10-29-2020 Episodic Nonmalignant breast conditions (3 sources) Breast finding ; Translations: [Dense breasts] Onset: 05-24-2024 05-24-2024 Episodic Nutritional deficiencies (14 sources) Vitamin D deficiency; Translations: [Vitamin D deficiency, unspecified] 12-20-2020 Chronic Open wounds of head; neck; and trunk (14 sources) Facial laceration ; Translations: [Laceration without foreign body of other part of head, initial encounter] 11-22-2018 Episodic Osteoarthritis (20 sources) Osteoarthritis of left knee joint; Translations: [Unilateral primary osteoarthritis, left knee] Chronic Other aftercare (1 source) Patient encounter status; Translations: [Aftercare following joint replacement surgery] 08-27-2023 Chronic Other connective tissue disease (20 sources) History of total knee arthroplasty; Translations: [Presence of left artificial knee joint] Onset: 07-24-2022 07-24-2022 Chronic Other diseases of bladder and urethra (1 source) Other specified disorders of bladder; Translations: [Other specified disorders of bladder] Onset: 03-03-2024 Chronic Other female genital disorders (3 sources) Vaginal dryness; Translations: [Other specified noninflammatory disorders of vagina] Onset: 05-24-2024 05-24-2024 Episodic Other female genital disorders (1 source) Vaginal odor; Translations: [Other specified noninflammatory disorders of vagina] 05-24-2024 Episodic Other female genital disorders (2 sources) Other specified noninflammatory disorders of vagina; Translations: [Vaginal dryness] Onset: 05-24-2024 Episodic Other gastrointestinal disorders (2 sources) Diarrhea, unspecified; Translations: [Diarrhea] Episodic Other nervous system disorders (4 sources) Chronic pain; Translations: [Other chronic pain] 04-05-2024 Chronic Other nervous system disorders (1 source) Other chronic pain; Translations: [Other chronic pain] Onset: 12-28-2023 Chronic Other non-traumatic joint disorders (3 sources) Pain in left knee; Translations: [Pain in joint, lower leg] Onset: 07-30-2023 07-30-2023 Episodic Other non-traumatic joint disorders (2 sources) Hip pain; Translations: [Pain in right hip] 07-30-2023 Episodic Other nutritional; endocrine; and metabolic disorders (4 sources) Body mass index 25-29 - overweight; Translations: [Overweight] 04-05-2024 Episodic Other screening for suspected conditions (not mental disorders or infectious disease) (3 sources) Echocardiogram abnormal; Translations: [Abnormal findings on diagnostic imaging of heart and coronary circulation] Onset: 05-17-2024 12-23-2023 Episodic Comment on above: Interatrial septal a neurysm noted without PFO Other upper respiratory infections (20 sources) Acute upper respiratory infection; Translations: [Acute upper respiratory infection, unspecified] Episodic Residual codes; unclassified (14 sources) Chill; Translations: [Chills (without fever)] 11-25-2020 Episodic Residual codes; unclassified (14 sources) Flushing; Translations: [Flushing] 10-29-2020 Episodic Residual codes; unclassified (14 sources) History of palpitations; Translations: [Personal history of other specified conditions] 08-25-2019 Episodic Residual codes; unclassified (5 sources) Personal history of other specified conditions; Translations: [Personal history of other diseases of circulatory system] Episodic Residual codes; unclassified (1 source) Pain; Translations: [Pain, unspecified] 03-18-2022 Episodic Residual codes; unclassified (3 sources) Reduced libido; Translations: [Decreased libido] Onset: 05-24-2024 05-24-2024 Episodic Residual codes; unclassified (1 source) Decreased libido; Translations: [Low libido] Onset: 05-24-2024 Episodic Superficial injury; contusion (14 sources) Contusion of nose; Translations: [Contusion of nose, initial encounter] 11-22-2018 Episodic Thyroid disorders (20 sources) Hypothyroidism; Translations: [Hypothyroidism, unspecified] Onset: 07-16-2022 08-25-2019 Chronic Unclassified (1 source) Breast finding 05-24-2024 Unclassified (1 source) Dense breasts; Translations: [Dense breasts] Onset: 05-24-2024 Urinary tract infections (4 sources) Cystitis; Translations: [Cystitis, unspecified without hematuria] 03-03-2024 Episodic Viral infection (14 sources) Disease caused by 2019-nCoV; Translations: [COVID-19] 12-20-2020 Episodic Past or Other Problems Problem Classification Problem Date Documented Date Episodic/Chronic Cardiac dysrhythmias (20 sources) Bradycardia; Translations: [Bradycardia, unspecified] Onset: 07-16-2022 Episodic Other diseases of veins and lymphatics (1 source) Venous insufficiency (chronic) (peripheral); Translations: [Venous insufficiency (chronic) (peripheral)] Onset: 07-30-2023 Episodic Spondylosis; intervertebral disc disorders; other back problems (20 sources) Neck pain; Translations: [Cervicalgia] Onset: 12-28-2023 Episodic Results Test Name Value Interpretation Reference Range Facility BACTERIAL VAGINOSIS NAATon 0 05-24-2024 Lactobacillus crispatus+gasseri+jense saba + Gardnerella vaginalis + Atopobium vaginae rRNA SARAI+probe Ql (Vag fld) Not detected Normal Not detected [facility] Comment on above: Order Comment: Speci men Type: SWAB Ordering Facility: [facility] Address: [address] [place] [address] Performed By: #### C VTV, BVAMP #### [facility] CLIA [id number] [address] [place] [address] [place] ILEANA/TRICHOMONAS NAATon 0 05-24-2024 C. glabrata RNA SARAI+probe Ql (Vag fld) Not detected Normal Not detected [facility] Comment on above: Order Comment: Speci men Type: SWAB Ordering Facility: [facility] Address: [address] [place] [address] Performed By: #### C VTV, BVAMP #### [facility] CLIA [id number] [address] [place] [address] STATES [place] Ileana sp DNA SARAI+probe Ql (Vag fld) Not detected Normal Not detected [facility] Comment on above: Order Comment: Speci men Type: SWAB Ordering Facility: [facility] Address: [address] [place] [address] Result Comment: The Ileana species group target includes C. albicans, C. tropicalis, C. parapsilosis, and C. dubliniensis. Performed By: #### C VTV, BVAMP #### [facility] CLIA [id number] [address] [place] [address] [place] T. vaginalis DNA SARAI+probe Ql (Unsp spec) Not detected Normal Not detected [facility] Comment on above: Order Comment: Speci men Type: SWAB Ordering Facility: [facility] Address: [address] [place] [address] Performed By: #### C VTV, BVAMP #### [facility] CLIA [id number] [address] [place] [address] OF PARUL CNOVon 05-24-2024 CNOV Office Visit (OBGYWM) SHERIFFCHAVEZ R ([id number]) 1970 F Date Time Provider Department 05/24/24 7:15 AM BUDDY HERNADEZ During your visit today, we recorded the following information about you: Blood pressure Weight Height 114/76 80.3 kg 1.727 m Buddy Hernadez APRN.DIRECTOR CHILD ABUSE THERAPY 05/24/2024 11:03 AM Addendum Chavez is a 53 year old who presents for an annual gynecologic exam with complaints: vaginal odor, hip pain, decreased libido, and vaginal dryness. Postmenopausal: Yes HRT use: No. Menses: hysterectomy Sexually active: No Contraception: hysterectomy History of abnormal pap: No Colposcopy: No. Leep: No. Cone biopsy: No. Bothersome pelvic pain: No Last mammogram: 2024 normal [facility] History of abnormal mammogram: No OB History Gravida0 Para0 Term0 Preterm0 AB0 Living0 SAB0 IAB0 Ectopic0 Multiple0 Live Births0 FAMILY HISTORY Problem Relation Age of Onset [...] Never Smokeless tobacco: Never Vaping Use Vaping status: Never Used Substance Use Topics Alcohol use: Yes Comment: VERY RARELY Drug use: Never REVIEW OF SYSTEMS Abdomen: No abdominal pain, nausea, vomiting, diarrhea, or constipation. No bloating, early satiety, indigestion, or increased flatulence. Bladder: No dysuria, gross hematuria, urinary frequency, urinary urgency, or incontinence Breast: No breast lumps, nipple d/c, overlying skin changes, redness or skin retraction Allergies and current medication updated:Yes SENSITIVE EXAM: The sensitive examination was discussed with the Patient or Patient's Authorized Urologic Nurse. As applicable, any other physician, advance practice provider, medical student, or other health professional student that will be observing or involved in the sensitive examination for educational or training purposes was discussed with the Patient or Authorized Urologic Nurse. The Patient or Authorized Urologic Nurse has agreed to proceed with the sensitive examination. (Sensitive examination includes inspection and/or palpation of the breasts, pelvis, prostate and anorectal regions). EXAM: BP 114/76 Ht 5' 8 (1.73m) Wt 177 lb (80.3kg) BMI 26.92 kg/(m2). GENERAL: pleasant, female in no apparent [...] non-tender, and no masses PELVIC: external genitalia atrophic, normal Bartholin's glands, urethra, [place]'s glands, + <0.5 cm inclusion cyst noted to inferior left labia majora, cervix surgically absent, vaginal cuff atrophic, good vaginal support, + thin yellow discharge, normal appearing perineal body and perianal region BIMANUAL: no adnexal masses, non-tender, and uterus surgically absent RECTOVAGINAL: deferred. NEURO: alert and oriented x3,exam grossly non-focal EXTREMITIES: normal ASSESSMENT/PLAN: 1) Health maintenance: Pap/HPV screening no longer needed Mammogram up to date Nutrition, exercise and routine health maintenance exams reviewed. Calcium/Vitamin D supplementation information provided. Colon cancer screening: UTD at age 50 TSH/lipids/glucose: followed by PCP 2) Follow up one year or sooner as needed Dense breasts - ICD9: 793.82, ICD10: R92.30 - Opts for supplemental screening - US BREAST COMPLETE BILATERAL Vaginal dryness - ICD9: 625.8, ICD10: N89.8 - Lubricant and moisturizer list provided - Atrophy noted - Briefly discussed vaginal estrogen cream Low libido - ICD9: 799.81, ICD10: R68.82 - Currently taking antidepressants - reviewed possible side effects - Reviewed sex therapy option virtually Vaginal odor - ICD9: 625.8, ICD10: N89.8 - ILEANA/TRICHOMONAS NAAT - BACTERIAL VAGINOSIS NAAT Buddy Hernadez APRN.Buddy Walsh APRN.CNP 05/24/2024 7:52 AM Addendum Lubricants and moisturizers list The eixc-heb-turodrd vaginal moisturizer and lubricant products can be confusing to sort through, especially since there are no FDA requirements for how they can be marketed or labeled. In general there are 3 (more content not included)... Normal [facility] Internal Medicine Office Vis iton 05-17-2024 Internal Medicine Office Visit [facility] [address] [place], [place] [address] OFFICE VISIT Date of Service: 05/17/24 MR#: [id number] Acct: [id number] Name: CHAVEZ MARQUES Rep #: [id number] : 1970 Provider: Dr. Arely jeffries MD Age/Sex: 53/F Location: [facility] Status: Signed Intake Vital Signs 04/05/24 17:33 05/17/24 15:55 Height 5 ft 8 in 5 ft 8 in Weight: 180 lb BMI 27.3 BP 114/60 Blood Pressure Location Lt brachial Position Sitting Respiration 18 Pulse 51 L Pulse Source Monitor Temp 97.3 F L Temp Source Temporal Pulse Oximetry (%) 99 Oxygen Delivery Method room air Intake Visit Reasons: 6 wk FU Chief Complaint: 6 wk FU Is patient in pain?: No Allergies penicillin G Allergy (Severe, Verified 05/17/24 15:54) rash adhesive tape Allergy (Intermediate, Verified 05/17/24 15:54) Rash, itching Penicillins Allergy (Unknown, Verified 05/17/24 15:54) rash adhesive Allergy (Verified 05/17/24 15:54) Hives latex Adverse Reaction (Intermediate, Verified 05/17/24 15:54) Itching bismuth subsalicylate (From Pepto-Bismol) Adverse Reaction (Verified 05/17/24 15:54) Diarrhea Medications ???Medication ???Instructions ???Recorded ???Confirmed ???Type multivitamin 1 cap PO QAM 09/07/17 05/17/24 His tory calcium 500 mg (as 1 tab PO DAILY 12/13/18 05/17/24 H istory carbonate)-vitamin D3 5 mcg (200 unit) tablet (Os-Constantin 500 + D3) vitamin E (dl, acetate) 180 mg 400 unit PO DAILY 08/28/20 5 History (400 unit) capsule zinc 50 mg tablet 50 mg PO DAILY 12/20/20 05/17/24 H istory cholecalciferol (vitamin D3) 125 5,000 unit PO DAILY 03/28/2105/17 History mcg (5,000 unit) tablet multivitamin with minerals 1 tab PO DAILY 08/20/21 05/17/24 H istory (Hair,Skin and Nails tablet) baclofen 10 mg tablet 10 mg PO BID PRN muscle spasm #30 07/30/23 05/17/24 Rx tabs compress.stocking,kn ee,reg,lrg #2 ea 07/30/23 05/17/24 Rx sertraline 50 mg tablet See Rx Instructions .Route 4 05/17/24 Rx .COMPLEX #90 tabs levothyroxine 112 mcg tablet 112 mcg PO DAILY 12/23/23 05/17/24 History bupropion HCl 150 mg 24 hr tablet, 150 mg PO QAM #30 tabs 05/17/24 05/17/24 Rx extended release PFSH Medical History Overweight (BMI 25.0-29.9) Chronic pain Spinal stenosis Right hip pain Chronic back pain Dry mouth Anxiety and depression Caregiver burden Osteoarthritis Thoracic back pain Acute neck pain Health care maintenance Vitamin D deficiency COVID-19 Left flank pain Dysuria History of palpitations Bradycardia Allergic sinusitis Allergic rhinitis Joint pain Migraines Hypothyroidism Heart murmur Vitamin D deficiency Surgical History History of left knee replacement History of hysterectomy History of back surgery ( 2004) H/O reconstruction of anterior cruciate ligament tear History of arthroscopy of knee Family History Mother Liver disease due to auto immune disorder Cancer Brother Thyroid disorder Aunt Breast cancer Cancer mouth Brother Fibromyalgia Sister Fibromyalgia Brother , Age 3 days Congenital heart defect poor connective tissue Grandmother Heart disease CHF Father Cancer prostate, bladder, bone Social History Smoking Status: Never smoker alcohol intake: current alcohol intake frequency: holidays/special occasions only substance use type: does not use caffeine: No what type of physical activity do you participate in: bicycling and weight training frequency: 5-6 times per week HPI HPI Chief Complaint: 6 wk FU Details: CHAVEZ MARQUES, is a 53 F who presents to the office today for follow-up of her chronic conditions. Also has some concerns. History of anxiety and depression currently on Zoloft. At her last visit, had reported worsening symptoms/grief reaction. She had started a program and so recommendation was to continue mindfulness/therapy sessions and see if symptoms persist or resolve. She states that she has continued her program which she continues to find helpful however she still feels flat. Also concerned about weight gain. Has not been on Wellbutrin in the past. Other chronic medical conditions are largely stable. ROS Const Constitutional: No body ache, chills, excessive sweating, fatigue, fever(s), frequent falls, headache(s), snoring, weight change, sleep problems, abnormal sleep pattern or change in appetite Eyes Eyes: No blurry vision, change in vision, bulging eyes, floaters, visual disturbances, eye pain or Light sensitivity ENT ENT: No abnormal hearin (more content not included)... Normal [facility] Breast imaging reportOrdered By: Bertin Rai on 05-11-2024 Study report [facility] Imaging Services [address] [place] [address] SCRN MAMM (CAD)W/JOSE BILAT MR#: [id number] Acct: [id number] Name: CHAVEZ MARQUES Rep #: [id number] : 1970 F 53 From: Alejandro Rai MD PCP: Dr. Arely Johnson MD Status: R EG CLI Study:SCRN MAMM (CAD)W/JOSE BILAT Date of Exa m: 05/11/24 Exam# [id number] Ordering Dr: Myranda Hernadez SHOTWELD OPERATOR-C EXAM: SCRN MAMM (CAD)W/JOSE BILAT DATE: 05/11/2024 CLINICAL HISTORY: F, Age 53 y/o , SCREENING Aunt with breast cancer. BREAST CANCER RISK ASSESSMENT: Not assessed. TECHNIQUE: Bilateral screening digital breast tomosynthesis with 2D and 3D images. Computeraided detection. COMPARISON: Prior exam(s) dated May 10, 2023.. FINDINGS: TISSUE DENSITY: The breast tissue is heterogenously dense, which may obscure small masses. Bilateral Breast Mammographic Findings: No significant masses, calcifications or other abnormalities are identified. No suspicious masses, areas of developing architectural distortion, or suspicious calcifications. There has been no significant interval change. BI/SCRN MAMM (CAD)W/JOSE BILAT IMPRESSION: Right Breast: BIRADS 1 NEGATIVE. Left Breast: BIRADS 1 NEGATIVE. OVERALL FINAL ASSESSMENT: BIRADS 1 NEGATIVE RECOMMENDATION: Routine annual follow-up in 1 Year A letter with findings and recommendations will be mailed to the patient. Reading Location: [facility] CC: ANA Hernadez; Dr. Arely Johnson MD ~ Sack Repairer: Signed [facility] SCRN MAMM (CAD)W/JOSE BILATo n 05-11-2024 SCRN MAMM (CAD)W/JOSE BILAT [facility] Imaging Services [address] [place] [address] SCRN MAMM (CAD)W/JOSE BILAT MR#: [id number] Acct: [id number] Name: CHAVEZ MARQUES Rep #: [id number] : 1970 F 53 From: Bertin villaseñor MD PCP: Dr. Arely Johnson MD Status: [facility] Study: SCRN MAMM (CAD)W/JOSE BILAT Date of Exam: 05/02 Exam# [id number] Ordering Dr: Buddy Hernadez EXAM: SCRN MAMM (CAD)W/JOSE BILAT DATE: 05/11/2024 CLINICAL HISTORY: F, Age 53 y/o , SCREENING Aunt with breast cancer. BREAST CANCER RISK ASSESSMENT: Not assessed. TECHNIQUE: Bilateral screening digital breast tomosynthesis with 2D and 3D images. Computer aided detection. COMPARISON: Prior exam(s) dated May 10, 2023.. FINDINGS: TISSUE DENSITY: The breast tissue is heterogenously dense, which may obscure small masses. Bilateral Breast Mammographic Findings: No significant masses, calcifications or other abnormalities are identified. No suspicious masses, areas of developing architectural distortion, or suspicious calcifications. There has been no significant interval change. BI/SCRN MAMM (CAD)W/JOSE BILAT IMPRESSION: Right Breast: BIRADS 1 NEGATIVE. Left Breast: BIRADS 1 NEGATIVE. OVERALL FINAL ASSESSMENT: BIRADS 1 NEGATIVE RECOMMENDATION: Routine annual follow-up in 1 Year A letter with findings and recommendations will be mailed to the patient. Reading Location: [facility] CC: ANA Hernadez; Dr. Arely Johnson MD Sack Repairer: Signed Normal [facility] Telephone (OBGYWM) CHAVEZ MARQUES ([id number]) 1970 F Date Time Provider Department 05/04/24 BUDDY HERNADEZ During your visit today, we recorded the following information about you: Emi Melgar LPN 05/04/2024 11:55 AM Signed Patient has yearly exam scheduled 05/24/2024. Called requesting order for mammogram that is scheduled at [facility] . Emi Melgar LPN 05/04/2024 4:41 PM Signed Order faxed Allergies As of Date: 05/04/2024 Noted Allergy Reaction ADHESIVE 08/07/2022 2 - Rash LATEX, NATURAL RUBBER 09/16/2021 9 - Itching NICKEL 03/18/2022 14 - Other: See Comments Comments: Tarnishes PENICILLINS 07/21/2002 PEPTO-BISMOL (BISMUTH SUBSALICYLA*09/17/19 22 6 - Diarrhea Date Reviewed: 07/30/2023 Reviewed by: Claudette Loza OCCA - Fully Assessed Prescriptions as of 05/04/2024 - levothyroxine (SYNTHROID) 125 mcg tablet Take [...] once daily. Problem List As Of Date 05/04/2024 Noted Resolved Migraine headache [G43.909] 07/16/2022 Hypothyroidism [E03.9] 07/16/2022 Bradycardia [R00.1] 07/16/2022 S/P total knee arthroplasty, left [Z96.652] 07/24/2022 Encounter Status:Closed by EMI MELGAR on 05/04/[address] [facility] Anion gap in Serum or Plasma Ordered By: CHARLIE VALERO on 05-03-2024 Anion gap [Moles/Vol] 8 mmol/L 5-15 [facility] BUN/creatinine ratioOrdered By: CHARLIE VALERO on 05-03-2024 Urea nitrogen/Creatinine [Mass ratio] 34.9 mg/mg High 10-20 [facility] Bilirubin, totalOrdered By: CHARLIE VALERO on 05-03-2024 Bilirubin [Mass/Vol] 0.29 mg/dL 0.00-1.30 [facility] Carbon dioxide, total [Moles /volume] in Central venous bloodOrdered By: CHARLIE VALERO on 05-03-2024 CO2 [Moles/Vol] 27.1 mmol/L 21.0-32.0 [facility] Chloride assayOrdered By: ME KELSEY VALERO on 05-03-2024 Chloride [Moles/Vol] 106 mmol/L 98-108 [facility] Comprehensive Metabolic Prof ilon 05-03-2024 Albumin [Mass/Vol] 4.4 g/dL Normal 3.5-5.0 [facility] Comment on above: Performed By: #### L 506.1001, L500.4050, L501.9520 #### [facility] [address] [place], [address] Albumin/Globulin [Mass ratio] 1.6 {ratio} Normal 0.9-2.4 [facility] Comment on above: Performed By: #### L 506.1001, L500.4050, L501.9520 #### [facility] [address] [place], [address] ALK PHOS 67 U/L Normal 35-104 [facility] Comment on above: Performed By: #### L 506.1001, L500.4050, L501.9520 #### [facility] [address] [place], [address] ALT [Catalytic activity/Vol] 19 U/L Normal <=34 [facility] Comment on above: Performed By: #### L 506.1001, L500.4050, L501.9520 #### [facility] [address] [place], [address] AST [Catalytic activity/Vol] 21 U/L Normal <=31 [facility] Comment on above: Performed By: #### L 506.1001, L500.4050, L501.9520 #### [facility] [address] [place], [address] Bilirubin [Mass/Vol] 0.29 mg/dL Normal 0.00-1.30 [facility] Comment on above: Performed By: #### L 506.1001, L500.4050, L501.9520 #### [facility] [address] [place], [address] BUN/CRE 34.9 RATIO High 10-20 [facility] Comment on above: Performed By: #### L 506.1001, L500.4050, L501.9520 #### [facility] [address] [place], [address] Calcium [Mass/Vol] 9.3 mg/dL Normal 7.6-11.0 [facility] Comment on above: Performed By: #### L 506.1001, L500.4050, L501.9520 #### [facility] [address] [place], [address] Chloride [Moles/Vol] 106 mmol/L Normal 98-108 [facility] Comment on above: Performed By: #### L 506.1001, L500.4050, L501.9520 #### [facility] [address] [place], [address] CO2 [Moles/Vol] 27.1 mmol/L Normal 21.0-32.0 [facility] Comment on above: Performed By: #### L 506.1001, L500.4050, L501.9520 #### [facility] [address] [place], [address] Creatinine [Mass/Vol] 0.62 mg/dL Low 0.70-1.20 [facility] Comment on above: Performed By: #### L 506.1001, L500.4050, L501.9520 #### [facility] [address] [place], [address] GAP 8 Normal 5-15 [facility] Comment on above: Performed By: #### L 506.1001, L500.4050, L501.9520 #### [facility] [address] [place], [address] GFR/1.73 sq M.predicted among non-blacks MDRD (S/P/Bld) [Vol rate/Area] 106 mL/min/{1.73_m2} Normal >60 [facility] Comment on above: Result Comment: mL/m in/1.73m2 CKD-EPI Creatinine Equation (2020) Performed By: #### L 506.1001, L500.4050, L501.9520 #### [facility] [address] [place], [address] Globulin (S) [Mass/Vol] 2.7 g/dL Normal 2.2-4.2 [facility] Comment on above: Performed By: #### L 506.1001, L500.4050, L501.9520 #### [facility] [address] [place], [address] Glucose [Mass/Vol] 81 mg/dL Normal 70-99 [facility] Comment on above: Performed By: #### L 506.1001, L500.4050, L501.9520 #### [facility] [facility] [address] [place], [address] Potassium [Moles/Vol] 4.4 mmol/L Normal 3.3-5.1 [facility] Comment on above: Performed By: #### L 506.1001, L500.4050, L501.9520 #### [facility] [address] [place], [address] Sodium [Moles/Vol] 141 mmol/L Normal 133-145 [facility] Comment on above: Performed By: #### L 506.1001, L500.4050, L501.9520 #### [facility] [address] [place], [address] T PROT 7.1 g/dL Normal 5.9-8.4 [facility] Comment on above: Performed By: #### L 506.1001, L500.4050, L501.9520 #### [facility] [address] [place], [address] Urea nitrogen [Mass/Vol] 22 mg/dL High 4-19 [facility] Comment on above: Performed By: #### L 506.1001, L500.4050, L501.9520 #### [facility] [address] [place], [address] GFR/1.73 sq M.predicted edin g non-blacks MDRD (S/P/Bld) [Vol rate/Area]Ordered By: CHARLIE VALERO on 05-03-2024 Estimated GFR (MDRD) Non-Af Amer 106 >60 [facility] Comment on above: mL/min/1.73m2 CKD-EP I Creatinine Equation (2020) L506.1001on 05-03-2024 Vitamin D 25-OH 62.8 ng/mL Normal 30-100 [facility] Comment on above: Result Comment: Kinsey min D Status Deficiency: <20 ng/mL (50nmol/L) Insufficiency: 20-30 ng/mL (50-75 nmol/L) Sufficiency: 30-100 ng/mL (75-250 nmol/L) Toxicity: >100 ng/mL (>250 nmol/L) Performed By: #### L 506.1001, L500.4050, L501.9520 #### [facility] [address] [place], [place], [address] Laboratory - Chemistry and C hemistry - challengeOrdered By: CHARLIE VALERO on 05-03-2024 AST [Catalytic activity/Vol] 21 U/L <32 [facility] Potassium (Unsp spec) [Mass/ Vol]Ordered By: CHARLIE VALERO on 05-03-2024 Potassium [Moles/Vol] 4.4 mmol/L 3.3-5.1 [facility] Serum creatinine measurement (mass/volume)Ordered By: CHARLIE VALERO on 05-03-2024 Creatinine [Mass/Vol] 0.62 mg/dL Low 0.70-1.20 [facility] Serum globulin measurementOr dered By: CHARLIE VALERO on 05-03-2024 Globulin (S) [Mass/Vol] 2.7 g/dL 2.2-4.2 [facility] Serum glucose measurement (m ass/volume)Ordered By: CHARLIE VALERO on 05-03-2024 Glucose [Mass/Vol] 81 mg/dL 70-99 [facility] Serum or plasma alanine quinones otransferase (ALT) measurementOrdered By: CHARLIE VALERO on 05-03-2024 ALT [Catalytic activity/Vol] 19 U/L <35 [facility] Serum or plasma albumin benedict urement (mass/volume)Ordered By: CHARLIE VALERO on 05-03-2024 Albumin [Mass/Vol] 4.4 g/dL 3.5-5.0 [facility] Serum or plasma albumin/glob ulin mass ratioOrdered By: CHARLIE VALERO on 05-03-2024 Albumin/Globulin [Mass ratio] 1.6 {ratio} 0.9-2.4 [facility] Serum or plasma alkaline mary jane sphatase measurementOrdered By: CHARLIE VALERO on 05-03-2024 ALP [Catalytic activity/Vol] 67 U/L 35-104 [facility] Serum or plasma calcium benedict urement (mass/volume)Ordered By: CHARLIE VALERO on 05-03-2024 Calcium [Mass/Vol] 9.3 mg/dL 7.6-11.0 [facility] Serum or plasma urea nitroge n measurement (mass/volume)Ordered By: CHARLIE VALERO on 05-03-2024 Urea nitrogen [Mass/Vol] 22 mg/dL High 4-19 [facility] Sodium levelOrdered By: ALEK VALERO on 05-03-2024 Sodium [Moles/Vol] 141 mmol/L 133-145 [facility] TSH DL <= 0.005 mIU/L QnOrde red By: CHARLIE VALERO on 05-03-2024 Thyroid Stimulating Hormone (TSH) 0.120 uIU/mL Low 0.300-4.200 [facility] Thyroid Stim Hormone (TSH)on 05-03-2024 TSH 0.120 uIU/mL Low 0.300-4.200 [facility] Comment on above: Performed By: #### L 506.1001, L500.4050, L501.9520 #### [facility] [address] [place], [address] Total proteinOrdered By: WILLI VALERO on 05-03-2024 Protein [Mass/Vol] 7.1 g/dL 5.9-8.4 [facility] Vitamin D, 25-hydroxyOrdered By: CHARLIE VALERO on 05-03-2024 Vitamin D 25-Hydroxy 62.8 ng/mL 30-100 [facility] Comment on above: Vitamin D StatusDefi ciency: <20 ng/mL (50nmol/L)Insufficiency: 20-30 ng/mL (50-75 nmol/L)Sufficiency: 30-100 ng/mL (75-250 nmol/L)Toxicity: >100 ng/mL (>250 nmol/L) Internal Medicine Office Vis iton 04-05-2024 Internal Medicine Office Visit [facility] [address] [place] [address] OFFICE VISIT Date of Service: 04/05/24 MR#: [id number] Acct: [id number] Name: CHAVEZ MARQUES Rep #: [id number] : 1970 Provider: Dr. Arely jeffries MD Age/Sex: 53/F Location: [facility] Status: Signed Intake Vital Signs 10/06/23 18:03 03/03/24 06:01 04/05/24 17:33 Height 5 ft 8 in 5 ft 8 in 5 ft 8 in Weight: 178 lb 2 oz BMI 27.1 BP 110/72 Blood Pressure Location Lt brachial Position Sitting Respiration 12 Pulse 66 Pulse Source Monitor Temp 96.2 F L Temp Source Temporal Pulse Oximetry (%) 98 Oxygen Delivery Method room air Intake Visit Reasons: 6 M FU Chief Complaint: Follow-up chronic conditions. Urologic Nurse Required: No Accompanied by: Self Is patient in pain?: No Allergies penicillin G Allergy (Severe, Verified 04/05/24 17:34) rash adhesive tape Allergy (Intermediate, Verified 04/05/24 17:34) Rash, itching Penicillins Allergy (Unknown, Verified 04/05/24 17:34) rash adhesive Allergy (Verified 04/05/24 17:34) Hives latex Adverse Reaction (Intermediate, Verified 04/05/24 17:34) Itching bismuth subsalicylate (From Pepto-Bismol) Adverse Reaction (Verified 04/05/24 17:34) Diarrhea Medications ???Medication ???Instructions ???Recorded ???Confirmed ???Type multivitamin 1 cap PO QAM 09/07/17 04/05/24 His tory calcium 500 mg (as 1 tab PO DAILY 12/13/18 04/05/24 H istory carbonate)-vitamin D3 5 mcg (200 unit) tablet (Os-Constantin 500 + D3) vitamin E (dl, acetate) 180 mg 400 unit PO DAILY 08/28/20 5 History (400 unit) capsule zinc 50 mg tablet 50 mg PO DAILY 12/20/20 04/05/24 H istory cholecalciferol (vitamin D3) 125 5,000 unit PO DAILY 03/28/2104/05 History mcg (5,000 unit) tablet multivitamin with minerals 1 tab PO DAILY 08/20/21 04/05/24 H istory (Hair,Skin and Nails tablet) baclofen 10 mg tablet 10 mg PO BID PRN muscle spasm #30 07/30/23 04/05/24 Rx tabs compress.stocking,kn ee,reg,lrg #2 ea 07/30/23 04/05/24 Rx sertraline 50 mg tablet See Rx Instructions .Route 4 04/05/24 Rx .COMPLEX #90 tabs levothyroxine 112 mcg tablet 112 mcg PO DAILY 12/23/23 04/05/24 History Have you fallen in the past year?: No PFSH Medical History (Updated 04/05/24 @ 18:[address] Arely Johnson MD) Overweight (BMI 25.0-29.9) Chronic pain Spinal stenosis Right hip pain Chronic back pain Dry mouth Anxiety and depression Caregiver burden Osteoarthritis Thoracic back pain Acute neck pain Health care maintenance Vitamin D deficiency COVID-19 Left flank pain Dysuria History of palpitations Bradycardia Allergic sinusitis Allergic rhinitis Joint pain Migraines Hypothyroidism Heart murmur Vitamin D deficiency Surgical History History of left knee replacement History of hysterectomy History of back surgery ( 2004) H/O reconstruction of anterior cruciate ligament tear History of arthroscopy of knee Family History Mother Liver disease due to auto immune disorder Cancer Brother Thyroid disorder Aunt Breast cancer Cancer mouth Brother Fibromyalgia Sister Fibromyalgia Brother , Age 3 days Congenital heart defect poor connective tissue Grandmother Heart disease CHF Father Cancer prostate, bladder, bone Social History Smoking Status: Never smoker alcohol intake: current alcohol intake frequency: holidays/special occasions only substance use type: does not use caffeine: No what type of physical activity do you participate in: bicycling and weight training frequency: 5-6 times per week HPI HPI Chief Complaint: Follow-up chronic conditions. Details: CHAVEZ MARQUES, is a 53 F who presents to the office today for follow-up of her chronic conditions. Also has some concerns. Chronic history of anxiety and depression. Lost her parents just over a year ago and about the 1 year anniversary( In November ), she realized that she had not really taken time to grieve/process properly. Since then, has had increased crying episodes and loss of interest in things generally. She is also concerned about a low sex drive. She has been participating in a program online for chronic pain which has also helped mindfulness and she believes that this has helped to some degree. Currently at a BMI of 27.1, gained 10 pounds since her last visit. She states that she has been eating more since November but she is motivated to make changes. Other chronic medical conditions are largely stable. ROS Const Constitutional: No body ache, excessive sweating, fatigue, fever(s), frequent falls, he (more content not included)... Normal [facility] Urine Cultureon 03-04-2024 URC Culture exhibits no growth. Normal [facility] Comment on above: Performed By: #### L 506.1001, L500.4050, L501.9520 #### [facility] [address], [address] Laboratory - Chemistry and C hemistry - challengeon 03-03-2024 Bilirubin Ql (U) Negative [facility] Glucose Ql (U) Negative [facility] Ketones Ql (U) Negative [facility] pH (U) 6.0 [pH] [facility] Specific gravity (U) [Rel density] 1.020 [facility] Urobilinogen (U) [Mass/Vol] Negative [facility] - Hematology and Cell countson 03-03-2024 Hemoglobin Ql (U) Negative [facility] - Specimen inform ationon 03-03-2024 Clarity (U) Clear [facility] Color (U) Dk Yellow [facility] - Urinalysison Nitrite Ql (U) Negative [facility] Protein Ql (U) Trace [facility] No Panel Informationon 03-03 Urine Leukocytes Positive [facility] Urine Non-Hemolyzed Blood Negative [facility] Urgent Care Visit Reporton 0 03-03-2024 Urgent Care Visit Report [facility] [address] [place] [address] OFFICE VISIT Date of Service: 03/03/24 MR#: [id number] Acct: [id number] Name: CHAVEZ MARQUES Rep #: [id number] : 1970 Provider: GABBI Valdovinos Age/Sex: 53/F Location: [facility] Status: Signed Intake Vital Signs 12/23/23 08:22 03/03/24 06:01 Height 5 ft 8 in 5 ft 8 in Weight: 172 lb BMI 26.1 BP 120/78 122/66 H Blood Pressure Location Rt brachial Lt brachial Position Sitting Sitting Respiration 18 15 Pulse 59 L 66 Pulse Source NIBP NIBP Temp 98.1 F Temp Source Oral Pulse Oximetry (%) 100 Oxygen Delivery Method room air Intake Visit Reasons: uti Chief Complaint: left flank pain, bladder spasms Urologic Nurse Required: No Is patient in pain?: No Allergies penicillin G Allergy (Severe, Verified 03/03/24 06:16) rash adhesive tape Allergy (Intermediate, Verified 03/03/24 06:16) Rash, itching Penicillins Allergy (Unknown, Verified 03/03/24 06:16) rash adhesive Allergy (Verified 03/03/24 06:16) Hives latex Adverse Reaction (Intermediate, Verified 03/03/24 06:16) Itching bismuth subsalicylate (From Pepto-Bismol) Adverse Reaction (Verified 03/03/24 06:16) Diarrhea Is last menstrual period known: No Post menopausal: Yes Patient : No Have you fallen in the past year?: No Nurse's Note: left flank pain last noc, bladder spasms since last noc. denies dysuria, fever, abd pain. concern for uti PFSH Medical History Acute neck pain Allergic rhinitis Allergic sinusitis Anxiety and depression Bradycardia Caregiver burden Chronic back pain COVID-19 Dry mouth Dysuria Health care maintenance Heart murmur History of palpitations Hypothyroidism Joint pain Left flank pain Migraines Osteoarthritis Right hip pain Spinal stenosis Thoracic back pain Vitamin D deficiency Vitamin D deficiency Surgical History H/O reconstruction of anterior cruciate ligament tear History of arthroscopy of knee History of back surgery ( 2004) History of hysterectomy History of left knee replacement Family History Mother Liver disease due to auto immune disorder Cancer Brother Thyroid disorder Aunt Breast cancer Cancer mouth Brother Fibromyalgia Sister Fibromyalgia Brother , Age 3 days Congenital heart defect poor connective tissue Grandmother Heart disease CHF Father Cancer prostate, bladder, bone Social History Smoking Status: Never smoker alcohol intake: current alcohol intake frequency: holidays/special occasions only substance use type: does not use caffeine: No what type of physical activity do you participate in: bicycling and weight training frequency: 5-6 times per week HPI HPI Chief Complaint: left flank pain, bladder spasms Details: CHAVEZ MARQUES, is a 53 F who presents to the office today for complaint of left flank pain and bladder spasms/twinging. Patient states that she has had UTIs and kidney stones with similar symptoms. She denies fever, chills, sweats. No nausea, vomiting or diarrhea. No pelvic or abdominal pain. No other associated symptoms or alleviating/aggravat ing factors. ROS Const Constitutional: Positive for other (6 system ROS completed with pertinent findings in the HPI otherwise normal.) Exam Const General: cooperative and healthy appearing Resp Effort Inspection: normal respiratory effort Auscultation: Bilateral: Clear to Auscultation Cardio Rate: regular rate Rhythm: regular rhythm GI Auscultation: normal bowel sounds General: No CVA tenderness Psych Appearance: grossly normal Mental Status: mental status grossly normal Results POC Urinalysis Dip (Clinic) Office Urine Color Dk Yellow Last Edit by Katherin Tatum on 03/03/24 06:27 Office Urine Clarity Clear Last Edit by Katherin Tatum on 03/03/24 06:27 Office Urine Glucose Negative Last Edit by Katherin Tatum on 03/03/24 06:27 Office Urine Ketones Negative Last Edit by Katherin Tatum on 03/03/24 06:27 Off Ur Spec [place] 1.020 Last Edit by Katherin Tatum on 03/03/24 06:27 Office Urine pH 6.0 Last Edit by Katherin Tatum on 03/03/24 06:27 Office Urine Bilirubin Negative Last Edit by Katherin Tatum on 03/03/24 06:27 Office Urine Urobilinogen Negative Last Edit by Katherin Tatum on 03/03/24 06:27 Office Urine Blood Negative Last Edit by Katherin Tatum on 03/03/24 06:27 Office Urine Blood Hemolyzed Negative Last Edit by Katherin Tatum on 03/03/24 06:27 Office Urine Protein Trace Last Edit by Katherin Tatum on 03/03/24 06:27 Office Urin (more content not included)... Normal [facility] Urine cultureOrdered By: Neel Deras on 03-03-2024 Bacteria identified Cx Nom (U) Culture exhibits no growth. [facility] TSH QnOrdered By: Randall pham on 02-08-2024 Thyroid Stimulating Hormone (TSH) 1.450 uIU/mL 0.358-3.740 [facility] Thyroid Stim Hormone (TSH)on 02-08-2024 TSH 1.450 uIU/mL Normal 0.358-3.740 [facility] Comment on above: Performed By: #### L 506.1001, L500.4050, L501.9520 #### [facility] [address] [place], [address] CNCOon 01-13-[address] [facility] Susan 01-13-2024 CNPN Telephone (ORMDNA) CHAVEZ MARQUES ([id number]) 1970 F Date Time Provider Department 01/13/24 KRISTINA BURNS ORKEL During your visit today, we recorded the following information about you: Ewelina Jacobs RN 01/13/2024 9:10 AM Signed Patient calling She is asking for a letter to show TSA about her knee replacement as she has a few trips and a cruise coming [place] [facility] [place] 01/13/2024 2:37 PM Signed I spoke to the patient. She would like a card mailed to her and a letter to [employer] as a back up. Will order card and send letter to [employer]. Allergies As of Date: 01/13/2024 Noted Allergy Reaction ADHESIVE 08/07/2022 2 - Rash LATEX, NATURAL RUBBER 09/16/2021 9 - Itching NICKEL 03/18/2022 14 - Other: See Comments Comments: Tarnishes PENICILLINS 07/21/2002 PEPTO-BISMOL (BISMUTH SUBSALICYLA*09/17/19 22 6 - Diarrhea Date Reviewed: 07/30/2023 Reviewed by: Claudette Loza OCCA - Fully Assessed Reason for Visit: Letter [264] Prescriptions as of 01/13/2024 - levothyroxine (SYNTHROID) 125 mcg tablet Take [...] once daily. Problem List As Of Date 01/13/2024 Noted Resolved Migraine headache [G43.909] 07/16/2022 Hypothyroidism [E03.9] 07/16/2022 Bradycardia [R00.1] 07/16/2022 S/P total knee arthroplasty, left [Z96.652] 07/24/2022 Encounter Status:Closed by LASHAE MESSER on 01/13/[address] [facility] PT D/C Summary (1)on 024 PT D/C Summary (1) [facility] Physical Therapy [facility] [address] [place] [address] [address] [place] [address] / REHABILITATION SERVICES DISCHARGE SUMMARY MR#: [id number] Acct: [id number] Name: CHAVEZ MARQUES Rep #: [id number] : 1970 53 From: Chauncey Pritchard DPT, OCS, CSCS Referring Dr.: Dr. Arely Johnson MD Status: REG RCR Insurance: [facility] Discharge Summary D/C summary: It has been my pleasure to treat CHAVEZ MARQUES referred by Dr. Arely Johnson MD, with the diagnosis of Chronic Back Pain for a total of 10 visit(s). Discharge Date: 12/27/23 Please see the following information for a summary of their discharge status. Subjective Subjective: I feel like I am doing pretty good. Water e3x really helps. Did some online exercises for hips and it is really helping. Has helped ankle pain and back pain. Not a whole lot of pain lately. Did a lot of leaves yesterday and 4 hours and no real pain. Activities at home are normal. Still careful with lifting heavy items from [employer]. Steps really going better. Is on week 5 of program Pain Back: Pain Intensity (Out of 10): 2 Left LE N/T: Pain Intensity (Out of 10): 3 Overall Improvement % Improvement: 85 Objective Objective/Function: ROM lumbar is full and painfree today. Walking symmetrically. Still weak and unstable on lunges but no pain . Pt is in a good place, happy and will continue exercises and online program. Goals Goal 1:: Patient will be I with HEP and progression Goal Progress: Goal Met Goal 2:: Patient will report no pain for 1 week Goal Progress: Progressing Goal 3:: Patient will report 100% improvement Goal Progress: 85% Goal 4:: learn mat exercises to manage LB ex. Goal Progress: Goal Met Plan Plan: d/c D/C Information d/c sentence: If there are questions or concerns regarding this patient's physical therapy, please feel free to call me at [phone]. Thank you for the referral of this patient. Sincerely, Chauncey Pritchard, DPT, OCS, CSCS Balance/Gait/Functio nal tests Balance/Special Test Scores Oswestry Low Back Score: 3 Improvement % Improvement: 85 12/27/23 0725 CC: Dr. Arely Johnson MD EBG Signed Normal [facility] Cardiology Visit Reporton Cardiology Visit Report [facility] [address] [place] [address] OFFICE VISIT Date of Service: 12/23/23 MR#: [id number] Acct: [id number] Name: CHAVEZ MARQUES Rep #: [id number] : 1970 Provider: Dr. Donald Cast MD Age/Sex: 53/F Location: [facility] Status: Signed HPI HPI History of Present Illness Details: This lady is being followed at our office for her complaints of palpitations in the past. According to her, she rarely feels a flutter in her chest lasting a few seconds only. Per her, it occurs very infrequently maybe once or twice a year only. No lightheadedness or dizziness. No syncope or presyncope. On her last echocardiogram, she was noted to have an aneurysmal interatrial septum. Bubble study was negative for PFO. Intake Vital Signs 10/06/23 18:03 12/23/23 08:22 Height 5 ft 8 in 5 ft 8 in Weight: 168 lb 172 lb BMI 25.5 26.1 BP 126/78 H 120/78 Blood Pressure Location Lt brachial Rt brachial Position Sitting Sitting Respiration 14 18 Pulse 64 59 L Pulse Source Monitor NIBP Temp 97.8 F Pulse Oximetry (%) 98 Oxygen Delivery Method room air Intake Visit Reasons: 1 Y FU Urologic Nurse Required: No Accompanied by: Self Is patient in pain?: No Allergies penicillin G Allergy (Severe, Verified 12/23/23 14:54) rash adhesive tape Allergy (Intermediate, Verified 12/23/23 14:54) Rash, itching Penicillins Allergy (Unknown, Verified 12/23/23 14:54) rash adhesive Allergy (Verified 12/23/23 14:54) Hives latex Adverse Reaction (Intermediate, Verified 12/23/23 14:54) Itching bismuth subsalicylate (From Pepto-Bismol) Adverse Reaction (Verified 12/23/23 14:54) Diarrhea Medications ???Medication ???Instructions ???Recorded ???Confirmed ???Type multivitamin 1 cap PO QAM 09/07/17 12/23/23 History calcium 500 mg (as 1 tab PO DAILY 12/13/18 12/23/23 History carbonate)-vitamin D3 5 mcg (200 unit) tablet (Os-Constantin 500 + D3) vitamin E (dl, acetate) 180 mg 400 unit PO DAILY 08/28/20 12/23/23 History (400 unit) capsule zinc 50 mg tablet 50 mg PO DAILY 12/20/20 12/23/23 History cholecalciferol (vitamin D3) 125 5,000 unit PO DAILY 03/28/21 12/23/23 History mcg (5,000 unit) tablet multivitamin with minerals 1 tab PO DAILY 08/20/21 12/23/23 History (Hair,Skin and Nails tablet) baclofen 10 mg tablet 10 mg PO BID PRN muscle spasm #30 07/30/23 12/23/23 Rx tabs compress.stocking,kn ee,reg,lrg #2 ea 07/30/23 12/23/23 Rx sertraline 50 mg tablet See Rx Instructions .Route 11/15/23 12/23/23 Rx .COMPLEX #90 tabs levothyroxine 112 mcg tablet 112 mcg PO DAILY 12/23/23 12/23/23 History Ejection fraction %: 60 Have you fallen in the past year?: No PFSH Medical History Acute neck pain Allergic rhinitis Allergic sinusitis Anxiety and depression Bradycardia Caregiver burden Chronic back pain COVID-19 Dry mouth Dysuria Health care maintenance Heart murmur History of palpitations Hypothyroidism Joint pain Left flank pain Migraines Osteoarthritis Right hip pain Spinal stenosis Thoracic back pain Vitamin D deficiency Vitamin D deficiency Surgical History H/O reconstruction of anterior cruciate ligament tear History of arthroscopy of knee History of back surgery ( 2004) History of hysterectomy History of left knee replacement Family History Mother Liver disease due to auto immune disorder Cancer Brother Thyroid disorder Aunt Breast cancer Cancer mouth Brother Fibromyalgia Sister Fibromyalgia Brother , Age 3 days Congenital heart defect poor connective tissue Grandmother Heart disease CHF Father Cancer prostate, bladder, bone Social History Smoking Status: Never smoker alcohol intake: current alcohol intake frequency: holidays/special occasions only substance use type: does not use caffeine: No what type of physical activity do you participate in: bicycling and weight training frequency: 5-6 times per week ROS Const Const: Negative for fatigue, weakness, headache(s) or weight gain ENT ENT: Negative for headache(s), dizziness, Nosebleed/epistaxis or balance problems Cardio Chest Pain: Yes (very seldom, sporadic, short in duration, doesn't typically notice any) Palpitations: No Edema: Left (r/t knee replacement) Muscle aches with walking: None Resp Respiratory: Negative for SOB with activity, SOB at rest or SOB orthopnea SOB lying down GI GI: Negative nausea, vomiting or heartburn Musc Musc: Negative for muscle aches/ myalgia, muscle weakness, joint pain or balance problems (more content not included)... Normal [facility] Comprehensive Metabolic Prof clyde 12-03-2023 Albumin [Mass/Vol] 3.9 g/dL Normal 3.2-5.0 [facility] Comment on above: Performed By: #### L 500.4050, L501.9520 #### [facility] [address] [place], [address] Albumin/Globulin [Mass ratio] 1.3 {ratio} Normal 0.9-2.4 [facility] Comment on above: Performed By: #### L 500.4050, L501.9520 #### [facility] [address] [facility] [place], [address] ALK P 76 U/L Normal 45-117 [facility] Comment on above: Performed By: #### L 500.4050, L501.9520 #### [facility] [address] [place], [address] ALT [Catalytic activity/Vol] 28 U/L Normal 13-56 [facility] Comment on above: Performed By: #### L 500.4050, L501.9520 #### [facility] [address] [place], [address] AST [Catalytic activity/Vol] 20 U/L Normal 15-37 [facility] Comment on above: Performed By: #### L 500.4050, L501.9520 #### [facility] [address] [place], [address] Bilirubin [Mass/Vol] 0.50 mg/dL Normal 0.20-1.00 [facility] Comment on above: Result Comment: For patients on eltrombopag therapy, use of Dimension [place] TBIL is not recommended. Performed By: #### L 500.4050, L501.9520 #### [facility] [address] [place], [address] BUN/CRE 25.2 RATIO High 10-20 [facility] Comment on above: Performed By: #### L 500.4050, L501.9520 #### [facility] [address] [place], [address] CA,Total 9.8 mg/dL Normal 8.5-10.1 [facility] Comment on above: Performed By: #### L 500.4050, L501.9520 #### [facility] [address] [place], [address] Chloride [Moles/Vol] 106 mmol/L Normal 98-107 [facility] Comment on above: Performed By: #### L 500.4050, L501.9520 #### [facility] [address] [place], [address] CO2 [Moles/Vol] 28.0 mmol/L Normal 21.0-32.0 [facility] Comment on above: Performed By: #### L 500.4050, L501.9520 #### [facility] [address] [place], [address] Creatinine [Mass/Vol] 0.79 mg/dL Normal 0.55-1.02 [facility] Comment on above: Result Comment: The validity of the calculated GFR GFRAA in patients over 70 years has not been determined. Clinical correlation is essential. Performed By: #### L 500.4050, L501.9520 #### [facility] [address] [place], [address] EST GFR - AA 97 mL/min Normal >60 [facility] Comment on above: Result Comment: Afri can [place] GFR Calc Performed By: #### L 500.4050, L501.9520 #### [facility] [address] [place], [address] GAP 6 Normal 5-15 [facility] Comment on above: Performed By: #### L 500.4050, L501.9520 #### [facility] [address] [place], [address] GFR/1.73 sq M.predicted among non-blacks MDRD (S/P/Bld) [Vol rate/Area] 80 mL/min/{1.73_m2} Normal >60 [facility] Comment on above: Result Comment: Non- GFR Calc Performed By: #### L 500.4050, L501.9520 #### [facility] [address] [place], [address] Globulin (S) [Mass/Vol] 3.1 g/dL Normal 2.2-4.2 [facility] Comment on above: Performed By: #### L 500.4050, L501.9520 #### [facility] [address] [place], [address] Glucose [Mass/Vol] 99 mg/dL Normal 74-106 [facility] Comment on above: Performed By: #### L 500.4050, L501.9520 #### [facility] [address] [place], [address] Potassium [Moles/Vol] 4.2 mmol/L Normal 3.5-5.1 [facility] Comment on above: Performed By: #### L 500.4050, L501.9520 #### [facility] [address] [place], [address] Sodium [Moles/Vol] 140 mmol/L Normal 136-145 [facility] Comment on above: Performed By: #### L 500.4050, L501.9520 #### [facility] [address] [place], [address] T PROT 7.0 g/dL Normal 6.4-8.2 [facility] Comment on above: Performed By: #### L 500.4050, L501.9520 #### [facility] [address] [place], [address] Urea nitrogen [Mass/Vol] 20 mg/dL High 7-18 [facility] Comment on above: Performed By: #### L 500.4050, L501.9520 #### [facility] [address] [place], [address] Thyroid Stim Hormone (TSH)on 12-03-2023 TSH 0.308 uIU/mL Low 0.358-3.740 [facility] Comment on above: Performed By: #### L 500.4050, L501.9520 #### [facility] [address] [place], [address] Re-Evaluation - PT (1)on Re-Evaluation - PT (1) [facility] Physical Therapy [address] [place] [address] / REEVALUATION / MEDICARE RECERTIFICATION PHYSICAL THERAPY MR#: [id number] Acct: [id number] Name: CHAVEZ MARQUES Rep #: [id number] : 1970 52 From: Chauncey Pritchard DPT, OCS, CSCS Referring Dr.: Dr. Arely Johnson MD Status:REG RC R Insurance: [facility] Re-Evaluation Intro: Dr. Arely Johnson MD, It has been my pleasure to treat CHAVEZ MARQUES over the last 9 visits for Chronic Back Pain. Please see the progress note below for an update on the physical therapy plan of care! Subjective Subjective: Has a little in LB but just have to realize my back is quirky. [place] [employer] on . Paid for it with / on wednesday. Sleeping OK. Just noticeable today. No f/u with [facility]. Advil 2x/week at nog. Will keep up with water ex 2-3x/week and fill in with knee stuff in gym. Not seen back ortho. Objective Objective/Function: Good LB AROM without pain today. Walking normally, bending without difficulty. Plan Plan Plan: Pt to do 3x/week pool and 3x/week stretching and activitiy modification with aggravating activities and f/u in 4 weeks for instruc tin mat based core exercises. Balance/Gait/Functio nal tests Balance/Special Test Scores Oswestry Low Back Score: 7 Goals Goals Goal 1:: Patient will be I with HEP and progression Goal Time Frame: 6-8 Weeks Goal Progress: Progressing Goal 2:: Patient will report no pain for 1 week Goal Time Frame: 6-8 Weeks Goal Progress: Progressing Goal 3:: Patient will report 100% improvement Goal Time Frame: 6-8 Weeks Goal Progress: Progressing Goal 4:: learn mat exercises to manage LB ex. Goal Time Frame: 2-4 Weeks Goal Progress: NEW goal Anticipated Interventions Anticipated Interventions Patient/Client Instruction: Educate patient on: Benefits of Fitness Program For the Purpose of:: To improve muscle performance and motor function Therapeutic Exercise to Include: Strength training, Endurance training, Balance training, Agility training, Body mechanics, Postural training, Flexibilty training, Gait and locomotor training, Neuromotor development, Dynamic Lumbar Stabilization and Scapular Strength/Stabilizati on Re-Evaluation Ending Re-evaluation ending: Please do not hesitate to contact me at [phone] by phone or if you have questions or concerns regarding this new plan of care! Sincerely, Chauncey Pritchard, DPT, OCS, CSCS 11/08/23 0736 CC: Dr. Arely Johnson MD EBNelli Signed For Medicare only, by signing this I certify the plan of care. Physicians Signature Date Normal [facility] Internal Medicine Office Vis jamel 10-06-2023 Internal Medicine Office Visit [facility] [address] [place] [address] OFFICE VISIT Date of Service: 10/06/23 MR#: [id number] Acct: [id number] Name: CHAVEZ MARQUES Rep #: [id number] : 1970 Provider: Dr. Arely jeffries MD Age/Sex: 52/F Location: [facility] Status: Signed Intake Vital Signs 03/25/23 18:15 07/30/23 08:14 10/06/23 18:03 Height 5 ft 8 in 5 ft 8 in 5 ft 8 in Weight: 168 lb BMI 25.5 BP 126/78 H Blood Pressure Location Lt brachial Position Sitting Respiration 14 Pulse 64 Pulse Source Monitor Temp 97.8 F Temp Source Temporal Pulse Oximetry (%) 98 Oxygen Delivery Method room air Intake Visit Reasons: 6 M FU Chief Complaint: Follow-up chronic conditions Urologic Nurse Required: No Is patient in pain?: No Allergies penicillin G Allergy (Severe, Verified 10/06/23 17:59) rash adhesive tape Allergy (Intermediate, Verified 10/06/23 17:59) Rash, itching Penicillins Allergy (Unknown, Verified 10/06/23 17:59) rash adhesive Allergy (Verified 10/06/23 17:59) Hives latex Adverse Reaction (Intermediate, Verified 10/06/23 17:59) Itching bismuth subsalicylate (From Pepto-Bismol) Adverse Reaction (Verified 10/06/23 17:59) Diarrhea Medications ???Medication ???Instructions ???Recorded ???Confirmed ???Type multivitamin 1 cap PO QAM 09/07/17 10/06/23 History calcium carbonate 500 mg-vitamin 1 tab PO DAILY 12/13/18 10/06/23 History D3 5 mcg (200 unit) tablet (Os-Constantin 500 + D3) vitamin E (dl, acetate) 180 mg 400 unit PO DAILY 08/28/20 10/06/23 History (400 unit) capsule zinc 50 mg tablet 50 mg PO DAILY 12/20/20 10/06/23 History cholecalciferol (vitamin D3) 125 5,000 unit PO DAILY 03/28/21 10/06/23 History mcg (5,000 unit) tablet multivitamin with minerals 1 tab PO DAILY 08/20/21 10/06/23 History (Hair,Skin and Nails tablet) sertraline 50 mg tablet See Rx Instructions .Route 03/08/23 10/06/23 Rx .COMPLEX #90 tabs levothyroxine 112 mcg tablet 125 mcg PO DAILY 03/25/23 10/06/23 History baclofen 10 mg tablet 10 mg PO BID PRN muscle spasm #30 07/30/23 10/06/23 Rx tabs compress.stocking,kn ee,reg,lrg #2 ea 07/30/23 10/06/23 Rx PFSH Medical History Spinal stenosis Right hip pain Chronic back pain Dry mouth Anxiety and depression Caregiver burden Osteoarthritis Thoracic back pain Acute neck pain Health care maintenance Vitamin D deficiency COVID-19 Left flank pain Dysuria History of palpitations Bradycardia Allergic sinusitis Allergic rhinitis Joint pain Migraines Hypothyroidism Heart murmur Vitamin D deficiency Surgical History History of left knee replacement History of hysterectomy History of back surgery ( 2004) H/O reconstruction of anterior cruciate ligament tear History of arthroscopy of knee Family History Mother Liver disease due to auto immune disorder Cancer Brother Thyroid disorder Aunt Breast cancer Cancer mouth Brother Fibromyalgia Sister Fibromyalgia Brother , Age 3 days Congenital heart defect poor connective tissue Grandmother Heart disease CHF Father Cancer prostate, bladder, bone Social History Smoking Status: Never smoker alcohol intake: current alcohol intake frequency: holidays/special occasions only substance use type: does not use caffeine: No what type of physical activity do you participate in: bicycling and weight training frequency: 5-6 times per week HPI HPI Chief Complaint: Follow-up chronic conditions Details: CHAVEZ MARQUES, is a 52 F who presents to the office today for follow-up of her chronic conditions. No acute concerns at this time. Referred to physical therapy following her last visit due to acute on chronic back pain. Has found therapy helpful. Pain is getting better but not totally resolved. No numbness or tingling down her extremities. History of depression and anxiety, doing well on Zoloft. No concerning side effects. Continues to follow-up closely with endocrinology, recently had changes to levothyroxine due to overcorrection. ROS Const Constitutional: No body ache, chills, excessive sweating, fatigue, fever(s), frequent falls, headache(s), snoring, weakness, sleep problems or change in appetite Eyes Eyes: No blurry vision, change in vision, bulging eyes, floaters, visual disturbances, eye pain or Light sensitivity ENT ENT: No abnormal hearing, ear or mastoid pain, tinnitus, balance problems, nosebleed/epistaxis, nasal congestion, headache(s), neck pain or sore throat Resp Respiratory: No co (more content not included)... Normal [facility] Comprehensive Metabolic Prof clyde 08-27-2023 Albumin [Mass/Vol] 4.0 g/dL Normal 3.2-5.0 [facility] Comment on above: Performed By: #### L 500.4050, L501.9520, L500.4100, L506.1000 #### [facility] [address], [address] Albumin/Globulin [Mass ratio] 1.2 {ratio} Normal 0.9-2.4 [facility] Comment on above: Performed By: #### L 500.4050, L501.9520, L500.4100, L506.1000 #### [facility] [address] [place], [address] ALK P 69 U/L Normal 45-117 [facility] Comment on above: Performed By: #### L 500.4050, L501.9520, L500.4100, L506.1000 #### [facility] [address] [place], [address] ALT [Catalytic activity/Vol] 36 U/L Normal 13-56 [facility] Comment on above: Performed By: #### L 500.4050, L501.9520, L500.4100, L506.1000 #### [facility] [address] [place], [address] AST [Catalytic activity/Vol] 22 U/L Normal 15-37 [facility] Comment on above: Performed By: #### L 500.4050, L501.9520, L500.4100, L506.1000 #### [facility] [address] [place], [address] Bilirubin [Mass/Vol] 0.40 mg/dL Normal 0.20-1.00 [facility] Comment on above: Result Comment: For patients on eltrombopag therapy, use of Dimension [place] TBIL is not recommended. Performed By: #### L 500.4050, L501.9520, L500.4100, L506.1000 #### [facility] [address] [place], [address] BUN/CRE 24.8 RATIO High 10-20 [facility] Comment on above: Performed By: #### L 500.4050, L501.9520, L500.4100, L506.1000 #### [facility] [address] [place], [address] CA,Total 9.3 mg/dL Normal 8.5-10.1 [facility] Comment on above: Performed By: #### L 500.4050, L501.9520, L500.4100, L506.1000 #### [facility] [address] [place], [address] Chloride [Moles/Vol] 105 mmol/L Normal 98-107 [facility] Comment on above: Performed By: #### L 500.4050, L501.9520, L500.4100, L506.1000 #### [facility] [address] [place], [address] CO2 [Moles/Vol] 28.0 mmol/L Normal 21.0-32.0 [facility] Comment on above: Performed By: #### L 500.4050, L501.9520, L500.4100, L506.1000 #### [facility] [address] [place], [address] Creatinine [Mass/Vol] 0.81 mg/dL Normal 0.55-1.02 [facility] Comment on above: Result Comment: The validity of the calculated GFR GFRAA in patients over 70 years has not been determined. Clinical correlation is essential. Performed By: #### L 500.4050, L501.9520, L500.4100, L506.1000 #### [facility] [address] [place], [address] EST GFR - AA 95 mL/min Normal >60 [facility] Comment on above: Result Comment: Afri can [place] GFR Calc Performed By: #### L 500.4050, L501.9520, L500.4100, L506.1000 #### [facility] [address] [place], [address] GAP 7 Normal 5-15 [facility] Comment on above: Performed By: #### L 500.4050, L501.9520, L500.4100, L506.1000 #### [facility] [address] [place], [address] GFR/1.73 sq M.predicted among non-blacks MDRD (S/P/Bld) [Vol rate/Area] 79 mL/min/{1.73_m2} Normal >60 [facility] Comment on above: Result Comment: Non- GFR Calc Performed By: #### L 500.4050, L501.9520, L500.4100, L506.1000 #### [facility] [address] [place], [address] Globulin (S) [Mass/Vol] 3.3 g/dL Normal 2.2-4.2 [facility] Comment on above: Performed By: #### L 500.4050, L501.9520, L500.4100, L506.1000 #### [facility] [address] [place], [address] Glucose [Mass/Vol] 95 mg/dL Normal 74-106 [facility] Comment on above: Performed By: #### L 500.4050, L501.9520, L500.4100, L506.1000 #### [facility] [address] [place], [address] Potassium [Moles/Vol] 4.1 mmol/L Normal 3.5-5.1 [facility] Comment on above: Performed By: #### L 500.4050, L501.9520, L500.4100, L506.1000 #### [facility] [address] [place], [address] Sodium [Moles/Vol] 140 mmol/L Normal 136-145 [facility] Comment on above: Performed By: #### L 500.4050, L501.9520, L500.4100, L506.1000 #### [facility] [address] [place], [address] T PROT 7.3 g/dL Normal 6.4-8.2 [facility] Comment on above: Performed By: #### L 500.4050, L501.9520, L500.4100, L506.1000 #### [facility] [address] [place], [address] Urea nitrogen [Mass/Vol] 20 mg/dL High 7-18 [facility] Comment on above: Performed By: #### L 500.4050, L501.9520, L500.4100, L506.1000 #### [facility] [address] [place], [address] Lipid Profileon 08-27-2023 Cholesterol [Mass/Vol] 176 mg/dL Normal 200 [facility] Comment on above: Result Comment: <200 mg/dL Desirable 200-240 mg/dL Borderline >240 mg/dL High Risk Performed By: #### L 500.4050, L501.9520, L500.4100, L506.1000 #### [facility] [address] [place], [address] Cholesterol in HDL [Mass/Vol] 69 mg/dL Normal [facility] Comment on above: Result Comment: The drugs N-Acetylcysteine and Metamizole may falsely depress this assay. Reference Range HDL <40 mg/dL Low HDL Cholesterol HDL >or= 60 mg/dL High HDL Cholesterol Performed By: #### L 500.4050, L501.9520, L500.4100, L506.1000 #### [facility] [address] [place], [address] Cholesterol in LDL [Mass/Vol] 98 mg/dL Normal 0-130 [facility] Comment on above: Performed By: #### L 500.4050, L501.9520, L500.4100, L506.1000 #### [facility] [address] [place], [address] Cholesterol in VLDL [Mass/Vol] 9 mg/dL Normal 5-40 [facility] Comment on above: Performed By: #### L 500.4050, L501.9520, L500.4100, L506.1000 #### [facility] [address] [place], [address] Triglyceride [Mass/Vol] 47 mg/dL Normal [facility] Comment on above: Result Comment: The drugs N-Acetylcysteine and Metamizole may falsely depress this assay. Serum Triglycerides Reference Interval Normal <150 mg/dL Borderline high 150 - 199 mg/dL High 200 - 499 mg/dL Very High > or = 500 mg/dL Performed By: #### L 500.4050, L501.9520, L500.4100, L506.1000 #### [facility] [address] [place], [address] Thyroid Stim Hormone (TSH)on 08-27-2023 TSH 0.11 uIU/mL Low 0.358-3.74 [facility] Comment on above: Performed By: #### L 500.4050, L501.9520, L500.4100, L506.1000 #### [facility] [address] [place], [address] Vitamin D,25 Hydroxyon 08-26 Vitamin D 25-OH 48.5 ng/mL Normal [facility] Comment on above: Result Comment: Kinsey min D 25(OH) Status Range Deficiency <20 ng/mL (50nmol/L) Insufficiency 20 - 30 ng/mL (50 - 75 nmol/L) Sufficiency 30 - 100 ng/mL (75 - 250 nmol/L) Toxicity >100 ng/mL (>250 nmol/L) Performed By: #### L 500.4050, L501.9520, L500.4100, L506.1000 #### [facility] [address] [place], [address] Inital Evaluation (1) - PTon 08-19-2023 Inital Evaluation (1) - PT [facility] Physical [place] [id number] [facility] [place] [address] / REHABILITATION SERVICES INITIAL EVALUATION MR#: [id number] Acct: [id number] Name: CHAVEZ MARQUES Rep #: [id number] : 1970 52 From: Thu Sabillon DPT Referring Dr.: Dr. Arely Johnson MD Status: REG RCR Insurance: [facility] Patient's Visit Information Visit Information Visit Information: CHAVEZ MARQUES is a 52 year old F referred to Physical Therapy by Dr. Arely Johnson MD with a diagnosis of Chronic Back Pain. Date of Evaluation: 08/19/23 Physical Therapist: Thu Sabillon DPT Visit Plan Frequency: 2x /Week Duration: 4 Weeks Plan: Pt to bring her current gym program and reviewing to make sure mechanics are correct and adding appropriate core exercises. Subjective Subjective: Patient reports that she cleared out her parents home and when she was doing that she pulled her back and was able to do her self help and it settled out and then 3 weeks ago she was cleaning out the cat box and it seized up- she then helped her . She did the normal Advil- she could do her normal routine but going to bed was the worst. She has L4-5-S1 ruptured discs and had a laminectomy in 2004 and she had x-rays in 2016 and one again on Wednesday. In 2004 it was left sided hip pain- this time it was right sided pain. She was having a hard time rolling over in bed- she was having issues in the mornings. MD gave her a steroid dose pack and a muscle relaxer and she still felt like she woke up broken and she has now been off a week and she now feels back to normal. She had a knee replacement and has been working on her knee and thinks maybe she is doing some exercises wrong. Exercises she is currently doing: Work: sitting, standing- bending/lifting floor samples up to #10 PMHx/Meds: see list in chart Objective Objective: Posture: fair throughout Gait: no deviation noted HR/TR: able without UE A SLS: 5 sec then LOB- moderately unstable ROM: WNL in all planes of the lumbar spine and LE Strength: Core: fair minus, Hip: Flexion: 4/5, Abd: 4+/5, Add: 4/5, IR/ER: 4/5, Extn: 4+/5, Knee: 4+/5, Ankle: 5/5 Flex: HS: moderate, Gastroc: moderate Palpation: not tender Balance/Special Test Scores Oswestry Low Back Score: 3 Goals Goal 1:: Patient will be I with HEP and progression Goal Time Frame: 6-8 Weeks Goal 2:: Patient will report no pain for 1 week Goal Time Frame: 6-8 Weeks Goal 3:: Patient will report 100% improvement Goal Time Frame: 6-8 Weeks Rehabilitation Potential Physical Therapy Diagnosis: Patient presents with hypomobility- she has decreased LE and core strength/stabilizati on, flex and muscular endurance leading to decreased ability to perform ADL's. Anticipated Interventions Patient/Client Instruction: Educate patient on: Benefits of Fitness Program For the Purpose of:: To improve muscle performance and motor function Therapeutic Exercise to Include: Strength training, Endurance training, Balance training, Agility training, Body mechanics, Postural training, Flexibilty training, Gait and locomotor training, Praveen romotor development, Dynamic Lumbar Stabilization and Scapular Strength/Stabilizati on Text: Thank you for the opportunity to evaluate your patient. For Medicare and Medicare HMO plans, please review the plan of care and approve it. It will need to be FAXED BACK to us at [phone] for Medicare purposes. For Medicare only, by signing this I certify the plan of care. Please let me know if there are questions or concerns regarding this plan of care. Physician Signature: D ate: 08/19/23 0745 CC: Dr. Arely Johnson MD ELR Signed Normal [facility] L/S Spine Min 4 Viewson L/S Spine Min [address] [facility] Imaging Services [address], [place] [id number] L/S Spine Min 4 Views MR#: [id number] Acct: [id number] Name: CHAVEZ MARQUES Rep #: [id number] : 1970 F 52 From: Manuel Mcnally MD PCP: Dr. Arely Johnson MD Status: REG CLI Study: L/S Spine Min 4 Views Date of Exam: 08/13/23 Exam# [id number] Ordering Dr: Arely Johnson MD [id number] STUDY: X-RAY - LUMBAR SPINE REASON FOR EXAM: Female, 52 years old. Back Pain TECHNIQUE: 5 view(s) of the lumbar spine were obtained. COMPARISON: April 15, 2016 FINDINGS: Normal lumbar lordosis. There is no substantial scoliosis. There is a normal alignment of the vertebrae. Postop change status post left laminectomy at L4-5 and L5-S1 No acute fracture or subluxation. No lytic or sclerotic bony lesions.. Mild narrowing of L4-5 and L5-S1. There is apparent narrowing of the spinal canal at L4-5 and more severe at L5-S1 exaggerated by facet hypertrophy. The soft tissue structures are unremarkable. There is slightly increasing narrowing of the L4-5 disc space since prior exam. RAD/L/S Spine Min 4 Views IMPRESSION: Mild spondylosis and probable spinal stenosis L4-5 and L5-S1. MRI would be helpful for more definitive evaluation Electronically Signed: Manuel Mcnally MD at 16:39 EDT Reading Location ID and State: [address] [place] [address] Tel , Service support , CC: Dr. Arely Johnson MD Sack Repairer: Signed Normal [facility] XR Knee AP and Lateral and M ercyanivtson 07-31-2023 IMPRESSION: Stable TKA Sack Repairer: PSCB Transcribe Date/Time: Jul 31 2023 8:05A Dictated by : DO DAVEY MD This examination was interpreted and the report reviewed and electronically signed by: DO DAVEY MD on Jul 31 2023 8:06AM [facility] RAD[facility]OLOG[facility] * * *Final Report* * * [...] Small joint effusion. Mild right knee osteoarthrosis. [facility] Provider, [facility] Imaging Bernice - 07/31/2023 * * *Final Report* * [...] right knee osteoarthrosis. IMPRESSION IMPRESSION: Stable TKA Sack Repairer: PSCB Transcribe Date/Time: Jul 31 2023 8:05A Dictated by : DO DAVEY MD This examination was interpreted and the report reviewed and electronically signed by: DO DAVEY MD on Jul 31 2023 8:06AM EST [facility] XR Knee AP and Lateral and M erchantsOrdered By: [facility] Provider on 07-31-2023 [facility] CNOVon 07-30-2023 [facility] Office Visit (ORMDNA) CHAVEZ MARQUES ([id number]) 1970 F Date Time Provider Department 07/30/23 3:30 PM SZKRISTINA MUSA During your visit today, we recorded the [...] , lateral , and patellofemoral joint line(s). Stability:Anterior/P osterior- Yes, stable and Varus/Valgus- Yes, stable Quad strength: normal HIP: range of motion no loss ROM NV: intact and Julissa's negative IMAGING: Xrays: Implants are well aligned. Implants are well fixed. There is no evidence of loosening. There is evidence of osteo-integration. There is no evidence of osteolysis. Patella is well positioned. ======== IMPRESSION/PLAN: ======== 52 year old female s/p Left TKA No complaints or limitations. At normal post-operative stage of recovery. Plan: 1. Continue independent range of motion/strengthening exercises 2. We reviewed total knee precautions including antibiotic prophylactic protocols for dental procedures 3. Follow-up 5 years for repeat clinical/radiographi c evaluation or sooner should she develop any new orthopedic problems Kristina Burns MD Electronic Signature Referring Provider: SELF [[id number]] Allergies As of Date: 07/30/2023 Noted Allergy Reaction ADHESIVE 08/07/2022 2 - Rash LATEX, NATURAL RUBBER 09/16/2021 9 - Itching NICKEL 03/18/2022 14 - Other: See Comments Comments: Tarnishes PENICILLINS 07/21/2002 PEPTO-BISMOL (BISMUTH SUBSALICYLA*09/17/19 22 6 - Diarrhea Date Reviewed: 07/30/2023 Reviewed [...] for Encounter Date Provider Department Center 07/30/2023 [id number] BURNS [facility] (more content not included)... Normal [facility] Internal Medicine Office Vis itovasyl 07-30-2023 Internal Medicine Office Visit [facility] [address] [place] [address] OFFICE VISIT Date of Service: 07/30/23 MR#: [id number] Acct: [id number] Name: CHAVEZ MARQUES Rep #: [id number] : 1970 Provider: Dr. Arely jeffries MD Age/Sex: 52/F Location: [facility] Status: Signed Intake Vital Signs 03/25/23 18:15 07/30/23 08:14 Height 5 ft 8 in 5 ft 8 in Weight: 164 lb BMI 24.9 BP 120/76 Blood Pressure Location Lt brachial Position Sitting Respiration 16 Pulse 59 L Pulse Source Monitor Temp 97.6 F L Temp Source Temporal Pulse Oximetry (%) 98 Oxygen Delivery Method room air Intake Visit Reasons: ongoing back pain Chief Complaint: back pain Urologic Nurse Required: No Accompanied by: Self Is patient in pain?: Yes Allergies penicillin G Allergy (Severe, Verified 07/30/23 08:13) rash adhesive tape Allergy (Intermediate, Verified 07/30/23 08:13) Rash, itching Penicillins Allergy (Unknown, Verified 07/30/23 08:13) rash adhesive Allergy (Verified 07/30/23 08:13) Hives latex Adverse Reaction (Intermediate, Verified 07/30/23 08:13) Itching bismuth subsalicylate (From Pepto-Bismol) Adverse Reaction (Verified 07/30/23 08:13) Diarrhea Medications ???Medication ???Instructions ???Recorded ???Confirmed ???Type multivitamin 1 cap PO QAM 09/07/17 07/30/23 History calcium carbonate 500 mg-vitamin 1 tab PO DAILY 12/13/18 07/30/23 History D3 5 mcg (200 unit) tablet (Os-Constantin 500 + D3) vitamin E (dl, acetate) 180 mg 400 unit PO DAILY 08/28/20 07/30/23 History (400 unit) capsule zinc 50 mg tablet 50 mg PO DAILY 12/20/20 07/30/23 History cholecalciferol (vitamin D3) 125 5,000 unit PO DAILY 03/28/21 07/30/23 History mcg (5,000 unit) tablet multivitamin with minerals 1 tab PO DAILY 08/20/21 07/30/23 History (Hair,Skin and Nails tablet) sertraline 50 mg tablet See Rx Instructions .Route 03/08/23 07/30/23 Rx .COMPLEX #90 tabs levothyroxine 112 mcg tablet 125 mcg PO DAILY 03/25/23 07/30/23 History baclofen 10 mg tablet 10 mg PO BID PRN muscle spasm #30 07/30/23 07/30/23 Rx tabs compress.stocking,kn ee,reg,lrg #2 ea 07/30/23 07/30/23 Rx methylprednisolone 4 mg tablets in See Rx Instructions PO PER PKG DIR 07/30/23 07/30/23 Rx a dose pack (Medrol (Tam)) #21 tabs PFSH Medical History (Updated 07/30/23 @ 13:[address] Arely Johnson MD) Right hip pain Chronic back pain Dry mouth Anxiety and depression Caregiver burden Osteoarthritis Thoracic back pain Acute neck pain Health care maintenance Vitamin D deficiency COVID-19 Left flank pain Dysuria History of palpitations Bradycardia Allergic sinusitis Allergic rhinitis Joint pain Migraines Hypothyroidism Heart murmur Vitamin D deficiency Surgical History History of left knee replacement History of hysterectomy History of back surgery ( 2004) H/O reconstruction of anterior cruciate ligament tear History of arthroscopy of knee Family History Mother Liver disease due to auto immune disorder Cancer Brother Thyroid disorder Aunt Breast cancer Cancer mouth Brother Fibromyalgia Sister Fibromyalgia Brother , Age 3 days Congenital heart defect poor connective tissue Grandmother Heart disease CHF Father Cancer prostate, bladder, bone Social History Smoking Status: Never smoker alcohol intake: current alcohol intake frequency: holidays/special occasions only substance use type: does not use caffeine: No what type of physical activity do you participate in: bicycling and weight training frequency: 5-6 times per week HPI HPI Chief Complaint: back pain Details: CHAVEZ MARQUES, is a 52 F who presents to the office today for an acute visit. She reports back pain. Initial flare was in May, this improved however, over the weekend, bent over to do something and subsequently noted significant back pain. Some radiation down her right lower extremity but no numbness or tingling. 1 brief episode of numbness yesterday. No change in bowel or bladder habit. She admits that since May after she had been quite physical cleaning out her parents house, she has had intermittent pain with certain positions and movement. ROS Const Constitutional: No body ache, chills, excessive sweating, fatigue, fever(s), frequent falls, headache(s), snoring, weakness or change in appetite Eyes Eyes: No blurry vision, change in vision, floaters, visual disturbances, eye pain or Light sensitivity ENT ENT: No abnormal hearing, ear or mastoid pain, tinnitus, balance problems, nosebleed/epistaxis, nasal congestion, headache(s), neck pain or sore (more content not included)... Normal [facility] XR KNEE 3V AP/LAT/MERCHANT L Ton 07-30-2023 [...] Mild right knee osteoarthrosis. IMPRESSION: Stable TKA Sack Repairer: LUDIVINA Transcribe Date/Time: Jul 31 2023 8:05A Dictated by : DO DAVEY MD This examination was interpreted and the report reviewed and electronically signed by: DO DAVEY MD on Jul 31 2023 8:06AM EST [id number] CN Normal [facility] XR Knee AP and Lateral and M erchantson 07-30-2023 Radiology Study observation (narrative) [facility] Basophil percentageOrdered B y: Arely Johnson on 05-10-2023 Bilirubin [Mass/Vol] 0.60 mg/dL 0.20-1.00 [facility] Comment on above: For patients on eltr ombopag therapy, use of Dimension [place] TBIL is not recommended. Chloride [Moles/Vol] 109 mmol/L 98-107 [facility] Glucose [Mass/Vol] 91 mg/dL 74-106 [facility] Potassium [Moles/Vol] 4.3 mmol/L 3.5-5.1 [facility] Protein [Mass/Vol] 7.2 g/dL 6.4-8.2 [facility] Sodium [Moles/Vol] 140 mmol/L 136-145 [facility] Laboratory - Chemistry and C hemistry - challengeOrdered By: Arely Johnson on 05-10-2023 Albumin/Globulin [Mass ratio] 1.5 {ratio} 0.9-2.4 [facility] ALP [Catalytic activity/Vol] 65 U/L 45-117 [facility] ALT [Catalytic activity/Vol] 50 U/L 13-56 [facility] CO2 [Moles/Vol] 27.0 mmol/L 21.0-32.0 [facility] Globulin (S) [Mass/Vol] 2.9 g/dL 2.2-4.2 [facility] Urea nitrogen/Creatinine [Mass ratio] 23.3 mg/mg 10-20 [facility] No Panel InformationOrdered By: Arely Johnson on 05-10-2023 Estimated GFR (MDRD) Amer 84 mL/min >60 [facility] Comment on above: GFR Calc Estimated GFR (MDRD) Non-Af Amer 69 mL/min >60 [facility] Comment on above: Non- GFR Calc Serum or plasma calcium benedict urement (mass/volume)Ordered By: Arely Johnson on 05-10-2023 Calcium [Mass/Vol] 9.3 mg/dL 8.5-10.1 [facility] Serum or plasma creatinine m easurement (mass/volume)Ordered By: Arely Johnson on 05-10-2023 Creatinine [Mass/Vol] 0.90 mg/dL 0.55-1.02 [facility] Comment on above: The validity of the calculated GFR & GFRAA in patients over 70 years has not been determined. Clinical correlation is essential. Serum or plasma thyroid stim ulating hormone (TSH) measurement (units/volume)Ordered By: Arely Johnson on 05-10-2023 TSH Qn 0.84 uIU/mL 0.358-3.74 [facility] Serum or plasma urea nitroge n measurement (mass/volume)Ordered By: Arely Johnson on 05-10-2023 Urea nitrogen [Mass/Vol] 21 mg/dL 7-18 [facility] Thin prep Papanicolaou smear with manual screeningOrdered By: Arely Johnson on 05-10-2023 Thin prep Papanicolaou smear with manual screening 4.3 g/dL 3.2-5.0 [facility] Thin prep Papanicolaou smear with manual screening 30 U/L 15-37 [facility] Thin prep Papanicolaou smear with manual screening 4 5-15 [facility] Serum or plasma thyroid stim ulating hormone (TSH) measurement (units/volume)Ordered By: Randall Dorado on 03-19-2023 TSH Qn 2.55 uIU/mL 0.358-3.74 [facility] Basophil percentageOrdered B y: Randall Dorado on 01-13-2023 Bilirubin [Mass/Vol] 0.40 mg/dL 0.20-1.00 [facility] Comment on above: For patients on eltr ombopag therapy, use of Dimension [place] TBIL is not recommended. Chloride [Moles/Vol] 104 mmol/L 98-107 [facility] Cholesterol [Mass/Vol] 194 mg/dL <200 [facility] Comment on above: <200 mg/dL Desirable 200-240 mg/dL Borderline >240 mg/dL High Risk Glucose [Mass/Vol] 91 mg/dL 74-106 [facility] Potassium [Moles/Vol] 4.1 mmol/L 3.5-5.1 [facility] Protein [Mass/Vol] 7.7 g/dL 6.4-8.2 [facility] Sodium [Moles/Vol] 138 mmol/L 136-145 [facility] Triglyceride [Mass/Vol] 60 mg/dL <199 [facility] Comment on above: The drugs N-Acetylcy steine and Metamizole may falsely depress this assay.Serum Triglycerides Reference Interval Normal <150 mg/dL Borderline high 150 - 199 mg/dL High 200 - 499 mg/dL Very High > or = 500 mg/dL Laboratory - Chemistry and C hemistry - challengeOrdered By: Randall Dorado on 01-13-2023 ALP [Catalytic activity/Vol] 65 U/L 45-117 [facility] ALT [Catalytic activity/Vol] 33 U/L 13-56 [facility] CO2 [Moles/Vol] 28.0 mmol/L 21.0-32.0 [facility] Globulin (S) [Mass/Vol] 3.5 g/dL 2.2-4.2 [facility] Urea nitrogen/Creatinine [Mass ratio] 15.8 mg/mg 10-20 [facility] No Panel InformationOrdered By: Randall Dorado on 01-13-2023 Estimated GFR (MDRD) Amer 94 mL/min >60 [facility] Comment on above: GFR Calc Estimated GFR (MDRD) Non-Af Amer 77 mL/min >60 [facility] Comment on above: Non- GFR Calc Thyroid Stimulating Hormone (TSH) 6.48 uIU/mL 0.358-3.74 [facility] Serum or plasma albumin benedict urement (mass/volume)Ordered By: Randall Dorado on 01-13-2023 Albumin [Mass/Vol] 4.2 g/dL 3.2-5.0 [facility] Serum or plasma albumin/glob ulin mass ratioOrdered By: Randall Dorado on 01-13-2023 Albumin/Globulin [Mass ratio] 1.2 {ratio} 0.9-2.4 [facility] Serum or plasma calcium benedict urement (mass/volume)Ordered By: Randall Dorado on 01-13-2023 Calcium [Mass/Vol] 9.0 mg/dL 8.5-10.1 [facility] Serum or plasma cholesterol in HDL measurement (mass/volume)Ordered By: Randall Dorado on 01-13-2023 Cholesterol in HDL [Mass/Vol] 67 mg/dL >40 [facility] Comment on above: The drugs N-Acetylcy steine and Metamizole may falsely depress this assay. Reference Range HDL <40 mg/dL Low HDL Cholesterol HDL >or= 60 mg/dL High HDL Cholesterol Serum or plasma cholesterol in VLDL measurement (mass/volume)Ordered By: Randall Dorado on 01-13-2023 Cholesterol in VLDL [Mass/Vol] 12 mg/dL 5-40 [facility] Serum or plasma creatinine m easurement (mass/volume)Ordered By: Randall Dorado on 01-13-2023 Creatinine [Mass/Vol] 0.82 mg/dL 0.55-1.02 [facility] Comment on above: The validity of the calculated GFR & GFRAA in patients over 70 years has not been determined. Clinical correlation is essential. Serum or plasma low density lipoprotein (LDL) cholesterol measurement (mass/volume)Ordered By: Randall Dorado on 01-13-2023 Cholesterol in LDL [Mass/Vol] 115 mg/dL 0-130 [facility] Serum or plasma urea nitroge n measurement (mass/volume)Ordered By: Randall Dorado on 01-13-2023 Urea nitrogen [Mass/Vol] 13 mg/dL 7-18 [facility] Thin prep Papanicolaou smear with manual screeningOrdered By: Randall Dorado on 01-13-2023 Thin prep Papanicolaou smear with manual screening 23 U/L 15-37 [facility] Thin prep Papanicolaou smear with manual screening 6 5-15 [facility] Absolute lymphocyte countOrd ered By: Arely Johnson on 12-23-2022 Lymphocytes Auto (Unsp spec) [#/Vol] 1.25 10*3/uL 0.83-4.51 [facility] Basophil percentageOrdered B y: Arely Johnson on 12-23-2022 Basophil percentage Not Reportable [facility] Basophils/100 WBC (Bld) 1.0 % 0-1 [facility] Bilirubin [Mass/Vol] 0.60 mg/dL 0.20-1.00 [facility] Comment on above: For patients on eltr ombopag therapy, use of Dimension [place] TBIL is not recommended. Chloride [Moles/Vol] 104 mmol/L 98-107 [facility] Cholesterol [Mass/Vol] 225 mg/dL <200 [facility] Comment on above: <200 mg/dL Desirable 200-240 mg/dL Borderline >240 mg/dL High Risk Eosinophils/100 WBC (Bld) 1.9 % 0-5 [facility] Glucose [Mass/Vol] 80 mg/dL 74-106 [facility] Neutrophils (Bld) [#/Vol] 4.0 10*3/uL 2.0-7.7 [facility] Neutrophils/100 WBC (Bld) 68.3 % 47-70 [facility] Potassium [Moles/Vol] 4.2 mmol/L 3.5-5.1 [facility] Protein [Mass/Vol] 7.7 g/dL 6.4-8.2 [facility] Sodium [Moles/Vol] 140 mmol/L 136-145 [facility] Triglyceride [Mass/Vol] 74 mg/dL <199 [facility] Comment on above: The drugs N-Acetylcy steine and Metamizole may falsely depress this assay.Serum Triglycerides Reference Interval Normal <150 mg/dL Borderline high 150 - 199 mg/dL High 200 - 499 mg/dL Very High > or = 500 mg/dL WBC (Bld) [#/Vol] 5.8 10*3/uL 4.4-11.0 [facility] Blood erythrocytes count (nu mber/volume)Ordered By: Arely Johnson on 12-23-2022 RBC (Bld) [#/Vol] 4.39 10*6/uL 4.2-5.4 [facility] Blood hemoglobin measurement (mass/volume)Ordered By: Arely Johnson on 12-23-2022 Hemoglobin (Bld) [Mass/Vol] 12.7 g/dL 12.0-15.0 [facility] Blood lymphocytes/100 leukoc ytesOrdered By: Arely Johnson on 12-23-2022 Lymphocytes/100 WBC (Bld) 21.5 % 19-41 [facility] Blood monocytes/100 leukocyt esOrdered By: Arely Johnson on 12-23-2022 Monocytes/100 WBC (Bld) 7.0 % 0-10 [facility] Blood platelet mean volumeOr dered By: Arely Johnson on 12-23-2022 Platelet mean volume (Bld) [Entitic vol] 10.3 fL 6.2-12.0 [facility] Determination of erythrocyte mean corpuscular volume (MCV)Ordered By: Arely Johnson on 12-23-2022 MCV (RBC) [Entitic vol] 91.8 fL 81-99 [facility] Hematocrit Auto (Bld) [Volum e fraction]Ordered By: Areyl Johnson on 12-23-2022 Hematocrit (Bld) [Volume fraction] 40.3 % 37-47 [facility] Laboratory - Chemistry and C hemistry - challengeOrdered By: Arely Johnson on 12-23-2022 ALP [Catalytic activity/Vol] 70 U/L 45-117 [facility] ALT [Catalytic activity/Vol] 35 U/L 13-56 [facility] CO2 [Moles/Vol] 29.0 mmol/L 21.0-32.0 [facility] Globulin (S) [Mass/Vol] 3.3 g/dL 2.2-4.2 [facility] Urea nitrogen/Creatinine [Mass ratio] 16.9 mg/mg 10-20 [facility] Laboratory - Hematology and Cell countsOrdered By: Arely Johnson on 12-23-2022 Erythrocyte distribution width (RBC) [Entitic vol] 45.9 fL 35.1-43.9 [facility] Erythrocyte distribution width (RBC) [Ratio] 13.5 % 11.6-14.6 [facility] Immature granulocytes/100 WBC (Bld) 0.300 % 0.0-0.9 [facility] Comment on above: IG% - Immature Granu locytes (promyelocytes, myelocytes and metamyelocytes) > 1% indicates that a LEFT SHIFT is Present. MCH (RBC) [Entitic mass] 28.9 pg 27.0-32.0 [facility] Nucleated RBC/100 WBC (Bld) [Ratio] 0 % 0-5 [facility] MCHC Auto (RBC) [Mass/Vol]Or dered By: Arely Johnson on 12-23-2022 MCHC (RBC) [Mass/Vol] 31.5 g/dL 32-36 [facility] No Panel InformationOrdered By: Arely Johnson on 12-23-2022 Anti-Nuclear Antibody Screen Negative Negative [facility] Comment on above: Performed at: [facility] [address] [id number] Director: Bam Collado PhD, Phone: [phone] [employer] [facility] Antibody Not Reportable [facility] Estimated GFR (MDRD) Amer 93 mL/min >60 [facility] Comment on above: GFR Calc Estimated GFR (MDRD) Non-Af Amer 77 mL/min >60 [facility] Comment on above: Non- GFR Calc 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 Not Reportable [facility] Thyroid Stimulating Hormone (TSH) 13.80 uIU/mL 0.358-3.74 [facility] Platelets bldOrdered By: Abhijeet rodriguez Zakmaidaroberto on 12-23-2022 Platelets (Bld) [#/Vol] 278 10*3/uL 150-450 [facility] Serum DNA double strand anti body assay (units/volume)Ordered By: Arely Johnson on 12-23-2022 DNA double strand Ab Qn (S) Not Reportable [facility] Serum Mary-1 antibody assay (u nits/volume)Ordered By: Arely Johnson on 12-23-2022 Mary-1 extractable nuclear Ab Qn (S) Not Reportable [facility] Serum Scl-70 extractable nuc lear antibody assay (units/volume)Ordered By: Cristarobbiemary Johnson on 12-23-2022 SCL-70 extractable nuclear Ab Qn (S) Not Reportable [facility] Serum Allen extractable nucl ear antibody detectionOrdered By: Arely Johnson on 12-23-2022 Allen extractable nuclear Ab Ql (S) Not Reportable [facility] Serum or plasma albumin benedict urement (mass/volume)Ordered By: Arely Johnson on 12-23-2022 Albumin [Mass/Vol] 4.4 g/dL 3.2-5.0 [facility] Serum or plasma albumin/glob ulin mass ratioOrdered By: Arely Crespomaidaroberto on 12-23-2022 Albumin/Globulin [Mass ratio] 1.3 {ratio} 0.9-2.4 [facility] Serum or plasma calcium benedict urement (mass/volume)Ordered By: Arely Johnson on 12-23-2022 Calcium [Mass/Vol] 9.5 mg/dL 8.5-10.1 [facility] Serum or plasma cholesterol in HDL measurement (mass/volume)Ordered By: Arely Johnson on 12-23-2022 Cholesterol in HDL [Mass/Vol] 77 mg/dL >40 [facility] Comment on above: The drugs N-Acetylcy steine and Metamizole may falsely depress this assay. Reference Range HDL <40 mg/dL Low HDL Cholesterol HDL >or= 60 mg/dL High HDL Cholesterol Serum or plasma cholesterol in VLDL measurement (mass/volume)Ordered By: Arely Johnson on 12-23-2022 Cholesterol in VLDL [Mass/Vol] 15 mg/dL 5-40 [facility] Serum or plasma creatinine m easurement (mass/volume)Ordered By: Arely Johnson on 12-23-2022 Creatinine [Mass/Vol] 0.83 mg/dL 0.55-1.02 [facility] Comment on above: The validity of the calculated GFR & GFRAA in patients over 70 years has not been determined. Clinical correlation is essential. Serum or plasma low density lipoprotein (LDL) cholesterol measurement (mass/volume)Ordered By: lizabeth Johnson on 12-23-2022 Cholesterol in LDL [Mass/Vol] 133 mg/dL 0-130 [facility] Serum or plasma urea nitroge n measurement (mass/volume)Ordered By: Arely Johnson on 12-23-2022 Urea nitrogen [Mass/Vol] 14 mg/dL 7-18 [facility] Thin prep Papanicolaou smear with manual screeningOrdered By: Arely Johnson on 12-23-2022 Thin prep Papanicolaou smear with manual screening 23 U/L 15-37 [facility] Thin prep Papanicolaou smear with manual screening 7 5-15 [facility] 09-07-2022 CNCO Letter Text Normal [facility] 08-12-2022 CNCO Letter Text Normal [facility] XR Knee AP and Lateral and M erchantson 08-08-2022 IMPRESSION: Intact left knee arthroplasty. Sack Repairer: PSCB Transcribe Date/Time: Aug 08 2022 11:02A Dictated by : LORY MCNEIL MD This examination was interpreted and the report reviewed and electronically signed by: LORY MCNEIL MD on Aug 08 2022 11:02AM [facility] RADIOLOGY * * *Final Report* * * [...] or dislocation. There are no bony erosions. [facility] Provider, [facility] Bernice - 08/08/2022 * * *Final Report* * [...] erosions. IMPRESSION IMPRESSION: Intact left knee arthroplasty. Sack Repairer: LUDIVINA Transcribe Date/Time: Aug 08 2022 11:02A Dictated by : LORY MCNEIL MD This examination was interpreted and the report reviewed and electronically signed by: LORY MCNEIL MD on Aug 08 2022 11:02AM EST [facility] XR Knee AP and Lateral and M erchantsOrdered By: Cc Provider on 08-08-2022 [facility] XR KNEE 3V AP/LAT/MERCHANT L Ton [...] bony erosions. IMPRESSION: Intact left knee arthroplasty. Sack Repairer: [facility] Transcribe Date/Time: Aug 08 2022 11:02A Dictated by : LORY MCNEIL MD This examination was interpreted and the report reviewed and electronically signed by: LORY MCNEIL MD on Aug 08 2022 11:02AM EST [id number] Normal [facility] XR Knee AP and Lateral and M erchantson 08-07-2022 Radiology Study observation (narrative) [facility] CT KNEE WO IVCON LEFTon 06-08 [facility] XR Knee - bilateral 4 Viewso n 03-19-2022 IMPRESSION: Bilateral osteoarthrosis, left more advanced than right. Small right joint effusion Sack Repairer: [facility] Transcribe Date/Time: Mar 19 2022 1:38P Dictated by : DO DAVEY MD This examination was interpreted and the report reviewed and electronically signed by: DO DAVEY MD on Mar 19 2022 1:40PM EST [facility] * * *Final Report* * * DATE OF EXAM: Mar 18 2022 8:04AM [facility]18 - XR KNEE 4V AP/PA/LAT/MERCH ARMANDO / PROCEDURE REASON: [id number] * * * * Physician Interpretation * [...] noted, likely due to prior ACL reconstruction. [facility] Provider, [facility] [place] - 03/19/2022 * * *Final Report* * * DATE OF EXAM: Mar 18 2022 8:04AM [facility] - XR KNEE 4V AP/PA/LAT/MERCH ARMANDO / PROCEDURE REASON: [id number] * * * * Physician Interpretation * [...] advanced than right. Small right joint effusion Sack Repairer: [facility] Transcribe Date/Time: Mar 19 2022 1:38P Dictated by : DO DAVEY MD This examination was interpreted and the report reviewed and electronically signed by: DO DAVEY MD on Mar 19 2022 1:40PM EST [facility] XR Knee - bilateral 4 ViewsO rdered By: [facility] Provider on 03-19-2022 [facility] XR Knee - bilateral 4 Viewso n 03-18-2022 Radiology Study observation (narrative) Parminder ph[facility] - Microbiology an d Antimicrobial susceptibilityon 10-18-2021 SARS-CoV-2 (COVID-19) RNA SARAI+probe Ql (Unsp spec) Not detected [facility] Work Phone: No Panel Informationon 10-18 Influenza Types A,B Rapid (Clinic) Not detected [facility] Work Phone: FT4on 09-08-2021 Free T4 [Mass/Vol] 1.18 ng/dL Normal 0.76-1.46 [facility] ([place]) Comment on above: Performed By: #### F T4 #### [place] [address] .Auto Diffon 09-05-2021 Basophil, Absolute 0.0 10 3/mcL Normal 0.0-0.2 [facility] ([place]) Comment on above: Performed By: #### T SH, CMP, GFR #### [address] [address] #### T4 #### [address] [address] Basophils/100 WBC (Bld) 0.4 % Normal 0.0-2.5 A [facility] ([place]) Comment on above: Performed By: #### T SH, CMP, GFR #### [address] [address] #### T4 #### [address] [address] Eosinophil, Absolute 0.1 10 3/mcL Normal 0.0-0.4 [facility] ([place]) Comment on above: Performed By: #### T SH, CMP, GFR #### [place] [address] #### T4 #### [address] [address] Eosinophils/100 WBC (Bld) 1.7 % Normal 0.0-7.0 [facility] ([place] Comment on above: Performed By: #### T SH, CMP, GFR #### [address] [address] #### T4 #### [address] [address] Lymphocyte, Absolute 0.9 10 3/mcL Normal 0.8-3.9 [facility] ([place] Comment on above: Performed By: #### T SH, CMP, GFR #### [address] [address] #### T4 #### [address] [address] Lymphocytes/100 WBC (Bld) 12.9 % Normal 10.0-50.0 [facility] ([place] Comment on above: Performed By: #### T SH, CMP, GFR #### [address] [address] #### T4 #### [address] [address] Monocyte, Absolute 0.6 10 3/mcL Normal 0.2-1.0 [facility] ([place] Comment on above: Performed By: #### T SH, CMP, GFR #### [address] [address] #### T4 #### [address] [address] Monocytes/100 WBC (Bld) 8.3 % Normal 1.7-13.0 [facility] ([place] Comment on above: Performed By: #### T SH, CMP, GFR #### [address] [address] #### T4 #### [address] [address] Neutrophils/100 WBC (Bld) 76.7 % Normal 37.0-80.0 [facility] ([place] Comment on above: Performed By: #### T SH, CMP, GFR #### [address] [address] #### T4 #### [address] [address] .GFRon 09-05-2021 GFR 96 ml/min/1.73sqm Normal [facility] ([place] Comment on above: Result Comment: GFR Population [...] By: #### T SH, CMP, GFR #### [address] [address] #### T4 #### [place] [id number] GFR Non- 79 ml/min/1.73sqm Normal [facility] ([place] Comment on above: Result Comment: GFR Population [...] By: #### T SH, CMP, GFR #### [place] [address] #### T4 #### [place] [address] .MDWon 09-05-2021 Monocyte Distribution Width Not performed Normal 0.00-20.00 [facility] ([place] Comment on above: Result Comment: MDW testing performed only on adult ER patients between the ages of 18-89 years. Performed By: #### T SH, CMP, GFR #### [place] [address] #### T4 #### [place] [address] .NEUABSon 09-05-2021 Neutrophil, Absolute 5.2 10 3/mcL Normal 2.9-6.2 [facility] ([place] Comment on above: Performed By: #### T SH, CMP, GFR #### [address] [address] #### T4 #### [place] [id number] CBCon 09-05-2021 Erythrocyte distribution width (RBC) [Ratio] 12.9 % Normal 11.5-14.5 [facility] ([place] Comment on above: Performed By: #### T SH, CMP, GFR #### [place] [address] #### T4 #### [place] [address] Hematocrit (Bld) [Volume fraction] 42.2 % Normal 37.0-47.0 [facility] ([place] Comment on above: Performed By: #### T SH, CMP, GFR #### [place] [address] #### T4 #### [place] [address] Hgb 14.5 G/dL Normal 12.0-16.0 [facility] ([place] Comment on above: Performed By: #### T SH, CMP, GFR #### [place] [address] #### T4 #### [place] [address] MCH (RBC) [Entitic mass] 30.1 pg Normal 27.0-31.2 [facility] ([place] Comment on above: Performed By: #### T SH, CMP, GFR #### [place] [address] #### T4 #### [place] [address] MCHC 34.5 G/dL Normal 33.0-37.0 [facility] ([place] Comment on above: Performed By: #### T SH, CMP, GFR #### [place] [address] #### T4 #### [place] [address] MCV (RBC) [Entitic vol] 87.5 fL Normal 80.0-94.0 A [facility] ([place] Comment on above: Performed By: #### T SH, CMP, GFR #### [place] [address] #### T4 #### [address] [address] Platelet 266 10 3/mcL Normal 130-400 [facility] ([place]) Comment on above: Performed By: #### T SH, CMP, GFR #### [address] [address] #### T4 #### [address] [address] Platelet mean volume (Bld) [Entitic vol] 8.2 fL Normal 7.4-10.4 [facility] ([place] Comment on above: Performed By: #### T SH, CMP, GFR #### [place] [address] #### T4 #### [address] [address] RBC 4.83 10 6/mcL Normal 4.20-5.40 [facility] ([place]) Comment on above: Performed By: #### T SH, CMP, GFR #### [place] [address] #### T4 #### [address] [address] WBC 6.8 10 3/mcL Normal 4.6-10.8 [facility] ([place] Comment on above: Performed By: #### T SH, CMP, GFR #### [place] [address] #### T4 #### [address] [address] CMPon 09-05-2021 Albumin Level 4.8 G/dL Normal 3.5-5.0 [facility] ([place]) Comment on above: Performed By: #### T SH, CMP, GFR #### [place] [address] #### T4 #### [place] [address] Albumin/Globulin [Mass ratio] 1.5 {ratio} Normal 1.1-2.5 [facility] ([place] Comment on above: Performed By: #### T SH, CMP, GFR #### [address] [address] #### T4 #### [address] [address] ALP [Catalytic activity/Vol] 66 U/L Normal 40-135 [facility] ([place] Comment on above: Performed By: #### T SH, CMP, GFR #### [place] [address] #### T4 #### [address] [address] ALT [Catalytic activity/Vol] 19 U/L Normal 14-59 [facility] ([place] Comment on above: Performed By: #### T SH, CMP, GFR #### [place] [address] #### T4 #### [address] [address] AST [Catalytic activity/Vol] 12 U/L Normal 10-40 [facility] ([place] Comment on above: Performed By: #### T SH, CMP, GFR #### [place] [address] #### T4 #### [address] [address] Bili Total 0.5 mg/dL Normal 0.2-1.0 [facility] ([place] Comment on above: Result Comment: Use of this assay is not recommended for patients undergoing treatment with eltrombopag due to the potential for falsely elevated results. Performed By: #### T SH, CMP, GFR #### [address] [address] #### T4 #### [address] [address] BUN/Creatinine Ratio 17 ratio Normal 7-27 [facility] ([place]) Comment on above: Performed By: #### T SH, CMP, GFR #### [place] [address] #### T4 #### [address] [address] Calcium [Mass/Vol] 9.8 mg/dL Normal 8.4-10.2 [facility] ([place] Comment on above: Performed By: #### T SH, CMP, GFR #### [address] [address] #### T4 #### [address] [address] Chloride [Moles/Vol] 102 mmol/L Normal 98-107 [facility] ([place]) Comment on above: Performed By: #### T SH, CMP, GFR #### [address] [address] #### T4 #### [address] [address] CO2 [Moles/Vol] 26 mmol/L Normal 22-29 [facility] ([place]) Comment on above: Performed By: #### T SH, CMP, GFR #### [address] [address] #### T4 #### [address] [address] Creatinine [Mass/Vol] 0.77 mg/dL Normal 0.55-1.02 [facility] ([place]) Comment on above: Performed By: #### T SH, CMP, GFR #### [address] [address] #### T4 #### [address] [address] Electrolyte Balance 11.0 mEq/L Normal 4.0-15.0 [facility] ([place]) Comment on above: Performed By: #### T SH, CMP, GFR #### [address] [address] #### T4 #### [place] [address] Globulin 3.2 G/dL Normal [facility] ([place] Comment on above: Performed By: #### T SH, CMP, GFR #### [address] [address] #### T4 #### [address] [address] Glucose [Mass/Vol] 102 mg/dL Normal 70-105 [facility] ([place]) Comment on above: Performed By: #### T SH, CMP, GFR #### [address] [address] #### T4 #### [address] [address] Potassium [Moles/Vol] 4.4 mmol/L Normal 3.5-5.1 [facility] ([place]) Comment on above: Performed By: #### T SH, CMP, GFR #### [address] [address] #### T4 #### [address] [address] Sodium [Moles/Vol] 139 mmol/L Normal 136-145 [facility] ([place] Comment on above: Performed By: #### T SH, CMP, GFR #### [address] [address] #### T4 #### [address] [address] Total Protein 8.0 G/dL Normal 6.4-8.2 [facility] ([place]) Comment on above: Performed By: #### T SH, CMP, GFR #### [address] [address] #### T4 #### [address] [address] Urea nitrogen [Mass/Vol] 13 mg/dL Normal 7-18 [facility] ([place] Comment on above: Performed By: #### T SH, CMP, GFR #### [address] [address] #### T4 #### [address] [address] T4on 09-05-2021 T4 [Mass/Vol] 9.2 ug/dL Normal 4.5-10.9 [facility] ([place]) Comment on above: Result Comment: No te - New Reference Range in effect 19 Performed By: #### T SH, CMP, GFR #### [place] [address] [place], [place] [address] #### T4 #### [facility] [address] [place] [address] TSHon 09-05-2021 TSH Qn 0.42 m[IU]/L Normal 0.36-3.74 [facility] ([place]) Comment on above: Performed By: #### T SH, CMP, GFR #### [place] [address] [place], [place] [address] #### T4 #### [facility] [address] [place] [address] Stool Helicobacter pylori an tigen detection by immunoassayon 09-03-2021 H. pylori Ag IA Ql (Stl) Negative Negative [facility] Work Phone: Comment on above: Performed at: - L [address] [id number] Director: Keyla Nguyen MD, Phone: [phone] Laboratory - Microbiology an d Antimicrobial susceptibilityon 08-29-2021 SARS-CoV-2 (COVID-19) RNA SARAI+probe Ql (Unsp spec) Not detected Not Detect [facility] Work Phone: Comment on above: Normal Reference Ran ge: Not DetectedMethod:(RT-PCR) real-time reverse transcriptase PCRLuminex RUBÉN Instrument*The Food and Drug Administration (FDA) has issued an Emergency Use Authorization (EAU) for the RUBÉN SARS-CoV-2 Assay for the rapid detection of the virus that causes COVID-19. This test has been validated, but the FDAs independent review of this validation is pending.*Negative results do not preclude infection and should not be used as the sole basis for treatment or patient management. Optimum specimen types and timing for peak viral levels during infections caused by SARS-CoV-2 have not been determined. Collection of multiple specimens from the same patient may be necessary to detect the virus. The possibility of a false negative result should be considered if the patient has clinical presentation or has had recent exposure. No Panel Informationon 02-10 POC SARS CoV-2 Antigen Negative [facility] Work Phone: Lower GI hemoglobin IA Ql (S tl) Stool Occult Blood (JEROMY) Positive [facility] Work Phone: No Panel Information Enteric Bacteriology [facility] Work Phone: Vital Signs Date Time Vital Sign Value Performing Clinician Facility 05-24-2024 07:29-0400 Body height 172.7 cm Buddy Hernadez APRN.DIRECTOR CHILD ABUSE THERAPY Work Phone: [facility] 05-24-2024 07:29-0400 Body mass index (BMI) [Ratio] 26.91 kg/m2 Buddy Hernadez APRN.DIRECTOR CHILD ABUSE THERAPY Work Phone: [facility] 05-24-2024 07:29-0400 Body weight 80.29 kg Buddy Hernadez APRN.DIRECTOR CHILD ABUSE THERAPY Work Phone: [facility] 05-24-2024 07:29-0400 Diastolic blood pressure 76 mm[Hg] Buddy Hernadez POLITICAL DIRECTOR.DIRECTOR CHILD ABUSE THERAPY Work Phone: [facility] 05-24-2024 07:29-0400 Systolic blood pressure 114 mm[Hg] Buddy Hernadez POLITICAL DIRECTOR.DIRECTOR CHILD ABUSE THERAPY Work Phone: [facility] 04-05-2024 17:33-0500 Body height 172.[address] Arely Johnson MD Work Phone: [facility] 04-05-2024 17:33-0500 Body mass index (BMI) [Ratio] 27.1 kg/m2 Dr. Arely Johnson MD Work Phone: [facility] 04-05-2024 17:33-0500 Body temperature 96.2 [degF] Dr. Arely Johnson MD Work Phone: [facility] 04-05-2024 17:33-0500 Body weight 80.[address] Arely Johnson MD Work Phone: [facility] 04-05-2024 17:33-0500 Diastolic blood pressure 72 mm[Hg] Dr. Arely Johnson MD Work Phone: [facility] 04-05-2024 17:33-0500 Heart rate 66 /min Dr. Arely Johnson MD Work Phone: [facility] 04-05-2024 17:33-0500 Respiratory rate 12 /min Dr. Arely Johnson MD Work Phone: [facility] 04-05-2024 17:33-0500 SaO2% (BldA) [Mass fraction] 98 % Dr. Arely Johnson MD Work Phone: [facility] 04-05-2024 17:33-0500 Systolic blood pressure 110 mm[Hg] Dr. Arely Johnson MD Work Phone: [facility] 03-03-2024 06:01-0500 Body temperature 98.1 [degF] Dr. Arely Johnson MD Work Phone: [facility] 03-03-2024 06:01-0500 Diastolic blood pressure 66 mm[Hg] Dr. Arely Johnson MD Work Phone: [facility] 03-03-2024 06:01-0500 Heart rate 66 /min Dr. Arely Johnson MD Work Phone: [facility] 03-03-2024 06:01-0500 Respiratory rate 15 /min Dr. Arely Johnson MD Work Phone: [facility] 03-03-2024 06:01-0500 SaO2% (BldA) [Mass fraction] 100 % Dr. Arely Johnson MD Work Phone: [facility] 03-03-2024 06:01-0500 Systolic blood pressure 122 mm[Hg] Dr. Arely Johnson MD Work Phone: [facility] 05-12-2023 14:48-0400 Body height 175.3 cm Candida Clark MD Work Phone: [facility] 05-12-2023 14:48-0400 Body weight 73.94 kg Candida Clark MD Work Phone: [facility] 05-12-2023 14:48-0400 Diastolic blood pressure 62 mm[Hg] Candida Clark MD Work Phone: [facility] 05-12-2023 14:48-0400 Systolic blood pressure 108 mm[Hg] Candida Clark MD Work Phone: [facility] 03-25-2023 18:15-0500 Body height 172.[address] Arely Johnson Work Phone: [facility] 03-25-2023 18:15-0500 Body mass index (BMI) [Ratio] 24.5 kg/m2 Dr. Arely Johnson Work Phone: [facility] 03-25-2023 18:15-0500 Body temperature 98.1 [degF] Dr. Arely Johnson Work Phone: [facility] 03-25-2023 18:15-0500 Body weight 73.[address] Arely Johnson Work Phone: [facility] 03-25-2023 18:15-0500 Diastolic blood pressure 62 mm[Hg] Dr. Arely Johnson Work Phone: [facility] 03-25-2023 18:15-0500 Heart rate 79 /min Dr. Arely Johnson Work Phone: [facility] 03-25-2023 18:15-0500 Respiratory rate 16 /min Dr. Arely Johnson Work Phone: [facility] 03-25-2023 18:15-0500 SaO2% (BldA) [Mass fraction] 98 % Dr. Arely Johnson Work Phone: [facility] 03-25-2023 18:15-0500 Systolic blood pressure 106 mm[Hg] Dr. Arely Johnson Work Phone: [facility] 01-04-2023 08:23-0500 Body height 172.[address] Arely Johnson Work Phone: [facility] 01-04-2023 08:23-0500 Body mass index (BMI) [Ratio] 24.3 kg/m2 Dr. Arely Johnson Work Phone: [facility] 01-04-2023 08:23-0500 Body weight 72.[address] Arely Johnson Work Phone: [facility] 01-04-2023 08:23-0500 Diastolic blood pressure 67 mm[Hg] Dr. Arely Johnson Work Phone: [facility] 01-04-2023 08:23-0500 Heart rate 58 /min Dr. Arely Johnson Work Phone: [facility] 01-04-2023 08:23-0500 Respiratory rate 18 /min Dr. Arely Johnson Work Phone: [facility] 01-04-2023 08:23-0500 SaO2% (BldA) [Mass fraction] 100 % Dr. Arely Johnson Work Phone: [facility] 01-04-2023 08:23-0500 Systolic blood pressure 104 mm[Hg] Dr. Arely Johnson Work Phone: [facility] 12-23-2022 08:03-0500 Body height 172.[address] Arely Johnson Work Phone: [facility] 12-23-2022 08:03-0500 Body mass index (BMI) [Ratio] 23.9 kg/m2 Dr. Arely Johnson Work Phone: [facility] 12-23-2022 08:03-0500 Body temperature 97.7 [degF] Dr. Arely Johnson Work Phone: [facility] 12-23-2022 08:03-0500 Body weight 71.[address] Arely Johnson Work Phone: [facility] 12-23-2022 08:03-0500 Diastolic blood pressure 80 mm[Hg] Dr. Arely Johnson Work Phone: [facility] 12-23-2022 08:03-0500 Heart rate 62 /min Dr. Arely Johnson Work Phone: [facility] 12-23-2022 08:03-0500 Respiratory rate 16 /min Dr. Arely Johnson Work Phone: [facility] 12-23-2022 08:03-0500 SaO2% (BldA) [Mass fraction] 97 % Dr. Arely Johnson Work Phone: [facility] 12-23-2022 08:03-0500 Systolic blood pressure 122 mm[Hg] Dr. Arely Johnson Work Phone: [facility] 10-21-2022 15:50-0400 Body mass index (BMI) [Ratio] 23.7 kg/m2 Dr. Arely Johnson Work Phone: [facility] 10-21-2022 15:50-0400 Body temperature 99.3 [degF] Dr. Arely Johnson Work Phone: [facility] 10-21-2022 15:50-0400 Body weight 70.[address] Arely Johnson Work Phone: [facility] 10-21-2022 15:50-0400 Diastolic blood pressure 74 mm[Hg] Dr. Arely Johnson Work Phone: [facility] 10-21-2022 15:50-0400 Heart rate 82 /min Dr. Arely Johnson Work Phone: [facility] 10-21-2022 15:50-0400 Respiratory rate 16 /min Dr. Arely Johnson Work Phone: [facility] 10-21-2022 15:50-0400 SaO2% (BldA) [Mass fraction] 99 % Dr. Arely Johnson Work Phone: [facility] 10-21-2022 15:50-0400 Systolic blood pressure 120 mm[Hg] Dr. Arely Johnson Work Phone: [facility] 09-04-2022 09:25-0400 Body height 172.[address] Arely Johnson Work Phone: [facility] 09-04-2022 09:25-0400 Body mass index (BMI) [Ratio] 24.3 kg/m2 Dr. Arely Johnson Work Phone: [facility] 09-04-2022 09:25-0400 Body temperature 98.7 [degF] Dr. Arley Johnson Work Phone: [facility] 09-04-2022 09:25-0400 Body weight 72.[address] Arely Johnson Work Phone: [facility] 09-04-2022 09:25-0400 Diastolic blood pressure 60 mm[Hg] Dr. Arely Johnson Work Phone: [facility] 09-04-2022 09:25-0400 Heart rate 80 /min Dr. Arely Johnson Work Phone: [facility] 09-04-2022 09:25-0400 Respiratory rate 16 /min Dr. Arely Johnson Work Phone: [facility] 09-04-2022 09:25-0400 SaO2% (BldA) [Mass fraction] 99 % Dr. Arely Johnson Work Phone: [facility] 09-04-2022 09:25-0400 Systolic blood pressure 110 mm[Hg] Dr. Arely Johnson Work Phone: [facility] 08-12-2022 11:00-0400 Body temperature 98.4 [degF] Tammy Halderman-Huang PT Work Phone: [facility] 08-12-2022 11:00-0400 Diastolic blood pressure 64 mm[Hg] Tammy Halderman-Huang PT Work Phone: [facility] 08-12-2022 11:00-0400 Heart rate 80 /min Tammy Halderman-Huang PT Work Phone: [facility] 08-12-2022 11:00-0400 Respiratory rate 18 /min Tammy Halderman-Huang PT Work Phone: [facility] 08-12-2022 11:00-0400 SaO2% (BldA) [Mass fraction] 99 % Tammy Halderman-Huang PT Work Phone: [facility] 08-12-2022 11:00-0400 Systolic blood pressure 120 mm[Hg] Tammy Halderman-Huang PT Work Phone: [facility] 08-06-2022 09:49-0400 Body temperature 98.2 [degF] Tammy Halderman-Huang PT Work Phone: [facility] [facility] 08-[facility]-2022 09:49-0400 Diastolic blood pressure 74 mm[Hg] Tammy Halderman-Huang PT Work Phone: [facility] 08-06-2022 09:49-0400 Heart rate 86 /min Tammy Halderman-Huang PT Work Phone: [facility] 08-06-2022 09:49-0400 Respiratory rate 18 /min Tammy Halderman-Huang PT Work Phone: [facility] 08-06-2022 09:49-0400 SaO2% (BldA) [Mass fraction] 97 % Tammy Halderman-Huang PT Work Phone: [facility] 08-06-2022 09:49-0400 Systolic blood pressure 118 mm[Hg] Tammy Halderman-Huang PT Work Phone: [facility] 07-31-2022 09:39-0400 Diastolic blood pressure 74 mm[Hg] Tammy Halderman-Huang PT Work Phone: [facility] 07-31-2022 09:39-0400 Respiratory rate 18 /min Tammy Halderman-Huang PT Work Phone: [facility] 07-31-2022 09:39-0400 SaO2% (BldA) [Mass fraction] 99 % Tammy Halderman-Huang PT Work Phone: [facility] 07-31-2022 09:39-0400 Systolic blood pressure 130 mm[Hg] Tammy Halderman-Huang PT Work Phone: [facility] 07-29-2022 09:43-0400 Body temperature 98.49 [degF] Tammy Halderman-Huang PT Work Phone: [facility] 07-29-2022 09:43-0400 Diastolic blood pressure 74 mm[Hg] Tmamy Halderman-Huang PT Work Phone: [facility] 07-29-2022 09:43-0400 Heart rate 85 /min Tammy Halderman-Huang PT Work Phone: [facility] 07-29-2022 09:43-0400 Respiratory rate 18 /min Tammy Halderman-Huang PT Work Phone: [facility] 07-29-2022 09:43-0400 SaO2% (BldA) [Mass fraction] 96 % Tammy Halderman-Huang PT Work Phone: [facility] 07-29-2022 09:43-0400 Systolic blood pressure 132 mm[Hg] Tammy Halderman-Huang PT Work Phone: [facility] 05-21-2022 18:25-0400 Body height 172.[address] Arely Johnson Work Phone: [facility] 05-21-2022 18:25-0400 Body mass index (BMI) [Ratio] 24.9 kg/m2 Dr. Arely Johnson Work Phone: [facility] 05-21-2022 18:25-0400 Body temperature 98.3 [degF] Dr. Arely Johnson Work Phone: [facility] 05-21-2022 18:25-0400 Body weight 74.[address] Arely Johnson Work Phone: [facility] 05-21-2022 18:25-0400 Diastolic blood pressure 86 mm[Hg] Dr. Arely Johnson Work Phone: [facility] 05-21-2022 18:25-0400 Heart rate 73 /min Dr. Arely Johnson Work Phone: [facility] 05-21-2022 18:25-0400 Respiratory rate 14 /min Dr. Arely Johnson Work Phone: [facility] 05-21-2022 18:25-0400 SaO2% (BldA) [Mass fraction] 97 % Dr. Arely Johnson Work Phone: [facility] 05-21-2022 18:25-0400 Systolic blood pressure 140 mm[Hg] Dr. Arely Johnson Work Phone: [facility] 03-18-2022 08:16-0500 Body height 175.3 cm Kristina Burns MD Work Phone: [facility] 03-18-2022 08:16-0500 Body weight 74.39 kg Kristina Burns MD Work Phone: [facility] 10-18-2021 08:11-0400 Body temperature 98.4 [degF] Dr. rAely Johnson Work Phone: [facility] Work Phone: 10-18-2021 08:11-0400 Diastolic blood pressure 72 mm[Hg] Dr. Arely Johnson Work Phone: [facility] Work Phone: 10-18-2021 08:11-0400 Heart rate 66 /min Dr. Arely Johnson Work Phone: [facility] Work Phone: 10-18-2021 08:11-0400 Respiratory rate 14 /min Dr. Arely Johnson Work Phone: [facility] Work Phone: 10-18-2021 08:11-0400 SaO2% (BldA) [Mass fraction] 98 % Dr. Arely Johnson Work Phone: [facility] Work Phone: 10-18-2021 08:11-0400 Systolic blood pressure 114 mm[Hg] Dr. Arely Johnson Work Phone: [facility] Work Phone: 08-29-2021 08:07-0400 Body height 172.[address] Arely Johnson Work Phone: [facility] Work Phone: 08-29-2021 08:07-0400 Body mass index (BMI) [Ratio] 24.1 kg/m2 Dr. Arely Johnson Work Phone: [facility] Work Phone: 08-29-2021 08:07-0400 Body temperature 98.3 [degF] Dr. Arely Johnson Work Phone: [facility] Work Phone: 08-29-2021 08:07-0400 Body weight 72.[address] Arely Johnson Work Phone: [facility] Work Phone: 08-29-2021 08:07-0400 Diastolic blood pressure 80 mm[Hg] Dr. Arely Johnson Work Phone: [facility] Work Phone: 08-29-2021 08:07-0400 Heart rate 82 /min Dr. Arely Johnson Work Phone: [facility] Work Phone: 08-29-2021 08:07-0400 Respiratory rate 18 /min Dr. Arely Johnson Work Phone: [facility] Work Phone: 08-29-2021 08:07-0400 SaO2% (BldA) [Mass fraction] 96 % Dr. Arely Johnson Work Phone: [facility] Work Phone: 08-29-2021 08:07-0400 Systolic blood pressure 118 mm[Hg] Dr. Arely Johnson Work Phone: [facility] Work Phone: 08-20-2021 15:33-0400 Body mass index (BMI) [Ratio] 24.5 kg/m2 Dr. Arely Johnson Work Phone: [facility] Work Phone: 08-20-2021 15:33-0400 Body weight 73.[address] Arely Johnson Work Phone: [facility] Work Phone: 08-20-2021 15:33-0400 Diastolic blood pressure 68 mm[Hg] Dr. Arely Johnson Work Phone: [facility] Work Phone: 08-20-2021 15:33-0400 Heart rate 64 /min Dr. Arely Johnson Work Phone: [facility] Work Phone: 08-20-2021 15:33-0400 Respiratory rate 16 /min Dr. Arely Johnson Work Phone: [facility] Work Phone: 08-20-2021 15:33-0400 Systolic blood pressure 110 mm[Hg] Dr. Arely Johnson Work Phone: [facility] Work Phone: 03-28-2021 08:58-0500 Body temperature 98.3 [degF] Dr. Arely Johnson Work Phone: [facility] Work Phone: 03-28-2021 08:58-0500 Body weight 71.[address] Arely Johnson Work Phone: [facility] Work Phone: 03-28-2021 08:58-0500 Diastolic blood pressure 74 mm[Hg] Dr. Arely Johnson Work Phone: [facility] Work Phone: 03-28-2021 08:58-0500 Heart rate 83 /min Dr. Arely Johnson Work Phone: [facility] Work Phone: 03-28-2021 08:58-0500 Respiratory rate 17 /min Dr. Arely Johnson Work Phone: [facility] Work Phone: 03-28-2021 08:58-0500 SaO2% (BldA) [Mass fraction] 97 % Dr. Arely Johnson Work Phone: [facility] Work Phone: 03-28-2021 08:58-0500 Systolic blood pressure 130 mm[Hg] Dr. Arely Johnson Work Phone: [facility] Work Phone: 02-10-2021 05:43-0500 Body temperature 97.5 [degF] Dr. Arely Johnson Work Phone: [facility] Work Phone: 02-10-2021 05:43-0500 Diastolic blood pressure 74 mm[Hg] Dr. Arely Johnson Work Phone: [facility] Work Phone: 02-10-2021 05:43-0500 Heart rate 85 /min Dr. Arely Johnson Work Phone: [facility] Work Phone: 02-10-2021 05:43-0500 Respiratory rate 16 /min Dr. Arely Johnson Work Phone: [facility] Work Phone: 02-10-2021 05:43-0500 SaO2% (BldA) [Mass fraction] 98 % Dr. Arely Johnson Work Phone: [facility] Work Phone: 02-10-2021 05:43-0500 Systolic blood pressure 122 mm[Hg] Dr. Arely Johnson Work Phone: [facility] Work Phone: Encounters Encounter Date Encounter Type Care Provider Facility Start: 05-24-2024 End: 05-24-2024 E-mail encounter from caregiver Buddy Satya MARTINS Work Phone: OB/Gynecology Start: 05-24-2024 End: 05-24-2024 Patient encounter procedure Buddy Hernadez APRN.CNP Work Phone: OB/Gynecology Comment on above: Encounter for gyneco logical examination (general) (routine) without abnormal findings (Primary Dx); Dense breasts; Vaginal dryness; Low libido; Vaginal odor Start: 05-24-2024 End: 05-24-2024 Patient encounter status Buddy Guadalupedeni AGUIARDIRECTOR CHILD ABUSE THERAPY Work Phone: [facility] Start: 05-24-2024 End: 05-24-2024 ambulatory Buddy Hernadez DIRECTOR CHILD ABUSE THERAPY Work Phone: OB/Gynecology Comment on above: Supplemental Breast [facility] Start: 05-24-2024 Encounter for gynecological examination (general) (routine) without abnormal findings BUDDY SATYA [facility] Start: 05-17-2024 End: 05-17-2024 ambulatory Arely Johnson Facility:[facility] Start: 05-11-2024 End: 05-11-[address] Arely Johnson MD Work Phone: [facility] Work Phone: Start: 05-11-2024 End: 05-11-2024 Patient encounter procedure Buddy PORTERC -Outpatient Breast Imaging Work Phone: Start: 05-11-2024 End: 05-11-2024 ambulatory Arely Johnson Facility:[facility] Start: 05-04-2024 End: 05-04-2024 Telephone encounter Buddy Hernadez APRN.DIRECTOR CHILD ABUSE THERAPY Work Phone: OB/Gynecology Start: 05-03-2024 End: 05-03-[address] Arely Johnson MD Work Phone: [facility] Work Phone: Start: 05-03-2024 End: 05-03-2024 Patient encounter procedure CHARLIE VALERO SHOTWELD OPERATORGauravC -Laboratory Work Phone: Start: 05-03-2024 End: 05-03-[facility] Start: 04-05-2024 End: 04-05-[address] Arely Johnson MD -[facility] Work Phone: Start: 04-05-2024 End: 04-05-2024 ambulatory Arely Johnson Facility:[facility] Start: 03-03-2024 End: 03-03-2024 Patient encounter procedure Victoriano SEO -Laboratory, Specimen Work Phone: Start: 03-03-2024 End: 03-03-2024 Patient encounter procedure Victoriano SEO [facility] Work Phone: Start: 03-03-2024 End: 03-03-2024 ambulatory Efewongbe Oleghe Facility:[facility] Start: 03-03-2024 End: 03-03-2024 ambulatory Efewongbe Olee Facility:[facility] Start: 02-08-2024 End: 02-08-[address] Randall Dorado DO -Laboratory, [place] Work Phone: Start: 02-08-2024 End: 02-08-2024 [facility] Start: 01-13-2024 End: 01-13-2024 Telephone encounter Kristina Burns MD Work Phone: Orthopaedics Comment on above: Letter Start: 12-27-2023 End: 12-27-2023 [facility] Start: 12-23-2023 End: 12-23-2023 [facility] Start: 12-03-2023 End: 12-03-2023 [facility] Start: 10-06-2023 End: 10-06-2023 [facility] Start: 08-27-2023 End: 08-27-2023 [facility] Start: 08-13-2023 End: 08-13-2023 [facility] Start: 07-30-2023 End: 07-30-2023 Patient encounter procedure Kristina Burns MD Work Phone: Orthopaedics Comment on above: Aftercare following left knee joint replacement surgery (Primary Dx) Start: 07-30-2023 End: 07-30-2023 ambulatory [facility] Facility:[facility] Start: 07-30-2023 End: 07-30-2023 Subsequent hospital visit by physician Radio Christianson [facility] Work Phone: Radiology Comment on above: Left knee pain, unsp ecified chronicity [M25.562] Start: 07-30-2023 End: 07-30-2023 ambulatory Arely Johnson Facility:[facility] Start: 07-02-2023 ambulatory Kristina bone MD Work Phone: Orthopaedics Comment on above: Left surgical knee r eplacement Start: 05-12-2023 End: 05-12-2023 Patient encounter procedure Candida Clark MD Work Phone: OB/Gynecology Comment on above: Encounter for gyneco logical examination (general) (routine) without abnormal findings (Primary Dx) Start: 05-12-2023 End: 05-12-2023 Patient encounter status Candida Clark MD Work Phone: [facility] Start: 05-10-2023 End: 05-10-[address] Arely Johnson Work Phone: [facility] Work Phone: Start: 05-10-2023 End: 05-10-[address] Arely Johnson Work Phone: [facility]-Outpatient Breast Imaging Work Phone: Start: 03-25-2023 End: 03-25-[address] Arely Johnson Work Phone: [facility] Internal Medicine Work Phone: Start: 03-19-2023 End: 03-19-[address] Arely Johnson Work Phone: [facility] Work Phone: Start: 03-19-2023 End: 03-19-[address] Arely Johnson Work Phone: [facility]-Laboratory, [facility] Start: 02-09-2023 Non-patient / Non-visit Dr. Leslie Johnson Work Phone: [facility] Work Phone: Start: 02-05-2023 Non-patient / Non-visit Dr. Leslie Johnson Work Phone: [facility] Start: 02-05-2023 End: 02-05-[address] Arely Johnson Work Phone: [facility] Work Phone: Start: 02-05-2023 End: 02-05-[address] Arely Johnson Work Phone: [facility]-Cardiovascula r Services Work Phone: Start: 01-26-2023 End: 01-26-[address] Arely Johnson Work Phone: [facility]-Physical Therapy Work Phone: Start: 01-26-[address] Sri Johnson Work Phone: [facility]-Physical Therapy Work Phone: Start: 01-15-[address] Sri Johnson Work Phone: [facility]-Physical Therapy Work Phone: Start: 01-13-2023 End: 01-13-[address] Arely Johnson Work Phone: [facility] Work Phone: Start: 01-13-2023 End: 01-13-[address] Arely Johnson Work Phone: [facility]-Laboratory, [facility] Start: 01-04-2023 End: 01-04-[address] Arely Johnson Work Phone: [facility] Work Phone: Start: 12-23-2022 End: 12-23-[address] Arely Johnson Work Phone: [facility] Work Phone: Start: 12-23-2022 End: 12-23-2022 Encounter for general adult medical examination without abnormal findings Dr. Arely Johnson Work Phone: [facility] Start: 12-23-2022 End: 12-23-[address] Arely Johnson Work Phone: [facility] Internal Medicine Work Phone: Start: 11-27-[address] Sri Johnson Work Phone: [facility]-Physical Therapy Work Phone: Start: 10-21-2022 End: 10-21-[address] Arely Johnson Work Phone: [facility] Internal Medicine Work Phone: Start: 10-19-2022 End: 10-19-2022 Patient encounter procedure Kristina Burns MD Work Phone: Orthopaedics Comment on above: S/P total knee arthr oplasty, left (Primary Dx) Start: 10-09-2022 ambulatory Candida joshi MD Work Phone: OB/Gynecology Comment on above: [facility] Start: 09-18-[address] Sri Johnson Work Phone: [facility]-Physical Therapy Work Phone: Start: 09-16-2022 End: 09-16-[address] Arely Johnson Work Phone: [facility] Work Phone: Start: 09-16-2022 End: 09-16-[address] Arely Johnson Work Phone: [facility] [place] Work Phone: Start: 09-04-2022 End: 09-04-[address] Arely Johnson Work Phone: [facility] [facility] Work Phone: Start: 08-12-2022 End: 08-12-2022 Home visit Tammy Humphrey PT Work Phone: [facility] Comment on above: PT AGENCY DC W VISIT Start: 08-07-2022 End: 08-07-2022 Patient encounter procedure Dada Solis PA-C Work Phone: Orthopaedics Comment on above: S/P total knee arthr oplasty, left (Primary Dx) Start: 08-07-2022 ambulatory DADA SOLIS Facility:[facility] Start: 08-07-2022 End: 08-07-2022 Subsequent hospital visit by physician [facility] Work Phone: Radiology Comment on above: Left knee pain, unsp ecified chronicity [M25.562] Start: 08-06-2022 End: 08-06-2022 Home visit Tammy Humphrey PT Work Phone: [facility] Comment on above: PT ROUTINE Start: 08-03-2022 Refill Kristina bone MD Work Phone: [address] Comment on above: Refill Request Start: 07-31-2022 End: 07-31-2022 Home visit Tammy Humphrey PT Work Phone: [facility] Comment on above: PT ROUTINE Start: 07-29-2022 End: 07-29-2022 Home visit Tammy Humphrey PT Work Phone: [facility] Comment on above: PT ROUTINE Start: 07-24-2022 Telephone encounter Soo WRIGHT S [facility] Comment on above: Home Care (Confirmat ion call) Start: 07-20-2022 Telephone encounter Kristina Burns MD Work Phone: [address] Comment on above: Patient Question Start: 07-13-2022 Telephone encounter Kristina Burns MD Work Phone: Orthopaedics Comment on above: Orders Start: 06-20-2022 End: 06-20-2022 Patient encounter [facility] Start: 06-20-2022 End: 06-20-2022 Subsequent hospital visit by physician [facility] Radiology Comment on above: Preoperative testing [Z01.818] Start: 06-08-2022 Patient encounter status Pari Burns MD Work Phone: Orthopaedics Start: 06-08-2022 Telephone encounter Kristina Burns MD Work Phone: Orthopaedics Comment on above: Appointment Start: 06-03-2022 Telephone encounter Kristina Burns MD Work Phone: [address] Comment on above: Orders Start: 05-26-2022 End: 05-27-2022 ambulatory RANDALL DORADO DO Facility:B Start: 05-26-2022 End: 05-26-2022 Patient encounter procedure RANDALL DORADO DO [facility] Start: 05-21-2022 End: 05-21-[address] Arely Johnson Work Phone: [facility] Internal Medicine Start: 05-19-2022 End: 05-19-[address] Arely Johnson Work Phone: [facility] Work Phone: Start: 05-19-2022 End: 05-19-[address] Arely Johnson Work Phone: [facility]-Laboratory Start: 05-13-2022 Telephone encounter Kristina Burns MD Work Phone: [address] Comment on above: Pre-Op Teaching Start: 05-05-2022 End: 05-05-2022 ambulatory [facility] Work Phone: Start: 05-05-2022 End: 05-05-2022 Patient encounter procedure [facility]-Outpatient Breast Imaging Start: 04-18-2022 ambulatory Kristina bone MD Work Phone: Orthopaedics Comment on above: Allergy Testing Start: 03-23-2022 Telephone encounter Kristina Burns MD Work Phone: Orthopaedics Comment on above: Patient Question Start: 03-18-2022 End: 03-18-2022 Patient encounter procedure Kristina Burns MD Work Phone: Orthopaedics Comment on above: Primary osteoarthrit is of left knee (Primary Dx) Start: 03-18-2022 End: 03-18-2022 Subsequent hospital visit by physician Radio Christianson [facility] Work Phone: Radiology Comment on above: Pain [R52] Start: 11-13-2021 End: 11-14-2021 ambulatory RANDALL DORADO DO Facility:[facility] Start: 11-13-2021 End: 11-13-2021 Patient encounter procedure RANDALL DORADO DO [facility] Start: 10-31-2021 End: 10-31-[address] Arely Johnson Work Phone: [facility] Work Phone: Start: 10-31-2021 End: 10-31-[address] Arely Johnson Work Phone: [facility] Start: 10-18-2021 End: 10-18-[address] Arely Johnson Work Phone: [facility] Start: 09-05-2021 End: 09-06-20[facility] Start: 09-04-2021 Non-patient / Non-visit Dr. Leslie Johnson Work Phone: [facility] Start: 09-03-2021 End: 09-03-[address] Arely Johnson Work Phone: [facility]-Laboratory, Specimen Start: 08-29-2021 End: 08-29-[address] Arely Johnson Work Phone: [facility]-Laboratory, Specimen Start: 08-29-2021 End: 08-29-[address] Arely Johnson Work Phone: [facility] Internal Medicine Start: 08-20-2021 End: 08-20-[address] Arely Johnson Work Phone: [facility] Start: 04-25-2021 End: 04-25-[address] Arely Johnson Work Phone: [facility]-Physical Therapy Start: 04-25-[address] Sri Johnson Work Phone: [facility]-Physical Therapy Start: 04-24-2021 End: 04-24-[address] Arely Johnson Work Phone: [facility]-Outpatient Breast Imaging Start: 03-28-2021 End: 03-28-[address] Arely Johnson Work Phone: [facility]-Radiology, [place] Start: 02-10-2021 End: 02-10-[address] Arely Johnson Work Phone: [facility] Start: 12-20-[address] Roberto Johnson Work Phone: [facility] Procedures Date Procedure Procedure Detail Performing Clinician Start: 05-11-2024 Screening mammography Rajeev Johnson MD Work Phone: Start: 03-03-[address] Sri Johnson MD Work Phone: Start: 07-30-2023 Radiologic examinati on knee 3 views Kristina Burns MD Work Phone: Start: 05-10-2023 Screening mammography Rajeev Johnson Work Phone: Start: 09-16-2022 Plain x-ray for bone length measurement Dr. Arely Johnson Work Phone: Start: 08-07-2022 Radiologic examinati on knee 3 views Dada Solis PA-C Work Phone: Start: 05-05-2022 Screening mammography Start: 03-18-2022 Radiologic exam knee complete 4/more views Dada Solis PA-C Work Phone: Start: 10-31-2021 Plain x-ray for bone length measurement Dr. Arely Johnson Work Phone: Start: 04-24-2021 End: 04-24-[address] Arely miles Work Phone: Start: 03-28-2021 Radiography of thora cic spine Dr. Arely Johnson Work Phone: Start: 03-28-2021 X-ray of cervical spine Dr. Arely Johnson Work Phone: Clostridium difficil e detection Dr. Arely Johnson Work Phone: Enteric Bacteriology Dr. Abhijeet Johnson Work Phone: Lactoferrin measurement Dr. Arely Johnson Work Phone: Measurement of occul t blood in stool specimen using immunoassay Dr. Arely Johnson Work Phone: Plan of Treatment Date Care Activity Detail Author Start: 07-24-2025 DIABETES SCREEN DIABETES SCREEN [facility] Start: 07-24-2025 Diabetes Screening Diabetes Screenin g [facility] Start: 07-10-2025 DIABETES SCREEN DIABETES SCREEN [facility] Start: 05-25-2025 End: 05-25-2025 Patient encounter procedure 05/25/2025 7:15 AM EDT Office Visit OB/Gynecology [address] [place], [place] [id number] Buddy Hernadez, INEZ.DIRECTOR CHILD ABUSE THERAPY [address] [place], [place] [id number] ANNUAL OB/Gynecology Comment on above: ANNUAL Start: 05-11-2025 Screening for malign ant neoplasm of breast Mammogram Screening [facility] Start: 07-26-2024 End: 07-26-2024 Patient encounter procedure 07/26/2024 3:15 PM EDT Office Visit Orthopaedics [address] [phone] Kristina Burns MD [address] [phone] consult for left knee had TKR in 2022 feels like strain inside of knee patient fell in February Orthopaedics Comment on above: consult for left kne e had TKR in 2022 feels like strain inside of knee patient fell in February Start: 06-06-2024 End: 06-06-2024 Patient encounter procedure 06/06/2024 8:00 AM EDT Appointment [facility] [address] [place], [place] [id number] Dense breasts [R92.30] [facility] Comment on above: Dense breasts [R92.3 0] Start: 05-24-2024 End: 05-24-2024 Patient encounter procedure 05/24/2024 7:15 AM EDT Office Visit OB/Gynecology [address] [place] [phone] HaBuddy cheema APRN.DIRECTOR CHILD ABUSE THERAPY [address] [place] [place] [address] annual exam OB/Gynecology Comment on above: annual exam Start: 05-16-2024 End: 05-16-2024 Patient encounter procedure 05/16/2024 4:00 PM EDT Office Visit OB/Gynecology [address] [place], [place] [phone] Canidda Clark MD [address] [place] [address] annual exam OB/Gynecology Comment on above: annual exam Start: 10-10-2023 Covid-19 Vaccine () Covid-19 Vaccine () [facility] Start: 10-10-2023 Covid-19 Vaccine () Covid-19 Vaccine () [facility] Start: 10-10-2023 Influenza vaccination [facility] Start: 07-30-2023 End: 07-30-2023 Patient encounter procedure 07/30/2023 3:30 PM EDT Office Visit Orthopaedics [address] [phone] Kristina Burns MD [address] [phone] 6 month follow up Orthopaedics Comment on above: 6 month follow up Start: 02-08-2023 Behavioral Health Screening Behavioral Health Screening [facility] Start: 10-09-2022 Covid-19 Vaccine () Covid-19 Vaccine () [facility] Start: 10-09-2022 Influenza vaccination [facility] Start: 05-19-2022 Procedure [facility] Start: 04-24-2022 Mammography [facility] Start: 04-24-2022 Screening for malign ant neoplasm of breast Mammogram Screening [facility] Start: 02-08-2022 DEPRESSION ASSESSMENT DEPRESSION ASS ESSMENT [facility] Start: 09-04-2021 Patient referral [facility] Work Phone: Start: 03-28-2021 Patient referral [facility] Work Phone: Start: 11-09-2019 Pneumococcal Vaccine : 50+ (1 of 1 - PCV) Pneumococcal Vaccine: 50+ (1 of 1 - PCV) [facility] Start: 11-09-2019 SHINGRIX VACCINE (1 of 2) SHINGRIX VACCINE (1 of 2) [facility] Start: 11-22-2018 Urine microalbumin profile [facility] Start: 2014 COLOGUARD (FIT-DNA) COLOGUARD (FIT-D NA) [facility] Start: 2014 Colonoscopy COLONOSCOPY [facility] Start: 2014 COLORECTAL CANCER SCREENING COLORECTAL CANCER SCREENING [facility] Start: [address] COLONOGRAPHY [facility] Start: 2014 DIABETES SCREEN DIABETES SCREEN [facility] Start: 2014 FECAL OCCULT BLOOD FECAL OCCULT BLOO D [facility] Start: 2014 Lipid 1996 panel - Serum or Plasma Lipid Screening [facility] Start: 2014 Lipid panel Lipid Screening [facility] Start: 2014 LIPID SCREEN LIPID SCREEN [facility] Start: 2014 Screening for malign ant neoplasm of colon [facility] Start: 2014 SIGMOIDOSCOPY SIGMOIDOSCOPY [facility] Start: 2009 Mammography MAMMOGRAM [facility] Start: 11-09-1999 HPV TESTING HPV TESTING [facility] Start: 1990 PAP TESTING PAP TESTING [facility] Start: 1988 Hepatitis B Vaccine (1 of 3 - 19+ 3-dose series) Hepatitis B Vaccine (1 of 3 - 19+ 3-dose series) [facility] Start: 11-09-1987 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 VISIT ANNUAL PCP TEAM CHRONIC DISEASE VISIT [facility] Start: 11-09-1987 Anxiety Screening Anxiety Screening [facility] Start: 11-09-1987 Depression Screening Depression Scre ening [facility] Start: 11-09-1987 HEPATITIS C SCREENING HEPATITIS C [facility] Start: 11-09-1987 Hepatitis C screening Hepatitis C [facility] Start: 11-09-1987 HIV SCREENING HIV SCREENING [facility] Start: 11-09-1987 HIV screening HIV Screening [facility] Start: 1969 HEPATITIS B (1 of 3 - 3-dose series) HEPATITIS B (1 of 3 - 3-dose series) [facility] Start: 1969 Hepatitis B Vaccine (1 of 3 - 3-dose series) Hepatitis B Vaccine (1 of 3 - 3-dose series) [facility] BACTERIAL VAGINOSIS NAAT BACTERIAL VAGINOSIS NAAT Lab Routine Vaginal odor 05/24/2024 8:00 AM EDT [facility] ILEANA/TRICHOMONAS NAAT ILEANA/TRICHOMONAS NAAT Lab Routine Vaginal odor 05/24/2024 8:00 AM EDT [facility] End: 06-20-2022 CT KNEE WO IVCON LEFT [facility] Work Phone: Comment on above: 1 Occurrences starti ng 06/20/2022 until 06/20/2022 Patient Education ED Mary Kay Booker (Adult) [facility] Work Phone: Patient referral [facility] Work Phone: End: 06-23-2025 US Breast - bilateral US BREAST COMPLETE BILATERAL Radiology Routine Dense breasts 1 Occurrences starting 05/24/2024 until 06/23/2025 [facility] Work Phone: Comment on above: 1 Occurrences starti ng 05/24/2024 until 06/23/[address] [facility] Immunizations Immunization Date Immunization Notes Care Provider Mirna marquez 12-22-2021 influenza, injectabl e, quadrivalent, preservative free Dr. Arely Johnson Work Phone: [facility] 12-22-2021 influenza, seasonal, injectable [facility] 12-22-2021 influenza virus vaccine, unspecified formulation Kristina Burns MD Work Phone: [facility] 12-22-2019 influenza, injectable,quadrivalent , preservative free, pediatric Dr. Arely Johnson Work Phone: [facility] 12-22-2019 Flucelvax Quad (PF) (flu vac qs 2020(4 yr up)CD(PF)) 60 mcg ([address] Arely Johnson Work Phone: [facility] Work Phone: 11-22-2018 Flucelvax Quad (PF) (flu vac qs 2019(4 yr up)CD(PF)) 60 mcg ([address] Arely Johnson Work Phone: [facility] Work Phone: 11-21-2018 tetanus and diphther ia toxoids, not adsorbed, for adult use Kristina Burns MD Work Phone: [facility] 11-21-2018 tetanus toxoid, redu cristy diphtheria toxoid, and acellular pertussis vaccine, adsorbed Dr. Arely Johnson Work Phone: [facility] Payers Date Payer Category Payer Self-pay [id number] 2019 Unknown [id number] 2018 Private Health Insurance [id number] 2018 Unknown [id number] 2018 Unknown [id number] 1970 Unknown [id number] 2.16.8 [id number] Unknown [id number] 2.16.8 [id number] Unknown [id number] 2.16.8 [id number] Unknown [id number] 2.16.8 [id number] Unknown [id number] 2.16.8 [id number] Unknown [id number] 2.16.8 [id number] Unknown [id number] 2.16.8 [id number] Unknown [id number] 2.16.8 [id number] Unknown [id number] 2.16.8 [id number] Unknown [id number] 2.16.8 40.1.411935.3.579.2.462 Unknown [id number] 2.16.8 40.1.697900.3.579.2.462 Unknown [id number] 2.16.8 [id number] Unknown [id number] 2.16.8 [id number] Unknown [id number] 2.16.8 [id number] Unknown [id number] 2.16.8 [id number] Unknown [id number] 2.16.8 [id number] Unknown [id number] 2.16.8 [id number] Social History Date Type Detail Facility Start: 03-28-2021 End: 03-25-2023 Tobacco smoking status VTIS Unknown if ever smoked [facility] Start: 11-21-2018 Spouse/ Signif icant Other [facility] Start: 01-25-2020 Non-smoker [facility] Start: 1970 Sex Assigned At Female A [facility] Tobacco smoking status No Smoking Status Entered [facility] Ousmane Gabino Start: 09-16-2021 End: 03-03-2024 Tobacco smoking status NHIS Never smoked tobacco [facility] Start: 09-16-2021 Tobacco use and exposure Smokeless tobacco non-user [facility] Start: 03-18-2022 End: 05-24-2024 Alcohol intake Current drinker of alcohol (finding) [facility] Start: 1970 Sex Assigned At Not on file [facility] Start: 07-10-2022 End: 10-09-2022 History of Social function [facility] Start: 07-10-2022 End: 10-09-2022 Tobacco use panel [facility] National Score (1-100), lower number is lower risk 58 [facility] Start: 05-07-2024 End: 05-17-2024 Sex Female (finding) [facility] Medical Equipment Procedure Code Equipment Code Equipment Origin al Text Equipment Identifier Dates Robot-assisted total abdominal hysterectomy with bilateral salpingo-oophorectomy (HERRERA SEALANT,FLOSEAL HEMOSTATIC 5ML FDA Start: 01-17-2018 Robot-assisted total abdominal hysterectomy with bilateral salpingo-oophorectomy ([place]ERA SEALANT,FLOSEAL HEMOSTATIC 5ML FDA Start: 01-17-2018 Robot-assisted total abdominal hysterectomy with bilateral salpingo-oophorectomy ([place]ERA SEALANT,FLOSEAL HEMOSTATIC 5ML FDA Start: 01-17-2018 Robot-assisted total abdominal hysterectomy with bilateral salpingo-oophorectomy ([place]ERA SEALANT,FLOSEAL HEMOSTATIC 5ML FDA Start: 01-17-2018 Robot-assisted total abdominal hysterectomy with bilateral salpingo-oophorectomy ([place]ERA SEALANT,FLOSEAL HEMOSTATIC 5ML FDA Start: 01-17-2018 Robot-assisted total abdominal hysterectomy with bilateral salpingo-oophorectomy ([place]ERA SEALANT,FLOSEAL HEMOSTATIC 5ML FDA Start: 01-17-2018 Robot-assisted total abdominal hysterectomy with bilateral salpingo-oophorectomy ([place]ERA SEALANT,FLOSEAL HEMOSTATIC 5ML FDA Start: 01-17-2018 Robot-assisted total abdominal hysterectomy with bilateral salpingo-oophorectomy ([place]ERA SEALANT,FLOSEAL HEMOSTATIC 5ML FDA Start: 01-17-2018 Robot-assisted total abdominal hysterectomy with bilateral salpingo-oophorectomy ([place]ERA SEALANT,FLOSEAL HEMOSTATIC 5ML FDA Start: 01-17-2018 Robot-assisted total abdominal hysterectomy with bilateral salpingo-oophorectomy ([place]ERA SEALANT,FLOSEAL HEMOSTATIC 5ML FDA Start: 01-17-2018 Robot-assisted total abdominal hysterectomy with bilateral salpingo-oophorectomy ([place]ERA SEALANT,FLOSEAL HEMOSTATIC 5ML FDA Start: 01-17-2018 Robot-assisted total abdominal hysterectomy with bilateral salpingo-oophorectomy ([place]ERA SEALANT,FLOSEAL HEMOSTATIC 5ML FDA Start: 01-17-2018 Robot-assisted total abdominal hysterectomy with bilateral salpingo-oophorectomy ([place]ERA SEALANT,FLOSEAL HEMOSTATIC 5ML FDA Start: 01-17-2018 Robot-assisted total abdominal hysterectomy with bilateral salpingo-oophorectomy ([place]ERA SEALANT,FLOSEAL HEMOSTATIC 5ML FDA Start: 01-17-2018 Cement Simplex Gentamicin Bone High Viscosity 20ml Sterile 40gm - [id number] Start: 07-23-2022 Insert Triathlon 2 11mm Tibial Bearing Posterior Stabilize Sterile Knee [id number] Start: 07-23-2022 Stem Triathlon 12mm Cocr 50mm Femoral Cemented Total Stabilized Knee - [id number] Start: 07-23-2022 Component Triathlon 32mm 10mm Patellar Asymmetric Knee - [id number] Start: 07-23-2022 Component Triathlon 3 Femoral Cemented Posterior Stabilize Knee Left - [id number] Start: 07-23-2022 Baseplate Triathlon 2 [place] Cocr Tibial Total Stabilize Cemented Knee - [id number] Start: 07-23-2022 Goals Date Patient Goal Desired Activity /State Functional Status Date Assessment Result Facility 07-24-2022 Are you deaf, or do you have serious difficulty hearing 07/24/2022 3:05 PM Syed Paulson RN No [facility] 07-24-2022 Are you blind, or do you have serious difficulty seeing, even when wearing glasses No 07/24/2022 3:05 PM JUANCHOT Syed Wolf RN No [facility] 07-24-2022 Do you have serious difficulty walking or climbing stairs Yes 07/24/2022 3:05 PM JUANCHOT Syed Wolf RN Yes [facility] 07-24-2022 Do you have difficul ty dressing or bathing No 07/24/2022 3:05 PM EDT Syed Wolf RN No [facility] 07-24-2022 Because of a physica l, mental, or emotional condition, do you have difficulty doing errands alone such as visiting a physician's office or shopping No 07/24/2022 3:05 PM JUANCHOT Seyd Wolf RN No [facility] Mental Status Date Assessment Result Facility 07-24-2022 Because of a physica l, mental, or emotional condition, do you have serious difficulty concentrating, remembering, or making decisions No 07/24/2022 3:05 PM EDT Syed Wolf RN No [facility] Clinical Notes 03-18-2022 to 05-24-2024 Patient InstructionsBuddy Hernadez APRN.[facility] - 05/24/2024 7:18 AM EDTTelephone Encounter - Emi Melgar LPN - 05/04/2024 4:41 PM EDT Note Date & Type Note Facility 05-24-2024 Instructions Buddy Hernadez APRN.CNP - 05/24/2024 7:51 AM EDT Lubricants and moisturizers list The pwow-lbb-ztztjtc vaginal moisturizer and lubricant products can be confusing to sort through, especially since there are no FDA requirements for how they can be marketed or labeled. In general there are 3 categories of products: Vaginal lubricants should be used at the time of intercourse to decrease friction. Long acting vaginal moisturizers are used at least twice weekly to increase vaginal (internal) lubrication and elasticity. Vulvar moisturizers are for external use for vulvar comfort and do not impact vaginal lubrication or elasticity. Vaseline petroleum products and oils (baby oil, coconut, olive oil,) can make condoms break, so should not be used with condoms. In many women, these can cause infections. However, if you have sore spots on the vulva (outer lips), then petroleum jelly can sometimes be helpful. All of the products listed below are over the counter. Many can be bought in any drugstore or online. Also, many [employer] stores do carry high-quality lubricant products. VAGINAL LUBRICANTS: (For use during sexual activity) Lubricants should be applied to the outside and opening of the vagina at the time of sexual activity. The lubricant can also be applied to the penis or a device. Silicone based lubricants should not be used on silicone vibrators or toys. Both silicone and water based lubricants are condom compatible. If you use a water based lubricant, it is also important to choose a lubricant with low osmolality since lubricants with high osmolality increase the chance of irritation and infection. Osmolality information can be hard to find. All of the following lubricants have a low osmolality, are pH balanced, and are preservative free. WATER BASED LUBRICANTS Good Clean Love (made of organic ingredients) Pulse H2Oh! Sylk Natural System Mary PreSeed (Does not impact sperm motility and can be used if trying to conceive, also good for those with multiple sensitivities, though may not work as well) SILICONE BASED LUBRICANTS Uber lube Replens Silky Smooth Pulse Aloe-ahh Wet [place] MARY Premium Personal Lubricant PINK Silicone Lubricant SLIQUID Organics silk Pulse is a hands free personal lubricant warming dispenser and is sold with water or silicone based lubricant pods that some women prefer for travel. LONG ACTING VAGINAL MOISTURIZERS: (For regular use inside vagina to maintain moisture) Long acting vaginal moisturizers should be used at least twice weekly on a regular basis. Many women find they need to use a moisturizer 3-5 times/week. In addition, it is important to not only apply the moisturizer inside the vagina, but also to apply to the vestibule (the external area surrounding the opening of the vagina). Women who are not sexually active often find that the regular use of a long acting vaginal moisturizer makes them feel more comfortable. Seal Skinner beware: many lubricants are labeled as moisturizers to make them more appealing to consumers (even though they don t function as a true moisturizer). Replens Long Acting Vaginal Moisturizer (Available in all drugstores) HyaloGyn Vaginal Hydrating Gel (hybrid moisturizer, but can function as lubricant too) Revaree (hyaluronic acid) VULVAR MOISTURIZERS: (For external use) Replens Moisture Restore Comfort Gel is to be used externally for dry vulvar skin. Aquaphor can also be applied externally for comfort. [place] Aloe [place]: Many people are allergic to aloe, so keep this in mind with products like this that have aloe in it. Medicine Mama s V magic: Not much medical studies on this, but many patients swear by it, has oil, beeswax and honey in it- best used externally only. Calcium and Vitamin D Supplementation (from the National Institutes of Health Office of Dietary Supplements 2011) Calcium is required by the body for blood vessel, muscle, hormone and nerve functioning. Most of the body's calcium is stored in the bones and teeth where it supports structure and function. Bone is continuously broken down and reformed. When bone breakdown exceeds formation, especially in postmenopausal women, bone loss can increase the risk of osteoporosis and fractures. In addition to low calcium intake, women who smoke, have a family history of osteoporosis, are thin, or , or who take certain medications such as cancer chemotherapy, seizure mediations and steroids are at increased risk of osteoporosis. The calcium requirements in women change with age. The National Institutes of Health (NIH) recommends: 1000mg elemental calcium for premenopausal women age 19-50 1200mg elemental calcium for postmenopausal women and all women over 50 Milk, yogurt, and cheese are rich natural sources of calcium and are the major food contributors in the [place]. For example, 8oz of milk (whole, lowfat or skim) contains about 300mg calcium, 8oz of yogurt contains 415mg. Nondairy sources include salmon and sardines and vegetables, such as [place] cabbage, kale, and broccoli. Foods fortified with calcium include many fruit juices, tofu and cereals. For more food calcium content information, visit http://ods.od.nih.gov/factsheet s/calcium. Calcium supplements come in several different forms. Remember that the recommendations are for millgrams (mg) of elemental calcium which may be less than the total weight of the supplement. The amount of elemental calcium is required to be printed on the label. Calcium carbonate is the least expensive form. It must be taken on a full stomach to be properly absorbed. Some patients may experience gas or constipation. Calcium phosphate and calcium citrate may be taken either with or without food and tend to have less side effects but are generally more expensive. Because of its ability to neutralize stomach acid, calcium carbonate is found in some pmfc-tch-ahbmezc antacid products, such as Tums and Rolaids . Depending on its strength, each chewable pill or softchew provides 200 to 400 mg of elemental calcium. The percentage of calcium absorbed depends on the total amount of elemental calcium consumed at one time. Absorption is highest in doses <500mg. So a woman who takes 1,000mg/day of calcium from supplements should split the dose and take 500mg at two separate times during the day. Too much calcium can cause kidney stones, constipation, difficulty absorbing other nutrients and calcium buildup in blood vessels. Women under 50 should not exceed 2500mg/day (2000mg/day for women over 50) of calcium from food and supplements. Excessive alcohol and caffeine intake can inhibit absorption of calcium. Calcium can reduce the absorption of some medications if taken at the same time of day (bisphosphonates, thyroid medication, Phenytoin and other seizure medications, some antibiotics and iron supplements). Vitamin D promotes calcium absorption in the gut and maintains adequate blood levels of calcium and phosphate for normal bone growth and bone remodeling. Vitamin D also helps regulate cell growth as well as nerve, muscle and immune system function. Vitamin D is produced in the skin as a result of ultraviolet sunlight rays and must be altered in the liver and kidney to become its active form. Recommended intake according to the National Institutes of Health is 600 International Units (IU) for girls and women ages 1-70 and 800 IU for women over 70. Very few foods in nature contain vitamin D. The flesh of fatty fish (such as salmon, tuna, and mackerel) and fish liver oils are among the best sources. Small amounts of vitamin D are found in beef liver, cheese, mushrooms and egg yolks. Most people meet at least some of their vitamin D needs through exposure to sunlight. Season, time of day, length of day, cloud cover, smog, skin melanin content, and sunscreen are among the factors that affect UV radiation exposure and vitamin D synthesis. Despite the importance of the sun for vitamin D synthesis, it is prudent to limit exposure of skin to sunlight and avoid tanning beds. UV radiation is a carcinogen responsible for most of the estimated 1.5 million skin cancers that occur annually in the [place]. Lifetime cumulative UV damage to skin is also responsible for some age-associated dryness and other cosmetic changes. In supplements and fortified foods, vitamin D is available in two forms, D2 (ergocalciferol) and D3 (cholecalciferol). The two are equivalent at normal supplement doses. For women who require high supplement doses because of vitamin D deficiency, D3 may work better to raise blood levels. Some medications can prevent proper absorption of Vitamin D. These include laxatives, corticosteroids like prednisone, the seizure drugs phenobarbital and phenytoin, the weight-loss drug orlistat ( Xenical and AlliTM) and the cholesterol-lowering drug cholestyramine (Questran , LoCholest , and Prevalite ). Talk to your doctor about adjusting your recommended daily vitamin D dosage if you take these medications. You should not exceed 4000 mg of vitamin D supplementation daily unless specifically prescribed by your doctor. documented in this encounter [facility] 05-24-2024 Note HNO ID: [id number] Author: BUDDY HERNADEZ APRN.CNP Service: ? Author Type: Nurse Practitioner Type: Progress Notes Filed: 05/24/2024 11:03 Note Text: Chavez is a 53 year old who presents for an annual gynecologic exam with complaints: vaginal odor, hip pain, decreased libido, and vaginal dryness. Postmenopausal: Yes HRT use: No. Menses: hysterectomy Sexually active: No Contraception: hysterectomy History of abnormal pap: No Colposcopy: No. Leep: No. Cone biopsy: No. Bothersome pelvic pain: No Last mammogram: 2024 normal [facility] History of abnormal mammogram: No OB History Gravida0 Para0 Term0 Preterm0 AB0 Living0 SAB0 IAB0 Ectopic0 Multiple0 Live Births0 FAMILY HISTORY Problem Relation Age of Onset [...] Never Smokeless tobacco: Never Vaping Use Vaping status: Never Used Substance Use Topics Alcohol use: Yes Comment: VERY RARELY Drug use: Never REVIEW OF SYSTEMS Abdomen: No abdominal pain, nausea, vomiting, diarrhea, or constipation. No bloating, early satiety, indigestion, or increased flatulence. Bladder: No dysuria, gross hematuria, urinary frequency, urinary urgency, or incontinence Breast: No breast lumps, nipple d/c, overlying skin changes, redness or skin retraction Allergies and current medication updated:Yes SENSITIVE EXAM: The sensitive examination was discussed with the Patient or Patient's Authorized Urologic Nurse. As applicable, any other physician, advance practice provider, medical student, or other health professional student that will be observing or involved in the sensitive examination for educational or training purposes was discussed with the Patient or Authorized Urologic Nurse. The Patient or Authorized Urologic Nurse has agreed to proceed with the sensitive examination. (Sensitive examination includes inspection and/or palpation of the breasts, pelvis, prostate and anorectal regions). EXAM: BP 114/76 Ht 5' 8 (1.73m) Wt 177 lb (80.3kg) BMI 26.92 kg/(m2). GENERAL: pleasant, female in no apparent [...] non-tender, and no masses PELVIC: external genitalia atrophic, normal Bartholin's glands, urethra, [place]'s glands, + <0.5 cm inclusion cyst noted to inferior left labia majora, cervix surgically absent, vaginal cuff atrophic, good vaginal support, + thin yellow discharge, normal appearing perineal body and perianal region BIMANUAL: no adnexal masses, non-tender, and uterus surgically absent RECTOVAGINAL: deferred. NEURO: alert and oriented x3,exam grossly non-focal EXTREMITIES: normal ASSESSMENT/PLAN: 1) Health maintenance: Pap/HPV screening no longer needed Mammogram up to date Nutrition, exercise and routine health maintenance exams reviewed. Calcium/Vitamin D supplementation information provided. Colon cancer screening: UTD at age 50 TSH/lipids/glucose: followed by PCP 2) Follow up one year or sooner as needed Dense breasts - ICD9: 793.82, ICD10: R92.30 - Opts for supplemental screening - US BREAST COMPLETE BILATERAL Vaginal dryness - ICD9: 625.8, ICD10: N89.8 - Lubricant and moisturizer list provided - Atrophy noted - Briefly discussed vaginal estrogen cream Low libido - ICD9: 799.81, ICD10: R68.82 - Currently taking antidepressants - reviewed possible side effects - Reviewed sex therapy option virtually Vaginal odor - ICD9: 625.8, ICD10: N89.8 - ILEANA/TRICHOMONAS NAAT - BACTERIAL VAGINOSIS NAAT Buddy Hernadez, INEZ.[facility] 05-24-2024 History of Presen t illness Narrative Chavez is a 53 year old who presents for an annual gynecologic exam with complaints: vaginal odor, hip pain, decreased libido, and vaginal dryness. Postmenopausal: Yes HRT use: No. Menses: hysterectomy Sexually active: No Contraception: hysterectomy History of abnormal pap: No Colposcopy: No. Leep: No. Cone biopsy: No. Bothersome pelvic pain: No Last mammogram: 2024 normal [facility] History of abnormal mammogram: No OB History Gravida0 Para0 Term0 Preterm0 AB0 Living0 SAB0 IAB0 Ectopic0 Multiple0 Live Births0 FAMILY HISTORY Problem Relation Age of Onset [...] Never Smokeless tobacco: Never Vaping Use Vaping status: Never Used Substance Use Topics Alcohol use: Yes Comment: VERY RARELY Drug use: Never REVIEW OF SYSTEMS Abdomen: No abdominal pain, nausea, vomiting, diarrhea, or constipation. No bloating, early satiety, indigestion, or increased flatulence. Bladder: No dysuria, gross hematuria, urinary frequency, urinary urgency, or incontinence Breast: No breast lumps, nipple d/c, overlying skin changes, redness or skin retraction Allergies and current medication updated:Yes SENSITIVE EXAM: The sensitive examination was discussed with the Patient or Patient's Authorized Urologic Nurse. As applicable, any other physician, advance practice provider, medical student, or other health professional student that will be observing or involved in the sensitive examination for educational or training purposes was discussed with the Patient or Authorized Urologic Nurse. The Patient or Authorized Urologic Nurse has agreed to proceed with the sensitive examination. (Sensitive examination includes inspection and/or palpation of the breasts, pelvis, prostate and anorectal regions). EXAM: BP 114/76 Ht 5' 8 (1.73m) Wt 177 lb (80.3kg) BMI 26.92 kg/(m^2). GENERAL: pleasant, female in no apparent [...] non-tender, and no masses PELVIC: external genitalia atrophic, normal Bartholin's glands, urethra, [place]'s glands, + <0.5 cm inclusion cyst noted to inferior left labia majora, cervix surgically absent, vaginal cuff atrophic, good vaginal support, + thin yellow discharge, normal appearing perineal body and perianal region BIMANUAL: no adnexal masses, non-tender, and uterus surgically absent RECTOVAGINAL: deferred. NEURO: alert and oriented x3,exam grossly non-focal EXTREMITIES: normal ASSESSMENT/PLAN: 1) Health maintenance: Pap/HPV screening no longer needed Mammogram up to date Nutrition, exercise and routine health maintenance exams reviewed. Calcium/Vitamin D supplementation information provided. Colon cancer screening: UTD at age 50 TSH/lipids/glucose: followed by PCP 2) Follow up one year or sooner as needed Dense breasts - ICD9: 793.82, ICD10: R92.30 - Opts for supplemental screening - US BREAST COMPLETE BILATERAL Vaginal dryness - ICD9: 625.8, ICD10: N89.8 - Lubricant and moisturizer list provided - Atrophy noted - Briefly discussed vaginal estrogen cream Low libido - ICD9: 799.81, ICD10: R68.82 - Currently taking antidepressants - reviewed possible side effects - Reviewed sex therapy option virtually Vaginal odor - ICD9: 625.8, ICD10: N89.8 - ILEANA/TRICHOMONAS NAAT - BACTERIAL VAGINOSIS NAAT Buddy Hernadez APRN.DIRECTOR CHILD ABUSE THERAPY documented in this encounter [facility] 05-04-2024 Telephone encounter Note Order faxed [facility] 05-04-2024 Miscellaneous Notes Order faxed Patient has yearly exam scheduled 05/24/2024. Called requesting order for mammogram that is scheduled at [facility] . documented in this encounter [facility] 05-04-2024 Telephone encounter Note Patient has yearly exam scheduled 05/24/2024. Called requesting order for mammogram that is scheduled at [facility] . [facility] 03-03-2024 Evaluation note Diagnosis Onset Date Resolution Cystitis acute March 03, 2024 6:03am Anxiety and depression chronic Fe bruary 2024 5:26pm Chronic pain chronic March 5:26pm Hypothyroidism chronic March 122024 5:26pm Overweight (BMI 25.0-29.9) chronic April 05, 5:26pm [facility] Work Phone: [phone] Telephone encounter Note* Telephone Encounter - Lashae Messer - 01/13/2024 2:31 PM EST I spoke to the patient. She would like a card mailed to her and a letter to [employer] as a back up. Will order card and send letter to [employer]. [facility]12-05-2024 Miscellaneous Notes* Telephone Encounter - Lashae Messer - 01/13/2024 2:31 PM EST I spoke to the patient. She would like a card mailed to her and a letter to [employer] as a back up. Will order card and send letter to [employer]. * Telephone Encounter - Ewelina Jacobs RN - 01/13/2024 9:07 AM EST Patient calling She is asking for a letter to show [employer] about her knee replacement as she has a few trips and a cruise coming up documented [facility] Telephone encounter Note * Telephone Encounter - Ewelina Jacobs RN - 01/13/2024 9:07 AM EST Patient calling She is asking for a letter to show [employer] about her knee replacement as she has a few trips and a cruise coming up [facility]07-19-2024 NoteHNO ID: [id number] Author: KRISTINA BURNS MD Service: ? Author [...] new orthopedic problems Kristina Burns MD [facility] History of Present illness Narrative* Kristina Burns MD - 08/27/2023 11:[address] BURNS- POST-OP KNEE Post-Op F/U Office Visit Chavez Marques presents today for a 1 year status post Left TKA. Post- operative recovery was uneventful. Patient's rating of condition: [...] Burns MD Electronic Signature documented in this encounterGreen [facility] Hospital06-21-2024 History of Present illness Narrative* Sally Delatorre Tech - 07/30/2023 3:00 PM EDT Radiology Service Progress Note PATIENT NAME: Chavez Marques DATE OF SERVICE: July 30, 2023 TIME: 3:04 PM PATIENT IDENTITY VERIFICATION COMPLETED USING TWO (2) IDENTIFIERS: Name and Date of confirmedby patient verbally. FALL SCREENING: Has the patient had 2 falls in the last year or 1 fall with injury or currently using an Ambulatory Assistive Device (Walker, Cane, Wheelchair, Crutches, etc.)? No PATIENT GENDER DATA: Female. status: : No status: NO. PATIENT RELEVANT IMPLANT DATA REVIEWED: Not Applicable PATIENT PRESENTS WITH AN IMPLANTABLE OR ATTACHED MOSAIC WORKER: No RADIOLOGY DEPARTMENT: General X-ray: Exam(s) Completed: Lower Extremity X- Ray(s): Knee, AP / Lat / Merchant Left and Wt. Bearing PERIPHERAL IV DATA: Not applicable SIGNED BY: Aneudy Jorge July 30, 2023 3:04 PM documented in this encounterGreen Cross Hospital06-21-2024 NoteHNO ID: [id number] Author: SALLY DELATORRE Tech Service: Radiology Author Type: Brushing Operator Type: Progress Notes Filed: 07/30/2023 15:05 Note [...] PATIENT PRESENTS WITH AN IMPLANTABLE OR ATTACHED MOSAIC WORKER: No RADIOLOGY DEPARTMENT: General X-ray: Exam(s) Completed: Lower Extremity X-Ray(s): Knee, AP / Lat / Merchant Left and Wt. Bearing PERIPHERAL IV DATA: Not applicable SIGNED BY: Aneudy Jorge July 30, 2023 3:04 PMGreen Cross [id number] History of Present illness Narrative* Candida Clark MD - 05/12/2023 2:45 PM EDT Chavez is a 52 year old who presents for an annual gynecologic exam without complaints. Postmenopausal: hysterectomy HRT use: No. Last Pap: normal HPV: negative History of abnormal pap: No Last mammogram: 2023 normal History of abnormal mammogram: No Sexually active: No OB History T0 L0 SAB0 IAB0 Ectopic0 Multiple0 Live Births0 [employer] History LMP: Hysterectomy Age at Menarche: Age at First : Age at Menopause: [employer] History Comments: Sexual Activity: Yes; Male; hysterectomy [...] or changes are noted in bold/italics. Signature: Candida Clark Date: 05/12/2023 Time: 3:13 PM EXAM: BP [...] external genitalia normal, normal Bartholin's glands, urethra, [place]'s glands, no vulvar lesions, good vaginal support, [...] up one year or sooner as needed Candida Clark MD documented in this encounterGreen [facility]10-05-2023 History of Present illness Narrative* Kristina Burns MD - 11/12/2022 3:05 PM EDT Images from the original note were not [...] Burns MD Electronic Signature documented in this encounterGreen Cross Hospital09-01-2023 History of Present illness Narrative* Betty Mike RN - 10/09/2022 2:46 PM EDT Received outside medical records from [place] [employer]. Sent for scanning. Betty Mike RN documented in this encounterGreen Cross Hospital07-05-2023 Miscellaneous Notes* PT DISCHARGE - Tammy Humphrey PT - 08/12/2022 10:16 AM EDT SITUATION: spouse present during today's visit. patient [...] summary for intervention/education details. documented in this encounterGreen Cross Hospital06-30-2023 History of Present illness Narrative* Dada Solis PA-C - 08/07/2022 11:12 AM EDT Post-op Office Visit Chavez Marques 51 year old August 07, 2022 11:12 AM Surgery Date: 07/23/2022 History: Chavez Marques is now 2 weeks out from robotic assisted left TKA. Post- operative course has been without complication. No readmissions. [...] answered. Dada Solis PA-C documented in this encounterGreen Cross Hospital06-30-2023 History of Present illness Narrative* Sally Delatorre Tech - 08/07/2022 10:30 AM EDT Radiology Service Progress Note PATIENT NAME: Chavez Marques DATE OF SERVICE: August 07, 2022 TIME: 11:02 AM PATIENT IDENTITY VERIFICATION COMPLETED USING TWO (2) IDENTIFIERS: Name and Date of confirmedby patient verbally. FALL SCREENING: Has the patient had 2 falls in the last year or 1 fall with injury or currently using an Ambulatory Assistive Device (Walker, Cane, Wheelchair, Crutches, etc.)? No PATIENT GENDER DATA: Female. status: : No status: NO. PATIENT RELEVANT IMPLANT DATA REVIEWED: Not Applicable RADIOLOGY DEPARTMENT: General X-ray: Exam(s) Completed: Lower Extremity X- Ray(s): Knee, AP / Lat / Merchant Left and Wt. Bearing PERIPHERAL IV DATA: Not applicable SIGNED BY: Aneudy Jorge August 07, 2022 11:02 AM documented in this encounterGreen Cross Hospital06-30-2023 NoteHNO ID: [id number] Author: Aneudy Jorge Service: Radiology Author Type: Brushing Operator Type: Progress Notes Filed: 08/07/2022 11:03 AM [...] BY: Aneudy Jorge August 07, 2022 11:02 AMGreen Cross [id number] Miscellaneous Notes* PT ROUTINE/REASSESSMENT/RECERT/CASE MGMT - Tammy Humphrey, PT - 08/06/2022 8:31 AM EDT SITUATION: spouse present during today's visit. patient [...] summary for intervention/education details. documented in this encounterGreen Cross Hospital06-26-2023 Miscellaneous Notes* Telephone Encounter - Dada Solis PA-C - 08/03/2022 12:36 PM EDT PDMP website reviewed and validated. Patient has been compliant and taking medication appropriatelywithout evidence of suspicious activity. Will refill rx. Dada Solis PA-C August 03, 2022 12:36 PM * Telephone Encounter - AMILCAR Triana - 08/03/2022 10:36 AM EDT Chavez calling for refill of oxycodone. Will run out late today. Please call to [facility]. Thanks. documented in this encounterGreen Cross Hospital06-23-2023 Miscellaneous Notes* PT ROUTINE/REASSESSMENT/RECERT/CASE MGMT - Tammy Humphrey, PT - 07/31/2022 8:31 AM EDT SITUATION: spouse present during today's visit. patient [...] pts permission a photo was uploaded to [employer] for md to review . Unfortunately there was poor connectively and the photo would not upload to the chart Plan of care, goals, and visit frequency reviewed and agreed upon with patient and/or caregiver. Current Discharge Plan: outpatient rehab Anticipate discharge by 08/15/22 RECOMMENDATION: Next visit to focus on ther ex, gait, balance See intervention summary for intervention/education details. documented in this encounterGreen Cross Hospital06-21-2023 Miscellaneous Notes* PT ROUTINE/REASSESSMENT/RECERT/CASE MGMT - Tammy Humphrey PT - 07/29/2022 8:51 AM EDT SITUATION: spouse present during today's visit. patient [...] summary for intervention/education details. documented in this encounterGreen Cross Hospital06-16-2023 Miscellaneous Notes* Telephone Encounter - AMILCAR Wallace - 07/24/2022 12:52 PM EDT Welcome Home Call: a. Date and Time: 12:52 PM 07/24/2022 b. Contact name/relationship: Patient, Chavez trevizo. Have you been active with any Home Care company in the last 60 days(such as help with bathing, filling medications, checking your blood pressure) ? No. d. [facility] will be providing your [...] maintain a safe environment for our caregivers, [facility] requires anyanimals or weapons present in the home be located in a secured location. Our clinicians will call you the night before or the morning of the appointment. Their # may come up restricted but they'll leave a VM for you. In case you have any questions or concerns in the meantime, our # is [phone], option [phone] Thank you for your time and have a great day. AMILCAR Wallace documented in this encounterGreen Cross Hospital06-14-2023 Miscellaneous Notes* Telephone Encounter - AMILCAR Triana - 07/22/2022 9:18 AM EDT Faxed this date. * Telephone Encounter - AMILCAR Triana - 07/20/2022 12:16 PM EDT Jethro is requesting her PAT and EKG to be faxed to her PCP Dr Johnson at [phone] documented in this encounterGreen Cross Hospital06-05-2023 Miscellaneous Notes* Telephone Encounter - Dada Solis PA-C - 07/13/2022 2:09 PM EDT Walker Rx faxed to [facility] as requested. Parvez Solis PA-C * Telephone Encounter - Buddy Pierre RN - 07/13/2022 1:43 PM EDT Fax number is [phone] * Telephone Encounter - Dada Solis PA-C - 07/13/2022 1:24 PM EDT I called the number provided as requested but there was no answer. Her medical equipment orders were faxed to [facility]. I'm not sure why [employer] is calling but am happy to fax a script to them if they provide us with a fax number. Parvez Solis PA-C * Telephone Encounter - Buddy Pierre RN - 07/13/2022 12:46 PM EDT Joanne from [facility] calling.Parvez sent a prescription to [facility] for a wheeled walker. Script needs to be sent to the [facility] in [place] for insurance verification. Ph. [phone] extension 3 documented in this encounterGreen Cross Hospital05-13-2023 History of Present illness Narrative* Ifrah Mcintosh, CT - 06/20/2022 8:30 AM EDT Radiology Service Progress Note PATIENT NAME: Chavez Marques DATE OF SERVICE: June 20, 2022 TIME: 8:47 AM PATIENT IDENTITY VERIFICATION COMPLETED USING TWO (2) IDENTIFIERS: Name and Date of confirmedby patient verbally and Name and Date of [...] 20, 2022 8:47 AM documented in this encounterGreen Cross Hospital05-01-2023 Miscellaneous Notes* Telephone Encounter - Virginia Lopez - 06/08/2022 2:57 PM EDT Left VM and sent [facility] * Telephone Encounter - Nick Perez PA-C - 06/08/2022 1:[address] order is in epic. Nick Perez PA-C * Telephone Encounter - Lashae Medina - 06/08/2022 12:[address] order for CT scan 07/23/22 Lt tka danial. Please contact for scheduling. documented in this encounterGreen Cross Hospital04-26-2023 Miscellaneous Notes* Telephone Encounter - Dada Solis PA-C - 06/03/2022 2:05 PM EDT Orders entered, signed, and faxed as requested. Parvez Solis PA-C * Telephone Encounter - AMILCAR Triana - 06/03/2022 11:15 AM EDT Patient requesting scripts for: raised toilet seat with arms Walker with wheels Cane Shower chair Grab bars for shower. [facility] She also is having a tooth removed 06/12/22 and wanted us to be aware. Surgery scheduled 07/23/22. documented in this encounterGreen Cross Hospital04-05-2023 Miscellaneous Notes* Telephone Encounter - AMILCAR Triana - 05/13/2022 10:50 AM EDT TOTAL JOINT COMPLETE CARE PROGRAM PRE-OPERATIVE TEACHING Service Date: 05/13/2022 Service Time: 9:40 AM Date of : 1970 Gender: female Date of Surgery: July 23, 2022 Procedure: Left Total Knee Replacement Complete Care Program was discussed with the patient: Puffer Tender Identification: Patient identified a rn coronary care unit to help when discharged to home: for week Home Environment: Home Layout: Ranch, Entry Steps: 2 platform no rail but may have rails by surgery, plus one into kitchen Bedroom Location: 1st floor, Bathroom Location: 1st floor, and tub shower. Pt does not have any equipment. Discussed with patient importance of attending joint education class and provided date and times ofclass: YES signed up for 06/02/22 Patient received Joint Education Binder: Yes Patient plans discharge home with [facility]. SIGNATURE: AMILCAR Triana PATIENT NAME: Chavez Marques DATE: May 13, 2022 TIME: 10:51 AM documented in this encounterGreen Cross Hospital02-18-2023 History of Present illness Narrative* Kristina Burns MD - 03/28/2022 5:38 PM EST braceCONSULT ORTHOPAEDIC: KNEE PRIMARY CARE PHYSICIAN: Lilly Pompa MD REFERRING [place]ER: [place] [address] [place] [id number] ASSESSMENT & PLAN Impression: Left Traumatic Arthritis After discussion with Chavez Marques, patient has reached a point where he wishes to proceed with surgical intervention. I feel he is an excellent candidate for robotic total knee arthroplasty. Given the subluxation seen on x- ray I would recommend having a universal baseplate [...] a few times a day over the past6 month(s) interfering with activities which include exercise, gardening, enjoying hobbies, rising from a sitting position, standing for prolonged periods of time and climbing stairs. The problem began limiting activities greater than 3 years ago. Currently the pain in the joint is rated at variable depending on activity. He reports the pain canbe severe with minimal activity. The pain is [...] daily. PHYSICAL EXAM: Ht 175.3 cm (5' 9) Wt 74.4 kg (164 lb) BMI 24.22 [...] showed severe tricompartmental osteoarthritis where he is [id number] both the medial and the lateral compartments. The tibia is subluxed laterally and anteriorly on the lateral view consistent with a global instability Kristina Burns MD 03/18/2022 PATIENT NAME: Chavez Marques documented in this encounterGreen Cross Hospital02-13-2023 Miscellaneous Notes* Telephone Encounter - Nick Perez PA-C - 03/23/2022 12:33 PM EST Questions were addressed in another my chart encounter. Nick Perez PA-C * Telephone Encounter - Lashae Medina - 03/23/2022 9:06 AM EST Patient will be having a lt tka danial. She is asking: How long will she be out of work? 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 How long will she need to stop driving? She prefers her answers by email. Mychart is acceptable also. documented in this encounterGreen Cross Hospital02-08-2023 History of Present illness Narrative* Ruth Martinez CT - 03/18/2022 8:00 AM EST Radiology Service Progress Note PATIENT NAME: Chavez Marques DATE OF SERVICE: March 18, 2022 TIME: 8:05 AM PATIENT IDENTITY VERIFICATION COMPLETED USING TWO (2) IDENTIFIERS: Name and Date of confirmedby patient verbally. FALL SCREENING: Has the patient had 2 falls in the last year or 1 fall with injury or currently using an Ambulatory Assistive Device (Walker, Cane, Wheelchair, Crutches, etc.)? No PATIENT GENDER DATA: Female. status: : No status: NO. PATIENT RELEVANT IMPLANT DATA REVIEWED: Not Applicable RADIOLOGY DEPARTMENT: General X-ray: Exam(s) Completed: Lower Extremity X- Ray(s): Knee, AP / Lat / Tunne / Merchant Bilateral and Wt. Bearing PERIPHERAL IV DATA: Not applicable SIGNED BY: AMMON Bowen March 18, 2022 8:05 AM [facility]Bu[facility] No data available for this section [facility] Evaluation note* Diagnosis Onset Date Resolution Status Acute upper respiratory infection acute Acute neck pain acute Thoracic back pain acute [facility] Work Phone: evaluation note* Diagnosis Onset Date Resolution Status Acute neck pain acute Thoracic back pain acute [facility] Work Phone: Evaluation note* Diagnosis Onset Date Resolution Status Bradycardia chronic History of palpitations 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 Diarrhea noneactive [facility] Work Phone: Evaluation note* Diagnosis Onset Date Resolution Status Bradycardia chronic History of palpitations 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 Diarrhea noneactive Viral pharyngitis acute [facility] Work Phone: evaluation note* Diagnosis Primary osteoarthritis of left knee- Primary Primary localized osteoarthrosis, lower leg documented in [facility] encounter [facility] noteNo assessment information availableWThe [facility] Work Phone: Evaluation note* Diagnosis Primary osteoarthritis of left knee- Primary Primary localized osteoarthrosis, lower leg documented in this encounter [facility] note* Diagnosis Onset Date Resolution Status Caregiver burden acute Osteoarthritis chronic [facility] Work Phone: Evaluation note* Diagnosis Primary osteoarthritis of left knee- Primary Primary localized osteoarthrosis, lower leg Primary osteoarthritis of left knee Primary localized osteoarthrosis, lower leg documented in this encounter [facility] note* Diagnosis Preoperative testing Preoperative examination, unspecified Primary osteoarthritis of left knee Primary localized osteoarthrosis, lower leg Primary osteoarthritis of left knee Primary localized osteoarthrosis, lower leg [facility] S/P total knee arthroplasty, left [facility]* Diagnosis S/P total knee arthroplasty, left- Primary documented in this encounter [facility] note* Diagnosis Preoperative testing- Primary Preoperative examination, unspecified Primary osteoarthritis of left knee Primary localized osteoarthrosis, lower leg documented in this encounter [facility] note* Diagnosis Onset Date Resolution Status Caregiver burden acute Anxiety and depression chron ic Hypothyroidism chronic Osteoarthritis [facility] Work Phone: Evaluation note* Diagnosis S/P total knee arthroplasty, left- [facility] Diagnosis Onset Date Resolution Status Caregiver burden acute Anxiety and depression chron ic Hypothyroidism chronic Osteoarthritis chronic Anxiety and depression chron ic Hypothyroidism chronic Health care maintenance acut e Anxiety and depression chron ic Dry mouth chronic Hypothyroidism chronic Osteoarthritis [facility] Work Phone: Evaluation note* Diagnosis Onset Date Resolution Status Anxiety and depression chron ic Hypothyroidism chronic Health care maintenance acut e Anxiety and depression chron ic Dry mouth chronic Hypothyroidism chronic Osteoarthritis chronic Bradycardia chronic Heart murmur chronic History of palpitations [facility] Work Phone: Evaluation note* Diagnosis Onset Date Resolution Status Health care maintenance acut e Anxiety and depression chron ic Dry mouth chronic Hypothyroidism chronic Osteoarthritis chronic Bradycardia chronic Heart murmur chronic History of palpitations [facility] Work Phone: Evaluation note* Diagnosis Encounter for gynecological examination (general) (routine) without abnormal findings- Primary documented in this encounter [facility] note* Diagnosis Onset Date Resolution Status Anxiety and depression chron ic Dry mouth chronic Hypothyroidism chronic Osteoarthritis [facility] Work Phone: Evaluation note* Diagnosis Aftercare following left knee joint replacement surgery- Primary documented in this encounter [facility] note* Diagnosis Pre-operative examination- Primary Preoperative examination, unspecified Intractable migraine without status migrainosus, unspecified migraine type Bradycardia Other specified cardiac dysrhythmias Hypothyroidism, unspecified type Left knee pain, unspecified chronicity [facility] Diagnosis Pre-operative examination- Primary Preoperative examination, unspecified Intractable migraine without status migrainosus, unspecified migraine type Bradycardia Other specified cardiac dysrhythmias Hypothyroidism, unspecified type Left knee pain, unspecified chronicity [facility] Pain Generalized pain [facility] Diagnosis Pre-operative examination- Primary Preoperative examination, unspecified Intractable migraine without status migrainosus, unspecified migraine type Bradycardia Other specified cardiac dysrhythmias Hypothyroidism, unspecified type Encounter for gynecological examination (general) (routine) without abnormal findings- Primary Dense breasts Inconclusive mammogram Vaginal dryness Other specified symptom associated with female genital organs Low libido Decreased libido Vaginal odor Unspecified symptom associated with female genital organs [facility] Discharge instructions No data available for this section [facility] Patient's home Plan of care note* Visit [...] to scheduled/document ed intervention 1 goal intervention scheduled/documevasyl pepper in this visit Goals Goal Associated Problem [...] No Improved Muscle Performance and/or ROM Description: [employer] goal 1: Patient will demonstrate improved strength to meet functional goals as evidenced by improve standing tolerance to 8-10 min to improve ADL/IADL's, to be achieved by 08/15/22. [employer] goal 2: Patient will demonstrate improved surgical [...] toe recip pattern [facility] Visit [...] No Improved Muscle Performance and/or ROM Description: [employer] goal 1: Patient will demonstrate improved strength to meet functional goals as evidenced by improve standing tolerance to 8-10 min to improve ADL/IADL's, to be achieved by 08/15/22. [employer] goal 2: Patient will demonstrate improved surgical [...] clean dressing and contact provider and PT rn case manager. Problem:PT Orthopedic Condition Goal:Manage Orthopedic Condition Completed [...] toe recip pattern [facility] Visit [...] No Improved Muscle Performance and/or ROM Description: intermediate goal 1: Patient will demonstrate improved strength to meet functional goals as evidenced by improve standing tolerance to 8-10 min to improve ADL/IADL's, to be achieved by 08/15/22. intermediate goal 2: Patient will demonstrate improved surgical [...] pacing/stride length . [facility] Visit Details Visit Type -PT [facility]ENC[facility] [place] Discipline -Physical Therapy Problems Problem Description [...] Yes Improved Muscle Performance and/or ROM Description: [employer] goal 1: Patient will demonstrate improved strength to meet functional goals as evidenced by improve standing tolerance to 8-10 min to improve ADL/IADL's, to be achieved by 08/15/22. intermediate goal 2: Patient will demonstrate improved surgical [...] Impaired mobility Completed Yes Improved Balance Description: [employer] goal: Patient will demonstrate improved functional ability [...] pattern x 150 [facility] No data available for this section [facility] Reason for referral (narrative)* Diagnostic Procedure Only (Routine) - Closed Specialty Diagnoses / Procedures Referred By Dave t Referred To Contact XR IMAGING Diagnoses Left knee pain, unspecified chronicity Procedures XR KNEE POST OP 3V AP/LAT/MERCHANT LEFT RADIOLOGIC EXAMINATION KNEE 3 VIEWS Kristina Burns MD [address] [phone] [place] [address] Referral ID Status Reason Start Date Expiration Date V isits Requested Visits Authorized [id number] Closed Auto-Generate d Referral 07/12/2023 08/07/2024 1 1 [facility] for referral (narrative)* Diagnostic Procedure Only (Routine) - Closed Specialty Diagnoses / Procedures Referred By Contac t Referred To Contact XR IMAGING Diagnoses Left knee pain, unspecified chronicity Procedures XR KNEE POST OP 3V AP/LAT/MERCHANT LEFT RADIOLOGIC EXAMINATION KNEE 3 VIEWS Dada Solis PA-C [address] [place] [address] [place] [address] Referral ID Status Reason Start Date Expiration Date V isits Requested Visits Authorized [id number] Closed Auto-Generate d Referral 07/27/2022 08/26/2023 1 1 [facility] for referral (narrative)* Diagnostic Procedure Only (Routine) - Closed Specialty Diagnoses / Procedures Referred By Contac t Referred To Contact XR IMAGING Diagnoses Pain Procedures XR KNEE GENERAL 4V AP BOTH/PA BOTH/LAT/MERC BILATERAL RADIOLOGIC EXAM KNEE COMPLETE 4/MORE VIEWS Dada Solis PA-C [address] [place] [address] [place] [address] Referral ID Status Reason Start Date Expiration Date V isits Requested Visits Authorized [id number] Closed Auto-Generate d Referral 01/28/2022 02/27/2023 1 1 [facility] for referral (narrative)No reason for [facility] for visit Narrative* Diagnostic Procedure Only (Routine) - Closed Specialty Diagnoses / Procedures Referred By Contac t Referred To Contact XR IMAGING Diagnoses Left knee pain, unspecified chronicity Procedures XR KNEE POST OP 3V AP/LAT/MERCHANT LEFT RADIOLOGIC EXAMINATION KNEE 3 VIEWS Kristina Burns MD [address] [place] [id number] [place] [address] Referral ID Status Reason Start Date Expiration Date V isits Requested Visits Authorized [id number] Closed Auto-Generate d Referral 07/12/2023 08/07/2024 1 1 [facility] for visit Narrative* Diagnostic Procedure Only (Routine) - Closed Specialty Diagnoses / Procedures Referred By Contac t Referred To Contact XR IMAGING Diagnoses Left knee pain, unspecified chronicity Procedures XR KNEE POST OP 3V AP/LAT/MERCHANT LEFT RADIOLOGIC EXAMINATION KNEE 3 VIEWS Dada Solis PA-C [address] [place] [address] [place] [address] Referral ID Status Reason Start Date Expiration Date V isits Requested Visits Authorized [id number] Closed Auto-Generate d Referral 07/27/2022 08/26/2023 1 1 [facility] for visit Narrative* Diagnostic Procedure Only (Routine) - Closed Specialty Diagnoses / Procedures Referred By Contac t Referred To Contact XR IMAGING Diagnoses Pain Procedures XR KNEE GENERAL 4V AP BOTH/PA BOTH/LAT/MERC BILATERAL RADIOLOGIC EXAM KNEE COMPLETE 4/MORE VIEWS Dada Solis PA-C [address] [phone] [place] [address] Referral ID Status Reason Start Date Expiration Date V isits Requested Visits Authorized [id number] Closed Auto-Generate d Referral 01/28/2022 02/27/2023 1 1 [facility] Chief Complaint and Reason for Visit Chief Complaint SYMPTOMATIC/COVID UPPER BACK PAIN EORDER- NECK AND BACK PAIN SCREENING CERVICALGIA. RX HERE Reason for Visit Acute upper respirat ory infection Acute neck pain Thoracic back pain Chief Complaint UPPER BACK PAIN EORDER- NECK AND BACK PAIN SCREENING CERVICALGIA. RX HERE Reason for Visit Acute neck pain Thoracic back pain Chief Complaint 1 Y FU diarrhea x 5 days Reason for Visit Bradycardia History of palpitations Diarrhea Chief Complaint 1 Y FU diarrhea x 5 days TONGUE PAIN/SWOLLEN GLAND LOWER LEG LENGTH Reason for Visit Bradycardia History of palpitations Diarrhea Viral pharyngitis Chief Complaint SCREENING Chief Complaint SCREENING SURGERY CLEARANCE Reason for Visit Caregiver burden Osteoarthritis Chief Complaint DISCUSS DEPRESSION M EDICINE LIMB LENGTH DIFFERENCE LEFT TOTAL KNEE. PT HAS RX Reason for Visit Caregiver burden Anxiety and depression Hypothyroidism Osteoarthritis Chief Complaint DISCUSS DEPRESSION M EDICINE LIMB LENGTH DIFFERENCE 6 wk FU LEFT TOTAL KNEE. PT HAS RX 1 Y FU Reason for Visit Caregiver burden Anxiety and depression Hypothyroidism Osteoarthritis Anxiety and depression Hypothyroidism Health care maintenance Anxiety and depression Dry mouth Hypothyroidism Osteoarthritis Chief Complaint 6 wk FU 1 Y FU 1 Y FU PREV PFM PT LEFT TOTAL KNEE. PT HAS RX Reason for Visit Anxiety and depressi on Hypothyroidism Health care maintenance Anxiety and depression Dry mouth Hypothyroidism Osteoarthritis Bradycardia Heart murmur History of palpitations Chief Complaint 6 wk FU 1 Y FU 1 Y FU PREV PFM PT LEFT TOTAL KNEE. PT HAS RX Cardiac murmur, unspecified Amb Documentation Reason for Visit Anxiety and depressi on Hypothyroidism Health care maintenance Anxiety and depression Dry mouth Hypothyroidism Osteoarthritis Bradycardia Heart murmur History of palpitations Chief Complaint 1 Y FU 1 Y FU PREV PFM PT LEFT TOTAL KNEE. PT HAS RX Cardiac murmur, unspecified Amb Documentation Reason for Visit Health care maintena nce Anxiety and depression Dry mouth Hypothyroidism Osteoarthritis Bradycardia Heart murmur History of palpitations Chief Complaint LEFT TOTAL KNEE. PT HAS RX Cardiac murmur, unspecified Amb Documentation 3 m fu SCREENING Reason for Visit Anxiety and depressi on Dry mouth Hypothyroidism Osteoarthritis Chief Complaint Admit Date uti March 03, 2024 6 :03am 6 M FU April 05, 2024 5:26pm Reason for Visit Admit Date Cystitis March 03, 2024 6 :03am Anxiety and depression April 05 5:26pm Chronic pain April 05, 2024 5:26pm Hypothyroidism April 05, 2024 5:26pm Overweight (BMI 25.0-29.9) March 5:26pm Chief Complaint Admit Date uti March 03, 2024 6 :03am 6 M FU April 05, 2024 5:26pm SCREENING May 11, 2024 7:04 am Family History No Family History Records Found Relationship Condition Age at Onset Recorded Date/T grey mother Disorder of liver Unknown brother Disorder of thyroid Unknown aunt Malignant neoplasm of breast Unknown Malignant neoplasm Unknown brother Fibromyalgia Unknown sister Fibromyalgia Unknown brother Congenital anomaly of heart Unknown grandmother Cardiac disease Unknown Relationship Condition Age at Onset Recorded Date/T grey mother Disorder of liver Unknown Malignant neoplasm Unknown brother Disorder of thyroid Unknown aunt Malignant neoplasm of breast Unknown brother Fibromyalgia Unknown sister Fibromyalgia Unknown brother Congenital anomaly of heart Unknown grandmother Cardiac disease Unknown father Malignant neoplasm Unknown Advance Directives No Advanced Directives Records FoundDocuments on File Type Date Recorded Patient Urologic Nurse Expl anation Advance Directive(s) 07/23/2022 10:19 AM Date Activated Date Inactivated Comments 07/25/2022 6:13 PM Advance Directive Response Recorded Date/ Time Living Will Yes January 24, 020 10:18am Power of Personnel Supervisor Yes January 25, 2020 10:18am Latest Code Status on File Code Status Date Activated Date Inactivated Comments Full Code 07/25/2022 6:13 PM Documents on File Type Date Recorded Patient Urologic Nurse Expl anation Advance Directive(s) 07/23/2022 10:19 AM Latest Code Status on File Code Status Date Activated Date Inactivated Comments Full Code 07/25/2022 6:13 PM Latest Code Status on File Code Status Date Activated Date Inactivated Comments Full Code 07/25/2022 6:13 PM Advance Directive Response Recorded Date/ Time Living Will Yes January 24, 020 9:18am Power of Personnel Supervisor Yes January 25, 2020 9:18am Date Activated Date Inactivated Comments 07/25/2022 6:13 PM Advance Directive Response Recorded Date/ Time Living Will Yes January 24, 020 10:18am Do you have a Healthcare Power of Personnel Supervisor? Yes January 25, 2020 10:18am Summary Purpose Reason for Referral Specialty Diagnoses / Procedures Referred By Dave hinkle Referred To Contact Physical Therapy Diagnoses S/P total knee arthroplasty, left Procedures CONSULT TO PHYSICAL THERAPY Dada Solis PA-C [address] [place] [address] Referral ID Status Reason Start Date Expiration Date Visits Requested Visits Authorized [id number] Ref Not Required PCP Requested Referral 08/07/2022 08/07/2023 1 1 Specialty Diagnoses / Procedures Referred By Dave hinkle Referred To Contact CT IMAGING Diagnoses Preoperative testing Primary osteoarthritis of left knee Procedures CT KNEE WO IVCON LEFT CT LOWER EXTREMITY W/O CONTRAST MATERIAL Nick Perez PA-C [address] [place] [address] Ct Imaging Referral ID Status Reason Start Date Expiration Date V isits Requested Visits Authorized [id number] Closed Auto-Generate d Referral 06/09/2022 07/24/2022 1 1 Health Concerns Problem Noted Date Total Knee Replacement Deicer Element Winder Machine Problem Noted Date Total Knee Replacement Deicer Element Winder Machine Problem Noted Date Total Knee Replacement Deicer Element Winder Machine Problem Noted Date Total Knee Replacement Deicer Element Winder Machine Problem Noted Date Total Knee Replacement Deicer Element Winder Machine Problem Noted Date Total Knee Replacement Deicer Element Winder Machine Additional Source Comments Goals (unrecognized section and content) Goals may be documented in a n alternate sectionGoals may be documented in an alternate sectionGoals may be documented in an alternate sectionGoals may be documented in an alternate section No data available for this sectionGoals may be documented in an alternate sectionGoals may be documented in an alternate section No data available for this sectionGoals may be documented in an alternate sectionGoals may be documented in an alternate sectionGoals may be documented in an alternate sectionGoals may be documented in an alternate sectionGoals may be documented in an alternate sectionGoals may be documented in an alternate sectionGoals may be documented in an alternate sectionGoals may be documented in an alternate section Care Team (unrecognized sect ion and content) Care Team Personnel Name: ARELY JOHNOSN MD Member Role: Primary Care Physician Address: Address: [address] [place], [place] [id number] Care Team Related Persons Name: REMI MARQUES Address: [address] Source Comments (unrecognize d section and content) In the event this informatio n is protected by the Federal Confidentiality of Alcohol and Drug Abuse Patient Records regulations: The Federal rules restrict any use of the information to criminally investigate or prosecute any alcohol or drug abuse patient.[facility] the event this information is protected by the Federal Confidentiality of Alcohol and Drug Abuse Patient Records regulations: The Federal rules restrict any use of the information to criminally investigate or prosecute any alcohol or drug abuse patient.[facility] the event this information is protected by the Federal Confidentiality of Alcohol and Drug Abuse Patient Records regulations: The Federal rules restrict any use of the information to criminally investigate or prosecute any alcohol or drug abuse patient.[facility]In the event this information is protected by the Federal Confidentiality of Alcohol and Drug Abuse Patient Records regulations: The Federal rules restrict any use of the information to criminally investigate or prosecute any alcohol or drug abuse patient.[facility] HospitalIn the event this information is protected by the Federal Confidentiality of Alcohol and Drug Abuse Patient Records regulations: The Federal rules restrict any use of the information to criminally investigate or prosecute any alcohol or drug abuse patient.[facility] HospitalIn the event this information is protected by the Federal Confidentiality of Alcohol and Drug Abuse Patient Records regulations: The Federal rules restrict any use of the information to criminally investigate or prosecute any alcohol or drug abuse patient.[facility]In the event this information is protected by the Federal Confidentiality of Alcohol and Drug Abuse Patient Records regulations: The Federal rules restrict any use of the information to criminally investigate or prosecute any alcohol or drug abuse patient.[facility] HospitalIn the event this information is protected by the Federal Confidentiality of Alcohol and Drug Abuse Patient Records regulations: The Federal rules restrict any use of the information to criminally investigate or prosecute any alcohol or drug abuse patient.[facility] HospitalIn the event this information is protected by the Federal Confidentiality of Alcohol and Drug Abuse Patient Records regulations: The Federal rules restrict any use of the information to criminally investigate or prosecute any alcohol or drug abuse patient.[facility] HospitalIn the event this information is protected by the Federal Confidentiality of Alcohol and Drug Abuse Patient Records regulations: The Federal rules restrict any use of the information to criminally investigate or prosecute any alcohol or drug abuse patient.[facility] HospitalIn the event this information is protected by the Federal Confidentiality of Alcohol and Drug Abuse Patient Records regulations: The Federal rules restrict any use of the information to criminally investigate or prosecute any alcohol or drug abuse patient.[facility] HospitalIn the event this information is protected by the Federal Confidentiality of Alcohol and Drug Abuse Patient Records regulations: The Federal rules restrict any use of the information to criminally investigate or prosecute any alcohol or drug abuse patient.[facility] HospitalIn the event this information is protected by the Federal Confidentiality of Alcohol and Drug Abuse Patient Records regulations: The Federal rules restrict any use of the information to criminally investigate or prosecute any alcohol or drug abuse patient.[facility] HospitalIn the event this information is protected by the Federal Confidentiality of Alcohol and Drug Abuse Patient Records regulations: The Federal rules restrict any use of the information to criminally investigate or prosecute any alcohol or drug abuse patient.[facility] HospitalIn the event this information is protected by the Federal Confidentiality of Alcohol and Drug Abuse Patient Records regulations: The Federal rules restrict any use of the information to criminally investigate or prosecute any alcohol or drug abuse patient.[facility] HospitalIn the event this information is protected by the Federal Confidentiality of Alcohol and Drug Abuse Patient Records regulations: The Federal rules restrict any use of the information to criminally investigate or prosecute any alcohol or drug abuse patient.[facility] HospitalIn the event this information is protected by the Federal Confidentiality of Alcohol and Drug Abuse Patient Records regulations: The Federal rules restrict any use of the information to criminally investigate or prosecute any alcohol or drug abuse patient.[facility] HospitalIn the event this information is protected by the Federal Confidentiality of Alcohol and Drug Abuse Patient Records regulations: The Federal rules restrict any use of the information to criminally investigate or prosecute any alcohol or drug abuse patient.[facility] HospitalIn the event this information is protected by the Federal Confidentiality of Alcohol and Drug Abuse Patient Records regulations: The Federal rules restrict any use of the information to criminally investigate or prosecute any alcohol or drug abuse patient.[facility] HospitalIn the event this information is protected by the Federal Confidentiality of Alcohol and Drug Abuse Patient Records regulations: The Federal rules restrict any use of the information to criminally investigate or prosecute any alcohol or drug abuse patient.[facility] HospitalIn the event this information is protected by the Federal Confidentiality of Alcohol and Drug Abuse Patient Records regulations: The Federal rules restrict any use of the information to criminally investigate or prosecute any alcohol or drug abuse patient.[facility] HospitalIn the event this information is protected by the Federal Confidentiality of Alcohol and Drug Abuse Patient Records regulations: The Federal rules restrict any use of the information to criminally investigate or prosecute any alcohol or drug abuse patient.[facility] HospitalIn the event this information is protected by the Federal Confidentiality of Alcohol and Drug Abuse Patient Records regulations: The Federal rules restrict any use of the information to criminally investigate or prosecute any alcohol or drug abuse patient.[facility] HospitalIn the event this information is protected by the Federal Confidentiality of Alcohol and Drug Abuse Patient Records regulations: The Federal rules restrict any use of the information to criminally investigate or prosecute any alcohol or drug abuse patient.[facility] HospitalIn the event this information is protected by the Federal Confidentiality of Alcohol and Drug Abuse Patient Records regulations: The Federal rules restrict any use of the information to criminally investigate or prosecute any alcohol or drug abuse patient.[facility] HospitalIn the event this information is protected by the Federal Confidentiality of Alcohol and Drug Abuse Patient Records regulations: The Federal rules restrict any use of the information to criminally investigate or prosecute any alcohol or drug abuse patient.[facility] HospitalIn the event this information is protected by the Federal Confidentiality of Alcohol and Drug Abuse Patient Records regulations: The Federal rules restrict any use of the information to criminally investigate or prosecute any alcohol or drug abuse patient.[facility] HospitalIn the event this information is protected by the Federal Confidentiality of Alcohol and Drug Abuse Patient Records regulations: The Federal rules restrict any use of the information to criminally investigate or prosecute any alcohol or drug abuse patient.[facility] Reason for Visit (unrecogniz ed section and content) Reason Comments Patient Question Reason Comments New Pain Reason Comments Pre-Op Teaching Reason Comments Orders Specialty Diagnoses / Procedures Referred By Dave hinkle Referred To Contact CT IMAGING Diagnoses Preoperative testing Primary osteoarthritis of left knee Procedures CT KNEE WO IVCON LEFT CT LOWER EXTREMITY W/O CONTRAST MATERIAL Nick Perez PA-C [address] [place] [address] Ct Imaging Referral ID Status Reason Start Date Expiration Date V isits Requested Visits Authorized [id number] Closed Auto-Generate d Referral 06/09/2022 07/24/2022 1 1 Reason Comments Home Care Confirmation call Reason Onset Date Comments Refill Request 08/03/2022 Reason Comments Post Op Knee Pain Reason Comments Appointment Reason Comments Received Outside Medical Records Reason Comments Post Op Knee Replacement Reason Comments Yearly Exam Reason Comments Follow Up Knee Replacement Reason Comments Letter Reason Comments Yearly Exam Care Teams (unrecognized sec tion and content) Metal Extrusion Supervisor Relationship Specialty Start Date End Date Arely Johnson MD [address] [place] [address] PCP - General Internal Medicine 09/16/21 Metal Extrusion Supervisor Relationship Specialty Start Date End Date Arely Johnson MD [address] [place], [place] [id number] PCP - General Internal Medicine 09/16/21 Team Status: Active Member Role Status Dates Dr. Arely Johnson MD Family Provider Active Dr. Arely Johnson MD Primary Care Provider Active Team Status: Inactive Member Role Status Dates Dr. Arely Johnson MD Primary Care Provider Active Dr. Do Buckley MD Attending Provider, Referring Pr ovider Active Metal Extrusion Supervisor Relationship Specialty Start Date End Date Arely Johnson MD [address] [place], [place] [id number] PCP - General Internal Medicine 09/16/21 Stevenson Ch[place], [facility] [address] [place] [address] Specialty Host Coordinator Orthopedics 04/08/22 07/18/22 Metal Extrusion Supervisor Relationship Specialty Start Date End Date Arely Johnson MD [address] [place] [address] PCP - General Internal Medicine 09/16/21 SisStevenson gonzalez, [facility] [address] [place] [address] Specialty Host Coordinator Orthopedics 04/08/22 07/18/22 Team Status: Inactive Member Role Status Dates Dr. Arely Johnson MD Primary Care P gian, Attending Provider, Referring Provider Active Team Status: Inactive Member Role Status Dates Dr. Arely Johnson MD Primary Care Provider Active NATALIE MARIA Attending Provider, Referring Provider A ctive Metal Extrusion Supervisor Relationship Specialty Start Date End Date Arely Johnson MD [address] [place] [address] PCP - General Internal Medicine 09/16/21 Stevenson [place], [facility] [address] [place] [address] Specialty Host Coordinator Orthopedics 04/08/22 07/18/22 Metal Extrusion Supervisor Relationship Specialty Start Date End Date Arely Johnson MD [address] [place] [address] PCP - General Internal Medicine 09/16/21 Stevenson [place]ino, [facility] [address] [place] [address] Specialty Host Coordinator Orthopedics 04/08/22 07/18/22 Metal Extrusion Supervisor Relationship Specialty Start Date End Date Arely Johnson MD [address] [place] [address] PCP - General Internal Medicine 09/16/21 SisIsrrael gonzalezin, [facility] [address] [place] [address] Specialty Host Coordinator Orthopedics 04/08/22 07/18/22 Metal Extrusion Supervisor Relationship Specialty Start Date End Date Arely Johnson MD [address] [place] [address] PCP - General Internal Medicine 09/16/21 Metal Extrusion Supervisor Relationship Specialty Start Date End Date Arely Johnson MD [address] [facility] [place] [address] PCP - General Internal Medicine 09/16/21 Kristina Burns MD [address] [address] Home Care Provider Orthopedics 07/24/22 Kristina Burns MD [address] [address] Referring Orthopedics 07/24/22 Tammy Humphrey, PT [address] [place] [address] Meat Carver Post Acute Care 07/24/22 Metal Extrusion Supervisor Relationship Specialty Start Date End Date Arely Johnson MD [address] [facility] [place] [address] PCP - General Internal Medicine 09/16/21 Kristina Burns MD [address] [address] Home Care Provider Orthopedics 07/24/22 Kristina Burns MD [address] [address] Referring Orthopedics 07/24/22 Tammy Humphrey, PT [address] [place] [address] Meat Carver Post Acute Care 07/24/22 Metal Extrusion Supervisor Relationship Specialty Start Date End Date Arely Johnson MD [address] [facility] [place] [address] PCP - General Internal Medicine 09/16/21 Kristina Burns MD [address] [address] Home Care Provider Orthopedics 07/24/22 Kristina Burns MD [address] [address] Referring Orthopedics 07/24/22 Tammy Humphrey, PT [address] [place] [address] Meat Carver Post Acute Care 07/24/22 Metal Extrusion Supervisor Relationship Specialty Start Date End Date Arely Johnson MD [address] [place] [address] PCP - General Internal Medicine 09/16/21 Kristina Burns MD [address] [address] Home Care Provider Orthopedics 07/24/22 Kristina Burns MD [address] [address] Referring Orthopedics 07/24/22 Tammy Humphrey, PT [address] [place] [address] Meat Carver Post Acute Care 07/24/22 Metal Extrusion Supervisor Relationship Specialty Start Date End Date Arely Johnson MD [address] [place] [address] PCP - General Internal Medicine 09/16/21 Kristina Burns MD [address] [address] Home Care Provider Orthopedics 07/24/22 Kristina Burns MD [address] [address] Referring Orthopedics 07/24/22 Tammy Humphrey, PT [address] [place], [place] [id number] Meat Carver Post Acute Care 07/24/22 Metal Extrusion Supervisor Relationship Specialty Start Date End Date Arely Johnson MD [address] [place] [address] PCP - General Internal Medicine 09/16/21 Kristina Burns MD [address] [address] Home Care Provider Orthopedics 07/24/22 Kristina Burns MD [address] [place] [address] Referring Orthopedics 07/24/22 Tammy Humphrey, PT [address] [place] [address] Meat Carver Post Acute Care 07/24/22 Metal Extrusion Supervisor Relationship Specialty Start Date End Date Arely Johnson MD [address] [place] [address] PCP - General Internal Medicine 09/16/21 Stevenson Chino [facility] [address] [place] [address] Specialty Host Coordinator Orthopedics 04/08/22 07/18/22 Kristina Burns MD [address] [address] Home Care Provider Orthopedics 07/24/22 Kristina Burns MD [address] [address] Referring Orthopedics 07/24/22 Tammy Humphrey, PT [address] [place] [address] Meat Carver Post Acute Care 07/24/22 Team Status: Active Member Role Status Dates Dr. Arely Johnson MD Primary Care Provider Active Dr. Kristina Burns MD Attending Provider, Referring Provider Active Team Status: Inactive Member Role Status Dates Dr. Arely Johnson MD Primary Care Provider Active Dr. Manuel Pitt , DPM Attending Provider, Referrin g Provider Active Metal Extrusion Supervisor Relationship Specialty Start Date End Date Arely Johnson MD [address] [place], [place] [address] PCP - General Internal Medicine 09/16/21 Kristina Burns MD [address] [address] Home Care Provider Orthopedics 07/24/22 Kristina Burns MD [address] [address] Referring Orthopedics 07/24/22 Tammy Humphrey, PT [address] [place] [address] Meat Carver Post Acute Care 07/24/22 Metal Extrusion Supervisor Relationship Specialty Start Date End Date Arely Johnson MD [address] [place] [address] PCP - General Internal Medicine 09/16/21 Kristina Burns MD [address] [address] Home Care Provider Orthopedics 07/24/22 Kristina Burns MD [address] [address] Referring Orthopedics 07/24/22 Tammy Humphrey, PT [address] [place] [address] Meat Carver Post Acute Care 07/24/22 Team Status: Inactive Member Role Status Dates Dr. Arely Johnson MD Primary Care Provider, Refer ring Provider Active Raeann Silver SHOTWELD OPERATOR, SHOTWELD OPERATOR-C Attending Provider Active Team Status: Inactive Member Role Status Dates Dr. Arely Johnson MD Primary Care Provider Active Dr. Randall Dorado DO Attending Provider, Referring Provider Active Team Status: Active Member Role Status Dates Dr. Arely Johnson MD Primary Care Provider Active Dr. Donald Cast MD Attending Provider Active Team Status: Active Member Role Status Dates Dr. Arely Johnson MD Primary Care Provider Active Raeann Silver SHOTWELD OPERATOR, SHOTWELD OPERATOR-C Attending Provider Active Team Status: Inactive Member Role Status Dates Dr. Arely Johnson MD Primary Care Provider Active Raeann Silver SHOTWELD OPERATOR, SHOTWELD OPERATOR-C Attending Provider, Referring P gian Active Team Status: Inactive Member Role Status Dates Dr. Arely Johnson MD Primary Care Provider Active Dr. Kristina Burns MD Attending Provider, Referring Provider Active Metal Extrusion Supervisor Relationship Specialty Start Date End Date Arely Johnson MD [address] [place] [address] PCP - General Internal Medicine 09/16/21 Kristina Burns MD [address] [address] Home Care Provider Orthopedics 07/24/22 Kristina Burns MD [address] [address] Referring Orthopedics 07/24/22 Tammy Humphrey, PT [address] [place], [place] [id number] Meat Carver Post Acute Care 07/24/22 Team Status: Inactive Member Role Status Dates Dr. Arely Johnson MD Primary Care Provider, Atten ding Provider Active Dr. Randall Dorado , Other Provider Active Dr. Candida Clark MD Referring Provider Active Metal Extrusion Supervisor Relationship Specialty Start Date End Date Arely Johnson MD [address] [place] [address] PCP - General Internal Medicine 09/16/21 Kristina Burns MD [address] [address] Home Care Provider Orthopedics 07/24/22 Kristina Burns MD [address] [address] Referring Orthopedics 07/24/22 Tammy Humphrey, PT [address] [place] [address] Meat Carver Post Acute Care 07/24/22 Metal Extrusion Supervisor Relationship Specialty Start Date End Date Arely Johnson MD [address] [place] [address] PCP - General Internal Medicine 09/16/21 Kristina Burns MD [address] [address] Home Care Provider Orthopedics 07/24/22 Kristina Burns MD [address] [address] Referring Orthopedics 07/24/22 Tammy Humphrey, PT [address] [place] [address] Meat Carver Post Acute Care 07/24/22 07/30/23 Metal Extrusion Supervisor Relationship Specialty Start Date End Date Arely Johnson MD [address] [place] [address] PCP - General Internal Medicine 09/16/21 Kristina Burns MD [address] [address] Home Care Provider Orthopedics 07/24/22 Kristina Burns MD [address] [address] Referring Orthopedics 07/24/22 Tammy Humphrey, PT [address] [place] [address] Meat Carver Post Acute Care 07/24/22 07/30/23 Metal Extrusion Supervisor Relationship Specialty Start Date End Date Arely Johnson MD [address] [place] [address] PCP - General Internal Medicine 09/16/21 Kristina Burns MD [address] [address] Home Care Provider Orthopedics 07/24/22 Kristina Burns MD [address] [address] Referring Orthopedics 07/24/22 Tammy Humphrey, PT [address] [place] [address] Meat Carver Post Acute Care 07/24/22 07/30/23 Metal Extrusion Supervisor Relationship Specialty Start Date End Date Arely Johnson MD [address] [place] [address] PCP - General Internal Medicine 09/16/21 Metal Extrusion Supervisor Relationship Specialty Start Date End Date Arely Johnson MD [address] [place], [place] [address] PCP - General Internal Medicine 09/16/21 Kristina Burns MD [address] [place] [address] Home Care Provider Orthopedics 07/24/22 Kristina Burns MD [address] [place] [address] Referring Orthopedics 07/24/22 Metal Extrusion Supervisor Relationship Specialty Start Date End Date Arely Johnson MD [address] [place], [place] [address] PCP - General Internal Medicine 09/16/21 Kristina Burns MD [address] [place] [address] Home Care Provider Orthopedics 07/24/22 Kristina Burns MD [address] [place] [address] Referring Orthopedics 07/24/22 Team Status: Inactive Member Role Status Dates Dr. Arely Johnson MD Primary Care Provider Active Start: February 08, 2024 End: February 08, 2024 Dr. Randall Dorado DO Attending Provider Active Start: February 08, 2024 End: February 08, 2024 Dr. Randall Dorado DO Referring Provider Active Start: February 08, 2024 End: February 08, 2024 Team Status: Inactive Member Role Status Dates Dr. Arely Johnson MD Primary Care Provider Active Start: March 03, 2024 End: March 03, 2024 Dr. Arely Johnson MD Referring Provider Active Start: March 03, 2024 End: March 03, 2024 GABBI Sanon Attending Provider Active Sta rt: March 03, 2024 End: March 03, 2024 Team Status: Inactive Member Role Status Dates Dr. Arely Johnson MD Primary Care Provider Active Start: March 03, 2024 End: March 03, 2024 GABBI Sanon Attending Provider Active Sta rt: March 03, 2024 End: March 03, 2024 GABBI Sanon Referring Provider Active Sta rt: March 03, 2024 End: March 03, 2024 Team Status: Inactive Member Role Status Dates Dr. Arely Johnson MD Primary Care Provider Active Start: April 05, 2024 End: April 05, 2024 Dr. Arely Johnson MD Attending Provider Active Start: April 05, 2024 End: April 05, 2024 Dr. Arely Johnson MD Referring Provider Active Start: April 05, 2024 End: April 05, 2024 Team Status: Inactive Member Role Status Dates Dr. Arely Johnson MD Primary Care Provider Active Start: May 03, 2024 End: May 03, 2024 ANA IZAGUIRRE Attending Provider Active Start: May 03, 2024 End: May 03, 2024 ANA IZAGUIRRE Referring Provider Active Start: May 03, 2024 End: May 03, 2024 Team Status: Active Member Role Status Dates Dr. Arely Johnson MD Primary Care Provider Active Team Status: Inactive Member Role Status Dates Dr. Arely Johnson MD Primary Care Provider Active Start: May 11, 2024 End: May 11, 2024 ANA Schafer Attending Provider Active Sta rt: May 11, 2024 End: May 11, 2024 ANA Schafer Referring Provider Active Sta rt: May 11, 2024 End: May 11, 2024 Metal Extrusion Supervisor Relationship Specialty Start Date End Date Arely Johnson MD [address] [place] [address] PCP - General Internal Medicine 09/16/21 Kristina Burns MD [address] [address] Home Care Provider Orthopedics 07/24/22 Kristina Burns MD [address] [address] Referring Orthopedics 07/24/22 Metal Extrusion Supervisor Relationship Specialty Start Date End Date Arely Johnson MD [address] [place] [address] PCP - General Internal Medicine 09/16/21 Kristina Burns MD [address] [address] Home Care Provider Orthopedics 07/24/22 Kristina Burns MD [address] [address] Referring Orthopedics 07/24/22 INFORMATION SOURCE (unrecogn ized section and content) DATE CREATED AUTHOR 05/27/2022 [facility] ([place]) DATE CREATED AUTHOR AUTHOR'S ORGANIZ ATION 08/01/2023 [facility] DATE CREATED AUTHOR AUTHOR'S ORGANIZ ATION 05/19/2024 [facility] DATE CREATED AUTHOR AUTHOR'S ORGANIZ ATION 06/13/2024 [facility] FOR RECORDS PERTAINING TO PATIENTS WHO [...] BE BASED ON THE PRIMARY CLINICAL RECORDS. [facility]. provides no warranty or guarantee of the accuracy or completeness of information in this document.
== END | disposition home or self-care (01) ==
LOC: MTLAB 07:17
PROVIDERS: PCP Internal Medicine; Referring Provider Nurse Practitioner Adult Health; Visit Provider Nurse Practitioner Adult Health
DX: E03.9 Hypothyroidism, unspecified (principal)
CPT/HCPCS: 36415; 84443

== ENCOUNTER → 2024-10-13 | Outpatient (CLI) | payer OTHER, SELFPAY ==
[2024-10-13 13:00] LABS: Hematocrit 40.4 % (37-47); Hemoglobin 13.1 g/dL (12.0-15.0); Immature Granulocytes Count 0.020 X10^3/uL (0.0-0.0); Mean Corp Hgb Conc 32.4 g/dL (32-36); Mean Corpuscular Volume 92.0 fL (81-99); Mean Platelet Vol. 10.5 fl (6.2-12.0); NRBC Flagged by Analyzer 0 % (0-5); Platelet Count 239 K/mm3 (150-450); RBC Distribution Width CV 12.6 % (11.6-14.6); RBC Distribution Width SD 42.5 fl (35.1-43.9); Red Blood Count 4.39 M/mm3 (4.2-5.4); White Blood Count 5.1 K/mm3 (4.4-11.0)
[2024-10-13 13:38] LABS: AST(SGOT) 19 U/L (<=31); Alanine Aminotransfer ALT/SGPT 16 U/L (<=34); Albumin, Serum 4.4 g/dL (3.5-5.0); Alkaline Phosphatase 70 U/L (35-104); Anion Gap 10 (5-15); BUN 18 mg/dL (4-19); BUN/Creat Ratio 25.9 RATIO (10-20); Calcium,Total 9.6 mg/dL (7.6-11.0); Carbon Dioxide 26.1 mmol/L (21.0-32.0); Chloride 105 mmol/L (98-108); Cholesterol 194 mg/dL (<=200); Globulin 2.6 g/dL (2.2-4.2); Glucose 94 mg/dL (70-99); Low Density Lipoprotein Calc. 113 mg/dL; Potassium 4.0 mmol/L (3.3-5.1); Triglycerides 63 mg/dL; Very Low Density Lipoprotein 13 mg/dL (5-40); cholesterol:hdl ratio screen 2.84
== END | disposition home or self-care (01) ==
LOC: BIMLAB 08:05
PROVIDERS: PCP Internal Medicine; Referring Provider Internal Medicine; Visit Provider Internal Medicine
DX: E03.9 Hypothyroidism, unspecified (principal); E78.00 Pure hypercholesterolemia, unspecified
CPT/HCPCS: 36415; 80053; 80061; 84443; 85025

== ENCOUNTER → 2024-12-12 | Outpatient (CLI) | payer OTHER, SELFPAY ==
--- OUTSIDE RECORDS SUMMARY | 2024-12-12 07:14 | XMS RPT_ITS | CCD ---
Author Organization [facility] Care Team Providers Care Baby Registry Sales Consultant Name Role Phone Dr. Arely Johnson Primary Care Provider [phone] Dr. Arely Johnson Referring Provider [phone] GABBI Madera Attending Provider [phone] Jes SILVICULTURE TEACHER, SILVICULTURE TEACHER-C Joshua Attending Provider [phone] Dr. Arely [...] Arely Johnson MD Primary Care Provider [phone] Stevenson Rivas Unavailable Unavailable Dr. Arely Johnson Primary Care Provider [phone] Dr. Arely Johnson Attending Provider [phone] Dr. Arely Johnson Referring Provider [phone] RANDALL DORADO DO Attending ARELY Vallejo MD Primary Care UnavailRANDALL Sanchez DO Attending ARELY Vallejo MD Primary Care Unavailab DAVIDA Johnson Attending [...] [phone] Dr. Arely Johnson Referring Provider [phone] Dr. Arely Johnson Primary Care Provider [phone] Dr. Donald Cast Attending Provider Nadeem SILVICULTURE TEACHER, ANA aCry Attending Provider Dr. Arely Johnson Attending Provider [phone] Elizabeth, Dr. Reeves Referring Provider [phone] Arely Johnson MD Primary Care Provider [phone] OLEGHE, EFEWONGBE B Primary Care Unavailable DADA SOLIS Referring Unavailable OLEGHE, EFEWONGBE B Primary Care Unavailable Elizabeth SALGADO, Arely Colin Primary Care Provider [phone] Kam PT, Tammy Unavailable Elizabeth SALGADO, Dr. Reeves Primary Care Provider Dr. Randall Dorado DO Attending Provider Ave JEAN, Dr. Pereira Referring Provider Elizabeth SALGADO, Dr. Reeves Referring Provider [phone] Victoriano Madera Attending Provider Victoriano Madera Referring Provider Elizabeth SALGADO, Dr. Reeves Attending Provider [phone] MARYLU SILVICULTURE TEACHER-C, CHARLIE Attending Provider MARYLU SILVICULTURE TEACHER-C, CHARLIE Referring Provider Satya SILVICULTURE TEACHER-C, Buddy Attending Provider Haury SILVICULTURE TEACHER-C, Buddy Referring Provider JOSE MANUEL HERNADEZILY Attending Unavailable OLEGHE, EFEWONGBE B Primary Care Unavailable KRISTINA BURNS Attending Unavailable OLEGHRoberto, EFEWONGBE B Primary Care Unavailable Elizabeth SALGADO, Dr. Reeves Primary Care Provider Elizabeth SALGADO, Dr. Reeves Referring Provider [phone] Haury SILVICULTURE TEACHER-C, Buddy Attending Provider Hadeni SILVICULTURE TEACHER-C, Buddy Referring Provider Dr. Randall Dorado DO Other Provider Elizabeth SALGADO, Dr. Reeves Primary Care Provider Elizabeth SALGADO, Dr. Reeves Attending Provider [phone] Elizabeth SALGADO, Dr. Reeves Referring Provider [phone] Elizabeth SALGADO, Dr. Efewongbe Primary Care Provider MARYLU SILVICULTURE TEACHER-C, CHARLIE Attending Provider [phone] MARYLU SILVICULTURE TEACHER-C, CHARLIE Referring Provider Dr. Arely Johnson MD Attending Provider [phone] Dr. Arely Johnson MD Referring Provider [phone] Oleghe, Efewongbe Primary Care Unavailable Donald Cast Attending Unavailable Oleghe, Efewongbe Referring Unavailable Oleghe, Efewongbe Attending Unavailable Oleghe, Efewongbe Referring Unavailable Oleghe, Efewongbe Primary Care Unavailable Oleghe, Efewongbe Primary Care Unavailable Oleghe, Efewongbe Attending Unavailable Oleghe, Efewongbe Referring Unavailable Oleghe, Efewongbe Attending Unavailable Randall Dorado Consulting Unavailable Oleghe, Efewongbe Referring Unavailable Oleghe, Efewongbe Primary Care Unavailable CHARLIE VALERO Attending Unavailable MARYLU, CHARLIE Referring Unavailable WikevinchaRandall Consulting Unavailable Oleghe, Efewongbe Primary Care Unavailable Haury Buddy Referring Unavailable Hadeni Buddy Attending Unavailable Oleghe, Efewongbe Primary Care Unavailable CHARLIE VALERO Attending Unavailable MARYLU, CHARLIE Referring Unavailable Oleghe, Efewongbe Primary Care Unavailable Oleghe, Efewongbe Primary Care Unavailable Victoriano Madera Attending Unavailable Victoriano Madera Referring Unavailable Oleghe, Efewongbe Primary Care Unavailable Randall Dorado Attending Unavailable Wietecha Randall Referring Unavailable Oleghe, Efewongbe Attending Unavailable Oleghe, Efewongbe Referring Unavailable Oleghe, Efewongbe Primary Care Unavailable Oleghe, Efewongbe Primary Care Unavailable Oleghe, Efewongbe Attending Unavailable Oleghe, Efewongbe Referring Unavailable Oleghe, Efewongbe Primary Care Unavailable Victoriano Madera Attending Unavailable Oleghe, Efewongbe Referring Unavailable Allergies Allergy Classification Reported Allergen(s) Allergy Type Date of Onset Reaction(s) Facility (17 sources) Latex Propensity to adverse reactions 03-28-19 22 Itching [facility] (17 sources) Penicillin G Drug Allergy 03-28-19 22 rash [facility] (20 sources) Penicillins; Translations: [PENICILLINS] Allergy to substance 07-22-19 03 rash [facility] (20 sources) bismuth subsalicylate; Translations: [BISMUTH SUBSALICYLATE] Drug Allergy 09-17-19 Diarrhea [facility] (20 sources) Latex; Translations: [LATEX, NATURAL RUBBER] Drug Allergy 09-17-19 Itching [facility] (20 sources) nickel; Translations: [NICKEL] Drug Allergy 03-18-19 Other: See Comments [facility] (20 sources) Adhesive agent; Translations: [ADHESIVE] Drug Intolerance 08-08-19 Rash [facility] Work Phone: (12 sources) Adhesive Tape; Translations: [adhesive tape] Allergy to substance 09-05-19 Rash, itching [facility] (1 source) Adhesive agent Drug allergy (disorder) 08-24-19 [facility] (1 source) bismuth subsalicylate Drug Allergy 08-24-19 [facility] (1 source) Latex Drug allergy (disorder) 08-24-19 [facility] (1 source) Penicillin Drug Allergy 08-24-19 [facility] Medications Current Medications Medication Drug Class(es) Dates Sig (Normalized) Sig (Original) acetaminophen 500 mg oral tablet (20 sources) Start: 07-24-2022 End: 08-12-2022 take 2 tablets by mouth every eight hours as needed acetaminophen (TYLENOL) 500 mg tablet Take 2 tablets by mouth every 8 hours as needed for pain. 90 tablet 08/12/2022 Active Comment on above: Take 2 tablets by mo [facility] every 8 hours as needed for pain. [...] above: Take 1 tablet by oli twice daily for 28 days. baclofen 10 mg oral tablet (9 sources) gamma-Aminobutyri c Acid-ergic Agonist Start: 07-30-2023 take 1 tablet by mouth twice daily as needed for muscle spasms Baclofen 10 mg tablet Active 10 mg PO TWICE A DAY as needed for muscle spasm 30 July 30, 2023 12:00am calcium carbonate 1250 mg / cholecalciferol 200 [...] twice daily. cholecalciferol 0.125 mg oral tablet (17 sources) Vitamin D Start: 03-28-19 take 1 [...] Start: 07-25-2022 take 5000 [IU] by mo uth once daily cholecalciferol, vitamin D3, (VITAMIN D3 [...] once daily. clindamycin 300 mg oral capsule (10 sources) Lincosamide Antibacterial Start: 11-03-19 take 2 capsules by mouth every hour clindamycin (CLEOCIN) 300 mg capsule Take 2 capsules by mouth one hour prior to dental cleaning/procedure 2 capsule 3 11/02/2022 Active Comment on above: Take 2 capsules by out one hour prior to dental cleaning/procedure Compress.Stocking,K nee,Reg,Lrg misc (5 sources) Start: 07-30-19 Compress.Stocking,Umme e,Reg,Lrg misc Active 0 .MEDSUPPLY 2 1 July 30, 2023 12:00am Venous insufficiency (chronic) (peripheral) wear daily for venous insufficiency 20-30 mmHg Start: 07-30-2023 Compress.Stock ing,Knee,Reg,Lrg misc Active 0 .MEDSUPPLY 2 July 30, 2023 12:00am wear daily for venous insufficiency 20-30 mmHg FOLDING WALKER WITH 5 WHEEL S (20 sources) Start: 06-03-2022 End: 05-24-2024 FOLDING WALKER WITH 5 WHEEL S Indications: Primary osteoarthritis of left knee One [...] wheeled walker hydrocortisone 25 mg/ml topical cream (7 sources) Corticosteroid Start: 05-18-2024 hydrocortisone 2.5 % cream 05/18/2024 Active Start: 05-18-2024 Hydrocortisone 2.5 % cream Active 1 NMA TOPICAL TWICE A DAY as needed for rash 28 May 18, 2024 12:00am multivitamin capsule (12 sources) Start: 09-07-2017 take 1 capsule by mouth once daily [...] MORNING September 07, 2017 12:00am Multivitamin capsule (5 sources) Start: 09-07-2017 Multivitamin c apsule Active [...] 1 tablet by oli th once daily. Multivitamin With Minerals (Hair,Skin And Nails) tablet (15 sources) Start: 08-20-2021 Multivitamin With Minerals (Hair,Skin [...] HOURS NEEDED as needed for Severe Pain (-11/17) 20 7 0 January 17, 2018 1:00am January 23, 2018 1:00am January 24, 2018 1:10am Other acute postprocedural pain Comment on above: Take 1-2 tablets by [...] Start: 08-28-2020 take 400 [IU] by oli th once daily Vitamin E (Dl, Acetate) Active [...] on above: Take 200 Units by mo uth once daily. Take 180 mg by mouth [...] Discontinued 500 mg PO DAILY 3 3 0 September 05, 2021 12:00am September 07, 2021 12:00am September 08, 2021 12:03am Start: 11-23-2018 End: 12-01-2018 Azithromycin 250 mg tablet D iscontinued 250 mg PO daily 6 0 November 23, 2018 12:00am December 01, 2018 [...] on above: Take by mouth. control pills (17 sources) Start: 09-07-2017 End: 12-28-2017 control pills Discontinued PO September 07, 2017 8:11am December 28, 2017 9:15am Start: 09-07-2017 End: 12-28-2017 control pills Disconti nued PO 0 September 07, 2017 12:00am December 28, 2017 9:15am Start: 09-07-2017 End: 12-28-2017 control pills Disconti nued PO September 06, 2017 11:00pm December 28, 2017 8:15am Start: 09-07-2017 End: 12-28-2017 control pills Disconti nued PO September 07, 2017 12:00am December 28, 2017 9:15am 24 hr buPROPion hydrochloride 150 mg extended release oral tablet (10 sources) Aminoketone Start: 05-17-2024 buPROPion XL ( WELLBUTRIN XL) 150 mg 24 hr tablet 05/17/2024 Active Start: 05-17-2024 End: 08-23-2024 take 1 tablet by mouth once daily in the morning Bupropion Hcl 150 mg tablet extended release 24 hr Discontinued 150 mg PO EVERY MORNING 30 5 June 19, 2024 1:43pm August 23, 2024 5:46pm calcium ascorbate 500 mg oral tablet (17 sources) Start: 12-20-2020 End: 03-25-2023 take 1 tablet by mouth once daily Ascorbate Calcium (Vitamin C) 500 mg tablet Discontinued 500 mg PO DAILY December 20, 2020 1:00am March 25, 2023 7:14pm Calcium Carb,Lactat-Vitamin D3 200 mg calcium -250 unit tablet (5 sources) Start: 09-07-2017 End: 12-13-2018 Calcium Carb,Lactat-Vitamin [...] daily cyclobenzaprine hydrochloride 10 mg oral tablet (17 sources) Muscle Relaxant Start: 03-28-19 End: 08-21-19 take 5-10 mg by mouth three times daily as needed for muscle spasms Cyclobenzaprine 10 mg tablet Discontinued 5 - 10 mg PO THREE TIMES A DAY as needed for muscle spasm 30 0 March 28, 2021 1:00am August 20, 2021 [...] DAILY NEEDED as needed for Constipation 60 1 January 17, 2018 1:00am October 24, 2018 8:10am Comment on above: Take 1 capsule by [facility] twice daily as needed for constipation. Flucelvax Quad (flu vac qs (6 ms up) CD) 60 mcg (15 mcg x (2 sources) Start: End: inject 15 ug by intramuscular injection once Flucelvax Quad (flu vac qs (6 ms up) CD) 60 mcg (15 mcg x Discontinued 60 MCG IM ONCE 0.5 December 20, 2020 9:06am December 20, 2020 9:45am ibuprofen 200 mg oral tablet (2 sources) Nonsteroidal Anti-inflammatory Drug End: 023 take 4 tablets by mouth once daily at bedtime ibuprofen (MOTRIN) 200 mg tablet Take 800 mg by mouth daily at bedtime. 03/18/2022 Discontinued (Other) Comment on above: Take 800 mg by mouth daily at bedtime. 1 ml leuprolide acetate 3.75 mg/ml prefilled syringe (17 sources) Gonadotropin Releasing Hormone Receptor Agonist Start: 018 End: 09-16-2 019 inject 3.75 mg by intramuscular injection every month Leuprolide (Lupron Depot) 3.75 mg syringe kit Discontinued 3.75 mg IM EVERY MONTH December 28, 2017 1:00am October 24, 2018 8:11am levothyroxine sodium 0.112 mg oral tablet (20 sources) l-Thyroxine Start: 024 take 1.5 tablets by mouth once daily [...] 125 mcg by mout h every morning. meloxicam 7.5 mg oral tablet (6 sources) Nonsteroidal Anti-inflammatory Drug Start : 03-18 take 1 tablet by mouth once daily meloxicam (MOBIC) 7.5 mg tablet Take 1 tablet by mouth once daily. 30 tablet 2 03/18/2022 Active Comment on above: Take 1 tablet by oli th once daily. methylPREDNISolone 4 mg oral tablet (5 sources) Corticosteroid Start : 07-29 End: 10-05 take 1 tablet by mouth once Methylprednisolone (Medrol (Tam)) 4 mg tablets,dose pack Discontinued 0 PO per package directions 21 July 30, 2023 12:00am October 06, 2023 6:02pm PO PER PKG DIR for 6 days nitrofurantoin, macrocrystals 25 mg / nitrofurantoin, monohydrate 75 mg oral capsule (10 sources) Nitrofuran Antibacterial Start : 03-03 End: 03-10 take 1 capsule by mouth every twelve hours at mealtime Nitrofurantoin Monohyd/M-Cryst 100 mg capsule Discontinued 1 NMA PO Q12H 14 7 0 March 03, 2024 8:41am March 09, 2024 1:00am March 10, 2024 1:19am administer with a meal/food; swallow whole; do not open, crush, dissolve , or chew polyethylene glycol 3350 49987 mg powder for oral solution (7 sources) Osmotic Laxative Start : 07-24 End: 08-10 polyethylene glycol 3350 (MIRALAX) 17 gram/dose powder [...] oral tablet (20 sources) Serotonin Reuptake Inhibitor Start : 09-28 End: 06-06 take 1 tablet by mouth once daily Sertraline 50 mg tablet Discontinued 0 .ROUTE .COMPLEX 90 November 15, 2023 1:01pm June 06, 2024 7:31am TAKE 1 TABLET BY MOUTH EVERY DAY Start: 09-04-2022 End: 09-28-2022 Sertraline 50 mg tablet Disc ontinued 50 mg PO DAILY 30 September 04, 2022 12:00am September 28, 2022 9:40pm Take 1/2 for 2 weeks then increase to 1 tablet Comment on above: START WITH 0.5 TABLE T FOR 2 WEEKS THEN INCREASE TO TAKE 1 TABLET BY MOUTH EVERY DAY vitamin D 1.25mcg (17 sources) Start: 09-07-2017 End: 08-25-2019 take 1.25 ug by mouth once vitamin D 1.25mcg Discontinued PO September 07, 2017 8:14am August 25, 2019 1:17pm Start: 09-07-2017 End: 08-25-2019 take 1.25 ug by mouth once vitamin D 1.25mcg Discontin ued PO 0 September 07, 2017 12:00am August 25, 2019 [...] Date Documented Da te Episodic/Chronic Abdominal pain (17 sources) Left flank pain; Translations: [Unspecified abdominal pain] 10-30-2020 Episodic Administrative/social admission (15 sources) Finding related to care and support circumstances and networks; Translations: [Dependent relative needing care at home] 05-21-2022 Episodic Anxiety disorders (20 sources) Mixed anxiety and depressive disorder; Translations: [Anxiety disorder, unspecified] 09-04-2022 Chronic Benign neoplasm of uterus (17 sources) Uterine leiomyoma; Translations: [Leiomyoma of uterus, unspecified] 12-01-2018 Episodic Cardiac and circulatory congenital anomalies (5 sources) Patent foramen ovale; Translations: [Patent foramen ovale with atrial septal aneurysm] 12-23-2023 Chronic Cardiac dysrhythmias (20 sources) Bradycardia; Translations: [Bradycardia, unspecified] Onset: 07-16-2022 Episodic Diseases of mouth; excluding dental (15 sources) Xerostomia; Translations: [Dry mouth, unspecified] 12-23-2022 Episodic Disorders of lipid metabolism (2 sources) Hyperlipidemia; Translations: [Hyperlipidemia, unspecified] 08-23-2024 Chronic Headache; including migraine (20 sources) Migraine; Translations: [Migraine, unspecified, not intractable, without status migrainosus] Onset: 07-16-2022 01-17-2018 Chronic Heart valve disorders (20 sources) Heart murmur; Translations: [Cardiac murmur, unspecified] 01-17-2018 Episodic Immunizations and screening for infectious disease (17 sources) Contact with and (suspected) exposure to other viral communicable diseases; Translations: [Contact with or suspected exposure to other viral communicable disease] 10-29-2020 Episodic Nonmalignant breast conditions (5 sources) Breast finding ; Translations: [Dense breasts] Onset: 05-24-2024 05-24-2024 Episodic Nutritional deficiencies (17 sources) Vitamin D deficiency; Translations: [Vitamin D deficiency, unspecified] 12-20-2020 Chronic Open wounds of head; neck; and trunk (17 sources) Facial laceration ; Translations: [Laceration without foreign body of other part of head, initial encounter] 11-22-2018 Episodic Osteoarthritis (20 sources) Osteoarthritis of left knee joint; Translations: [Unilateral primary osteoarthritis, left knee] Chronic Other aftercare (2 sources) Patient encounter status; Translations: [Aftercare following joint replacement surgery] 08-27-2023 Chronic Other connective tissue disease (20 sources) History of total knee arthroplasty; Translations: [Presence of left artificial knee joint] Onset: 07-24-2022 07-24-2022 Chronic Other diseases of bladder and urethra (1 source) Other specified disorders of bladder; Translations: [Other specified disorders of bladder] Onset: 03-03-2024 Chronic Other female genital disorders (5 sources) Vaginal dryness; Translations: [Other specified noninflammatory disorders of vagina] Onset: 05-24-2024 05-24-2024 Episodic Other female genital disorders (1 source) Vaginal odor; Translations: [Other specified noninflammatory disorders of vagina] 05-24-2024 Episodic Other female genital disorders (2 sources) Other specified noninflammatory disorders of vagina; Translations: [Vaginal dryness] Onset: 05-24-2024 Episodic Other gastrointestinal disorders (2 sources) Diarrhea, unspecified; Translations: [Diarrhea] Episodic Other nervous system disorders (9 sources) Chronic pain; Translations: [Other chronic pain] 04-05-2024 Chronic Other nervous system disorders (1 source) Other chronic pain; Translations: [Other chronic pain] Onset: 12-28-2023 Chronic Other non-traumatic joint disorders (3 sources) Pain in left knee; Translations: [Pain in joint, lower leg] Onset: 07-30-2023 07-30-2023 Episodic Other non-traumatic joint disorders (5 sources) Hip pain; Translations: [Pain in right hip] 07-30-2023 Episodic Other nutritional; endocrine; and metabolic disorders (10 sources) Body mass index 25-29 - overweight; Translations: [Overweight] 04-05-2024 Episodic Other upper respiratory infections (20 sources) Acute upper respiratory infection; Translations: [Acute upper respiratory infection, unspecified] Episodic Residual codes; unclassified (17 sources) Chill; Translations: [Chills (without fever)] 11-25-2020 Episodic Residual codes; unclassified (17 sources) Flushing; Translations: [Flushing] 10-29-2020 Episodic Residual codes; unclassified (17 sources) History of palpitations; Translations: [Personal history of other specified conditions] 08-25-2019 Episodic Residual codes; unclassified (5 sources) Personal history of other specified conditions; Translations: [Personal history of other diseases of circulatory system] Episodic Residual codes; unclassified (1 source) Pain; Translations: [Pain, unspecified] 03-18-2022 Episodic Residual codes; unclassified (5 sources) Reduced libido; Translations: [Decreased libido] Onset: 05-24-2024 05-24-2024 Episodic Residual codes; unclassified (1 source) Decreased libido; Translations: [Low libido] Onset: 05-24-2024 Episodic Superficial injury; contusion (17 sources) Contusion of nose; Translations: [Contusion of nose, initial encounter] 11-22-2018 Episodic Thyroid disorders (20 sources) Hypothyroidism; Translations: [Hypothyroidism, unspecified] Onset: 07-16-2022 08-25-2019 Chronic Unclassified (1 source) Breast finding 05-24-2024 Unclassified (1 source) Dense breasts; Translations: [Dense breasts] Onset: 05-24-2024 Urinary tract infections (7 sources) Cystitis; Translations: [Cystitis, unspecified without hematuria] 03-03-2024 Episodic Viral infection (17 sources) Disease caused by 2019-nCoV; Translations: [COVID-19] 12-20-2020 Episodic Past or Other Problems Problem Classification Problem Date Documented Date Episodic/Chronic Genitourinary symptoms and ill-defined conditions (19 sources) Dysuria; Translations: [Dysuria] Onset: 03-03-2024 10-30-2020 Episodic Other screening for suspected conditions (not mental disorders or infectious disease) (6 sources) Echocardiogram abnormal; Translations: [Abnormal findings on diagnostic imaging of heart and coronary circulation] Onset: 05-17-2024 12-23-2023 Episodic Comment on above: Interatrial septal a neurysm noted without PFO Spondylosis; intervertebral disc disorders; other back problems (20 sources) Neck pain; Translations: [Cervicalgia] Onset: 12-28-2023 Episodic Unclassified (1 source) Patient encounter status 07-11-2024 Results Test Name Value Interpretation Reference Range Facility Absolute lymphocyte countOrd ered By: Arely Johnson on 10-13-2024 Lymphocytes Auto (Unsp spec) [#/Vol] 1.65 10*3/uL 0.83-4.51 [facility] Absolute neutrophil countOrd ered By: Arely Johnson on 10-13-2024 Neutrophils (Bld) [#/Vol] 2.8 10*3/uL 2.0-7.7 [facility] Anion gap in Serum or Plasma Ordered By: Arely Johnson on 10-13-2024 Anion gap [Moles/Vol] 10 mmol/L 5-15 [facility] Automated blood erythrocyte countOrdered By: Arely Johnson on 10-13-2024 RBC (Bld) [#/Vol] 4.39 10*6/uL Normal 4.2-5.4 [facility] Comment on above: Order Comment: DR.OL JEFFRIES ORDERED CMP CBCD LIPID ORDERED CMP TSH LIPID Performed By: #### L 500.4100, L500.4050, L100.0100, [id number] #### [facility] [address] [place], [address] Automated blood hematocrit ( percentage)Ordered By: Arely Johnson on 10-13-2024 Hematocrit (Bld) [Volume fraction] 40.4 % Normal 37-47 [facility] Comment on above: Order Comment: DR.OL JEFFRIES ORDERED CMP CBCD LIPID ORDERED CMP TSH LIPID Performed By: #### L 500.4100, L500.4050, L100.0100, [id number] #### [facility] [address] [place], [address] Automated lymphocyte count a s percentage of total leukocytesOrdered By: Arely Johnson on 10-13-2024 Lymphocytes/100 WBC Auto (Unsp spec) 32.6 % - [facility] BUN/creatinine ratioOrdered By: Arely Johnson on 10-13-2024 Urea nitrogen/Creatinine [Mass ratio] 25.9 mg/mg High 10- [facility] Basophil percentageOrdered B y: Arely Johnson on 10-13-2024 Basophils/100 WBC (Bld) 1.0 % Normal 0-1 [facility] Comment on above: Order Comment: DR.OL JEFFRIES ORDERED CMP CBCD LIPID ORDERED CMP TSH LIPID Performed By: #### L 500.4100, L500.4050, L100.0100, [id number] #### [facility] [address] [place], [address] Bilirubin, totalOrdered By: Arely Johnson on 10-13-2024 Bilirubin [Mass/Vol] 0.34 mg/dL 0.00-1.30 [facility] CBC W/Diff, Automatedon Absolute Lymph 1.65 X10 3/uL Normal 0.83-4.51 [facility] Comment on above: Order Comment: DR.OL JEFFRIES ORDERED CMP CBCD LIPID ORDERED CMP TSH LIPID Performed By: #### L 500.4100, L500.4050, L100.0100, [id number] #### [facility] [address] [place], [address] Absolute Neut 2.8 X10 3/uL Normal 2.0-7.7 [facility] Comment on above: Order Comment: DR.OL JEFFRIES ORDERED CMP CBCD LIPID ORDERED CMP TSH LIPID Performed By: #### L 500.4100, L500.4050, L100.0100, [id number] #### [facility] [address] [place], [address] IG% 0.400 Normal 0.0-0.9 [facility] Comment on above: Order Comment: DR.OL JEFFRIES ORDERED CMP CBCD LIPID ORDERED CMP TSH LIPID Result Comment: IG% - Immature Granulocytes (promyelocytes, myelocytes and metamyelocytes) > 1% indicates that a LEFT SHIFT is Present. Performed By: #### L 500.4100, L500.4050, L100.0100, [id number] #### [facility] [address] [place], [address] Lymphocytes/100 WBC (Bld) 32.6 % Normal 19-41 [facility] Comment on above: Order Comment: DR.OL JEFFRIES ORDERED CMP CBCD LIPID ORDERED CMP TSH LIPID Performed By: #### L 500.4100, L500.4050, L100.0100, [id number] #### [facility] [address] [place], [address] Nucleated RBC (Bld) [#/Vol] 0 10*3/uL Normal 0-5 [facility] Comment on above: Order Comment: DR.OL JEFFRIES ORDERED CMP CBCD LIPID ORDERED CMP TSH LIPID Performed By: #### L 500.4100, L500.4050, L100.0100, [id number] #### [facility] [address] [place], [address] RDW SD 42.5 fl Normal 35.1-43.9 [facility] Comment on above: Order Comment: DR.OL JEFFRIES ORDERED CMP CBCD LIPID ORDERED CMP TSH LIPID Performed By: #### L 500.4100, L500.4050, L100.0100, L501.9520 #### [facility] [address] [place], [address] Calculated very low density lipoprotein (VLDL) cholesterol measurementOrdered By: Areyl Johnson on 10-13-2024 Calculated very low density lipoprotein (VLDL) cholesterol measurement 13 mg/dL 5-40 [facility] Carbon dioxide, total [Moles /volume] in Central venous bloodOrdered By: Arely Johnson on 10-13-2024 CO2 [Moles/Vol] 26.1 mmol/L 21.0-32.0 [facility] Chloride assayOrdered By: Leslie Johnson on 10-13-2024 Chloride [Moles/Vol] 105 mmol/L 98-108 [facility] Comprehensive Metabolic Prof ilon 10-13-2024 Albumin [Mass/Vol] 4.4 g/dL Normal 3.5-5.0 [facility] Comment on above: Order Comment: DR.OL JEFFRIES ORDERED CMP CBCD LIPIDDR.[facility] ORDERED CMP TSH LIPID Performed By: #### L 500.4100, L500.4050, L100.0100, L501.9520 ####[facility] [address] [place], [address] Albumin/Globulin [Mass ratio] 1.7 {ratio} Normal 0.9-2.4 [facility] Comment on above: Order Comment: DR.OL JEFFRIES ORDERED CMP CBCD LIPIDDR.[facility] ORDERED CMP TSH LIPID Performed By: #### L 500.4100, L500.4050, L100.0100, L501.9520 ####[facility] [address] [place], [address] ALK PHOS 70 U/L Normal 35-104 [facility] Comment on above: Order Comment: DR.OL JEFFRIES ORDERED CMP CBCD LIPIDDR.[facility] ORDERED CMP TSH LIPID Performed By: #### L 500.4100, L500.4050, L100.0100, L501.9520 ####[facility] [address] [place], [address] ALT [Catalytic activity/Vol] 16 U/L Normal <=34 [facility] Comment on above: Order Comment: DR.OL JEFFRIES ORDERED CMP CBCD LIPIDDR.[facility] ORDERED CMP TSH LIPID Performed By: #### L 500.4100, L500.4050, L100.0100, L501.9520 ####[facility] [address] [place], [address] AST [Catalytic activity/Vol] 19 U/L Normal <=31 [facility] Comment on above: Order Comment: DR.OL JEFFRIES ORDERED CMP CBCD LIPIDDR.[facility] ORDERED CMP TSH LIPID Performed By: #### L 500.4100, L500.4050, L100.0100, L501.9520 ####[facility] [address] [place], [address] Bilirubin [Mass/Vol] 0.34 mg/dL Normal 0.00-1.30 [facility] Comment on above: Order Comment: DR.OL JEFFRIES ORDERED CMP CBCD LIPIDDR.[facility] ORDERED CMP TSH LIPID Performed By: #### L 500.4100, L500.4050, L100.0100, L501.9520 ####[facility] [address] [place], [address] BUN/CRE 25.9 RATIO High 10-20 [facility] Comment on above: Order Comment: DR.OL JEFFRIES ORDERED CMP CBCD LIPIDDR.[facility] ORDERED CMP TSH LIPID Performed By: #### L 500.4100, L500.4050, L100.0100, L501.9520 ####[facility] [address] [place], [address] Calcium [Mass/Vol] 9.6 mg/dL Normal 7.6-11.0 [facility] Comment on above: Order Comment: DR.OL JEFFRIES ORDERED CMP CBCD LIPIDDR.[facility] ORDERED CMP TSH LIPID Performed By: #### L 500.4100, L500.4050, L100.0100, L501.9520 ####[facility] [address] [place], [address] Chloride [Moles/Vol] 105 mmol/L Normal 98-108 [facility] Comment on above: Order Comment: DR.OL JEFFRIES ORDERED CMP CBCD LIPIDDR.[facility] ORDERED CMP TSH LIPID Performed By: #### L 500.4100, L500.4050, L100.0100, L501.9520 ####[facility] [address] [place], [address] CO2 [Moles/Vol] 26.1 mmol/L Normal 21.0-32.0 [facility] Comment on above: Order Comment: DR.OL JEFFRIES ORDERED CMP CBCD LIPIDDR.[facility] ORDERED CMP TSH LIPID Performed By: #### L 500.4100, L500.4050, L100.0100, L501.9520 ####[facility] [address] [place], [address] Creatinine [Mass/Vol] 0.70 mg/dL Normal 0.70-1.20 [facility] Comment on above: Order Comment: DR.OL JEFFRIES ORDERED CMP CBCD LIPIDDR.[facility] ORDERED CMP TSH LIPID Performed By: #### L 500.4100, L500.4050, L100.0100, L501.9520 ####[facility] [address] [place], [address] GAP 10 Normal 5-15 [facility] Comment on above: Order Comment: DR.OL JEFFRIES ORDERED CMP CBCD LIPIDDR.[facility] ORDERED CMP TSH LIPID Performed By: #### L 500.4100, L500.4050, L100.0100, L501.9520 ####[facility] [address] [place], [address] GFR/1.73 sq M.predicted among non-blacks MDRD (S/P/Bld) [Vol rate/Area] 102 mL/min/{1.73_m2} Normal >60 [facility] Comment on above: Order Comment: DR.OL JEFFRIES ORDERED CMP CBCD LIPIDDR.[facility] ORDERED CMP TSH LIPID Result Comment: mL/m in/1.73m2 CKD-EPI Creatinine Equation (2020) Performed By: #### L 500.4100, L500.4050, L100.0100, L501.9520 ####[facility] [address] [place], [address] Globulin (S) [Mass/Vol] 2.6 g/dL Normal 2.2-4.2 [facility] Comment on above: Order Comment: DR.OL JEFFRIES ORDERED CMP CBCD LIPIDDR.[facility] ORDERED CMP TSH LIPID Performed By: #### L 500.4100, L500.4050, L100.0100, L501.9520 ####[facility] [address] [place], [address] Glucose [Mass/Vol] 94 mg/dL Normal 70-99 [facility] Comment on above: Order Comment: DR.OL JEFFRIES ORDERED CMP CBCD LIPIDDR.[facility] ORDERED CMP TSH LIPID Performed By: #### L 500.4100, L500.4050, L100.0100, L501.9520 ####[facility] [address] [place], [address] Potassium [Moles/Vol] 4.0 mmol/L Normal 3.3-5.1 [facility] Comment on above: Order Comment: DR.OL JEFFRIES ORDERED CMP CBCD LIPIDDR.[facility] ORDERED CMP TSH LIPID Performed By: #### L 500.4100, L500.4050, L100.0100, L501.9520 ####[facility] [address] [place], [address] Sodium [Moles/Vol] 141 mmol/L Normal 133-145 [facility] Comment on above: Order Comment: DR.OL JEFFRIES ORDERED CMP CBCD LIPIDDR.AVE ORDERED CMP TSH LIPID Performed By: #### L 500.4100, L500.4050, L100.0100, L501.9520 ####[facility] [address] [place], [place], [address] T PROT 7.0 g/dL Normal 5.9-8.4 [facility] Comment on above: Order Comment: DR.OL JEFFRIES ORDERED CMP CBCD LIPIDDR.AVE ORDERED CMP TSH LIPID Performed By: #### L 500.4100, L500.4050, L100.0100, L501.9520 ####[facility] [address] [place], [address] Urea nitrogen [Mass/Vol] 18 mg/dL Normal 4-19 [facility] Comment on above: Order Comment: DR.OL JEFFRIES ORDERED CMP CBCD LIPIDDR.AVE ORDERED CMP TSH LIPID Performed By: #### L 500.4100, L500.4050, L100.0100, L501.9520 ####[facility] [address] [place], [address] Eosinophil percentageOrdered By: Arely Johnson on 10-13-2024 Eosinophils/100 WBC (Bld) 2.2 % Normal 0-5 [facility] Comment on above: Order Comment: DR.OL JEFFRIES ORDERED CMP CBCD LIPID ORDERED CMP TSH LIPID Performed By: #### L 500.4100, L500.4050, L100.0100, L501.9520 #### [facility] [address] [place], [address] Erythrocyte distribution wid th ratioOrdered By: Arely Johnson on 10-13-2024 Erythrocyte distribution width (RBC) [Ratio] 12.6 % Normal 11.6-14.6 [facility] Comment on above: Order Comment: DR.OL JEFFRIES ORDERED CMP CBCD LIPID ORDERED CMP TSH LIPID Performed By: #### L 500.4100, L500.4050, L100.0100, L501.9520 #### [facility] [address] [place], [address] Erythrocyte distribution wid th standard deviationOrdered By: Arely Johnson on 10-13-2024 Erythrocyte distribution width (RBC) [Ratio] 42.5 fl 35.1-43.9 [facility] Glomerular filtration rate ( GFR) estimation/1.73 sq m using serum, plasma, or whole bOrdered By: Arely Johnson on 10-13-2024 GFR/1.73 sq M.predicted among non-blacks MDRD (S/P/Bld) [Vol rate/Area] 102 mL/min/{1.73_m2} >60 [facility] Comment on above: mL/min/1.73m2 CKD-EP I Creatinine Equation (2020) Hemoglobin measurementOrdere d By: Arely Johnson on 10-13-2024 Hemoglobin (Bld) [Mass/Vol] 13.1 g/dL Normal 12.0-15.0 [facility] Comment on above: Order Comment: DR.OL JEFFRIES ORDERED CMP CBCD LIPID ORDERED CMP TSH LIPID Performed By: #### L 500.4100, L500.4050, L100.0100, L501.9520 #### [facility] [address] [place], [address] Immature granulocytes/100 WB C Auto (Bld)Ordered By: Arely Johnson on 10-13-2024 Immature granulocytes/100 WBC (Bld) 0.400 % 0.0-0.9 [facility] Comment on above: IG% - Immature Granu locytes (promyelocytes, myelocytes and metamyelocytes) > 1% indicates that a LEFT SHIFT is Present. LDL calc ser/plasOrdered By: Arely Johnson on 10-13-2024 Cholesterol in LDL [Mass/Vol] 113 mg/dL [facility] Comment on above: Cjkmnqgcpo=625-507 m g/dL & Higher Rusn=845 mg/dL or greaterFriedwald Equation for LDL-C Laboratory - Chemistry and C hemistry - challengeOrdered By: Arely Johnson on 10-13-2024 AST [Catalytic activity/Vol] 19 U/L <32 [facility] Lipid Profileon 10-13-2024 CHOL:HDL 2.84 Normal [facility] Comment on above: Order Comment: DR.OL JEFFRIES ORDERED CMP CBCD LIPIDDR.VAHARSHAD ORDERED CMP TSH LIPID Performed By: #### L 500.4100, L500.4050, L100.0100, L501.9520 ####[facility] [address] [place], [address] Cholesterol [Mass/Vol] 194 mg/dL Normal <=200 [facility] Comment on above: Order Comment: DR.OL JEFFRIES ORDERED CMP CBCD LIPIDDR.VAHARSHAD ORDERED CMP TSH LIPID Result Comment: Chol esterol level, Desirable <200 mg/dL Borderline high cholesterol 200-239 mg/dL High cholesterol >=240 mg/dL Recommendations of the NCEP Adult Treatment Panel for the following risk-cutoff thresholds for the [place] population. Performed By: #### L 500.4100, L500.4050, L100.0100, L501.9520 ####[facility] [address] [place], [address] Cholesterol in HDL [Mass/Vol] 68 mg/dL Normal [facility] Comment on above: Order Comment: DR.OL JEFFRIES ORDERED CMP CBCD LIP[facility]DR.[facility] CMP TSH LIPID Result Comment: [place]ari onal Cholesterol Education Program (NCEP) guidelines: <40 mg/dL: Low HDL-cholesterol (major risk factor for CHD) >= 60 mg/dL: High HDL-cholesterol (negative risk factor for CHD) HDL-cholesterol is affected by a number of factors, e.g. smoking, exercise, hormones, sex and age. Performed By: #### L 500.4100, L500.4050, L100.0100, L501.9520 ####[facility] [address] [place], [address] Cholesterol in LDL [Mass/Vol] 113 mg/dL Normal [facility] Comment on above: Order Comment: DR.OL JEFFRIES ORDERED CMP CBCD LIPIDDR.AVE ORDERED CMP TSH LIPID Result Comment: Bord pwzxpw=178-628 mg/dL Higher Xjjd=436 mg/dL or greater Friedwald Equation for LDL-C Performed By: #### L 500.4100, L500.4050, L100.0100, L501.9520 ####[facility] [address] [place], [address] Cholesterol in VLDL [Mass/Vol] 13 mg/dL Normal 5-40 [facility] Comment on above: Order Comment: DR.OL JEFFRIES ORDERED CMP CBCD LIPIDDR.AVE ORDERED CMP TSH LIPID Performed By: #### L 500.4100, L500.4050, L100.0100, L501.9520 ####[facility] [address] [place], [address] Triglyceride [Mass/Vol] 63 mg/dL Normal [facility] Comment on above: Order Comment: DR.OL JEFFRIES ORDERED CMP CBCD LIPIDDR.AVE ORDERED CMP TSH LIPID Result Comment: The drugs N-Acetylcysteine and Metamizole may falsely depress this assay. Normal range: <150 mg/dL Borderline High: 150-199 mg/dL High: 200-499 mg/dL Very High: >500 mg/dL Performed By: #### L 500.4100, L500.4050, L100.0100, L501.9520 ####[facility] [address] [place], [address] MCV (mean corpuscular volume ) determinationOrdered By: Arely Johnson on 10-13-2024 MCV (RBC) [Entitic vol] 92.0 fL Normal 81-99 [facility] Comment on above: Order Comment: DR.OL JEFFRIES ORDERED CMP CBCD LIPID ORDERED CMP TSH LIPID Performed By: #### L 500.4100, L500.4050, L100.0100, L501.9520 #### [facility] [address] [place], [address] Mean corpuscular hemoglobin (MCH) determinationOrdered By: Arely Johnson on 10-13-2024 MCH (RBC) [Entitic mass] 29.8 pg Normal 27.0-32.0 [facility] Comment on above: Order Comment: DR.OL JEFFRIES ORDERED CMP CBCD LIPID ORDERED CMP TSH LIPID Performed By: #### L 500.4100, L500.4050, L100.0100, L501.9520 #### [facility] [address] [place], [address] Mean corpuscular hemoglobin concentration (MCHC) determinationOrdered By: Arely Johnson on 10-13-2024 MCHC (RBC) [Mass/Vol] 32.4 g/dL Normal 32-36 [facility] Comment on above: Order Comment: DR.OL JEFFRIES ORDERED CMP CBCD LIPID ORDERED CMP TSH LIPID Performed By: #### L 500.4100, L500.4050, L100.0100, L501.9520 #### [facility] [address] [facility] [place], [address] Mean platelet volume determi nationOrdered By: Arely Johnson on 10-13-2024 Platelet mean volume (Bld) [Entitic vol] 10.5 fL Normal 6.2-12.0 [facility] Comment on above: Order Comment: DR.OL JEFFRIES ORDERED CMP CBCD LIPID ORDERED CMP TSH LIPID Performed By: #### L 500.4100, L500.4050, L100.0100, L501.9520 #### [facility] [address] [place], [address] Monocyte percentageOrdered B y: Arely Johnson on 10-13-2024 Monocytes/100 WBC (Bld) 8.3 % Normal 0-10 [facility] Comment on above: Order Comment: DR.OL JEFFRIES ORDERED CMP CBCD LIPID ORDERED CMP TSH LIPID Performed By: #### L 500.4100, L500.4050, L100.0100, L501.9520 #### [facility] [address] [place], [address] Neutrophil percentageOrdered By: Arely Johnson on 10-13-2024 Neutrophils/100 WBC (Bld) 55.5 % Normal 47-70 [facility] Comment on above: Order Comment: DR.OL JEFFRIES ORDERED CMP CBCD LIPID ORDERED CMP TSH LIPID Performed By: #### L 500.4100, L500.4050, L100.0100, L501.9520 #### [facility] [address] [place], [address] Nucleated red blood cell per centageOrdered By: Arely Johnson on 10-13-2024 Nucleated RBC/100 WBC (Bld) [Ratio] 0 % 0-5 [facility] Platelet countOrdered By: Leslie Johnson on 10-13-2024 Platelets (Bld) [#/Vol] 239 10*3/uL Normal 150-450 [facility] Comment on above: Order Comment: DR.OL JEFFRIES ORDERED CMP CBCD LIPID ORDERED CMP TSH LIPID Performed By: #### L 500.4100, L500.4050, L100.0100, L501.9520 #### [facility] [address] [place], [address] Potassium measurement (mass/ volume)Ordered By: Arely Johnson on 10-13-2024 Potassium (Unsp spec) [Mass/Vol] 4.0 mmol/L 3.3-5.1 [facility] Screening total cholesterol/ high density lipoprotein (HDL) cholesterol ratioOrdered By: Arely Johnson on 10-13-2024 Cholesterol.total/Choles terol in HDL [Mass ratio] 2.84 {ratio} [facility] Serum creatinine measurement (mass/volume)Ordered By: Arely Johnson on 10-13-2024 Creatinine [Mass/Vol] 0.70 mg/dL 0.70-1.20 [facility] Serum globulin measurementOr dered By: Arely Johnson on 10-13-2024 Globulin (S) [Mass/Vol] 2.6 g/dL 2.2-4.2 [facility] Serum glucose measurement (m ass/volume)Ordered By: Arely Johnson on 10-13-2024 Glucose [Mass/Vol] 94 mg/dL 70-99 [facility] Serum or plasma alanine quinones otransferase (ALT) measurementOrdered By: Arely Johnson on 10-13-2024 ALT [Catalytic activity/Vol] 16 U/L <35 [facility] Serum or plasma albumin benedict urement (mass/volume)Ordered By: Arely Johnson on 10-13-2024 Albumin [Mass/Vol] 4.4 g/dL 3.5-5.0 [facility] Serum or plasma albumin/glob ulin mass ratioOrdered By: Arely Johnson on 10-13-2024 Albumin/Globulin [Mass ratio] 1.7 {ratio} 0.9-2.4 [facility] Serum or plasma alkaline mary jane sphatase measurementOrdered By: Arely Johnson on 10-13-2024 ALP [Catalytic activity/Vol] 70 U/L 35-104 [facility] Serum or plasma calcium benedict urement (mass/volume)Ordered By: Arely Johnson on 10-13-2024 Calcium [Mass/Vol] 9.6 mg/dL 7.6-11.0 [facility] Serum or plasma cholesterol in HDL measurement (mass/volume)Ordered By: Arely Johnson on 10-13-2024 Cholesterol in HDL [Mass/Vol] 68 mg/dL >40 [facility] Comment on above: National Cholesterol Education Program (NCEP) guidelines:<40 mg/dL: Low HDL-cholesterol (major risk factor for CHD)>= 60 mg/dL: High HDL-cholesterol (negative risk factor for CHD)HDL-cholesterol is affected by a number of factors, e.g. smoking, exercise, hormones, sex and age. Serum or plasma cholesterol measurement (mass/volume)Ordered By: Arely Johnson on 10-13-2024 Cholesterol [Mass/Vol] 194 mg/dL <201 [facility] Comment on above: Cholesterol level, D esirable <200 mg/dLBorderline high cholesterol 200-239 mg/dLHigh cholesterol >=240 mg/dLRecommendations of the NCEP Adult Treatment Panel for the following risk-cutoff thresholds for the [place] population. Serum or plasma urea nitroge n measurement (mass/volume)Ordered By: Arely Johnson on 10-13-2024 Urea nitrogen [Mass/Vol] 18 mg/dL 4-19 [facility] Sodium levelOrdered By: Crista Johnson on 10-13-2024 Sodium [Moles/Vol] 141 mmol/L 133-145 [facility] TSH DL <= 0.005 mIU/L QnOrde red By: Arely Johnson on 10-13-2024 TSH Qn 1.900 uIU/mL 0.300-4.200 [facility] Thyroid Stim Hormone (TSH)on 10-13-2024 TSH 1.900 uIU/mL Normal 0.300-4.200 [facility] Comment on above: Order Comment: DR.OL JEFFRIES ORDERED CMP CBCD LIPIDDR.AVE ORDERED CMP TSH LIPID Performed By: #### L 500.4100, L500.4050, L100.0100, L501.9520 ####[facility] [address] [place], [address] Total proteinOrdered By: Abhijeet Johnson on 10-13-2024 Protein [Mass/Vol] 7.0 g/dL 5.9-8.4 [facility] Triglycerides measurementOrd ered By: Arely Johnson on 10-13-2024 Triglyceride [Mass/Vol] 63 mg/dL <199 [facility] Comment on above: The drugs N-Acetylcy steine and Metamizole may falsely depress this assay. Normal range: <150 mg/dLBorderline High: 150-199 mg/dLHigh: 200-499 mg/dLVery High: >500 mg/dL White blood cell (WBC) count Ordered By: Arely Johnson on 10-13-2024 WBC (Bld) [#/Vol] 5.1 10*3/uL Normal 4.4-11.0 [facility] Comment on above: Order Comment: DR.OL JEFFRIES ORDERED CMP CBCD LIPID ORDERED CMP TSH LIPID Performed By: #### L 500.4100, L500.4050, L100.0100, L501.9520 #### [facility] [address] [place], [place], [address] Internal Medicine Office Vis itovasyl 08-23-2024 Internal Medicine Office Visit [facility] [address] [place] [address] [place] [address] OFFICE VISIT Date of Service: 08/23/24 MR#: [id number] Acct: [id number] Name: CHAVEZ MARQUES Rep #: [id number] : 1970 Provider: Dr. Arely jeffries MD Age/Sex: 53/F Location: [facility] Status: Signed Intake Vital Signs 05/17/24 15:55 08/23/24 17:47 Height 5 ft 8 in 5 ft 8 in Weight: 178 lb BMI 27.0 BP 120/70 Blood Pressure Location Lt brachial Position Sitting Respiration 16 Pulse 69 Pulse Source Monitor Temp 96.9 F L Temp Source Temporal Pulse Oximetry (%) 98 Oxygen Delivery Method room air Intake Visit Reasons: 3 M FU Chief Complaint: Follow-up depression/anxiety. Supply Crib Attendant Required: No Is patient in pain?: No Allergies penicillin G Allergy (Severe, Verified 08/23/24 17:39) rash adhesive tape Allergy (Intermediate, Verified 08/23/24 17:39) Rash, itching Penicillins Allergy (Unknown, Verified 08/23/24 17:39) rash adhesive Allergy (Verified 08/23/24 17:39) Hives latex Adverse Reaction (Intermediate, Verified 08/23/24 17:39) Itching bismuth subsalicylate (From Pepto-Bismol) Adverse Reaction (Verified 08/23/24 17:39) Diarrhea Medications ???Medication ???Instructions ???Recorded ???Confirmed ???Type multivitamin 1 cap PO QAM 09/07/17 08/23/24 His tory calcium 500 mg (as 1 tab PO DAILY 12/13/18 08/23/24 H istory carbonate)-vitamin D3 5 mcg (200 unit) tablet (Os-Constantin 500 + D3) vitamin E (dl, acetate) 180 mg 400 unit PO DAILY 08/28/20 5 History (400 unit) capsule zinc 50 mg tablet 50 mg PO DAILY 12/20/20 08/23/24 H istory cholecalciferol (vitamin D3) 125 5,000 unit PO DAILY 03/28/2108/23 History mcg (5,000 unit) tablet multivitamin with minerals 1 tab PO DAILY 08/20/21 08/23/24 H istory (Hair,Skin and Nails tablet) baclofen 10 mg tablet 10 mg PO BID PRN muscle spasm #30 07/30/23 08/23/24 Rx tabs compress.stocking,kn ee,reg,lrg #2 ea 07/30/23 08/23/24 Rx levothyroxine 112 mcg tablet 112 mcg PO DAILY 12/23/23 08/23/24 History hydrocortisone 2.5 % topical cream 1 applic topical BID PRN rash #2 8 05/18/24 08/23/24 Rx grams sertraline 50 mg tablet See Rx Instructions .Route 5 08/23/24 Rx .COMPLEX #90 tabs PFSH Medical History (Updated 08/23/24 @ 18:[address] Arely Johnson MD) Hyperlipidemia Overweight (BMI 25.0-29.9) Chronic pain Spinal stenosis [...] per week HPI HPI Chief Complaint: Follow-up depression/anxiety. Details: CHAVEZ MARQUES, is a 53-year-old female presenting for management of depression and anxiety, along with musculoskeletal concerns including knee and ankle pain. The patient has a history of depression and anxiety. She has been on sertraline since August 2022, initially prescribed due to increased stress and depressive symptoms following her parents' passing and workplace stressors. Did not find Wellbutrin helpful so discontinued. The patient reports feeling flat on the current dosage and wishes to reduce the dose to 25 mg, as she felt better managed at that level previously. She now attributes most of the past anxiety/stressors to work- related environment as she feels fine during the weekend. Other chronic conditions are stable. Attestation: Documentation on this patient encounter was supported using ambient scribe technology/ voice AI technology (more content not included)... Normal [facility] TSH DL <= 0.005 mIU/L QnOrde red By: CHARLIE VALERO on 07-12-2024 TSH Qn 2.160 uIU/mL 0.300-4.200 [facility] Thyroid Stim Hormone (TSH)on 07-12-2024 TSH 2.160 uIU/mL Normal 0.300-4.200 [facility] Comment on above: Performed By: #### L 501.9520 #### [facility] [address] [place], [place], [id number] BACTERIAL VAGINOSIS NAATon 0 - Lactobacillus crispatus+gasseri+conn ii + Gardnerella vaginalis + Atopobium vaginae rRNA SARAI+probe Ql (Vag fld) Not detected Normal Not detected [facility] Comment on above: Order Comment: Speci men Type: SWAB Ordering Facility: [facility] Address: [address] [place] [address] Performed By: #### C VTV, BVAMP #### [facility] CLIA [id number] [address] [place] [address] [place] ILEANA/TRICHOMONAS NAATon 0 05-24-2024 C. glabrata RNA SARAI+probe Ql (Vag fld) Not detected Normal Not detected [facility] Comment on above: Order Comment: Speci men Type: SWAB Ordering Facility: [facility] Address: [address] [place] [address] Performed By: #### C VTV, BVAMP #### [facility] CLIA [id number] [address] [place] [address] [place] Ileana sp DNA SARAI+probe Ql (Vag fld) Not detected Normal Not detected [facility] Comment on above: Order Comment: Speci men Type: SWAB Ordering Facility: [facility] Address: [address] [place] [address] Result Comment: The Ileana species group target includes C. albicans, C. tropicalis, C. parapsilosis, and C. dubliniensis. Performed By: #### C VTV, BVAMP #### [facility] CLIA [id number] [address] [place] [address] [place] T. vaginalis DNA SARAI+probe Ql (Unsp spec) Not detected Normal Not detected [facility] Comment on above: Order Comment: Speci men Type: SWAB Ordering Facility: [facility] Address: [address] [place] [address] Performed By: #### C VTV, BVAMP #### [facility] CLIA [id number] [address] [place] [address] [place] CNOVon 05-24-2024 CNOV Office Visit (OBGYWM) CHAVEZ MARQUES ([id number]) 1970 F Date Time Provider Department 05/24/24 7:15 AM BUDDY HERNADEZ OBGYWM During your visit today, we recorded the following information about you: Blood pressure Weight Height 114/76 80.3 kg 1.727 m Buddy Hernadez APRN.CNP 05/24/2024 11:03 AM Addendum Chavez is a 53 year old who presents for an annual gynecologic exam with complaints: vaginal odor, hip pain, decreased libido, and vaginal dryness. Postmenopausal: Yes HRT use: No. Menses: hysterectomy Sexually active: No Contraception: hysterectomy History of abnormal pap: No Colposcopy: No. Leep: No. Cone biopsy: No. Bothersome pelvic pain: No Last mammogram: 2024 normal [facility] History of abnormal mammogram: No OB History [...] discussed with the Patient or Patient's Authorized Audit Senior Associate. As applicable, any other physician, advance practice provider, medical student, or other health professional student that will be observing or involved in the sensitive examination for educational or training purposes was discussed with the Patient or Authorized Audit Senior Associate. The Patient or Authorized Audit Senior Associate has agreed to proceed with the sensitive [...] external genitalia atrophic, normal Bartholin's glands, urethra, Sidon's glands, + <0.5 cm inclusion cyst noted [...] - ILEANA/TRICHOMONAS NAAT - BACTERIAL VAGINOSIS NAAT LAKSHMI Schafer Emily, APRN.CNP 05/24/2024 7:52 AM Addendum Lubricants and moisturizers list The aicb-ohd-rbfjosl vaginal moisturizer and lubricant products can be confusing to sort through, especially since there are no FDA requirements for how they can be marketed or labeled. In general there are 3 (more content not included)... Normal [facility] Internal Medicine Office Vis iton 05-17-2024 Internal Medicine Office Visit [facility] [address] [place] [address] [id number] OFFICE VISIT Date of Service: 05/17/24 MR#: [id number] Acct: [id number] Name: CHAVEZ MARQUES Rep #: [id number] : 1970 Provider: Dr. Arely jeffries MD Age/Sex: 53/F Location: [facility] Status: Signed Intake Vital Signs 04/05/24 17:33 [...] abnormal hearin (more content not included)... Normal [facility] Breast imaging reportOrdered By: Bertin Rai on 05-11-2024 Study report [facility] Imaging Services [address] [place], [place] [id number] SCRN MAMM (CAD)W/JOSE PEREZ MR#: [id number] Acct: [id number] Name: CHAVEZ MARQUES Rep #: [id number] : 1970 F 53 From: Alejandro Rai MD PCP: Dr. Arely Johnson MD Status: R EG CLI Study:SCRN MAMM (CAD)W/JOSE BILAT Date of Exa m: 05/11/24 Exam# [id number] Ordering Dr: Jose Manuel Hernadez SILVICULTURE TEACHER-C EXAM: SCRN MAMM (CAD)W/JOSE BILAT DATE: 05/11/2024 [...] be mailed to the patient. Reading Location: [place] [address] CC: SILVICULTURE TEACHERLevy Hernadez; Dr. Arely Johnson MD ~ [employer] Worker: Signed [facility] SCRN MAMM (CAD)W/JOSE BILATo n 05-11-2024 SCRN MAMM (CAD)W/JOSE BILAT [facility] Imaging Services [address] [place] [address] SCRN MAMM (CAD)W/JOSE BILAT MR#: [id number] Acct: [id number] Name: CHAVEZ MARQUES Rep #: [id number] : 1970 F 53 From: Bertin villaseñor MD PCP: Dr. Arely Johnson MD Status: REG CLI Study: SCRN MAMM (CAD)W/JOSE BILAT Date of Exam: 05/02 Exam# [id number] Ordering Dr: Buddy Hernadez EXAM: SCRN MAMM [...] be mailed to the patient. Reading Location: [place] [address] CC: ANA Hernadez; Dr. Arely Johnson MD [employer] Worker: Signed Normal [facility] 05-04-2024 OMAR Telephone (NELLIEGYWM) CHAVEZ MARQUES ([id number]) 1970 F Date Time Provider Department 05/04/24 BUDDY HERNADEZ During your visit today, we recorded the following information about you: Emi Melgar LPN 05/04/2024 11:55 AM Signed Patient has yearly exam scheduled 05/24/2024. Called requesting order for mammogram that is scheduled at [facility] . Emi Melgar LPN 05/04/2024 4:41 PM [...] Status:Closed by EMI MELGAR on 05/04/24 Normal [facility] Anion gap in Serum or Plasma Ordered By: CHARLIE VALERO on 05-03-2024 Anion gap [Moles/Vol] 8 mmol/L 5-15 [facility] BUN/creatinine ratioOrdered By: CHARLIE VALERO on 05-03-2024 Urea nitrogen/Creatinine [Mass ratio] 34.9 mg/mg High 10-20 [facility] Bilirubin, totalOrdered By: CHARLIE VALERO on 05-03-2024 Bilirubin [Mass/Vol] 0.29 mg/dL 0.00-1.30 [facility] Carbon dioxide, total [Moles /volume] in Central venous bloodOrdered By: CHARLIE VALERO on 05-03-2024 CO2 [Moles/Vol] 27.1 mmol/L 21.0-32.0 [facility] Chloride assayOrdered By: ME KELSEY VALERO on 05-03-2024 Chloride [Moles/Vol] 106 mmol/L 98-108 [facility] Comprehensive Metabolic Prof ilon 05-03-2024 Albumin [Mass/Vol] 4.4 g/dL Normal 3.5-5.0 [facility] Comment on above: Performed By: #### L 506.1001, L500.4050, L501.9520 #### [facility] [address] [place], [address] Albumin/Globulin [Mass ratio] 1.6 {ratio} Normal 0.9-2.4 [facility] Comment on above: Performed By: #### L 506.1001, L500.4050, L501.9520 #### [facility] [address] [place], [address] ALK PHOS 67 U/L Normal 35-104 [facility] Comment on above: Performed By: #### L 506.1001, L500.4050, L501.9520 #### [facility] [address] [place], [address] ALT [Catalytic activity/Vol] 19 U/L Normal <=34 [facility] Comment on above: Performed By: #### L 506.1001, L500.4050, L501.9520 #### [facility] [address] [place], [address] AST [Catalytic activity/Vol] 21 U/L Normal <=31 [facility] Comment on above: Performed By: #### L 506.1001, L500.4050, L501.9520 #### [facility] [address] [place], [address] Bilirubin [Mass/Vol] 0.29 mg/dL Normal 0.00-1.30 [facility] Comment on above: Performed By: #### L 506.1001, L500.4050, L501.9520 #### [facility] [address] [place], [address] BUN/CRE 34.9 RATIO High 10-20 [facility] Comment on above: Performed By: #### L 506.1001, L500.4050, L501.9520 #### [facility] [address] [place], [address] Calcium [Mass/Vol] 9.3 mg/dL Normal 7.6-11.0 [facility] Comment on above: Performed By: #### L 506.1001, L500.4050, L501.9520 #### [facility] [address] [place], [address] Chloride [Moles/Vol] 106 mmol/L Normal 98-108 [facility] Comment on above: Performed By: #### L 506.1001, L500.4050, L501.9520 #### [facility] [address] [place], [address] CO2 [Moles/Vol] 27.1 mmol/L Normal 21.0-32.0 [facility] Comment on above: Performed By: #### L 506.1001, L500.4050, L501.9520 #### [facility] [address] [place], [address] Creatinine [Mass/Vol] 0.62 mg/dL Low 0.70-1.20 [facility] Comment on above: Performed By: #### L 506.1001, L500.4050, L501.9520 #### [facility] [address] [place], [address] GAP 8 Normal 5-15 [facility] Comment on above: Performed By: #### L 506.1001, L500.4050, L501.9520 #### [facility] [address] [place], [address] GFR/1.73 sq M.predicted among non-blacks MDRD (S/P/Bld) [Vol rate/Area] 106 mL/min/{1.73_m2} Normal >60 [facility] Comment on above: Result Comment: mL/m in/1.73m2 CKD-EPI Creatinine Equation (2020) Performed By: #### L 506.1001, L500.4050, L501.9520 #### [facility] [address] [place], [address] Globulin (S) [Mass/Vol] 2.7 g/dL Normal 2.2-4.2 [facility] Comment on above: Performed By: #### L 506.1001, L500.4050, L501.9520 #### [facility] [address] [place], [address] Glucose [Mass/Vol] 81 mg/dL Normal 70-99 [facility] Comment on above: Performed By: #### L 506.1001, L500.4050, L501.9520 #### [facility] [address] [place], [address] Potassium [Moles/Vol] 4.4 mmol/L Normal 3.3-5.1 [facility] Comment on above: Performed By: #### L 506.1001, L500.4050, L501.9520 #### [facility] [address] [place], [address] Sodium [Moles/Vol] 141 mmol/L Normal 133-145 [facility] Comment on above: Performed By: #### L 506.1001, L500.4050, L501.9520 #### [facility] [address] [place], [address] T PROT 7.1 g/dL Normal 5.9-8.4 [facility] Comment on above: Performed By: #### L 506.1001, L500.4050, L501.9520 #### [facility] [address] [place], [address] Urea nitrogen [Mass/Vol] 22 mg/dL High 4-19 [facility] Comment on above: Performed By: #### L 506.1001, L500.4050, L501.9520 #### [facility] [address] [place], [address] GFR/1.73 sq M.predicted edin g non-blacks MDRD (S/P/Bld) [Vol rate/Area]Ordered By: CHARLIE VALERO on 05-03-2024 Estimated GFR (MDRD) Non-Af Amer 106 >60 [facility] Comment on above: mL/min/1.73m2 CKD-EP I Creatinine Equation (2020) Glomerular filtration rate ( GFR) estimation/1.73 sq m using serum, plasma, or whole bOrdered By: CHARLIE VALERO on 05-03-2024 GFR/1.73 sq M.predicted among non-blacks MDRD (S/P/Bld) [Vol rate/Area] 106 mL/min/{1.73_m2} >60 [facility] Comment on above: mL/min/1.73m2 CKD-EP I Creatinine Equation (2020) L506.1001on 05-03-2024 Vitamin D 25-OH 62.8 ng/mL Normal 30-100 [facility] Comment on above: Result Comment: Kinsey min D Status Deficiency: <20 ng/mL (50nmol/L) Insufficiency: 20-30 ng/mL (50-75 nmol/L) Sufficiency: 30-100 ng/mL (75-250 nmol/L) Toxicity: >100 ng/mL (>250 nmol/L) Performed By: #### L 506.1001, L500.4050, L501.9520 #### [facility] [place], [place], [address] Laboratory - Chemistry and C hemistry - challengeOrdered By: CHARLIE VALERO on 05-03-2024 AST [Catalytic activity/Vol] 21 U/L <32 [facility] Potassium (Unsp spec) [Mass/ Vol]Ordered By: CHARLIE VALERO on 05-03-2024 Potassium [Moles/Vol] 4.4 mmol/L 3.3-5.1 [facility] Potassium measurement (mass/ volume)Ordered By: CHARLIE VALERO on 05-03-2024 Potassium (Unsp spec) [Mass/Vol] 4.4 mmol/L 3.3-5.1 [facility] Serum creatinine measurement (mass/volume)Ordered By: CHARLIE VALERO on 05-03-2024 Creatinine [Mass/Vol] 0.62 mg/dL Low 0.70-1.20 [facility] Serum globulin measurementOr dered By: CHARLIE VALERO on 05-03-2024 Globulin (S) [Mass/Vol] 2.7 g/dL 2.2-4.2 [facility] Serum glucose measurement (m ass/volume)Ordered By: CHARLIE VALERO on 05-03-2024 Glucose [Mass/Vol] 81 mg/dL 70-99 [facility] Serum or plasma alanine quinones otransferase (ALT) measurementOrdered By: CHARLIE VALERO on 05-03-2024 ALT [Catalytic activity/Vol] 19 U/L <35 [facility] Serum or plasma albumin benedict urement (mass/volume)Ordered By: CHARLIE VALERO on 05-03-2024 Albumin [Mass/Vol] 4.4 g/dL 3.5-5.0 [facility] Serum or plasma albumin/glob ulin mass ratioOrdered By: CHARLIE VALERO on 05-03-2024 Albumin/Globulin [Mass ratio] 1.6 {ratio} 0.9-2.4 [facility] Serum or plasma alkaline mary jane sphatase measurementOrdered By: CHARLIE VALERO on 05-03-2024 ALP [Catalytic activity/Vol] 67 U/L 35-104 [facility] Serum or plasma calcium benedict urement (mass/volume)Ordered By: CHARLIE VALERO on 05-03-2024 Calcium [Mass/Vol] 9.3 mg/dL 7.6-11.0 [facility] Serum or plasma urea nitroge n measurement (mass/volume)Ordered By: CHARLIE VALERO on 05-03-2024 Urea nitrogen [Mass/Vol] 22 mg/dL High 4-19 [facility] Sodium levelOrdered By: ALEK VALERO on 05-03-2024 Sodium [Moles/Vol] 141 mmol/L 133-145 [facility] TSH DL <= 0.005 mIU/L QnOrde red By: CHARLIE VALERO on 05-03-2024 Thyroid Stimulating Hormone (TSH) 0.120 uIU/mL Low 0.300-4.200 [facility] TSH Qn 0.120 uIU/mL Low 0.300-4.200 [facility] Thyroid Stim Hormone (TSH)on 05-03-2024 TSH 0.120 uIU/mL Low 0.300-4.200 [facility] Comment on above: Performed By: #### L 506.1001, L500.4050, L501.9520 #### [facility] [place], [address] Total proteinOrdered By: WILLI VALERO on 05-03-2024 Protein [Mass/Vol] 7.1 g/dL 5.9-8.4 [facility] Vitamin D, 25-hydroxyOrdered By: CHARLIE MARYLU on 05-03-2024 Vitamin D 25-Hydroxy 62.8 ng/mL 30-100 [facility] Comment on above: Vitamin D StatusDefi ciency: <20 ng/mL (50nmol/L)Insufficiency: 20-30 ng/mL (50-75 nmol/L)Sufficiency: 30-100 ng/mL (75-250 nmol/L)Toxicity: >100 ng/mL (>250 nmol/L) Internal Medicine Office Vis iton 04-05-2024 Internal Medicine Office Visit [facility] [address] [place] [address] [place] [address] OFFICE VISIT Date of Service: 04/05/24 MR#: [id number] Acct: [id number] Name: CHAVEZ MARQUES Rep #: [id number] : 1970 Provider: Dr. Arely jeffries MD Age/Sex: 53/F Location: [facility] Status: Signed Intake Vital Signs 10/06/23 18:03 [...] M FU Chief Complaint: Follow-up chronic conditions. Supply Crib Attendant Required: No Accompanied by: Self Is patient [...] falls, he (more content not included)... Normal [facility] Urine Cultureon 03-04-2024 URC Culture exhibits no growth. Normal [facility] Comment on above: Performed By: #### M [id number] #### [facility] [address] [place], [place], [id number] Laboratory - Chemistry and C hemistry - challengeon 03-03-2024 Bilirubin Ql (U) Negative [facility] Glucose Ql (U) Negative [facility] Ketones Ql (U) Negative [facility] pH (U) 6.0 [pH] [facility] Specific gravity (U) [Rel density] 1.020 [facility] Urobilinogen (U) [Mass/Vol] Negative [facility] Laboratory - Hematology and Cell countson 03-03-2024 Hemoglobin Ql (U) Negative [facility] Laboratory - Specimen inform ationon 03-03-2024 Clarity (U) Clear [facility] Color (U) Dk Yellow [facility] Laboratory - Urinalysison Nitrite Ql (U) Negative [facility] Protein Ql (U) Trace [facility] No Panel Informationon 03-03 Urine Leukocytes Positive [facility] Urine Non-Hemolyzed Blood Negative [facility] Urgent Care Visit Reporton 0 03-03-2024 Urgent Care Visit Report [facility] [address], [address] [place] [address] OFFICE VISIT Date of Service: 03/03/24 MR#: [id number] Acct: [id number] Name: CHAVEZ MARQUES Rep #: [id number] : 1970 Provider: GABBI Valdovinos Age/Sex: 53/F Location: [facility] Status: Signed Intake Vital Signs 12/23/23 08:22 [...] Chief Complaint: left flank pain, bladder spasms Supply Crib Attendant Required: No Is patient in pain?: No [...] Tatum on 03/03/24 06:27 Off Ur Spec Goodell 1.020 Last Edit by Katherin Tatum on [...] Office Urin (more content not included)... Normal [facility] Urine cultureOrdered By: Neel Deras on 03-03-2024 Bacteria identified Cx Nom (U) Culture exhibits no growth. [facility] TSH QnOrdered By: Randall pham on 02-08-2024 Thyroid Stimulating Hormone (TSH) 1.450 uIU/mL 0.358-3.740 [facility] Thyroid Stim Hormone (TSH)on 02-08-2024 TSH 1.450 uIU/mL Normal 0.358-3.740 [facility] Comment on above: Performed By: #### L 501.9520 #### [facility] [address] [place], [place], [address] [facility] 01-13-2024 [facility] Letter Text Normal [facility] Susan 01-13-2024 CNPN Telephone (ORMDNA) CHAVEZ MARQUES ([id number]) 1970 F Date Time Provider Department 01/13/24 KRISTINA BURNS During your visit today, we recorded the following information about you: Ewelina Jacobs RN 01/13/2024 9:10 AM Signed Patient calling She is asking for a letter to show TSA about her knee replacement as she has a few trips and a cruise coming up [facility], [place] 01/13/2024 2:37 PM Signed I spoke to the patient. She would like a card mailed to her and a letter to [employer] as a back up. Will order card and send letter to [employer]. Allergies As of Date: 01/13/2024 Noted Allergy [...] Status:Closed by LASHAE MESSER on 01/13/24 Normal [facility] PT D/C Summary (1)on 12-26- 024 PT D/C Summary (1) [facility] Physical Therapy [facility] [address] [place] [address] [address] [place] [address] / REHABILITATION SERVICES DISCHARGE SUMMARY MR#: [id number] Acct: [id number] Name: CHAVEZ MARQUES Rep #: [id number] : 1970 53 From: Chauncey Pritchard DPT, OCS, CSCS Referring DrOlya: Dr. Arely Johnson MD Status: REG R Insurance: [facility] Discharge Summary D/C summary: It has [...] please feel free to call me at [phone]. Thank you for the referral of this patient. Sincerely, Chauncey Pritchard, DPT, OCS, CSCS Balance/Gait/Functio nal tests Balance/Special Test Scores Oswestry Low Back Score: 3 Improvement % Improvement: 85 12/27/23 0725 CC: Dr. Arely Johnson MD EBG Signed Normal [facility] Cardiology Visit Reporton Cardiology Visit Report [facility] [address] [place] [address] OFFICE VISIT Date of Service: 12/23/23 MR#: [id number] Acct: [id number] Name: CHAVEZ MARQUES Rep #: [id number] : 1970 Provider: Dr. Donald Cast MD Age/Sex: 53/F Location: [facility] Status: Signed HPI HPI History of [...] air Intake Visit Reasons: 1 Y FU Supply Crib Attendant Required: No Accompanied by: Self Is patient [...] balance problems (more content not included)... Normal [facility] XR Knee AP and Lateral and M deeon 07-31-2023 IMPRESSION: Stable [employer] Worker: LUDIVINA Transcribe Date/Time: Jul 31 2023 8:05A Dictated by : DO DAVEY MD This examination was interpreted and the report reviewed and electronically signed by: DO DAVEY MD on Jul 31 2023 8:06AM EST [facility] * * *Final Report* * * [...] Small joint effusion. Mild right knee osteoarthrosis. [facility] Provider, [facility] [place] - 07/31/2023 * * *Final Report* * [...] right knee osteoarthrosis. IMPRESSION IMPRESSION: Stable [employer]KA [employer] Worker: LUDIVINA Transcribe Date/Time: Jul 31 2023 8:05A Dictated by : DO DAVEY MD This examination was interpreted and the report reviewed and electronically signed by: DO DAVEY MD on Jul 31 2023 8:06AM EST [facility] XR Knee AP and Lateral and M erchantsOrdered By: Ccf Provider on 07-31-2023 [facility] CNOVon 07-30-2023 CNOV Office Visit (ORMDNA) CHAVEZ MARQUES ([id number]) 1970 F Date Time Provider Department 07/30/23 [...] for Encounter Date Provider Department Center 07/30/2023 [id number]-VAUUXANKRISTINA BURNS [facility] (more content not included)... Normal [facility] XR KNEE 3V AP/LAT/MERCHANT L [...] Mild right knee osteoarthrosis. IMPRESSION: Stable [employer] Worker: PSCB Transcribe Date/Time: Jul 31 2023 8:05A Dictated by : DO DAVEY MD This examination was interpreted and the report reviewed and electronically signed by: DO DAVEY MD on Jul 31 2023 8:06AM EST [id number] [facility] XR Knee AP and Lateral and M erchantson 07-30-2023 Radiology Study observation (narrative) [facility] Basophil percentageOrdered B y: Arely Johnson on 05-10-2023 Bilirubin [Mass/Vol] 0.60 mg/dL 0.20-1.00 [facility] Comment on above: For patients on eltr ombopag therapy, use of Dimension [place] TBIL is not recommended. Chloride [Moles/Vol] 109 mmol/L 98-107 [facility] Glucose [Mass/Vol] 91 mg/dL 74-106 [facility] Potassium [Moles/Vol] 4.3 mmol/L 3.5-5.1 [facility] Protein [Mass/Vol] 7.2 g/dL 6.4-8.2 [facility] Sodium [Moles/Vol] 140 mmol/L 136-145 [facility] Laboratory - Chemistry and C hemistry - challengeOrdered By: Arely Johnson on 05-10-2023 Albumin/Globulin [Mass ratio] 1.5 {ratio} 0.9-2.4 [facility] ALP [Catalytic activity/Vol] 65 U/L 45-117 [facility] ALT [Catalytic activity/Vol] 50 U/L 13-56 [facility] CO2 [Moles/Vol] 27.0 mmol/L 21.0-32.0 [facility] Globulin (S) [Mass/Vol] 2.9 g/dL 2.2-4.2 [facility] Urea nitrogen/Creatinine [Mass ratio] 23.3 mg/mg 10-20 [facility] No Panel InformationOrdered By: Arely Johnson on 05-10-2023 Estimated GFR (MDRD) Amer 84 mL/min >60 [facility] Comment on above: GFR Calc Estimated GFR (MDRD) Non-Af Amer 69 mL/min >60 [facility] Comment on above: Non- GFR Calc Serum or plasma calcium benedict urement (mass/volume)Ordered By: Arely Johnson on 05-10-2023 Calcium [Mass/Vol] 9.3 mg/dL 8.5-10.1 [facility] Serum or plasma creatinine m easurement (mass/volume)Ordered By: Arely Johnson on 05-10-2023 Creatinine [Mass/Vol] 0.90 mg/dL 0.55-1.02 [facility] Comment on above: The validity of the calculated GFR & GFRAA in patients over 70 years has not been determined. Clinical correlation is essential. Serum or plasma thyroid stim ulating hormone (TSH) measurement (units/volume)Ordered By: Arely Johnson on 05-10-2023 TSH Qn 0.84 uIU/mL 0.358-3.74 [facility] Serum or plasma urea nitroge n measurement (mass/volume)Ordered By: Arely Johnson on 05-10-2023 Urea nitrogen [Mass/Vol] 21 mg/dL 7-18 [facility] Thin prep Papanicolaou smear with manual screeningOrdered By: Arely Johnson on 05-10-2023 Thin prep Papanicolaou smear with manual screening 4.3 g/dL 3.2-5.0 [facility] Thin prep Papanicolaou smear with manual screening 30 U/L 15-37 [facility] Thin prep Papanicolaou smear with manual screening 4 5-15 [facility] Serum or plasma thyroid stim ulating hormone (TSH) measurement (units/volume)Ordered By: Randall Dorado on 03-19-2023 TSH Qn 2.55 uIU/mL 0.358-3.74 [facility] Basophil percentageOrdered B y: Randall Dorado on 01-13-2023 Bilirubin [Mass/Vol] 0.40 mg/dL 0.20-1.00 [facility] Comment on above: For patients on eltr ombopag therapy, use of Dimension [place] TBIL is not recommended. Chloride [Moles/Vol] 104 mmol/L 98-107 [facility] Cholesterol [Mass/Vol] 194 mg/dL <200 [facility] Comment on above: <200 mg/dL Desirable 200-240 mg/dL Borderline >240 mg/dL High Risk Glucose [Mass/Vol] 91 mg/dL 74-106 [facility] [facility] Potassium [Moles/Vol] 4.1 mmol/L 3.5-5.1 [facility] Protein [Mass/Vol] 7.7 g/dL 6.4-8.2 [facility] Sodium [Moles/Vol] 138 mmol/L 136-145 [facility] Triglyceride [Mass/Vol] 60 mg/dL <199 [facility] Comment on above: The drugs N-Acetylcy steine and Metamizole may falsely depress this assay.Serum Triglycerides Reference Interval Normal <150 mg/dL Borderline high 150 - 199 mg/dL High 200 - 499 mg/dL Very High > or = 500 mg/dL Laboratory - Chemistry and C hemistry - challengeOrdered By: Randall Dorado on 01-13-2023 ALP [Catalytic activity/Vol] 65 U/L 45-117 [facility] ALT [Catalytic activity/Vol] 33 U/L 13-56 [facility] CO2 [Moles/Vol] 28.0 mmol/L 21.0-32.0 [facility] Globulin (S) [Mass/Vol] 3.5 g/dL 2.2-4.2 [facility] Urea nitrogen/Creatinine [Mass ratio] 15.8 mg/mg 10-20 [facility] No Panel InformationOrdered By: Randall Dorado on 01-13-2023 Estimated GFR (MDRD) Amer 94 mL/min >60 [facility] Comment on above: GFR Calc Estimated GFR (MDRD) Non-Af Amer 77 mL/min >60 [facility] Comment on above: Non- GFR Calc Thyroid Stimulating Hormone (TSH) 6.48 uIU/mL 0.358-3.74 [facility] Serum or plasma albumin benedict urement (mass/volume)Ordered By: Randall Dorado on 01-13-2023 Albumin [Mass/Vol] 4.2 g/dL 3.2-5.0 [facility] Serum or plasma albumin/glob ulin mass ratioOrdered By: Randall Dorado on 01-13-2023 Albumin/Globulin [Mass ratio] 1.2 {ratio} 0.9-2.4 [facility] Serum or plasma calcium benedict urement (mass/volume)Ordered By: Randall Dorado on 01-13-2023 Calcium [Mass/Vol] 9.0 mg/dL 8.5-10.1 [facility] Serum or plasma cholesterol in HDL measurement (mass/volume)Ordered By: Randall Dorado on 01-13-2023 Cholesterol in HDL [Mass/Vol] 67 mg/dL >40 [facility] Comment on above: The drugs N-Acetylcy steine and Metamizole may falsely depress this assay. Reference Range HDL <40 mg/dL Low HDL Cholesterol HDL >or= 60 mg/dL High HDL Cholesterol Serum or plasma cholesterol in VLDL measurement (mass/volume)Ordered By: Randall Dorado on 01-13-2023 Cholesterol in VLDL [Mass/Vol] 12 mg/dL 5-40 [facility] Serum or plasma creatinine m easurement (mass/volume)Ordered By: Randall Dorado on 01-13-2023 Creatinine [Mass/Vol] 0.82 mg/dL 0.55-1.02 [facility] Comment on above: The validity of the calculated GFR & GFRAA in patients over 70 years has not been determined. Clinical correlation is essential. Serum or plasma low density lipoprotein (LDL) cholesterol measurement (mass/volume)Ordered By: Randall Dorado on 01-13-2023 Cholesterol in LDL [Mass/Vol] 115 mg/dL 0-130 [facility] Serum or plasma urea nitroge n measurement (mass/volume)Ordered By: Randall Dorado on 01-13-2023 Urea nitrogen [Mass/Vol] 13 mg/dL 7-18 [facility] Thin prep Papanicolaou smear with manual screeningOrdered By: Randall Dorado on 01-13-2023 Thin prep Papanicolaou smear with manual screening 23 U/L 15-37 [facility] Thin prep Papanicolaou smear with manual screening 6 5-15 [facility] Absolute lymphocyte countOrd ered By: Arely Johnson on 12-23-2022 Lymphocytes Auto (Unsp spec) [#/Vol] 1.25 10*3/uL 0.83-4.51 [facility] Basophil percentageOrdered B y: Arely Johnson on 12-23-2022 Basophil percentage Not Reportable [facility] Basophils/100 WBC (Bld) 1.0 % 0-1 [facility] Bilirubin [Mass/Vol] 0.60 mg/dL 0.20-1.00 [facility] Comment on above: For patients on eltr ombopag therapy, use of Dimension [place] TBIL is not recommended. Chloride [Moles/Vol] 104 mmol/L 98-107 [facility] Cholesterol [Mass/Vol] 225 mg/dL <200 [facility] Comment on above: <200 mg/dL Desirable 200-240 mg/dL Borderline >240 mg/dL High Risk Eosinophils/100 WBC (Bld) 1.9 % 0-5 [facility] Glucose [Mass/Vol] 80 mg/dL 74-106 [facility] Neutrophils (Bld) [#/Vol] 4.0 10*3/uL 2.0-7.7 [facility] Neutrophils/100 WBC (Bld) 68.3 % 47-70 [facility] Potassium [Moles/Vol] 4.2 mmol/L 3.5-5.1 [facility] Protein [Mass/Vol] 7.7 g/dL 6.4-8.2 [facility] Sodium [Moles/Vol] 140 mmol/L 136-145 [facility] Triglyceride [Mass/Vol] 74 mg/dL <199 [facility] Comment on above: The drugs N-Acetylcy steine and Metamizole may falsely depress this assay.Serum Triglycerides Reference Interval Normal <150 mg/dL Borderline high 150 - 199 mg/dL High 200 - 499 mg/dL Very High > or = 500 mg/dL WBC (Bld) [#/Vol] 5.8 10*3/uL 4.4-11.0 [facility] Blood erythrocytes count (nu mber/volume)Ordered By: Arely Johnson on 12-23-2022 RBC (Bld) [#/Vol] 4.39 10*6/uL 4.2-5.4 [facility] Blood hemoglobin measurement (mass/volume)Ordered By: Arely Johnson on 12-23-2022 Hemoglobin (Bld) [Mass/Vol] 12.7 g/dL 12.0-15.0 [facility] Blood lymphocytes/100 leukoc ytesOrdered By: Arely Johnson on 12-23-2022 Lymphocytes/100 WBC (Bld) 21.5 % 19-41 [facility] Blood monocytes/100 leukocyt esOrdered By: Arely Johnson on 12-23-2022 Monocytes/100 WBC (Bld) 7.0 % 0-10 [facility] Blood platelet mean volumeOr dered By: Arely Johnson on 12-23-2022 Platelet mean volume (Bld) [Entitic vol] 10.3 fL 6.2-12.0 [facility] Determination of erythrocyte mean corpuscular volume (MCV)Ordered By: Arely Johnson on 12-23-2022 MCV (RBC) [Entitic vol] 91.8 fL 81-99 [facility] Hematocrit Auto (Bld) [Volum e fraction]Ordered By: Arely Johnson on 12-23-2022 Hematocrit (Bld) [Volume fraction] 40.3 % 37-47 [facility] Laboratory - Chemistry and C hemistry - challengeOrdered By: Arely Johnson on 12-23-2022 ALP [Catalytic activity/Vol] 70 U/L 45-117 [facility] ALT [Catalytic activity/Vol] 35 U/L 13-56 [facility] CO2 [Moles/Vol] 29.0 mmol/L 21.0-32.0 [facility] Globulin (S) [Mass/Vol] 3.3 g/dL 2.2-4.2 [facility] Urea nitrogen/Creatinine [Mass ratio] 16.9 mg/mg 10-20 [facility] Laboratory - Hematology and Cell countsOrdered By: Arely Johnson on 12-23-2022 Erythrocyte distribution width (RBC) [Entitic vol] 45.9 fL 35.1-43.9 [facility] Erythrocyte distribution width (RBC) [Ratio] 13.5 % 11.6-14.6 [facility] Immature granulocytes/100 WBC (Bld) 0.300 % 0.0-0.9 [facility] Comment on above: IG% - Immature Granu locytes (promyelocytes, myelocytes and metamyelocytes) > 1% indicates that a LEFT SHIFT is Present. MCH (RBC) [Entitic mass] 28.9 pg 27.0-32.0 [facility] Nucleated RBC/100 WBC (Bld) [Ratio] 0 % 0-5 [facility] MCHC Auto (RBC) [Mass/Vol]Or dered By: Arely Johnson on 12-23-2022 MCHC (RBC) [Mass/Vol] 31.5 g/dL 32-36 [facility] No Panel InformationOrdered By: Arely Johnson on 12-23-2022 Anti-Nuclear Antibody Screen Negative Negative [facility] Comment on above: Performed at: [address] [id number] Director: Bam Collado PhD, Phone: [phone] [employer] [facility] Antibody Not Reportable [facility] Estimated GFR (MDRD) Amer 93 mL/min >60 [facility] Comment on above: GFR Calc Estimated GFR (MDRD) Non-Af Amer 77 mL/min >60 [facility] Comment on above: Non- GFR Calc [employer] Antibody Not Reportable [facility] Thyroid Stimulating Hormone (TSH) 13.80 uIU/mL 0.358-3.74 [facility] Platelets bldOrdered By: Abhijeet yohannesmary Johnson on 12-23-2022 Platelets (Bld) [#/Vol] 278 10*3/uL 150-450 [facility] Serum DNA double strand anti body assay (units/volume)Ordered By: Arely Johnson on 12-23-2022 DNA double strand Ab Qn (S) Not Reportable [facility] Serum Mary-1 antibody assay (u nits/volume)Ordered By: Arely Johnson on 12-23-2022 Mary-1 extractable nuclear Ab Qn (S) Not Reportable [facility] Serum Scl-70 extractable nuc lear antibody assay (units/volume)Ordered By: Arely Johnson on 12-23-2022 SCL-70 extractable nuclear Ab Qn (S) Not Reportable [facility] Serum Allen extractable nucl ear antibody detectionOrdered By: Arely Johnson on 12-23-2022 Allen extractable nuclear Ab Ql (S) Not Reportable [facility] Serum or plasma albumin benedict urement (mass/volume)Ordered By: Arely Johnson on 12-23-2022 Albumin [Mass/Vol] 4.4 g/dL 3.2-5.0 [facility] Serum or plasma albumin/glob ulin mass ratioOrdered By: Arely Johnson on 12-23-2022 Albumin/Globulin [Mass ratio] 1.3 {ratio} 0.9-2.4 [facility] Serum or plasma calcium benedict urement (mass/volume)Ordered By: Arely Johnson on 12-23-2022 Calcium [Mass/Vol] 9.5 mg/dL 8.5-10.1 [facility] Serum or plasma cholesterol in HDL measurement (mass/volume)Ordered By: Arely Johnson on 12-23-2022 Cholesterol in HDL [Mass/Vol] 77 mg/dL >40 [facility] Comment on above: The drugs N-Acetylcy steine and Metamizole may falsely depress this assay. Reference Range HDL <40 mg/dL Low HDL Cholesterol HDL >or= 60 mg/dL High HDL Cholesterol Serum or plasma cholesterol in VLDL measurement (mass/volume)Ordered By: Arely Johnson on 12-23-2022 Cholesterol in VLDL [Mass/Vol] 15 mg/dL 5-40 [facility] Serum or plasma creatinine m easurement (mass/volume)Ordered By: Arely Johnson on 12-23-2022 Creatinine [Mass/Vol] 0.83 mg/dL 0.55-1.02 [facility] Comment on above: The validity of the calculated GFR & GFRAA in patients over 70 years has not been determined. Clinical correlation is essential. Serum or plasma low density lipoprotein (LDL) cholesterol measurement (mass/volume)Ordered By: Arely Johnson on 12-23-2022 Cholesterol in LDL [Mass/Vol] 133 mg/dL 0-130 [facility] Serum or plasma urea nitroge n measurement (mass/volume)Ordered By: Arely Johnson on 12-23-2022 Urea nitrogen [Mass/Vol] 14 mg/dL 7-18 [facility] Thin prep Papanicolaou smear with manual screeningOrdered By: Arely Johnson on 12-23-2022 Thin prep Papanicolaou smear with manual screening 23 U/L 15-37 [facility] Thin prep Papanicolaou smear with manual screening 7 5-15 [facility] 09-07-2022 CNCO Letter Text Normal [facility] 08-12-2022 CNCO Letter Text Normal [facility] XR Knee AP and Lateral and M erchantson 08-08-2022 IMPRESSION: Intact left knee arthroplasty. [employer] Worker: PSCB Transcribe Date/Time: Aug 08 2022 11:02A Dictated by : LORY MCNEIL MD This examination was interpreted and the report reviewed and electronically signed by: LORY MCNEIL MD on Aug 08 2022 11:02AM [facility] * * *Final Report* * * DATE OF EXAM: Aug 07 2022 10:52AM MARIANO [id number] - XR KNEE 3V AP/LAT/MERCHANT LT / PROCEDURE REASON: M25.562-Left knee pain, unspecified chronicity * * * * Physician Interpretation * * * * EXAMINATION: XR KNEE 3V AP/LAT/MERCHANT LT HISTORY: FOLLOW-UP FOR LEFT KNEE; SURGERY 6/15 Left knee pain, unspecified chronicity . TECHNIQUE: XR KNEE 3V AP/LAT/MERCHANT LT Laterality: LEFT Number of different views (projections): 3 M: XB_1 COMPARISON: 07/23/2022 RESULT: Left total knee arthroplasty in place appears intact and without loosening. Mild right knee degenerative change. No acute fracture or dislocation. There are no bony erosions. [facility] Provider, [facility] [place] - 08/08/2022 * * *Final Report* * [...] erosions. IMPRESSION IMPRESSION: Intact left knee arthroplasty. [employer] Worker: PSCB Transcribe Date/Time: Aug 08 2022 11:02A Dictated by : LORY MCNEIL MD This examination was interpreted and the report reviewed and electronically signed by: LORY MCNEIL MD on Aug 08 2022 11:02AM EST [facility] XR Knee AP and Lateral and M erchantsOrdered By: Cc Provider on 08-08-2022 [facility] XR KNEE 3V AP/LAT/MERCHANT L Ton [...] bony erosions. IMPRESSION: Intact left knee arthroplasty. [employer] Worker[facility] Transcribe Date/Time: Aug 08 2022 11:02A Dictated by : LORY MCNEIL MD This examination was interpreted and the report reviewed and electronically signed by: LORY MCNEIL MD on Aug 08 2022 11:02AM EST [id number] [facility] XR Knee AP and Lateral and M erchantson 08-07-2022 Radiology Study observation (narrative) [facility] CT KNEE WO IVCON LEFTon 05- [facility] XR Knee - bilateral 4 Viewso n 03-19-2022 IMPRESSION: Bilateral osteoarthrosis, left more advanced than right. Small right joint effusion [employer] Worker: LUDIVINA Transcribe Date/Time: Mar 19 2022 1:38P Dictated by : DO DAVEY MD This examination was interpreted and the report reviewed and electronically signed by: DO DAVEY MD on Mar 19 2022 1:40PM [facility] * * *Final Report* * * DATE OF EXAM: Mar 18 2022 8:04AM MARIANO [id number] - XR KNEE 4V AP/PA/LAT/MERCH ARMANDO / PROCEDURE REASON: [id number] * * * * Physician Interpretation * [...] noted, likely due to prior ACL reconstruction. [facility] Provider, [facility] [place] - 03/19/2022 * * *Final Report* * * DATE OF EXAM: Mar 18 2022 8:04AM MARIANO 5618 - XR KNEE 4V AP/PA/LAT/MERCH ARMANDO / PROCEDURE REASON: [id number] * * * * Physician Interpretation * [...] advanced than right. Small right joint effusion [employer] Worker: [facility] Transcribe Date/Time: Mar 19 2022 1:38P Dictated by : DO DAVEY MD This examination was interpreted and the report reviewed and electronically signed by: DO DAVEY MD on Mar 19 2022 1:40PM EST [facility] XR Knee - bilateral 4 ViewsO rdered By: [facility] Provider on 03-19-2022 [facility] XR Knee - bilateral 4 Viewso n 03-18-2022 Radiology Study observation (narrative) Parminder pham [facility] Laboratory - Microbiology an d Antimicrobial susceptibilityon 10-18-2021 SARS-CoV-2 (COVID-19) RNA SARAI+probe Ql (Unsp spec) Not detected [facility] Work Phone: No Panel Informationon 10-18 Influenza Types A,B Rapid (Clinic) Not detected [facility] Work Phone: FT4on 09-08-2021 Free T4 [Mass/Vol] 1.18 ng/dL Normal 0.76-1.46 [facility] ([place]) Comment on above: Performed By: #### F T4 #### [place] [address] [place], [place] [address] .Auto Diffon 09-05-2021 Basophil, Absolute 0.0 10 3/mcL Normal 0.0-0.2 [facility] ([place]) Comment on above: Performed By: #### T SH, CMP, GFR #### [address] [address] #### T4 #### [address] [address] Basophils/100 WBC (Bld) 0.4 % Normal 0.0-2.5 [facility] ([place]) Comment on above: Performed By: #### T SH, CMP, GFR #### [address] [address] #### T4 #### [address] [address] Eosinophil, Absolute 0.1 10 3/mcL Normal 0.0-0.4 [facility] ([place]) Comment on above: Performed By: #### T SH, CMP, GFR #### [address] [address] #### T4 #### [address] [address] Eosinophils/100 WBC (Bld) 1.7 % Normal 0.0-7.0 [facility] ([place]) Comment on above: Performed By: #### T SH, CMP, GFR #### [address] [address] #### T4 #### [address] [address] Lymphocyte, Absolute 0.9 10 3/mcL Normal 0.8-3.9 [facility] ([place]) Comment on above: Performed By: #### T SH, CMP, GFR #### [address] [address] #### T4 #### [address] [address] Lymphocytes/100 WBC (Bld) 12.9 % Normal 10.0-50.0 [facility] ([place]) Comment on above: Performed By: #### T SH, CMP, GFR #### [address] [address] #### T4 #### [address] [address] Monocyte, Absolute 0.6 10 3/mcL Normal 0.2-1.0 [facility] ([place]) Comment on above: Performed By: #### T SH, CMP, GFR #### [address] [address] #### T4 #### [address] [address] Monocytes/100 WBC (Bld) 8.3 % Normal 1.7-13.0 [facility] ([place]) Comment on above: Performed By: #### T SH, CMP, GFR #### [address] [address] #### T4 #### [address] [address] Neutrophils/100 WBC (Bld) 76.7 % Normal 37.0-80.0 [facility] ([place]) Comment on above: Performed By: #### T SH, CMP, GFR #### [address] [address] #### T4 #### [address] [address] .GFRon 09-05-2021 GFR 96 ml/min/1.73sqm Normal [facility] ([place]) Comment on above: Result Comment: GFR Population [...] By: #### T SH, CMP, GFR #### [address] [address] #### T4 #### [address] [address] GFR Non- 79 ml/min/1.73sqm Normal [facility] ([place]) Comment on above: Result Comment: GFR Population [...] By: #### T SH, CMP, GFR #### [place] [address] #### T4 #### [place] [address] .MDWon 09-05-2021 Monocyte Distribution Width Not performed Normal 0.00-20.00 [facility] ([place]) Comment on above: Result Comment: MDW testing performed only on adult ER patients between the ages of 18-89 years. Performed By: #### T SH, CMP, GFR #### [address] [address] #### T4 #### [place] [address] .NEUABSon 09-05-2021 Neutrophil, Absolute 5.2 10 3/mcL Normal 2.9-6.2 [facility] ([place]) Comment on above: Performed By: #### T SH, CMP, GFR #### [address] [address] #### T4 #### [address] [address] CBCon 09-05-2021 Erythrocyte distribution width (RBC) [Ratio] 12.9 % Normal 11.5-14.5 [facility] ([place]) Comment on above: Performed By: #### T SH, CMP, GFR #### [place] [address] #### T4 #### [place] [address] Hematocrit (Bld) [Volume fraction] 42.2 % Normal 37.0-47.0 [facility] ([place]) Comment on above: Performed By: #### T SH, CMP, GFR #### [place] [address] #### T4 #### [place] [address] Hgb 14.5 G/dL Normal 12.0-16.0 [facility] ([place]) Comment on above: Performed By: #### T SH, CMP, GFR #### [place] [address] #### T4 #### [place] [address] MCH (RBC) [Entitic mass] 30.1 pg Normal 27.0-31.2 [facility] ([place]) Comment on above: Performed By: #### T SH, CMP, GFR #### [place] [address] #### T4 #### [place] [address] MCHC 34.5 G/dL Normal 33.0-37.0 [facility] ([place]) Comment on above: Performed By: #### T SH, CMP, GFR #### [place] [address] #### T4 #### [place] [address] MCV (RBC) [Entitic vol] 87.5 fL Normal 80.0-94.0 [facility] ([place]) Comment on above: Performed By: #### T SH, CMP, GFR #### [place] [address] #### T4 #### [address] [address] Platelet 266 10 3/mcL Normal 130-400 [facility] ([place]) Comment on above: Performed By: #### T SH, CMP, GFR #### [place] [address] #### T4 #### [place] [address] Platelet mean volume (Bld) [Entitic vol] 8.2 fL Normal 7.4-10.4 [facility] ([place]) Comment on above: Performed By: #### T SH, CMP, GFR #### [place] [address] #### T4 #### [place] [address] RBC 4.83 10 6/mcL Normal 4.20-5.40 [facility] ([place]) Comment on above: Performed By: #### T SH, CMP, GFR #### [place] [address] #### T4 #### [place] [address] WBC 6.8 10 3/mcL Normal 4.6-10.8 [facility] ([place]) Comment on above: Performed By: #### T SH, CMP, GFR #### [place] [address] #### T4 #### [place] [address] CMPon 09-05-2021 Albumin Level 4.8 G/dL Normal 3.5-5.0 [facility] ([place]) Comment on above: Performed By: #### T SH, CMP, GFR #### [place] [id number] #### T4 #### [place] [address] Albumin/Globulin [Mass ratio] 1.5 {ratio} Normal 1.1-2.5 [facility] ([place]) Comment on above: Performed By: #### T SH, CMP, GFR #### [address] [address] #### T4 #### [address] [address] ALP [Catalytic activity/Vol] 66 U/L Normal 40-135 [facility] ([place]) Comment on above: Performed By: #### T SH, CMP, GFR #### [address] [address] #### T4 #### [place] [address] ALT [Catalytic activity/Vol] 19 U/L Normal 14-59 [facility] ([place]) Comment on above: Performed By: #### T SH, CMP, GFR #### [place] [address] #### T4 #### [place] [address] AST [Catalytic activity/Vol] 12 U/L Normal 10-40 [facility] ([place]) Comment on above: Performed By: #### T SH, CMP, GFR #### [address] [address] #### T4 #### [place] [address] Bili Total 0.5 mg/dL Normal 0.2-1.0 [facility] ([place]) Comment on above: Result Comment: Use of this assay is not recommended for patients undergoing treatment with eltrombopag due to the potential for falsely elevated results. Performed By: #### T SH, CMP, GFR #### [place] [address] #### T4 #### [place] [address] BUN/Creatinine Ratio 17 ratio Normal 7-27 [facility] ([place]) Comment on above: Performed By: #### T SH, CMP, GFR #### [address] [address] #### T4 #### [address] [address] Calcium [Mass/Vol] 9.8 mg/dL Normal 8.4-10.2 [facility] ([place]) Comment on above: Performed By: #### T SH, CMP, GFR #### [place] [address] #### T4 #### [address] [address] Chloride [Moles/Vol] 102 mmol/L Normal 98-107 [facility] ([place]) Comment on above: Performed By: #### T SH, CMP, GFR #### [place] [address] #### T4 #### [address] [address] CO2 [Moles/Vol] 26 mmol/L Normal 22-29 [facility] ([place]) Comment on above: Performed By: #### T SH, CMP, GFR #### [place] [address] #### T4 #### [place] [address] Creatinine [Mass/Vol] 0.77 mg/dL Normal 0.55-1.02 [facility] ([place]) Comment on above: Performed By: #### T SH, CMP, GFR #### [place] [address] #### T4 #### [address] [address] Electrolyte Balance 11.0 mEq/L Normal 4.0-15.0 [facility] ([place]) Comment on above: Performed By: #### T SH, CMP, GFR #### [place] [address] #### T4 #### [place] [address] Globulin 3.2 G/dL Normal [facility] ([place]) Comment on above: Performed By: #### T SH, CMP, GFR #### [address] [address] #### T4 #### [address] [address] Glucose [Mass/Vol] 102 mg/dL Normal 70-105 [facility] ([place]) Comment on above: Performed By: #### T SH, CMP, GFR #### [place] [id number] #### T4 #### [address] [address] Potassium [Moles/Vol] 4.4 mmol/L Normal 3.5-5.1 [facility] ([place]) Comment on above: Performed By: #### T SH, CMP, GFR #### [address] [address] #### T4 #### [address] [address] Sodium [Moles/Vol] 139 mmol/L Normal 136-145 [facility] ([place]) Comment on above: Performed By: #### T SH, CMP, GFR #### [address] [address] #### T4 #### [address] [address] Total Protein 8.0 G/dL Normal 6.4-8.2 [facility] ([place]) Comment on above: Performed By: #### T SH, CMP, GFR #### [address] [address] #### T4 #### [address] [address] Urea nitrogen [Mass/Vol] 13 mg/dL Normal 7-18 [facility] ([place]) Comment on above: Performed By: #### T SH, CMP, GFR #### [address] [address] #### T4 #### [address] [address] T4on 09-05-2021 T4 [Mass/Vol] 9.2 ug/dL Normal 4.5-10.9 [facility] ([place]) Comment on above: Result Comment: No te - New Reference Range in effect 19 Performed By: #### T SH, CMP, GFR #### [address] [address] #### T4 #### [facility] [address] [place] [address] TSHon 09-05-2021 TSH Qn 0.42 m[IU]/L Normal 0.36-3.74 [facility] ([place]) Comment on above: Performed By: #### T SH, CMP, GFR #### [address] [address] #### T4 #### [place] [id number] [address] [place] [address] Stool Helicobacter pylori an tigen detection by immunoassayon 09-03-2021 H. pylori Ag IA Ql (Stl) Negative Negative [facility] Work Phone: Comment on above: Performed at: [address] [id number] Director: Keyla Nguyen MD, Phone: [phone] Laboratory - Microbiology an d Antimicrobial susceptibilityon 08-29-2021 SARS-CoV-2 (COVID-19) RNA SARAI+probe Ql (Unsp spec) Not detected Not Detect [facility] Work Phone: Comment on above: Normal Reference [...] Informationon 02-10 POC SARS CoV-2 Antigen Negative [facility] Work Phone: Lower GI hemoglobin IA Ql (S tl) Stool Occult Blood (JEROMY) Positive [facility] Work Phone: No Panel Information Enteric Bacteriology [facility] Work Phone: Vital Signs Date Time Vital Sign Value Performing Clinician Facility 08-23-2024 17:47-0400 Body height 172.[address] Arely Johnson MD Work Phone: [facility] 08-23-2024 17:47-0400 Body mass index (BMI) [Ratio] 27 kg/m2 Dr. Arely Johnson MD Work Phone: [facility] 08-23-2024 17:47-0400 Body temperature 96.9 [degF] Dr. Arely Johnson MD Work Phone: [facility] 08-23-2024 17:47-0400 Body weight 80.[address] Arely Johnson MD Work Phone: [facility] 08-23-2024 17:47-0400 Diastolic blood pressure 70 mm[Hg] Dr. Arely Johnson MD Work Phone: [facility] 08-23-2024 17:47-0400 Heart rate 69 /min Dr. Arely Johnson MD Work Phone: [facility] 08-23-2024 17:47-0400 Respiratory rate 16 /min Dr. Arely Johnson MD Work Phone: [facility] 08-23-2024 17:47-0400 SaO2% (BldA) [Mass fraction] 98 % Dr. Arely Johnson MD Work Phone: [facility] 08-23-2024 17:47-0400 Systolic blood pressure 120 mm[Hg] Dr. Arely Johnson MD Work Phone: [facility] 05-24-2024 07:29-0400 Body height 172.7 cm Buddy Guadalupeury VP [employer]M [employer]UCER Work Phone: [facility] 05-24-2024 07:29-0400 Body mass index (BMI) [Ratio] 26.91 kg/m2 Buddy Haury VP [employer]CH[employer].FILM REPRODUCER Work Phone: [facility] 05-24-2024 07:29-0400 Body weight 80.29 kg Buddy Haury VP [employer]CH[employer].FILM REPRODUCER Work Phone: [facility] 05-24-2024 07:29-0400 Diastolic blood pressure 76 mm[Hg] Buddy Haury VP [employer]CH[employer].FILM REPRODUCER Work Phone: [facility] 05-24-2024 07:29-0400 Systolic blood pressure 114 mm[Hg] Buddy Haury VP [employer]CH[employer].FILM REPRODUCER Work Phone: [facility] 05-17-2024 15:55-0400 Body height 172.[address] Arely Johnson MD Work Phone: [facility] 05-17-2024 15:55-0400 Body mass index (BMI) [Ratio] 27.3 kg/m2 Dr. Arely Johnson MD Work Phone: [facility] 05-17-2024 15:55-0400 Body temperature 97.3 [degF] Dr. Arely Johnson MD Work Phone: [facility] 05-17-2024 15:55-0400 Body weight 81.[address] Arely Johnson MD Work Phone: [facility] 05-17-2024 15:55-0400 Diastolic blood pressure 60 mm[Hg] Dr. Arely Johnson MD Work Phone: [facility] 05-17-2024 15:55-0400 Heart rate 51 /min Dr. Arely Johnson MD Work Phone: [facility] 05-17-2024 15:55-0400 Respiratory rate 18 /min Dr. Arely Johnson MD Work Phone: [facility] 05-17-2024 15:55-0400 SaO2% (BldA) [Mass fraction] 99 % Dr. Arely Johnson MD Work Phone: [facility] 05-17-2024 15:55-0400 Systolic blood pressure 114 mm[Hg] Dr. Arely Johnson MD Work Phone: [facility] 04-05-2024 17:33-0500 Body height 172.[address] Arely Johnson MD Work Phone: [facility] 04-05-2024 17:33-0500 Body mass index (BMI) [Ratio] 27.1 kg/m2 Dr. Arely Johnson MD Work Phone: [facility] 04-05-2024 17:33-0500 Body temperature 96.2 [degF] Dr. Arely Johnson MD Work Phone: [facility] 04-05-2024 17:33-0500 Body weight 80.[address] Arely Johnson MD Work Phone: [facility] 04-05-2024 17:33-0500 Diastolic blood pressure 72 mm[Hg] Dr. Arely Johnson MD Work Phone: [facility] 04-05-2024 17:33-0500 Heart rate 66 /min Dr. Arely Johnson MD Work Phone: [facility] 04-05-2024 17:33-0500 Respiratory rate 12 /min Dr. Arely Johnson MD Work Phone: [facility] 04-05-2024 17:33-0500 SaO2% (BldA) [Mass fraction] 98 % Dr. Arley Johnson MD Work Phone: [facility] 04-05-2024 17:33-0500 Systolic blood pressure 110 mm[Hg] Dr. Arely Johnson MD Work Phone: [facility] 03-03-2024 06:01-0500 Body temperature 98.1 [degF] Dr. Arely Johnson MD Work Phone: [facility] 03-03-2024 06:01-0500 Diastolic blood pressure 66 mm[Hg] Dr. Arely Johnson MD Work Phone: [facility] 03-03-2024 06:01-0500 Heart rate 66 /min Dr. Arely Johnson MD Work Phone: [facility] 03-03-2024 06:01-0500 Respiratory rate 15 /min Dr. Arely Johnson MD Work Phone: [facility] 03-03-2024 06:01-0500 SaO2% (BldA) [Mass fraction] 100 % Dr. Arely Johnson MD Work Phone: [facility] 03-03-2024 06:01-0500 Systolic blood pressure 122 mm[Hg] Dr. Arely Johnson MD Work Phone: [facility] 05-12-2023 14:48-0400 Body height 175.3 cm Candida Clark MD Work Phone: [facility] 05-12-2023 14:48-0400 Body weight 73.94 kg Canidda Clark MD Work Phone: [facility] 05-12-2023 14:48-0400 Diastolic blood pressure 62 mm[Hg] Candida Clark MD Work Phone: [facility] 05-12-2023 14:48-0400 Systolic blood pressure 108 mm[Hg] Candida Clark MD Work Phone: [facility] 03-25-2023 18:15-0500 Body height 172.[address] Arely Johnson Work Phone: [facility] 03-25-2023 18:15-0500 Body mass index (BMI) [Ratio] 24.5 kg/m2 Dr. Arely Johnson Work Phone: [facility] 03-25-2023 18:15-0500 Body temperature 98.1 [degF] Dr. Arely Johnson Work Phone: [facility] 03-25-2023 18:15-0500 Body weight 73.[address] Arely Johnson Work Phone: [facility] 03-25-2023 18:15-0500 Diastolic blood pressure 62 mm[Hg] Dr. Arely Johnson Work Phone: [facility] 03-25-2023 18:15-0500 Heart rate 79 /min Dr. Arely Johnson Work Phone: [facility] 03-25-2023 18:15-0500 Respiratory rate 16 /min Dr. Arely Johnson Work Phone: [facility] 03-25-2023 18:15-0500 SaO2% (BldA) [Mass fraction] 98 % Dr. Arely Johnson Work Phone: [facility] 03-25-2023 18:15-0500 Systolic blood pressure 106 mm[Hg] Dr. Arely Johnson Work Phone: [facility] 01-04-2023 08:23-0500 Body height 172.[address] Arely Johnson Work Phone: [facility] 01-04-2023 08:23-0500 Body mass index (BMI) [Ratio] 24.3 kg/m2 Dr. Arely Johnson Work Phone: [facility] 01-04-2023 08:23-0500 Body weight 72.[address] Arely Johnson Work Phone: [facility] 01-04-2023 08:23-0500 Diastolic blood pressure 67 mm[Hg] Dr. Arely Johnson Work Phone: [facility] 01-04-2023 08:23-0500 Heart rate 58 /min Dr. Arely Johnson Work Phone: [facility] 01-04-2023 08:23-0500 Respiratory rate 18 /min Dr. Arely Johnson Work Phone: [facility] 01-04-2023 08:23-0500 SaO2% (BldA) [Mass fraction] 100 % Dr. Arely Johnson Work Phone: [facility] 01-04-2023 08:23-0500 Systolic blood pressure 104 mm[Hg] Dr. Arely Johnson Work Phone: [facility] 12-23-2022 08:03-0500 Body height 172.[address] Arely Johnson Work Phone: [facility] 12-23-2022 08:03-0500 Body mass index (BMI) [Ratio] 23.9 kg/m2 Dr. Arely Johnson Work Phone: [facility] 12-23-2022 08:03-0500 Body temperature 97.7 [degF] Dr. Arely Johnson Work Phone: [facility] 12-23-2022 08:03-0500 Body weight 71.[address] Arely Johnson Work Phone: [facility] 12-23-2022 08:03-0500 Diastolic blood pressure 80 mm[Hg] Dr. Arely Johnson Work Phone: [facility] 12-23-2022 08:03-0500 Heart rate 62 /min Dr. Arely Johnson Work Phone: [facility] 12-23-2022 08:03-0500 Respiratory rate 16 /min Dr. Arely Johnson Work Phone: [facility] 12-23-2022 08:03-0500 SaO2% (BldA) [Mass fraction] 97 % Dr. Arely Johnson Work Phone: [facility] 12-23-2022 08:03-0500 Systolic blood pressure 122 mm[Hg] Dr. Arely Johnson Work Phone: [facility] 10-21-2022 15:50-0400 Body mass index (BMI) [Ratio] 23.7 kg/m2 Dr. Arely Johnson Work Phone: [facility] 10-21-2022 15:50-0400 Body temperature 99.3 [degF] Dr. Arely Johnson Work Phone: [facility] 10-21-2022 15:50-0400 Body weight 70.[address] Arely Johnson Work Phone: [facility] 10-21-2022 15:50-0400 Diastolic blood pressure 74 mm[Hg] Dr. Arely Johnson Work Phone: [facility] 10-21-2022 15:50-0400 Heart rate 82 /min Dr. Arely Johnson Work Phone: [facility] 10-21-2022 15:50-0400 Respiratory rate 16 /min Dr. Arely Johnson Work Phone: [facility] 10-21-2022 15:50-0400 SaO2% (BldA) [Mass fraction] 99 % Dr. Arely Johnson Work Phone: [facility] 10-21-2022 15:50-0400 Systolic blood pressure 120 mm[Hg] Dr. Arely Johnson Work Phone: [facility] 09-04-2022 09:25-0400 Body height 172.[address] Arely Johnson Work Phone: [facility] 09-04-2022 09:25-0400 Body mass index (BMI) [Ratio] 24.3 kg/m2 Dr. Arely Johnson Work Phone: [facility] 09-04-2022 09:25-0400 Body temperature 98.7 [degF] Dr. Arely Johnson Work Phone: [facility] 09-04-2022 09:25-0400 Body weight 72.[address] Arely Johnson Work Phone: [facility] 09-04-2022 09:25-0400 Diastolic blood pressure 60 mm[Hg] Dr. Arely Johnson Work Phone: [facility] 09-04-2022 09:25-0400 Heart rate 80 /min Dr. Arely Johnson Work Phone: [facility] 09-04-2022 09:25-0400 Respiratory rate 16 /min Dr. Arely Johnson Work Phone: [facility] 09-04-2022 09:25-0400 SaO2% (BldA) [Mass fraction] 99 % Dr. Arely Johnson Work Phone: [facility] 09-04-2022 09:25-0400 Systolic blood pressure 110 mm[Hg] Dr. Arely Johnson Work Phone: [facility] 08-12-2022 11:00-0400 Body temperature 98.4 [degF] Tammy Humphrey PT Work Phone: [facility] 08-12-2022 11:00-0400 Diastolic blood pressure 64 mm[Hg] Tammy Humphrey PT Work Phone: [facility] 07-05-2023 11:00-0400 Heart rate 80 /min Tammy Halderman-Huang PT Work Phone: [facility] 08-12-2022 11:00-0400 Respiratory rate 18 /min Tammy Halderman-Huang PT Work Phone: [facility] 08-12-2022 11:00-0400 SaO2% (BldA) [Mass fraction] 99 % Tammy Halderman-Huang PT Work Phone: [facility] 08-12-2022 11:00-0400 Systolic blood pressure 120 mm[Hg] Tammy Halderman-Huang PT Work Phone: [facility] 08-06-2022 09:49-0400 Body temperature 98.2 [degF] Tammy Halderman-Huang PT Work Phone: [facility] 08-06-2022 09:49-0400 Diastolic blood pressure 74 mm[Hg] Tammy Halderman-Huang PT Work Phone: [facility] 08-06-2022 09:49-0400 Heart rate 86 /min Tammy Halderman-Huang PT Work Phone: [facility] 08-06-2022 09:49-0400 Respiratory rate 18 /min Tammy Halderman-Huang PT Work Phone: [facility] 08-06-2022 09:49-0400 SaO2% (BldA) [Mass fraction] 97 % Tammy Halderman-Huang PT Work Phone: [facility] 08-06-2022 09:49-0400 Systolic blood pressure 118 mm[Hg] Tammy Halderman-Huang PT Work Phone: [facility] 07-31-2022 09:39-0400 Diastolic blood pressure 74 mm[Hg] Tammy Halderman-Huang PT Work Phone: [facility] 07-31-2022 09:39-0400 Respiratory rate 18 /min Tammy Halderman-Huang PT Work Phone: [facility] 07-31-2022 09:39-0400 SaO2% (BldA) [Mass fraction] 99 % Tammy Humphrey PT Work Phone: [facility] 07-31-2022 09:39-0400 Systolic blood pressure 130 mm[Hg] Tammy Jimenes-Reina PT Work Phone: [facility] 07-29-2022 09:43-0400 Body temperature 98.49 [degF] Tammy Humphrey PT Work Phone: [facility] 07-29-2022 09:43-0400 Diastolic blood pressure 74 mm[Hg] Tammy Sedrickjesusman-Huang PT Work Phone: [facility] 07-29-2022 09:43-0400 Heart rate 85 /min Tammy Humphrey PT Work Phone: [facility] 07-29-2022 09:43-0400 Respiratory rate 18 /min Tammy DuboseStephanie PT Work Phone: [facility] 07-29-2022 09:43-0400 SaO2% (BldA) [Mass fraction] 96 % Tammy Sedrickjesusbernardino-Huang PT Work Phone: [facility] 07-29-2022 09:43-0400 Systolic blood pressure 132 mm[Hg] Tammy Jimenes-Reina PT Work Phone: [facility] 05-21-2022 18:25-0400 Body height 172.[address] Arely Johnson Work Phone: [facility] 05-21-2022 18:25-0400 Body mass index (BMI) [Ratio] 24.9 kg/m2 Dr. Arely Johnson Work Phone: [facility] 05-21-2022 18:25-0400 Body temperature 98.3 [degF] Dr. Arely Johnson Work Phone: [facility] 05-21-2022 18:25-0400 Body weight 74.[address] Arely Johnson Work Phone: [facility] 05-21-2022 18:25-0400 Diastolic blood pressure 86 mm[Hg] Dr. Arely Johnson Work Phone: [facility] 05-21-2022 18:25-0400 Heart rate 73 /min Dr. Arely Johnson Work Phone: [facility] 05-21-2022 18:25-0400 Respiratory rate 14 /min Dr. Arely Johnson Work Phone: [facility] 05-21-2022 18:25-0400 SaO2% (BldA) [Mass fraction] 97 % Dr. Arely Johnson Work Phone: [facility] 05-21-2022 18:25-0400 Systolic blood pressure 140 mm[Hg] Dr. Arely Johnson Work Phone: [facility] 03-18-2022 08:16-0500 Body height 175.3 cm Kristina Burns MD Work Phone: [facility] 03-18-2022 08:16-0500 Body weight 74.39 kg Kristina Burns MD Work Phone: [facility] 10-18-2021 08:11-0400 Body temperature 98.4 [degF] Dr. Arely Johnson Work Phone: [facility] Work Phone: 10-18-2021 08:11-0400 Diastolic blood pressure 72 mm[Hg] Dr. Arely Johnson Work Phone: [facility] Work Phone: 10-18-2021 08:11-0400 Heart rate 66 /min Dr. Arely Johnson Work Phone: [facility] Work Phone: 10-18-2021 08:11-0400 Respiratory rate 14 /min Dr. Arely Johnson Work Phone: [facility] Work Phone: 10-18-2021 08:11-0400 SaO2% (BldA) [Mass fraction] 98 % Dr. Arely Johnson Work Phone: [facility] Work Phone: 10-18-2021 08:11-0400 Systolic blood pressure 114 mm[Hg] Dr. Arely Johnson Work Phone: [facility] Work Phone: 08-29-2021 08:07-0400 Body height 172.[address] Arely Johnson Work Phone: [facility] Work Phone: 08-29-2021 08:07-0400 Body mass index (BMI) [Ratio] 24.1 kg/m2 Dr. Arely Johnson Work Phone: [facility] Work Phone: 08-29-2021 08:07-0400 Body temperature 98.3 [degF] Dr. Arely Johnson Work Phone: [facility] Work Phone: 08-29-2021 08:07-0400 Body weight 72.[address] Arely Johnson Work Phone: [facility] Work Phone: 08-29-2021 08:07-0400 Diastolic blood pressure 80 mm[Hg] Dr. Arely Johnson Work Phone: [facility] Work Phone: 08-29-2021 08:07-0400 Heart rate 82 /min Dr. Arely Johnson Work Phone: [facility] Work Phone: 08-29-2021 08:07-0400 Respiratory rate 18 /min Dr. Arely Johnson Work Phone: [facility] Work Phone: 08-29-2021 08:07-0400 SaO2% (BldA) [Mass fraction] 96 % Dr. Arely Johnson Work Phone: [facility] Work Phone: 08-29-2021 08:07-0400 Systolic blood pressure 118 mm[Hg] Dr. Arely Johnson Work Phone: [facility] Work Phone: 08-20-2021 15:33-0400 Body mass index (BMI) [Ratio] 24.5 kg/m2 Dr. Arely Johnson Work Phone: [facility] Work Phone: 08-20-2021 15:33-0400 Body weight 73.[address] Arely Johnson Work Phone: [facility] Work Phone: 08-20-2021 15:33-0400 Diastolic blood pressure 68 mm[Hg] Dr. Arely Johnson Work Phone: [facility] Work Phone: 08-20-2021 15:33-0400 Heart rate 64 /min Dr. Arely Johnson Work Phone: [facility] Work Phone: 08-20-2021 15:33-0400 Respiratory rate 16 /min Dr. Arely Johnson Work Phone: [facility] Work Phone: 08-20-2021 15:33-0400 Systolic blood pressure 110 mm[Hg] Dr. Arely Johnson Work Phone: [facility] Work Phone: 03-28-2021 08:58-0500 Body temperature 98.3 [degF] Dr. Arely Johnson Work Phone: [facility] Work Phone: 03-28-2021 08:58-0500 Body weight 71.[address] Arely Johnson Work Phone: [facility] Work Phone: 03-28-2021 08:58-0500 Diastolic blood pressure 74 mm[Hg] Dr. Arely Johnson Work Phone: [facility] Work Phone: 03-28-2021 08:58-0500 Heart rate 83 /min Dr. Arely Johnson Work Phone: [facility] Work Phone: 03-28-2021 08:58-0500 Respiratory rate 17 /min Dr. Arely Johnson Work Phone: [facility] Work Phone: 03-28-2021 08:58-0500 SaO2% (BldA) [Mass fraction] 97 % Dr. Arely Johnson Work Phone: [facility] Work Phone: 03-28-2021 08:58-0500 Systolic blood pressure 130 mm[Hg] Dr. Arely Johnson Work Phone: [facility] Work Phone: 02-10-2021 05:43-0500 Body temperature 97.5 [degF] Dr. Arely Johnson Work Phone: [facility] Work Phone: 02-10-2021 05:43-0500 Diastolic blood pressure 74 mm[Hg] Dr. Arely Johnson Work Phone: [facility] Work Phone: 02-10-2021 05:43-0500 Heart rate 85 /min Dr. Arely Johnson Work Phone: [facility] Work Phone: 02-10-2021 05:43-0500 Respiratory rate 16 /min Dr. Arely Johnson Work Phone: [facility] Work Phone: 02-10-2021 05:43-0500 SaO2% (BldA) [Mass fraction] 98 % Dr. Arely Johnson Work Phone: [facility] Work Phone: 02-10-2021 05:43-0500 Systolic blood pressure 122 mm[Hg] Dr. Arely Johnson Work Phone: [facility] Work Phone: Encounters Encounter Date Encounter Type Care Provider Facility Start: 10-13-2024 End: 10-13-[address] Arely Johnson MD Work Phone: -[facility] [place] Start: 10-13-2024 End: 10-13-[address] Arely Johnson MD -[facility] [place] Start: 10-13-2024 End: 10-13-2024 ambulatory [facility] Facility:[facility] Start: 08-23-2024 End: 08-23-[address] Arely Johnson MD -[facility] Work Phone: Start: 08-23-2024 End: 08-23-[address] Arely Johnson MD Work Phone: -[facility] Start: 07-12-2024 End: 07-12-[address] Arely Johnson MD Work Phone: [facility] Work Phone: Start: 07-12-2024 End: 07-12-2024 Patient encounter procedure CHARILE PEREZ -[facility] [place] Work Phone: Start: 07-11-2024 End: 07-12-2024 Orders Only Kristina Burns MD Work Phone: Orthopaedics Comment on above: Aftercare following left knee joint replacement surgery (Primary Dx) Start: 05-25-2024 End: 07-25-2024 Follow-up encounter Buddy Guadalupedeni AGUIARFILM REPRODUCER Work Phone: OB/Gynecology Start: 05-24-2024 End: 05-24-2024 E-mail encounter from caregiver Buddy Hernadez APRCurlyFILM REPRODUCER Work Phone: OB/Gynecology Start: 05-24-2024 End: 05-24-2024 Patient encounter procedure Buddy Guadalupedeni WILEY.FILM REPRODUCER Work Phone: OB/Gynecology Comment on above: Encounter for gyneco logical examination (general) (routine) without abnormal findings (Primary Dx); Dense breasts; Vaginal dryness; Low libido; Vaginal odor Start: 05-24-2024 End: 05-24-2024 Patient encounter status Buddy Hernadez FILM REPRODUCER Work Phone: [facility] Start: 05-24-2024 End: 05-24-2024 ambulatory Buddy Guadalupedeni AGUIARFILM REPRODUCER Work Phone: OB/Gynecology Comment on above: [facility] Breast [facility] Start: 05-24-2024 Encounter for gynecological examination (general) (routine) without abnormal findings BUDDY HERNADEZ [facility] Start: 05-17-2024 End: 05-17-[address] Arely Johnson MD -[facility] Work Phone: Start: 05-17-2024 End: 05-17-2024 ambulatory Arely Johnson Facility:[facility] Start: 05-11-2024 End: 05-11-[address] Arely Johnson MD Work Phone: [facility] Work Phone: Start: 05-11-2024 End: 05-11-2024 Patient encounter procedure Buddy Hernadez SILVICULTURE TEACHERLevy -[facility] Work Phone: Start: 05-11-2024 End: 05-11-2024 ambulatory Buddy Hernadez Facility:[facility] Start: 05-04-2024 End: 05-04-2024 Telephone encounter Buddy Guadalupedeni MARTINS Work Phone: OB/Gynecology Start: 05-03-2024 End: 05-03-[address] Arely Johnson MD Work Phone: [facility] Work Phone: Start: 05-03-2024 End: 05-03-2024 Patient encounter procedure CHARLIE MARYLU SILVICULTURE TEACHER-C -Laboratory Work Phone: Start: 05-03-2024 End: 05-03-2024 ambulatory CHARLIE VALERO Facility:[facility] Start: 04-05-2024 End: 04-05-[address] Arely Johnson MD -[facility] Work Phone: Start: 04-05-2024 End: 04-05-2024 ambulatory [facility] Facility:[facility] Start: 03-03-2024 End: 03-03-2024 Patient encounter procedure Victoriano Deras PA -Laboratory, Specimen Work Phone: Start: 03-03-2024 End: 03-03-2024 Patient encounter procedure Victoriano SEO [facility] Work Phone: Start: 03-03-2024 End: 03-03-2024 ambulatory [facility] Facility:[facility] Start: 03-03-2024 End: 03-03-2024 ambulatory [facility] Facility:[facility] Start: 02-08-2024 End: 02-08-[address] [facility] Start: 02-08-2024 End: 02-08-2024 ambulatory [facility] Facility:[facility] Start: 01-13-2024 End: 01-13-2024 Telephone encounter Kristina Burns MD Work Phone: Orthopaedics Comment on above: Letter Start: 12-27-2023 End: 12-27-2023 ambulatory [facility] Facility:[facility] Start: 12-23-2023 End: 12-23-2023 ambulatory [facility] Facility:[facility] Start: 07-30-2023 End: 07-30-2023 Patient encounter procedure Kristina Burns MD Work Phone: Orthopaedics Comment on above: Aftercare following left knee joint replacement surgery (Primary Dx) Start: 07-30-2023 End: 07-30-2023 [facility] Start: 07-30-2023 End: 07-30-2023 Subsequent hospital visit by physician Radio Christianson [facility] Work Phone: Radiology Comment on above: [...] encounter status Candida Clark MD Work Phone: [facility] Start: 05-10-2023 End: 05-10-[address] Arely Johnson Work Phone: [facility] Work Phone: Start: 05-10-2023 End: 05-10-[address] Arely Johnson Work Phone: [facility]-Outpatient Breast Imaging Work Phone: Start: 03-25-2023 End: 03-25-[address] Arely Johnson Work Phone: [facility] Work Phone: Start: 03-19-2023 End: 03-19-[address] Arely Johnson Work Phone: [facility] Work Phone: Start: 03-19-2023 End: 03-19-[address] Arely Johnson Work Phone: [facility]atory, [facility] Start: 02-09-2023 Non-patient / Non-visit Dr. Leslie Johnson Work Phone: [facility] Work Phone: Start: 02-05-2023 Non-patient / Non-visit Dr. Leslie Johnson Work Phone: [facility] Start: 02-05-2023 End: 02-05-[address] Arely Johnson Work Phone: [facility] Work Phone: Start: 02-05-2023 End: 02-05-[address] Arely Johnson Work Phone: [facility]Cardiovascula [facility] Services Work Phone: Start: 01-26-2023 End: 01-26-[address] Arely Johnson Work Phone: [facility]-Physical Therapy Work Phone: Start: 01-26-[address] Sri Johnson Work Phone: [facility] Work Phone: Start: 01-15-[address] Sri Johnson Work Phone: [facility] Therapy Work Phone: Start: 01-13-2023 End: 01-13-[address] Arely Johnson Work Phone: [facility] Work Phone: Start: 01-13-2023 End: 01-13-[address] Arely Johnson Work Phone: [facility] Start: 01-04-2023 End: 01-04-[address] Arely Johnson Work Phone: [facility] Work Phone: Start: 12-23-2022 End: 12-23-[address] Arely Johnson Work Phone: [facility] Work Phone: Start: 12-23-2022 End: 12-23-2022 Encounter for general adult medical examination without abnormal findings Dr. Arely Johnson Work Phone: [facility] Start: 12-23-2022 End: 12-23-[address] Arely Johnson Work Phone: [facility] Work Phone: Start: 11-27-[address] Sri Johnson Work Phone: [facility] Work Phone: Start: 10-21-2022 End: 10-21-[address] Arely Johnson Work Phone: [facility] Work Phone: Start: 10-19-2022 End: 10-19-2022 Patient encounter procedure Kristina Burns MD Work Phone: Orthopaedics Comment on above: S/P total knee arthr oplasty, left (Primary Dx) Start: 10-09-2022 ambulatory Candida joshi MD Work Phone: OB/Gynecology Comment on above: Received Outside Med ical Records Start: 09-18-[address] Sri Johnson Work Phone: [facility] Work Phone: Start: 09-16-2022 End: 09-16-[address] Arely Johnson Work Phone: [facility] Work Phone: Start: 09-16-2022 End: 09-16-[address] Arely Johnson Work Phone: [facility], [place] Work Phone: Start: 09-04-2022 End: 09-04-[address] Arely Johnson Work Phone: [facility] Work Phone: Start: 08-12-2022 End: 08-12-2022 Home visit Tammy Humphrey PT Work Phone: [facility] Comment on above: PT AGENCY DC W VISIT Start: 08-07-2022 End: 08-07-2022 Patient encounter procedure Dada Solis PA-C Work Phone: Orthopaedics Comment on above: S/P total knee arthr oplasty, left (Primary Dx) Start: 08-07-2022 ambulatory DADA SOLIS Facility:[facility] Start: 08-07-2022 End: 08-07-2022 Subsequent hospital visit by physician [facility] Work Phone: Radiology Comment on above: Left knee pain, unsp ecified chronicity [M25.562] Start: 08-06-2022 End: 08-06-2022 Home visit Tammy Humphrey PT Work Phone: [facility] Comment on above: PT ROUTINE Start: 08-03-2022 Refill Kristina bone MD Work Phone: [address] Comment on above: Refill Request Start: 07-31-2022 End: 07-31-2022 Home visit Tammy DubosejesusbernardinoCandido PT Work Phone: [facility] Comment on above: PT ROUTINE Start: 07-29-2022 End: 07-29-2022 Home visit Tammy JimenesCandido PT Work Phone: [facility] Comment on above: PT ROUTINE Start: 07-24-2022 Telephone encounter Soo WRIGHT S [facility] Comment on above: Home Care (Confirmat ion call) Start: 07-20-2022 Telephone encounter Kristina Burns MD Work Phone: [address] Comment on above: Patient Question Start: 07-13-2022 Telephone encounter Kristina Burns MD Work Phone: Orthopaedics Comment on above: Orders Start: 06-20-2022 End: 06-20-2022 Patient encounter status [facility] Start: 06-20-2022 End: 06-20-2022 Subsequent hospital visit by physician [facility] Comment on above: Preoperative testing [Z01.818] Start: 06-08-2022 Patient encounter status Pari Burns MD Work Phone: Orthopaedics Start: 06-08-2022 Telephone encounter Kristina Burns MD Work Phone: Orthopaedics Comment on above: Appointment Start: 06-03-2022 Telephone encounter Kristina Burns MD Work Phone: [address] Comment on above: Orders Start: 05-26-2022 End: 05-27-2022 ambulatory RANDALL DORADO DO Facility:B Start: 05-26-2022 End: 05-26-2022 Patient encounter procedure RANDALL DORADO DO [facility] Start: 05-21-2022 End: 05-21-[address] Arely Johnson Work Phone: [facility] Start: 05-19-2022 End: 05-19-[address] Arely Johnson Work Phone: [facility] Work Phone: Start: 05-19-2022 End: 05-19-[address] Arely Johnson Work Phone: [facility] Start: 05-13-2022 Telephone encounter Kristina Burns MD Work Phone: [address] Comment on above: Pre-Op Teaching Start: 05-05-2022 End: 05-05-2022 ambulatory [facility] Work Phone: Start: 05-05-2022 End: 05-05-2022 Patient encounter procedure [facility] Start: 04-18-2022 ambulatory Kristina bone [...] End: 03-18-2022 Subsequent hospital visit by physician [facility] Work Phone: Radiology Comment on above: Pain [R52] Start: 11-13-2021 End: 11-14-2021 ambulatory RANDALL DORADO DO Facility:B Start: 11-13-2021 End: 11-13-2021 Patient encounter procedure RANDALL DORADO DO [facility] Start: 10-31-2021 End: 10-31-[address] Arely Johnson Work Phone: [facility] Work Phone: Start: 10-31-2021 End: 10-31-[address] Arely Johnson Work Phone: [facility], [place] Start: 10-18-2021 End: 10-18-[address] Arely Johnson Work Phone: [facility] Start: 09-05-2021 End: 09-06-2021 ambulatory [facility] Facility:B Start: 09-04-2021 Non-patient / Non-visit Dr. Leslie Johnson Work Phone: [facility] Start: 09-03-2021 End: 09-03-[address] Arely Johnson Work Phone: [facility], [facility] Start: 08-29-2021 End: 08-29-[address] Arely Johnson Work Phone: [facility], Spec[facility] Start: 08-29-2021 End: 08-29-[address] Arely Johnson Work Phone: [facility] Start: 08-20-2021 End: 08-20-[address] Arely Johnson Work Phone: [facility] Start: 04-25-2021 End: 04-25-[address] Arely Johnson Work Phone: [facility] Start: 04-25-[address] Sri Johnson Work Phone: [facility] Start: 04-24-2021 End: 04-24-[address] Arely Johnson Work Phone: [facility] Start: 03-28-2021 End: 03-28-[address] Arely Johnson [facility] Start: 02-10-2021 End: 02-10-[address] Arely Johnson Work Phone: [facility] Start: 12-20-[address] Roberto Johnson Work Phone: [facility] Procedures Date Procedure Procedure Detail Performing Clinician Start: 05-11-2024 Screening mammography Rajeev Johnson MD Work Phone: Start: 05-03-2024 Vitamin D, 25-hydrox y measurement Dr. Arely Johnson MD Work Phone: Comment on above: Vitamin D StatusDefi ciency: <20 ng/mL (50nmol/L)Insufficiency: 20-30 ng/mL (50-75 nmol/L)Sufficiency: 30-100 ng/mL (75-250 nmol/L)Toxicity: >100 ng/mL (>250 nmol/L) Start: 03-03-[address] Sri Johnson [...] Start: 07-24-2025 DIABETES SCREEN DIABETES SCREEN [facility] Start: 07-24-2025 Diabetes Screening Diabetes Screenin g [facility] Start: 07-10-2025 DIABETES SCREEN DIABETES SCREEN [facility] Start: 05-25-2025 End: 05-25-2025 Patient encounter procedure 05/25/2025 7:15 AM EDT Office Visit OB/Gynecology [address] [place], [place] [id number] Buddy Hernadez APRN.FILM REPRODUCER [address] [place] [address] ANNUAL OB/Gynecology Comment on above: ANNUAL Start: 05-11-2025 Screening for malign ant neoplasm of breast Mammogram Screening [facility] Start: 07-26-2024 End: 07-26-2024 Patient encounter procedure Orthopaedics Comment on above: consult for left kne e had TKR in 2022 feels like strain inside of knee patient fell in February left knee Start: 06-06-2024 End: 06-06-2024 Patient encounter procedure 06/06/2024 8:00 AM EDT Appointment [facility] [address] [facility] [place] [address] Dense breasts [R92.30] [facility] Comment on above: Dense breasts [R92.3 0] Start: 05-24-2024 End: 05-24-2024 Patient encounter procedure 05/24/2024 7:15 AM EDT Office Visit OB/Gynecology [address] [place] [address] Buddy Hernadez APRN.FILM REPRODUCER [address] [place], [place] [id number] annual exam OB/Gynecology Comment on above: annual exam Start: 05-16-2024 End: 05-16-2024 Patient encounter procedure 05/16/2024 4:00 PM EDT Office Visit OB/Gynecology [address] [place], [place] [id number] Candida Clark MD [address] [place] [address] annual exam OB/Gynecology Comment on above: annual exam Start: 10-10-2023 Covid-19 Vaccine ( season) Covid-19 Vaccine ( season) [facility] Start: 10-10-2023 Covid-19 Vaccine ( season) Covid-19 Vaccine ( season) [facility] Start: 10-10-2023 Influenza vaccination [facility] Start: 07-30-2023 End: 07-30-2023 Patient encounter procedure 07/30/2023 3:30 PM EDT Office Visit Orthopaedics [address] [phone] Kristina Burns MD [address] [address] 6 month follow up Orthopaedics Comment on above: 6 month follow up Start: 02-08-2023 Behavioral Health Screening Behavioral Health Screening [facility] Start: 10-09-2022 Covid-19 Vaccine ( season) Covid-19 Vaccine () [facility] Start: 10-09-2022 Influenza vaccination [facility] Start: 05-19-2022 Procedure [place] [facility] Start: 04-24-2022 Mammography [facility] Start: 04-24-2022 Screening for malign ant neoplasm of breast Mammogram Screening [facility] Start: 02-08-2022 DEPRESSION ASSESSMENT DEPRESSION ASS ESSMENT [facility] Start: 09-04-2021 Patient referral [facility] Work Phone: Start: 03-28-2021 Patient referral [facility] Work Phone: Start: 11-09-2019 Pneumococcal Vaccine : 50+ (1 of 1 - PCV) Pneumococcal Vaccine: 50+ (1 of 1 - PCV) [facility] Start: 11-09-2019 SHINGRIX VACCINE (1 of 2) SHINGRIX VACCINE (1 of 2) [facility] Start: 11-22-2018 Urine microalbumin profile [facility] Start: 2014 COLOGUARD (FIT-DNA) COLOGUARD (FIT-D NA) [facility] Start: 2014 Colonoscopy COLONOSCOPY [facility] Start: 2014 COLORECTAL CANCER SCREENING COLORECTAL CANCER SCREENING [facility] Start: [address] COLONOGRAPHY [facility] Start: 2014 DIABETES SCREEN DIABETES SCREEN [facility] Start: 2014 FECAL OCCULT BLOOD FECAL OCCULT BLOO D [facility] Start: 2014 Lipid 1996 panel - Serum or Plasma Lipid Screening [facility] Start: 2014 Lipid panel Lipid Screening [facility] Start: 2014 LIPID SCREEN LIPID SCREEN [facility] Start: 2014 Screening for malign ant neoplasm of colon [facility] Start: 2014 SIGMOIDOSCOPY SIGMOIDOSCOPY [facility] Start: 2009 Mammography MAMMOGRAM [facility] Start: 11-09-1999 HPV TESTING HPV TESTING [facility] Start: 1990 PAP TESTING PAP TESTING [facility] Start: 1988 Hepatitis B Vaccine (1 of 3 - 19+ 3-dose series) Hepatitis B Vaccine (1 of 3 - 19+ 3-dose series) [facility] Start: 11-09-1987 ANNUAL PCP TEAM GREEN MATERIAL VALUE ADDED ASSESSOR 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 VISIT ANNUAL PCP TEAM CHRONIC DISEASE VISIT [facility] Start: 11-09-1987 Anxiety Screening Anxiety Screening [facility] Start: 11-09-1987 Depression Screening Depression Scre ening [facility] Start: 11-09-1987 HEPATITIS C SCREENING HEPATITIS C [facility] Start: 11-09-1987 Hepatitis C screening Hepatitis C [facility] Start: 11-09-1987 HIV SCREENING HIV SCREENING [facility] Start: 11-09-1987 HIV screening HIV Screening [facility] Start: 1969 HEPATITIS B (1 of 3 - 3-dose series) HEPATITIS B (1 of 3 - 3-dose series) [facility] Start: 1969 Hepatitis B Vaccine (1 of 3 - 3-dose series) Hepatitis B Vaccine (1 of 3 - 3-dose series) [facility] BACTERIAL VAGINOSIS NAAT BACTERIAL VAGINOSIS NAAT Lab Routine Vaginal odor 05/24/2024 8:00 AM EDT [facility] ILEANA/TRICHOMONAS NAAT ILEANA/TRICHOMONAS NAAT Lab Routine Vaginal odor 05/24/2024 8:00 AM EDT [facility] End: 06-20-2022 CT KNEE WO IVCON LEFT [facility] Work Phone: Comment on above: 1 Occurrences starti ng 06/20/2022 until 06/20/2022 Patient Education ED Ade, Mary Kay (Adult) [facility] Work Phone: Patient referral [facility] Work Phone: End: 06-23-2025 US Breast - bilateral US BREAST COMPLETE BILATERAL Radiology Routine Dense breasts 1 Occurrences starting 05/24/2024 until 06/23/[address] [facility] Work Phone: Comment on above: 1 Occurrences starti ng 05/24/2024 until 06/23/2025 US Heart [facility] End: 08-10-2025 XR Knee AP and Lateral and Merchants XR KNEE POST OP 3V AP/LAT/MERCHANT LEFT Radiology Routine Aftercare following left knee joint replacement surgery 1 Occurrences starting 07/11/2024 until 08/10/[address] [facility] Work Phone: Comment on above: 1 Occurrences starti ng 07/11/2024 until 08/10/2025 [facility] Immunizations Immunization Date Immunization Notes Care Provider [facility] 12-22-2021 influenza, injectabl e, quadrivalent, preservative free Dr. Arely Johnson Work Phone: [facility] 12-22-2021 influenza, seasonal, injectable [facility] 12-22-2021 influenza virus vaccine, unspecified formulation Kristina Burns MD Work Phone: [facility] 12-22-2019 influenza, injectable,quadrivalent , preservative free, pediatric Dr. Arely Johnson Work Phone: [facility] 12-22-2019 Flucelvax Quad [id number] (PF) (flu vac qs 2020(4 yr up)CD(PF)) 60 mcg ([address] Arely Johnson Work Phone: [facility] Work Phone: 11-22-2018 Flucelvax Quad [id number] (PF) (flu vac qs 2019(4 yr up)CD(PF)) 60 mcg ([address] Arely Johnson Work Phone: [facility] Work Phone: 11-21-2018 tetanus and diphther ia toxoids, not adsorbed, for adult use Kristina Burns MD Work Phone: [facility] 11-21-2018 tetanus toxoid, redu cristy diphtheria toxoid, and acellular pertussis vaccine, adsorbed Dr. Arely Johnson Work Phone: [facility] Payers Date Payer Category Payer Self-pay [id number] 2019 Unknown [id number] 2018 Private Health Insurance [id number] 2018 Unknown [id number] 2018 Unknown [id number] 1970 Unknown [id number] 2.16.8 [id number] Unknown [id number] 2.16.8 [id number] Unknown [id number] 2.16.8 [id number] Unknown [id number] 2.16.8 [id number] Unknown [id number] 2.16.8 [id number] Unknown [id number] 2.16.8 [id number] Unknown [id number] 2.16.8 [id number] Unknown [id number] 2.16.8 [id number] Unknown [id number] 2.16.8 [id number] Unknown [id number] 2.16.8 [id number] Unknown [id number] 2.16.8 [id number] Unknown [id number] 2.16.8 [id number] Unknown [id number] 2.16.8 [id number] Unknown [id number] 2.16.8 [id number] Unknown [id number] 2.16.8 [id number] Social History Date Type Detail Facility Start: 03-28-2021 End: 03-25-2023 Tobacco smoking status OKIS Unknown if ever smoked [facility] Start: 11-21-2018 Spouse/ Signif icant Other [facility] Start: 01-25-2020 Non-smoker [facility] Start: 1970 Sex Assigned At Female A [facility] Tobacco smoking status No Smoking Status Entered [facility] Start: 09-16-2021 End: 03-03-2024 Tobacco smoking status NHIS Never smoked tobacco [facility] Start: 09-16-2021 Tobacco use and exposure Smokeless tobacco non-user [facility] Start: 03-18-2022 End: 05-24-2024 Alcohol intake Current drinker of alcohol (finding) [facility] Start: 1970 Sex Assigned At Not on file [facility] Start: 07-10-2022 End: 10-09-2022 History of Social function [facility] Start: 07-10-2022 End: 10-09-2022 Tobacco use panel [facility] National Score (1-100), lower number is lower risk 58 [facility] Start: 05-07-2024 End: 05-17-2024 Sex Female (finding) [facility] Medical Equipment Procedure Code Equipment [...] Bone High Viscosity 20ml Sterile 40gm - [id number] Start: 07-23-2022 Insert Triathlon 2 11mm Tibial Bearing Posterior Stabilize Sterile Knee [id number] Start: 07-23-2022 Stem Triathlon 12mm Cocr 50mm Femoral Cemented Total Stabilized Knee - [id number] Start: 07-23-2022 Component Triathlon 32mm 10mm Patellar Asymmetric Knee - [id number] Start: 07-23-2022 Component Triathlon 3 Femoral Cemented Posterior Stabilize Knee Left - [id number] Start: 07-23-2022 Baseplate Triathlon 2 [place] Cocr Tibial Total Stabilize Cemented Knee - [id number] Start: 07-23-2022 Goals Date Patient Goal Desired Activity /State Functional Status Date Assessment Result Facility 07-24-2022 Are you deaf, or do you have serious difficulty hearing No 07/24/2022 3:05 PM Syed Paulson RN No [facility] 07-24-2022 Are you blind, or do you have serious difficulty seeing, even when wearing glasses No 07/24/2022 3:05 PM Syed Paulson RN No [facility] 07-24-2022 Do you have serious difficulty walking or climbing stairs Yes 07/24/2022 3:05 PM Syed Paulson RN Yes [facility] 07-24-2022 Do you have difficul ty dressing or bathing No 07/24/2022 3:05 PM Syed Paulson RN No [facility] 07-24-2022 Because of a physica l, mental, or emotional condition, do you have difficulty doing errands alone such as visiting a physician's office or shopping No 07/24/2022 3:05 PM Syed Paulson RN No [facility] Mental Status Date Assessment Result Facility 07-24-2022 Because of a physica l, mental, or emotional condition, do you have serious difficulty concentrating, remembering, or making decisions No 07/24/2022 3:05 PM EDT Syed Wolf RN No [facility] Clinical Notes 03-18-2022 to 08-23-2024 Note Date & Type Note Facility 08-23-2024 Evaluation note Diagnosis Onset Date Resolution Anxiety and depression chronic Ju ly 2024 5:31pm Chronic pain chronic August 23, 2 025 5:31pm Hyperlipidemia chronic August 23, 2024 5:31pm Hypothyroidism chronic August 23, 2024 5:31pm [facility] Work Phone: 1(272) 176-173804-16-2025 Instructions* Patient Instructions* Buddy Hernadez APRN.FILM REPRODUCER - 05/24/2024 7:51 AM EDT Lubricants and moisturizers list The fsda-jlk-qvuboml vaginal moisturizer and lubricant products can be [...] in any drugstore or online. Also, many [employer] stores do carry high-quality lubricant products. VAGINAL [...] lube Replens Silky Smooth Pulse Aloe-ahh Wet [place] MARY Premium Personal Lubricant PINK Silicone Lubricant [employer] silk Pulse is a hands free personal lubricant warming dispenser and is sold with water or silicone basedlubricant pods that some women prefer for travel. LONG ACTING VAGINAL MOISTURIZERS: (For regular use inside vagina to maintain moisture) Long acting vaginal moisturizers should be used at least twice weekly on a regular basis. Many women find they need to use a moisturizer 3-5 times/week. In addition, it is important to not only applythe moisturizer inside the vagina, but also to apply to the vestibule (the external area surrounding the opening of the vagina). Women who are not sexually active often find that the regular use of along acting vaginal moisturizer makes them feel more comfortable. Residency Program Coordinator beware: many lubricants arelabeled as moisturizers to make them more appealing [...] also be applied externally for comfort. [place] Aloe [place]: Many people are allergic to aloe, so [...] history of osteoporosis, are thin, or , orwho take certain medications such as cancer chemotherapy, [...] calcium and are the major food contributors inthe [place]. For example, 8oz of milk (whole, lowfat or skim) contains about 300mg calcium, 8oz of yogurt contains 415mg. Nondairy sources include salmon and sardines and vegetables, such as Italian cabbage, kale, and broccoli. Foods fortified with calcium include many fruit juices, tofu and cereals. For more food calcium content information, visit http://ods.od.nih.gov/factsheets/calcium. Calcium supplements come in several different forms. [...] acid, calcium carbonate is found in some zeoi-qru-wzdquta antacid products, such as Tums and Rolaids . Depending on its strength, each chewable pill or softchew provides 200 to 400 mg of elemental calcium. The percentage of calcium absorbed depends on the total amount of elemental calcium consumed at onetime. Absorption is highest in doses <500mg. So [...] and maintains adequate blood levels of calcium andphosphate for normal bone growth and bone remodeling. [...] content, and sunscreen are among the factors thataffect UV radiation exposure and vitamin D synthesis. Despite the importance of the sun for vitaminD synthesis, it is prudent to limit exposure [...] available in two forms, D2 (ergocalciferol) and D3(cholecalciferol). The two are equivalent at normal supplement [...] prescribed by your doctor. [facility] NoteHNO ID: [id number] Author: BUDDY HERNADEZ APRN.CNP Service: ? Author [...] pelvic pain: No Last mammogram: 2024 normal [facility] History of abnormal mammogram: No OB History [...] discussed with the Patient or Patient's Authorized Audit Senior Associate. As applicable, any other physician, advance practice provider, medical student, or other health professional student that will be observing or involved in the sensitive examination for educational or training purposes was discussed with the Patient or Authorized Audit Senior Associate. The Patient or Authorized Audit Senior Associate has agreed to proceed with the sensitive [...] external genitalia atrophic, normal Bartholin's glands, urethra, Sidon's glands, + <0.5 cm inclusion cyst noted [...] NAAT - BACTERIAL VAGINOSIS NAAT Buddy Hernadez APRN.[facility]04-16-2025 History of Present illness Narrative* Buddy Hernadez APRN.FILM REPRODUCER - 05/24/2024 7:18 AM EDT Chavez is a 53 year old who presents for an annual gynecologic exam with complaints: vaginal odor, hip pain, decreased libido, and vaginal dryness. Postmenopausal: Yes HRT use: No. Menses: hysterectomy Sexually active: No Contraception: hysterectomy History of abnormal pap: No Colposcopy: No. Leep: No. Cone biopsy: No. Bothersome pelvic pain: No Last mammogram: 2024 normal [facility] History of abnormal mammogram: No OB History [...] discussed with the Patient or Patient's Authorized Audit Senior Associate. As applicable, any other physician, advance practice provider, medical student, or other health professional student that will be observing or involved in the sensitive examination for educational or training purposes was discussed with the Patient or Authorized Audit Senior Associate. The Patient or Authorized Audit Senior Associate has agreed to proceed with the sensitive [...] external genitalia atrophic, normal Bartholin's glands, urethra, Sidon's glands, + <0.5 cm inclusion cyst noted [...] NAAT - BACTERIAL VAGINOSIS NAAT Buddy Hernadez APRN.FILM REPRODUCER documented [facility]04-[facility] Evaluation note* Diagnosis Onset Date Resolution Status Admit Date Anxiety and depression chronic Ap 2024 3:50pm Hypothyroidism chronic May 17, 2024 3:50pm Overweight (BMI 25.0-29.9) chronic May 17, 2024 3:50pm [employer] Work Phone: [phone]) [phone] Telephone encounter Note* Telephone Encounter - Emi Melgar LPN - 05/04/2024 4:41 PM EDT Order faxed [facility]03-27-2025 Miscellaneous Notes* Telephone Encounter - Emi Melgar LPN - 05/04/2024 4:41 PM EDT Order faxed * Telephone Encounter - Emi Melgar LPN - 05/04/2024 11:48 AM EDT Patient has yearly exam scheduled 05/24/2024. Called requesting order for mammogram that is scheduled at [facility] . documented in [facility]Day[facility] Telephone encounter Note * Telephone Encounter - Emi Melgar LPN - 05/04/2024 11:48 AM EDT Patient has yearly exam scheduled 05/24/2024. Called requesting order for mammogram that is scheduled at [facility] . [facility]02-26-2025 Evaluation note* Diagnosis Onset Date Resolution Status Admit Date Anxiety and depression chronic Fe bruary 2024 5:26pm Chronic pain chronic March 5:26pm Hypothyroidism chronic March 122024 5:26pm Overweight (BMI 25.0-29.9) chronic April 05, 2024 5:26pm Anxiety and depression chronic Ap ril 2024 3:50pm Hypothyroidism chronic May 17, 2024 3:50pm Overweight (BMI 25.0-29.9) chronic May 17, 2024 3:50pm [facility] Work Phone: 1(922) 564-340701-24-2025 Evaluation note* Diagnosis Onset Date Resolution Status Admit Date Cystitis acute March 03, 2024 6:03am Anxiety and depression chronic Fe bruary 2024 5:26pm Chronic pain chronic March 5:26pm Hypothyroidism chronic March 122024 5:26pm Overweight (BMI 25.0-29.9) chronic April 05, 2024 5:26pm [facility] Work Phone: 1(690) 655-254512-05-2024 Telephone encounter Note* Telephone Encounter - Lashae Messer - 01/13/2024 2:31 PM EST I spoke to the patient. She would like a card mailed to her and a letter to [facility] as a back up. Will order card and send letter to [employer] [place]. [facility]12-05-2024 Miscellaneous Notes* Telephone Encounter - Lashae Messer - 01/13/2024 2:31 PM EST I spoke to the patient. She would like a card mailed to her and a letter to [facility] as a back up. Will order card and send letter to [employer] [place]. * Telephone Encounter - Ewelina Jacobs RN - 01/13/2024 9:07 AM EST Patient calling She is asking for a letter to show [employer] about her knee replacement as she has a few trips and a cruise coming up documented in this encounterDayton [facility]12[facility]-2024 Telephone encounter Note * Telephone Encounter - Ewelina Jacobs RN - 01/13/2024 9:07 AM EST Patient calling She is asking for a letter to show [employer] about her knee replacement as she has a few trips and a cruise coming up [facility]07-19-2024 NoteHNO ID: [id number] Author: KRISTINA BURNS MD Service: ? Author [...] new orthopedic problems Kristina Burns MD Electronic SignatureThe [facility]07-19-[facility] History of Present illness Narrative* Kristina Burns MD - 08/27/2023 11:[address] 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 Post- operative recovery was uneventful. Patient's rating of condition: improving Comments: Patient reports that her preoperative pain has improved Does the Pt. still experience pain? PAIN EVALUATION 07/30/2023 8036 Pain Level: 0 Pain Location: Knee-Left Functional [...] Burns MD Electronic Signature documented in this encounterDayton [facility]06-21-2024 History of Present illness Narrative* Sally Delatorre Tech - 07/30/2023 3:00 PM EDT Radiology Service Progress Note PATIENT NAME: Chavez Maruqes DATE OF SERVICE: July 30, 2023 TIME: [...] PATIENT PRESENTS WITH AN IMPLANTABLE OR ATTACHED PER ASSESSMENT NURSE: No RADIOLOGY DEPARTMENT: General X-ray: Exam(s) Completed: Lower Extremity X- Ray(s): Knee, AP / Lat / Merchant Left and Wt. Bearing PERIPHERAL IV DATA: Not applicable SIGNED BY: Aneudy Joreg July 30, 2023 3:04 PM documented in this encounterDayton Children'S Hospital06-21-2024 NoteHNO ID: [id number] Author: SALLY DELATORRE Tech Service: Radiology Author Type: Registered Public Health Nurse Type: Progress Notes Filed: 07/30/2023 15:05 Note [...] PATIENT PRESENTS WITH AN IMPLANTABLE OR ATTACHED PER ASSESSMENT NURSE: No RADIOLOGY DEPARTMENT: General X-ray: Exam(s) Completed: Lower Extremity X-Ray(s): Knee, AP / Lat / Merchant Left and Wt. Bearing PERIPHERAL IV DATA: Not applicable SIGNED BY: Aneudy Jorge July 30, 2023 3:04 PMUniversity Hospitals Samaritan Medical [id number] History of Present illness Narrative* Candida Clark [...] L0 SAB0 IAB0 Ectopic0 Multiple0 Live Births0 Pump Tender History LMP: Hysterectomy Age at Menarche: Age at First : Age at Menopause: Pump Tender History Comments: Sexual Activity: Yes; Male; hysterectomy [...] external genitalia normal, normal Bartholin's glands, urethra, Sidon's glands, no vulvar lesions, good vaginal support, [...] needed Candida Clark MD documented in this encounterDayton [facility]10-05-2023 History of Present illness Narrative* Kristina [...] Burns MD Electronic Signature documented in this encounterDayton Children'[facility] Hospital09-01-2023 History of Present illness Narrative* Betty Mike RN - 10/09/2022 2:46 PM EDT Received outside medical records from [place] [employer]. Sent for scanning. Betty Mike RN documented in this encounterDayton Children'S Hospital07-05-2023 Miscellaneous Notes* PT DISCHARGE - Tammy [...] summary for intervention/education details. documented in this encounterDayton Children'S Hospital06-30-2023 History of Present illness Narrative* Dada [...] answered. Dada Solis PA-C documented in this encounterDayton Children'S Hospital06-30-2023 History of Present illness Narrative* Sally [...] 07, 2022 11:02 AM documented in this encounterDayton Children'S Hospital06-30-2023 NoteHNO ID: [id number] Author: Aneudy Jorge Service: Radiology Author Type: Registered Public Health Nurse Type: Progress Notes Filed: 08/07/2022 11:03 AM [...] BY: Aneudy Jorge August 07, 2022 11:02 AMUniversity Hospitals Samaritan Medical [id number] Miscellaneous Notes* PT ROUTINE/REASSESSMENT/RECERT/CASE MGMT - Tammy Humphrey, PT - 08/06/2022 8:31 AM EDT SITUATION: spouse present during today's visit. patient reports the following since the last homecare visit: medications/allergies--no changes, no fall. patient reports that she is eager to see the ortho tomorrow. She did get her OP PT scheduled for 08/14 BACKGROUND: Diagnoses (reason for Home Care): from [...] summary for intervention/education details. documented in this encounterDayton Children'[facility] Hospital06-26-2023 Miscellaneous Notes* Telephone Encounter - Dada [...] run out late today. Please call to [facility]. Thanks. documented in this encounterDayton Children'S Hospital06-23-2023 Miscellaneous Notes* PT ROUTINE/REASSESSMENT/RECERT/CASE MGMT - [...] pts permission a photo was uploaded to [employer] for md to review . Unfortunately there was poor connectively and the photo would not upload to the chart Plan of care, goals, and visit frequency reviewed and agreed upon with patient and/or caregiver. Current Discharge Plan: outpatient rehab Anticipate discharge by 08/15/22 RECOMMENDATION: Next visit to focus on ther ex, gait, balance See intervention summary for intervention/education details. documented in this encounterDayton [facility] Hospital06-21-2023 Miscellaneous Notes* PT ROUTINE/REASSESSMENT/RECERT/CASE MGMT - [...] summary for intervention/education details. documented in this encounterDayton Children'S Hospital06-16-2023 Miscellaneous Notes* Telephone Encounter - AMILCAR Wallace - 07/24/2022 12:52 PM EDT Welcome Home Call: a. Date and Time: 12:52 PM 07/24/2022 b. Contact name/relationship: Patient, Chavez c. Have you been active with any Home Care company in the last 60 days(such as help with bathing, filling medications, checking your blood pressure) ? No. d. [facility] will be providing your [...] maintain a safe environment for our caregivers, [facility] requires anyanimals or weapons present in the home be located in a secured location. Our clinicians will call you the night before or the morning of the appointment. Their # may come up restricted but they'll leave a VM for you. In case you have any questions or concerns in the meantime, our # is [phone], option 5 Thank you for your time and have a great day. Soo Rae PSS documented in this encounterDayton Children'S Hospital06-14-2023 Miscellaneous Notes* Telephone Encounter - AMILCAR Triana - 07/22/2022 9:18 AM EDT Faxed this date. * Telephone Encounter - AMILCAR Triana - 07/20/2022 12:16 PM EDT Jethro is requesting her PAT and EKG to be faxed to her PCP Dr Johnson at [phone] documented in this encounterDayton Children'S Hospital06-05-2023 Miscellaneous Notes* Telephone Encounter - Dada Solis PA-C - 07/13/2022 2:09 PM EDT Walker Rx faxed to [facility] as requested. Parvez Solis PA-C * Telephone Encounter - Buddy Pierre RN - 07/13/2022 1:43 PM EDT Fax number is [phone] * Telephone Encounter - Dada Solis PA-C - 07/13/2022 1:24 PM EDT I called the number provided as requested but there was no answer. [facility]. I'm not sure why [facility] is calling but am happy to fax a script to them if they provide us with a fax number. Parvez Solis PA-C * Telephone Encounter - Buddy Pierre RN - 07/13/2022 12:46 PM EDT Joanne from [facility] calling., Parvez sent a prescription to [facility] for a wheeled walker. Script needs to be sent to the [facility] [employer] [facility] in [place] for insurance verification. Ph. [phone] extension 3 documented in this encounterDayton Children'S Hospital05-13-2023 History of Present illness Narrative* AMMON Worley - 06/20/2022 8:30 AM EDT Radiology Service [...] 20, 2022 8:47 AM documented in this encounterDayton Children'S Hospital05-01-2023 Miscellaneous Notes* Telephone Encounter - [place] [...] Please contact for scheduling. documented in this encounterDayton Children'S Hospital04-26-2023 Miscellaneous Notes* Telephone Encounter - Dada Solis PA-C - 06/03/2022 2:05 PM EDT Orders entered, signed, and faxed as requested. Parvez Solis PA-C * Telephone Encounter - AMILCAR Triana - 06/03/2022 11:15 AM EDT Patient requesting scripts for: raised toilet seat with arms Walker with wheels Cane Shower chair Grab bars for shower. Would [facility]. She also is having a tooth removed 06/12/22 and wanted us to be aware. Surgery scheduled 07/23/22. documented in this encounterDayton Children'S Hospital04-05-2023 Miscellaneous Notes* Telephone Encounter - AMILCAR Triana - 05/13/2022 10:50 AM EDT TOTAL JOINT COMPLETE CARE PROGRAM PRE-OPERATIVE TEACHING Service Date: 05/13/2022 Service Time: 9:40 AM Date of : 1970 Gender: female Date of Surgery: July 23, 2022 Procedure: Left Total Knee Replacement Complete Care Program was discussed with the patient: Gi Tech Identification: Patient identified a respiratory care program director to help when discharged to home: for [...] Patient plans discharge home with [facility]. SIGNATURE: AMILCAR Triana PATIENT NAME: Chavez Marques DATE: May 13, 2022 TIME: 10:51 AM documented in this encounterDayton Children'S Hospital02-18-2023 History of Present illness Narrative* Kristina Burns MD - 03/28/2022 5:38 PM EST braceCONSULT ORTHOPAEDIC: KNEE PRIMARY CARE PHYSICIAN: Lilly Pompa MD REFERRING PROVIDER: Lilly Pompa MD [id number] [facility] [address] [facility] [id number] ASSESSMENT & PLAN Impression: Left Traumatic Arthritis [...] KNEE DIAGNOSTIC W/WO SYNOVIAL BX SPX Left 2008 ARTHROSCOPY KNEE DIAGNOSTIC W/WO SYNOVIAL BX SPX [...] showed severe tricompartmental osteoarthritis where he is sobz-or-uzzhzn both the medial and the lateral compartments. The tibia is subluxed laterally and anteriorly on the lateral view consistent with a global instability Kristina Burns MD 03/18/2022 PATIENT NAME: Chavez Marques documented in this encounterDayton Children'S Hospital02-13-2023 Miscellaneous Notes* Telephone Encounter - Nick Perez PA-C - 03/23/2022 12:33 PM EST Questions were addressed in another my chart encounter. Nick Perez PA-C * Telephone Encounter - [place]ashae [place]rizales [facility]23/2022 9:06 AM EST Patient will be having a lt tka danial. She is asking: How long will she be out of work? 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 How long will she need to stop driving? She prefers her answers by email. Vidatron[employer]art is acceptable also. documented in this encounterDayton Children'S Hospital02-08-2023 History of Present illness Narrative* Ruth [...] 18, 2022 8:05 AM documented in this encounterSouthview Medical Centeration + Plan note No data available for this section [facility] Evaluation note* Diagnosis Onset Date Resolution Status Acute upper respiratory infection acute Acute neck pain acute Thoracic back pain [facility] Work Phone: Evaluation note* Diagnosis Onset Date Resolution Status Acute neck pain acute Thoracic back pain acute [facility] Work Phone: Evaluation note* Diagnosis Onset Date Resolution Status Bradycardia chronic 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 Diarrhea noneactive [facility] Work Phone: Evaluation note* Diagnosis Onset Date Resolution Status Bradycardia chronic 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 Diarrhea noneactive Viral pharyngitis acute [facility] Work Phone: Evaluation note* Diagnosis Primary osteoarthritis of left knee- Primary Primary localized osteoarthrosis, lower leg documented in this encounter [facility] noteNo assessment information availableWCorey Hospital Work Phone: Evaluation note* Diagnosis Primary osteoarthritis of left knee- Primary Primary localized osteoarthrosis, lower leg documented in this encounter [facility] note* Diagnosis Onset Date Resolution Status Caregiver burden acute Osteoarthritis chronic [facility] Work Phone: Evaluation note* Diagnosis Primary osteoarthritis of left knee- Primary Primary localized osteoarthrosis, lower leg Primary osteoarthritis of left knee Primary localized osteoarthrosis, lower leg documented in this encounter [facility] note* Diagnosis Preoperative testing Preoperative examination, unspecified Primary osteoarthritis of left knee Primary localized osteoarthrosis, lower leg Primary osteoarthritis of left knee Primary localized osteoarthrosis, lower leg documented in this encounter [facility] note* Diagnosis S/P total knee arthroplasty, left documented in this encounter [facility] note* Diagnosis S/P total knee arthroplasty, left- Primary documented in this encounter [facility] note* Diagnosis Preoperative testing- Primary Preoperative examination, unspecified Primary osteoarthritis of left knee Primary localized osteoarthrosis, lower leg documented in this encounter [facility] note* Diagnosis Onset Date Resolution Status Caregiver burden acute Anxiety and depression chron ic Hypothyroidism chronic Osteoarthritis [facility] Work Phone: Evaluation note* Diagnosis S/P total knee arthroplasty, left- Primary documented in this encounter [facility] note* Diagnosis Onset Date Resolution Status Caregiver burden acute Anxiety and depression chron ic Hypothyroidism chronic Osteoarthritis chronic Anxiety and depression chron ic Hypothyroidism chronic Health care maintenance acut e Anxiety and depression chron ic Dry mouth chronic Hypothyroidism chronic Osteoarthritis [facility] Work Phone: Evaluation note* Diagnosis Onset Date Resolution Status Anxiety and depression chron ic Hypothyroidism chronic Health care maintenance acut e Anxiety and depression chron ic Dry mouth chronic Hypothyroidism chronic Osteoarthritis chronic Bradycardia chronic Heart murmur chronic History of palpitations [facility] Work Phone: Evaluation note* Diagnosis Onset Date Resolution Status Health care maintenance acut e Anxiety and depression chron ic Dry mouth chronic Hypothyroidism chronic Osteoarthritis chronic Bradycardia chronic Heart murmur chronic History of palpitations [facility] Work Phone: Evaluation note* Diagnosis Encounter for gynecological examination (general) (routine) without abnormal findings- Primary documented in this encounter [facility] note* Diagnosis Onset Date Resolution Status Anxiety and depression chron ic Dry mouth chronic Hypothyroidism chronic Osteoarthritis chronic [facility] Work Phone: Evaluation note* Diagnosis Aftercare following left knee joint replacement surgery- Primary documented in this encounter [facility] note* Diagnosis Pre-operative examination- Primary Preoperative examination, unspecified Intractable migraine without status migrainosus, unspecified migraine type Bradycardia Other specified cardiac dysrhythmias Hypothyroidism, unspecified type Left knee pain, unspecified chronicity documented in this encounter [facility] note* Diagnosis Pre-operative examination- Primary Preoperative examination, unspecified Intractable migraine without status migrainosus, unspecified migraine type Bradycardia Other specified cardiac dysrhythmias Hypothyroidism, unspecified type Left knee pain, unspecified chronicity documented in this encounter [facility]* Diagnosis Pain Generalized pain documented in this encounter [facility]* Diagnosis Pre-operative examination- Primary Preoperative examination, [...] female genital organs documented in this encounter [facility] note* Diagnosis Pre-operative examination- Primary Preoperative examination, unspecified Intractable migraine without status migrainosus, unspecified migraine type Bradycardia Other specified cardiac dysrhythmias Hypothyroidism, unspecified type Aftercare following left knee joint replacement surgery- Primary [facility] Discharge instructions No data available for this section [facility] Patient's home Plan of care note* Visit [...] No Improved Muscle Performance and/or ROM Description: district director goal 1: Patient will demonstrate improved strength to meet functional goals as evidenced by improve standing tolerance to 8-10 min to improve ADL/IADL's, to be achieved by 08/15/22. district director goal 2: Patient will demonstrate improved surgical [...] toe recip pattern documented in this encounter [facility]* Visit [...] clean dressing and contact provider and PT director of casework department. Problem:PT Orthopedic Condition Goal:Manage Orthopedic Condition Completed [...] toe recip pattern documented in this encounter [facility]* Visit [...] No Improved Muscle Performance and/or ROM Description: district director goal 1: Patient will demonstrate improved strength to meet functional goals as evidenced by improve standing tolerance to 8-10 min to improve ADL/IADL's, to be achieved by 08/15/22. district director goal 2: Patient will demonstrate improved surgical [...] pacing/stride length . documented in this encounter [facility]* Visit [...] Yes Improved Muscle Performance and/or ROM Description: alf goal 1: Patient will demonstrate improved strength to meet functional goals as evidenced by improve standing tolerance to 8-10 min to improve ADL/IADL's, to be achieved by 08/15/22. district director goal 2: Patient will demonstrate improved surgical [...] Impaired mobility Completed Yes Improved Balance Description: alf goal: Patient will demonstrate improved functional ability [...] pattern x 150 documented in this encounter [facility] No data available for this section [facility] Reason for referral (narrative)* Diagnostic Procedure Only (Routine) - Closed Specialty Diagnoses / Procedures Referred By Dave t Referred To Contact XR IMAGING Diagnoses Left knee pain, unspecified chronicity Procedures XR KNEE POST OP 3V AP/LAT/MERCHANT LEFT RADIOLOGIC EXAMINATION KNEE 3 VIEWS Kristina Burns MD [address] [place] [address] [place] [address] Referral ID Status Reason Start Date Expiration Date V isits Requested Visits Authorized [id number] Closed Auto-Generate d Referral 07/12/2023 08/07/2024 1 1 [facility] for referral (narrative)* Diagnostic Procedure Only (Routine) - Closed Specialty Diagnoses / Procedures Referred By Dave t Referred To Contact XR IMAGING Diagnoses Left knee pain, unspecified chronicity Procedures XR KNEE POST OP 3V AP/LAT/MERCHANT LEFT RADIOLOGIC EXAMINATION KNEE 3 VIEWS Dada Solis PA-C [address] [place] [address] [place] [address] Referral ID Status Reason Start Date Expiration Date V isits Requested Visits Authorized [id number] Closed Auto-Generate d Referral 07/27/2022 08/26/2023 1 1 [facility] for referral (narrative)* Diagnostic Procedure Only (Routine) - Closed Specialty Diagnoses / Procedures Referred By Contac t Referred To Contact XR IMAGING Diagnoses Pain Procedures XR KNEE GENERAL 4V AP BOTH/PA BOTH/LAT/MERC BILATERAL RADIOLOGIC EXAM KNEE COMPLETE 4/MORE VIEWS Dada Solis PA-C [address] [place] [address] [place] [address] Referral ID Status Reason Start Date Expiration Date V isits Requested Visits Authorized [id number] Closed Auto-Generate d Referral 01/28/2022 02/27/2023 1 1 [facility] for referral (narrative)No reason for referral information availableWCorey Hospital Work Phone: [facility] for visit Narrative* Diagnostic Procedure Only (Routine) - Closed Specialty Diagnoses / Procedures Referred By Contac t Referred To Contact XR IMAGING Diagnoses Left knee pain, unspecified chronicity Procedures XR KNEE POST OP 3V AP/LAT/MERCHANT LEFT RADIOLOGIC EXAMINATION KNEE 3 VIEWS Kristina Burns MD [address] [place] [id number] [place] [address] Referral ID Status Reason Start Date Expiration Date V isits Requested Visits Authorized [id number] Closed Auto-Generate d Referral 07/12/2023 08/07/2024 1 1 [facility] for visit Narrative* Diagnostic Procedure Only (Routine) - Closed Specialty Diagnoses / Procedures Referred By Contac t Referred To Contact XR IMAGING Diagnoses Left knee pain, unspecified chronicity Procedures XR KNEE POST OP 3V AP/LAT/MERCHANT LEFT RADIOLOGIC EXAMINATION KNEE 3 VIEWS Dada Solis PA-C [address] [place] [address] [place] [address] Referral ID Status Reason Start Date Expiration Date V isits Requested Visits Authorized [id number] Closed Auto-Generate d Referral 07/27/2022 08/26/2023 1 1 [facility] for visit Narrative* Diagnostic Procedure Only (Routine) - Closed Specialty Diagnoses / Procedures Referred By Dave t Referred To Contact XR IMAGING Diagnoses Pain Procedures XR KNEE GENERAL 4V AP BOTH/PA BOTH/LAT/MERC BILATERAL RADIOLOGIC EXAM KNEE COMPLETE 4/MORE VIEWS Dada Solis PA-C [address] [place] [address] [place] [address] Referral ID Status Reason Start Date Expiration Date V isits Requested Visits Authorized [id number] Closed Auto-Generate d Referral 01/28/2022 02/27/2023 1 1 [facility] Chief Complaint and Reason for Visit [...] 5:26pm SCREENING May 11, 2024 7:04 am Chief Complaint Admit Date 6 M FU April 05, 2024 5:26pm SCREENING May 11, 2024 7:04 am 6 wk FU May 17, 2024 3:50 pm Reason for Visit Admit Date Anxiety and depression April 05 5:26pm Chronic pain April 05, 2024 5:26pm Hypothyroidism April 05, 2024 5:26pm Overweight (BMI 25.0-29.9) March 5:26pm Anxiety and depression May 17, 2024 3 :50pm Hypothyroidism May 17, 2024 3:50 pm Overweight (BMI 25.0-29.9) May 17 3:50pm Chief Complaint Admit Date SCREENING May 11, 2024 7:04 am 6 wk FU May 17, 2024 3:50 pm 3 M FU August 23, 2024 5:31 pm Reason for Visit Admit Date Anxiety and depression May 17, 2024 3 :50pm Hypothyroidism May 17, 2024 3:50 pm Overweight (BMI 25.0-29.9) May 17 3:50pm Chief Complaint Admit Date 3 M FU August 23, 2024 5:31 pm Reason for Visit Admit Date Anxiety and depression August 23, 2024 5 :31pm Chronic pain August 23, 2024 5:31 pm Hyperlipidemia August 23, 2024 5:31 pm Hypothyroidism August 23, 2024 5:31 pm Family History No Family History Records Found [...] FoundDocuments on File Type Date Recorded Patient Audit Senior Associate Expl anation Advance Directive(s) 07/23/2022 10:19 AM Date Activated Date Inactivated Comments 07/25/2022 6:13 PM Advance Directive Response Recorded Date/ Time Living Will Yes January 24 10:18am Power of Cylinder Honer Yes January 25, 2020 10:18am Latest Code Status on File Code Status Date Activated Date Inactivated Comments Full Code 07/25/2022 6:13 PM Documents on File Type Date Recorded Patient Audit Senior Associate Expl anation Advance Directive(s) 07/23/2022 10:19 AM Latest Code Status on File Code Status Date Activated Date Inactivated Comments Full Code 07/25/2022 6:13 PM Latest Code Status on File Code Status Date Activated Date Inactivated Comments Full Code 07/25/2022 6:13 PM Advance Directive Response Recorded Date/ Time Living Will Yes January 24 9:18am Power of Cylinder Honer Yes January 25, 2020 9:18am Date Activated Date Inactivated Comments 07/25/2022 6:13 PM Advance Directive Response Recorded Date/ Time Living Will Yes January 24 10:18am Do you have a Healthcare Power of Cylinder Honer? Yes January 25, 2020 10:18am Summary Purpose Reason for Referral Specialty Diagnoses / Procedures Referred By Dave hinkle Referred To Contact Physical Therapy Diagnoses S/P total knee arthroplasty, left Procedures CONSULT TO PHYSICAL THERAPY Dada Solis PA-C [address] [place] [address] Referral ID Status Reason Start Date Expiration Date Visits Requested Visits Authorized [id number] Ref Not Required PCP Requested Referral 08/07/2022 08/07/2023 1 1 Specialty Diagnoses / Procedures Referred By Contac t Referred To Contact CT IMAGING Diagnoses Preoperative testing Primary osteoarthritis of left knee Procedures CT KNEE WO IVCON LEFT CT LOWER EXTREMITY W/O CONTRAST MATERIAL Nick Perez PA-C [address] [place] [address] Ct Imaging Referral ID Status Reason Start Date Expiration Date V isits Requested Visits Authorized [id number] Closed Auto-Generate d Referral 06/09/2022 07/24/2022 1 1 Health Concerns Problem Noted Date Total Knee Replacement Pest Controller Assistant Problem Noted Date Total Knee Replacement Pest Controller Assistant Problem Noted Date Total Knee Replacement Pest Controller Assistant Problem Noted Date Total Knee Replacement Pest Controller Assistant Problem Noted Date Total Knee Replacement Pest Controller Assistant Problem Noted Date Total Knee Replacement Pest Controller Assistant Additional Source Comments Goals (unrecognized section and [...] Member Role: Primary Care Physician Address: Address: [address] [place] [address] [place] [address]- Care Team Related Persons Name: REMI MARQUES Address: [address] [place] [address] Source Comments (unrecognize d section and content) In the event this informatio n is protected by the Federal Confidentiality of Alcohol and Drug Abuse Patient Records regulations: The Federal rules restrict any use of the information to criminally investigate or prosecute any alcohol or drug abuse patient.[facility] the event this information is protected by the Federal Confidentiality of Alcohol and Drug Abuse Patient Records regulations: The Federal rules restrict any use of the information to criminally investigate or prosecute any alcohol or drug abuse patient.[facility] the event this information is protected by the Federal Confidentiality of Alcohol and Drug Abuse Patient Records regulations: The Federal rules restrict any use of the information to criminally investigate or prosecute any alcohol or drug abuse patient.[facility] the event this information is protected by the Federal Confidentiality of Alcohol and Drug Abuse Patient Records regulations: The Federal rules restrict any use of the information to criminally investigate or prosecute any alcohol or drug abuse patient.[facility]In the event this information is protected by the Federal Confidentiality of Alcohol and Drug Abuse Patient Records regulations: The Federal rules restrict any use of the information to criminally investigate or prosecute any alcohol or drug abuse patient.[facility] the event this information is protected by the Federal Confidentiality of Alcohol and Drug Abuse Patient Records regulations: The Federal rules restrict any use of the information to criminally investigate or prosecute any alcohol or drug abuse patient.[facility] HospitalIn the event this information is protected by the Federal Confidentiality of Alcohol and Drug Abuse Patient Records regulations: The Federal rules restrict any use of the information to criminally investigate or prosecute any alcohol or drug abuse patient.[facility] HospitalIn the event this information is protected by the Federal Confidentiality of Alcohol and Drug Abuse Patient Records regulations: The Federal rules restrict any use of the information to criminally investigate or prosecute any alcohol or drug abuse patient.[facility] the event this information is protected by the Federal Confidentiality of Alcohol and Drug Abuse Patient Records regulations: The Federal rules restrict any use of the information to criminally investigate or prosecute any alcohol or drug abuse patient.[facility] HospitalIn the event this information is protected by the Federal Confidentiality of Alcohol and Drug Abuse Patient Records regulations: The Federal rules restrict any use of the information to criminally investigate or prosecute any alcohol or drug abuse patient.[facility] HospitalIn the event this information is protected by the Federal Confidentiality of Alcohol and Drug Abuse Patient Records regulations: The Federal rules restrict any use of the information to criminally investigate or prosecute any alcohol or drug abuse patient.[facility] HospitalIn the event this information is protected by the Federal Confidentiality of Alcohol and Drug Abuse Patient Records regulations: The Federal rules restrict any use of the information to criminally investigate or prosecute any alcohol or drug abuse patient.[facility] HospitalIn the event this information is protected by the Federal Confidentiality of Alcohol and Drug Abuse Patient Records regulations: The Federal rules restrict any use of the information to criminally investigate or prosecute any alcohol or drug abuse patient.[facility] HospitalIn the event this information is protected by the Federal Confidentiality of Alcohol and Drug Abuse Patient Records regulations: The Federal rules restrict any use of the information to criminally investigate or prosecute any alcohol or drug abuse patient.[facility] HospitalIn the event this information is protected by the Federal Confidentiality of Alcohol and Drug Abuse Patient Records regulations: The Federal rules restrict any use of the information to criminally investigate or prosecute any alcohol or drug abuse patient.[facility] HospitalIn the event this information is protected by the Federal Confidentiality of Alcohol and Drug Abuse Patient Records regulations: The Federal rules restrict any use of the information to criminally investigate or prosecute any alcohol or drug abuse patient.[facility] HospitalIn the event this information is protected by the Federal Confidentiality of Alcohol and Drug Abuse Patient Records regulations: The Federal rules restrict any use of the information to criminally investigate or prosecute any alcohol or drug abuse patient.[facility] HospitalIn the event this information is protected by the Federal Confidentiality of Alcohol and Drug Abuse Patient Records regulations: The Federal rules restrict any use of the information to criminally investigate or prosecute any alcohol or drug abuse patient.[facility] HospitalIn the event this information is protected by the Federal Confidentiality of Alcohol and Drug Abuse Patient Records regulations: The Federal rules restrict any use of the information to criminally investigate or prosecute any alcohol or drug abuse patient.[facility] HospitalIn the event this information is protected by the Federal Confidentiality of Alcohol and Drug Abuse Patient Records regulations: The Federal rules restrict any use of the information to criminally investigate or prosecute any alcohol or drug abuse patient.[facility] HospitalIn the event this information is protected by the Federal Confidentiality of Alcohol and Drug Abuse Patient Records regulations: The Federal rules restrict any use of the information to criminally investigate or prosecute any alcohol or drug abuse patient.[facility] HospitalIn the event this information is protected by the Federal Confidentiality of Alcohol and Drug Abuse Patient Records regulations: The Federal rules restrict any use of the information to criminally investigate or prosecute any alcohol or drug abuse patient.[facility] HospitalIn the event this information is protected by the Federal Confidentiality of Alcohol and Drug Abuse Patient Records regulations: The Federal rules restrict any use of the information to criminally investigate or prosecute any alcohol or drug abuse patient.[facility] HospitalIn the event this information is protected by the Federal Confidentiality of Alcohol and Drug Abuse Patient Records regulations: The Federal rules restrict any use of the information to criminally investigate or prosecute any alcohol or drug abuse patient.[facility] HospitalIn the event this information is protected by the Federal Confidentiality of Alcohol and Drug Abuse Patient Records regulations: The Federal rules restrict any use of the information to criminally investigate or prosecute any alcohol or drug abuse patient.[facility] HospitalIn the event this information is protected by the Federal Confidentiality of Alcohol and Drug Abuse Patient Records regulations: The Federal rules restrict any use of the information to criminally investigate or prosecute any alcohol or drug abuse patient.[facility] HospitalIn the event this information is protected by the Federal Confidentiality of Alcohol and Drug Abuse Patient Records regulations: The Federal rules restrict any use of the information to criminally investigate or prosecute any alcohol or drug abuse patient.[facility] HospitalIn the event this information is protected by the Federal Confidentiality of Alcohol and Drug Abuse Patient Records regulations: The Federal rules restrict any use of the information to criminally investigate or prosecute any alcohol or drug abuse patient.[facility] HospitalIn the event this information is protected by the Federal Confidentiality of Alcohol and Drug Abuse Patient Records regulations: The Federal rules restrict any use of the information to criminally investigate or prosecute any alcohol or drug abuse patient.[facility] HospitalIn the event this information is protected by the Federal Confidentiality of Alcohol and Drug Abuse Patient Records regulations: The Federal rules restrict any use of the information to criminally investigate or prosecute any alcohol or drug abuse patient.[facility] Reason for Visit (unrecogniz ed section and content) Reason Comments Patient Question Reason Comments New Pain Reason Comments Pre-Op Teaching Reason Comments Orders Specialty Diagnoses / Procedures Referred By Contac t Referred To Contact CT IMAGING Diagnoses Preoperative testing Primary osteoarthritis of left knee Procedures CT KNEE WO IVCON LEFT CT LOWER EXTREMITY W/O CONTRAST MATERIAL Nick Perez PA-C [address] [place] [address] Ct Imaging Referral ID Status Reason Start Date Expiration Date V isits Requested Visits Authorized [id number] Closed Auto-Generate d Referral 06/09/2022 07/24/2022 1 [...] Care Teams (unrecognized sec tion and content) Baby Registry Sales Consultant Relationship Specialty Start Date End Date Arely Johnson MD [address] [place] [address] PCP - General Internal Medicine 09/16/21 Baby Registry Sales Consultant Relationship Specialty Start Date End Date Arely Johnson MD [address] [place], [place] [address] PCP - General Internal Medicine 09/16/21 Team Status: Active Member Role Status Dates Dr. Arely Johnson MD Family Provider Active Dr. Arely Johnson MD Primary Care Provider Active Team Status: Inactive Member Role Status Dates Dr. Arely Johnson MD Primary Care Provider Active Dr. Do Buckley MD Attending Provider, Referring Pr ovider Active Baby Registry Sales Consultant Relationship Specialty Start Date End Date Arely Johnson MD [address] [place] [address] PCP - General Internal Medicine 09/16/21 Stevenson [place]ino, [facility] [address] [place] [address] Specialty Retail Assistant Orthopedics 04/08/22 07/18/22 Baby Registry Sales Consultant Relationship Specialty Start Date End Date Arely Johnson MD [address] [place] [address] PCP - General Internal Medicine 09/16/21 Stevenson [place], [facility] [address] [place] [address] Specialty Retail Assistant Orthopedics 04/08/22 07/18/22 Team Status: Inactive Member Role Status Dates Dr. Arely Johnson MD Primary Care Dre springer, Attending Provider, Referring Provider Active Team Status: Inactive Member Role Status Dates Dr. Arely Johnson MD Primary Care Provider Active NATALIE MARIA Attending Provider, Referring Provider A ctive Baby Registry Sales Consultant Relationship Specialty Start Date End Date Arely Johnson MD [address] [place] [address] PCP - General Internal Medicine 09/16/21 SisStevenson gonzalez, [facility] [address] [place] [address] Specialty Retail Assistant Orthopedics 04/08/22 07/18/22 Baby Registry Sales Consultant Relationship Specialty Start Date End Date Arely Johnson MD [address] [place] [address] PCP - General Internal Medicine 09/16/21 Stevenson Chino, [facility] [address] [place] [address] Specialty Retail Assistant Orthopedics 04/08/22 07/18/22 Baby Registry Sales Consultant Relationship Specialty Start Date End Date Arely Johnson MD [address] [place] [address] PCP - General Internal Medicine 09/16/21 Stevenson [place], [facility] [address] [place] [address] Specialty Retail Assistant Orthopedics 04/08/22 07/18/22 Baby Registry Sales Consultant Relationship Specialty Start Date End Date Arely Johnson MD [address] [place] [address] PCP - General Internal Medicine 09/16/21 Baby Registry Sales Consultant Relationship Specialty Start Date End Date Arely Johnson MD [address] [place] [address] PCP - General Internal Medicine 09/16/21 Kristina Burns MD [address] [address] Home Care Provider Orthopedics 07/24/22 Kristina Burns MD [address] [address] Referring Orthopedics 07/24/22 Tammy Humphrey, PT [address] [place] [address] Double Needle Operator Post Acute Care 07/24/22 Baby Registry Sales Consultant Relationship Specialty Start Date End Date Arely Johnson MD [address] [place] [address] PCP - General Internal Medicine 09/16/21 Kristina Burns MD [address] [address] Home Care Provider Orthopedics 07/24/22 Kristina Burns MD [address] [address] Referring Orthopedics 07/24/22 Tammy Humphrey, PT [address] [facility] [place] [address] Double Needle Operator Post Acute Care 07/24/22 Baby Registry Sales Consultant Relationship Specialty Start Date End Date Arely Johnson MD [address] [place] [address] PCP - General Internal Medicine 09/16/21 Kristina Burns MD [address] [address] Home Care Provider Orthopedics 07/24/22 Kristina Burns MD [address] [address] Referring Orthopedics 07/24/22 Tammy Humphrey, PT [address] [place] [address] Double Needle Operator Post Acute Care 07/24/22 Baby Registry Sales Consultant Relationship Specialty Start Date End Date Arely Johnson MD [address] [place] [address] PCP - General Internal Medicine 09/16/21 Kristina Burns MD [address] [address] Home Care Provider Orthopedics 07/24/22 Kristina Burns MD [address] [place] [address] Referring Orthopedics 07/24/22 Tammy Humphrey, PT [address] [place] [address] Double Needle Operator Post Acute Care 07/24/22 Baby Registry Sales Consultant Relationship Specialty Start Date End Date Arely Johnson MD [address] [facility] [address] PCP - General Internal Medicine 09/16/21 Kristina Burns MD [address] [address] Home Care Provider Orthopedics 07/24/22 Kristina Burns MD [address] [address] Referring Orthopedics 07/24/22 Tammy Humphrey, PT [address] [place] [address] Double Needle Operator Post Acute Care 07/24/22 Baby Registry Sales Consultant Relationship Specialty Start Date End Date Arely Johnson MD [address] [place] [address] PCP - General Internal Medicine 09/16/21 Kristina Burns MD [address] [address] Home Care Provider Orthopedics 07/24/22 Kristina Burns MD [address] [address] Referring Orthopedics 07/24/22 Tammy Humphrey, PT [address] [place] [address] Double Needle Operator Post Acute Care 07/24/22 Baby Registry Sales Consultant Relationship Specialty Start Date End Date Arely Johnson MD [address] [place] [address] PCP - General Internal Medicine 09/16/21 Stevenson Chino [facility] [address] [place] [address] Specialty Retail Assistant Orthopedics 04/08/22 07/18/22 Kristina Burns MD [address] [address] Home Care Provider Orthopedics 07/24/22 Kristina Burns MD [address] [address] Referring Orthopedics 07/24/22 Tammy Humphrey, PT [address] [facility] [place] [address] Double Needle Operator Post Acute Care 07/24/22 Team Status: Active Member Role Status Dates Dr. Arely Johnson MD Primary Care Provider Active Dr. Kristina Burns MD Attending Provider, Referring Provider Active Team Status: Inactive Member Role Status Dates Dr. Arely Johnson MD Primary Care Provider Active Dr. Manuel Pitt DPM Attending Provider, Referrin g Provider Active Baby Registry Sales Consultant Relationship Specialty Start Date End Date Arely Johnson MD [address] [place] [address] PCP - General Internal Medicine 09/16/21 Kristina Burns MD [address] [address] Home Care Provider Orthopedics 07/24/22 Kristina Burns MD [address] [address] Referring Orthopedics 07/24/22 Tammy Humphrey, PT [address] [place] [address] Double Needle Operator Post Acute Care 07/24/22 Baby Registry Sales Consultant Relationship Specialty [place] [address] [place] [address] PCP - General Internal Medicine 09/16/21 Kristina Burns MD [address] [address] Home Care Provider Orthopedics 07/24/22 Kristina Burns MD [address] [address] Referring Orthopedics 07/24/22 Tammy Humphrey, PT [address] [place] [address] Double Needle Operator Post Acute Care 07/24/22 Team Status: Inactive Member Role Status Dates Dr. Arely Johnson MD Primary Care Provider, Refer ring Provider Active Raeann Silver SILVICULTURE TEACHER, SILVICULTURE TEACHER-C Attending Provider Active Team Status: Inactive Member [...] MD Primary Care Provider Active Raeann Silver SILVICULTURE TEACHER, SILVICULTURE TEACHER-C Attending Provider Active Team Status: Inactive Member Role Status Dates Dr. Arely Johnson MD Primary Care Provider Active Raeann Silver SILVICULTURE TEACHER, SILVICULTURE TEACHER-C Attending Provider, Referring Dre springer Active Team Status: Inactive Member Role Status Dates Dr. Arely Johnson MD Primary Care Provider Active Dr. Kristina Burns MD Attending Provider, Referring Provider Active Baby Registry Sales Consultant Relationship Specialty Start Date End Date Arely Johnson MD [address] [place] [address] PCP - General Internal Medicine 09/16/21 Kristina Burns MD [address] [address] Home Care Provider Orthopedics 07/24/22 Kristina Burns MD [address] [address] Referring Orthopedics 07/24/22 Tammy Humphrey, PT [address] [place] [address] Double Needle Operator Post Acute Care 07/24/22 Team Status: Inactive Member Role Status Dates Dr. Arely Johnson MD Primary Care Provider, Atten ding Provider Active Dr. Randall Dorado DO Other Provider Active Dr. Candida Clark MD Referring Provider Active Baby Registry Sales Consultant Relationship Specialty Start Date End Date Arely Johnson MD [address] [place] [address] PCP - General Internal Medicine 09/16/21 Kristina Burns MD [address] [address] Home Care Provider Orthopedics 07/24/22 Kristina Burns MD [address] [address] Referring Orthopedics 07/24/22 Tammy Humphrey, PT [address] [facility] [place] [address] Double Needle Operator Post Acute Care 07/24/22 Baby Registry Sales Consultant Relationship Specialty Start Date End Date Arely Johnson MD [address] [place] [address] PCP - General Internal Medicine 09/16/21 Krisitna Burns MD [address] [address] Home Care Provider Orthopedics 07/24/22 Kristina Burns MD [address] [address] Referring Orthopedics 07/24/22 Tammy Humphrey, PT [address] [facility] [place] [address] Double Needle Operator Post Acute Care 07/24/22 07/30/23 Baby Registry Sales Consultant Relationship Specialty Start Date End Date Arely Johnson MD [address] [facility] [place] [address] PCP - General Internal Medicine 09/16/21 Kristina Burns MD [address] [address] Home Care Provider Orthopedics 07/24/22 Kristina Burns MD [address] [address] Referring Orthopedics 07/24/22 Tammy Humphrey, PT [address] [place] [address] Double Needle Operator Post Acute Care 07/24/22 07/30/23 Baby Registry Sales Consultant Relationship Specialty Start Date End Date Arely Johnson MD [address] [place], [place] [address] PCP - General Internal Medicine 09/16/21 Kristina Burns MD [address] [address] Home Care Provider Orthopedics 07/24/22 Kristina Burns MD [address] [address] Referring Orthopedics 07/24/22 Tammy Humphrey, PT [address] [place] [address] Double Needle Operator Post Acute Care 07/24/22 07/30/23 Baby Registry Sales Consultant Relationship Specialty Start Date End Date Arely Johnson MD [address] [place], [place] [address] PCP - General Internal Medicine 09/16/21 Baby Registry Sales Consultant Relationship Specialty Start Date End Date Arely Johnson MD [address] [place], [place] [address] PCP - General Internal Medicine 09/16/21 Kristina Burns MD [address] [address] Home Care Provider Orthopedics 07/24/22 Kristina Burns MD [address] [address] Referring Orthopedics 07/24/22 Baby Registry Sales Consultant Relationship Specialty Start Date End Date Arely Johnson MD [address] [place] [address] PCP - General Internal Medicine 09/16/21 Kristina Burns MD [address] [address] Home Care Provider Orthopedics 07/24/22 Kristina Burns MD [address] [address] Referring Orthopedics 07/24/22 Team Status: Inactive Member [...] March 03, 2024 End: March 03, 2024 Victoriano Braeden PA, PA Referring Provider Active Sta rt: March 03, [...] May 11, 2024 End: May 11, 2024 Baby Registry Sales Consultant Relationship Specialty Start Date End Date Arely Johnson MD [address] [place] [id number] PCP - General Internal Medicine 09/16/21 Kristina Burns MD [address] [id number] Home Care Provider Orthopedics 07/24/22 Kristina Burns MD [address] [address] Referring Orthopedics 07/24/22 Baby Registry Sales Consultant Relationship Specialty Start Date End Date Arely Johnson MD [address] [place] [place], [place] [phone] PCP - General Internal Medicine 09/16/21 Kristina Burns MD [address] [phone] Home Care Provider Orthopedics 07/24/22 Kristina Burns MD [address] [phone] Referring Orthopedics 07/24/22 Team Status: Inactive Member Role Status Dates Dr. Arely Johnson MD Primary Care Provider Active Start: May 17, 2024 End: May 17, 2024 Dr. Arely Johnson MD Attending Provider Active Start: May 17, 2024 End: May 17, 2024 Dr. Arely Johnson MD Referring Provider Active Start: May 17, 2024 End: May 17, 2024 Team Status: Inactive Member Role Status Dates Dr. Arely Johnson MD Primary Care Provider Active Start: July 12, 2024 End: July 12, 2024 ANA IZAGUIRRE Attending Provider Active Start: July 12, 2024 End: July 12, 2024 ANA IZAGUIRRE Referring Provider Active Start: July 12, 2024 End: July 12, 2024 Dr. Randall Dorado DO Other Provider Active St art: July 12, 2024 End: July 12, 2024 Baby Registry Sales Consultant Relationship Specialty Start Date End Date Arely Johnson MD [address] [place] [place], [place] [phone] PCP - General Internal Medicine 09/16/21 Kristina Burns MD [address] [address] Home Care Provider Orthopedics 07/24/22 Kristina Burns MD [address] [place] [address] Referring Orthopedics 07/24/22 Baby Registry Sales Consultant Relationship Specialty [place] [address] [place] [address] [place] [address] PCP - General Internal Medicine 09/16/21 Kristina Burns MD [address] [place] [address] Home Care Provider Orthopedics 07/24/22 Kristina Burns MD [address] [place] [id number] Referring Orthopedics 07/24/22 Team Status: Active Member Role/Relationship Status Dates Dr. Arely Johnson MD Primary Care Provider Active Team Status: Inactive Member Role/Relationship Status Dates Dr. Arely Johnson MD Primary Care Provider Active Start: May 03, 2024 End: May 03, 2024 ANA IZAGUIRRE Attending Provider Active Start: May 03, 2024 End: May 03, 2024 ANA IZAGUIRRE Referring Provider Active Start: May 03, 2024 End: May 03, 2024 Team Status: Inactive Member Role/Relationship Status Dates Dr. Arely Johnson MD Primary Care Provider Active Start: May 11, 2024 End: May 11, 2024 ANA Schafer Attending Provider Active Sta rt: May 11, 2024 End: May 11, 2024 ANA Schafer Referring Provider Active Sta rt: May 11, 2024 End: May 11, 2024 Team Status: Inactive Member Role/Relationship Status Dates Dr. Arely Johnson MD Primary Care Provider Active Start: May 17, 2024 End: May 17, 2024 Dr. Arely Johnson MD Attending Provider Active Start: May 17, 2024 End: May 17, 2024 Dr. Arely Johnson MD Referring Provider Active Start: May 17, 2024 End: May 17, 2024 Team Status: Inactive Member Role/Relationship Status Dates Dr. Arely Johnson MD Primary Care Provider Active Start: July 12, 2024 End: July 12, 2024 CHARLIE VALERO SILVICULTURE TEACHER-C Attending Provider Active Start: July 12, 2024 End: July 12, 2024 CHARLIE VALERO SILVICULTURE TEACHER-C Referring Provider Active Start: July 12, 2024 End: July 12, 2024 Dr. Randall Dorado , Other Provider Active St art: July 12, 2024 End: July 12, 2024 Team Status: Inactive Member Role/Relationship Status Dates Dr. Arely Johnson MD Primary Care Provider Active Start: August 23, 2024 End: August 23, 2024 Dr. Arely Johnson MD Attending Provider Active Start: August 23, 2024 End: August 23, 2024 Dr. Arely Johnson MD Referring Provider Active Start: August 23, 2024 End: August 23, 2024 Team Status: Inactive Member Role/Relationship Status Dates Dr. Arely Johnson MD Primary Care Provider Active Start: July 12, 2024 End: July 12, 2024 CHARLIE VALERO SILVICULTURE TEACHER-C Attending Provider Active Start: July 12, 2024 End: July 12, 2024 CHARLIE VALERO SILVICULTURE TEACHER-C Referring Provider Active Start: July 12, 2024 End: July 12, 2024 Dr. Randall Dorado , Other Provider Active St art: July 12, 2024 End: July 12, 2024 Team Status: Inactive Member Role/Relationship Status Dates Dr. Arely Johnson MD Primary Care Provider Active Start: August 23, 2024 End: August 23, 2024 Dr. Arely Johnson MD Attending Provider Active Start: August 23, 2024 End: August 23, 2024 Dr. Arely Johnson MD Referring Provider Active Start: August 23, 2024 End: August 23, 2024 Team Status: Inactive Member Role/Relationship Status Dates Dr. Arely Johnson MD Primary Care Provider Active Start: October 13, 2024 End: October 13, 2024 Dr. Arely Johnson MD Attending Provider Active Start: October 13, 2024 End: October 13, 2024 Dr. Arely Johnson MD Referring Provider Active Start: October 13, 2024 End: October 13, 2024 Dr. Randall Dorado DO Other Provider Active St art: October 13, 2024 End: October 13, 2024 INFORMATION SOURCE (unrecogn ized section and content) DATE CREATED AUTHOR 05/27/2022 [facility]ly [facility] ([place]) DATE CREATED AUTHOR AUTHOR'S ORGANIZ ATION 08/01/2023 [facility] DATE CREATED AUTHOR AUTHOR'S ORGANIZ ATION 06/13/2024 [facility] DATE CREATED AUTHOR AUTHOR'S ORGANIZ ATION 12/06/2024 [facility] FOR RECORDS PERTAINING TO PATIENTS WHO [...] BASED ON THE PRIMARY CLINICAL RECORDS. [facility] [employer] provides no warranty or guarantee of the accuracy or completeness of information in this document.
[2024-12-12 09:52] LABS: Hematocrit 38.5 % (37-47); Hemoglobin 12.9 g/dL (12.0-15.0); Immature Granulocytes Count 0.010 X10^3/uL (0.0-0.0); Mean Corp Hgb Conc 33.5 g/dL (32-36); Mean Corpuscular Volume 89.5 fL (81-99); Mean Platelet Vol. 10.2 fl (6.2-12.0); NRBC Flagged by Analyzer 0 % (0-5); Platelet Count 231 K/mm3 (150-450); RBC Distribution Width CV 12.6 % (11.6-14.6); RBC Distribution Width SD 41.1 fl (35.1-43.9); Red Blood Count 4.30 M/mm3 (4.2-5.4); White Blood Count 4.8 K/mm3 (4.4-11.0)
[2024-12-12 10:39] LABS: AST(SGOT) 19 U/L (<=31); Alanine Aminotransfer ALT/SGPT 16 U/L (<=34); Albumin, Serum 4.4 g/dL (3.5-5.0); Alkaline Phosphatase 73 U/L (35-104); Anion Gap 10 (5-15); BUN 15 mg/dL (4-19); BUN/Creat Ratio 22.2 RATIO (10-20); Calcium,Total 9.8 mg/dL (7.6-11.0); Carbon Dioxide 27.9 mmol/L (21.0-32.0); Chloride 103 mmol/L (98-108); Cholesterol 181 mg/dL (<=200); Globulin 2.5 g/dL (2.2-4.2); Glucose 87 mg/dL (70-99); Low Density Lipoprotein Calc. 103 mg/dL; Potassium 4.3 mmol/L (3.3-5.1); Triglycerides 105 mg/dL; Very Low Density Lipoprotein 21 mg/dL (5-40); cholesterol:hdl ratio screen 3.05
== END | disposition home or self-care (01) ==
LOC: MTLAB 07:10
PROVIDERS: PCP Internal Medicine; Referring Provider Internal Medicine; Visit Provider Internal Medicine
DX: E78.5 Hyperlipidemia, unspecified (principal); F41.9 Anxiety disorder, unspecified; F32.A Depression, unspecified
CPT/HCPCS: 36415; 80053; 80061; 85025